=== PATIENT | male | born 1955 | race African-American/Black ===

== ENCOUNTER 2019-07-15 04:45 | Inpatient (IN) | payer OTHER ==
--- OUTSIDE RECORDS SUMMARY | 2019-07-15 04:48 | XMS REPORT ---
:1955 [facility] [address] [place] [address] Care Team Providers Name Role Phone JIM SHEEHAN Primary Care Provider Unavailable MELYSSA POPE Unavailable Unavailable JIM SHEEHAN Unavailable Unavailable Problems This patient has no known problems. Allergies, Adverse Reactions, Alerts This patient has no known allergies or adverse reactions. Medications This patient has no known medications. Results Test Description Test Time Test Comments Text Results Atomic Results Result Comments Comprehensive Metabolic Panel 2019-02-07 21:16:53 Test Item Value Reference Range Comments Sodium Level (test code=Sodium Level) 140.0 mmol/L 135.0-145.0 Potassium Level (test code=Potassium Level) 4.5 mmol/L 3.5-5.1 Chloride Level (test code=Chloride Level) 102 mmol/L 98-105 CO2 (test code=CO2) 25 mmol/L 22-29 Anion Gap (test code=Anion Gap) 13 mmol/L 7-16 BUN (test code=BUN) 20.30 mg/dL 8.00-23.00 Creatinine Level (test code=Creatinine Level) 1.40 mg/dL 0.70-1.20 BUN/Creat Ratio (test code=BUN/Creat Ratio) 14 Glucose Level (test code=Glucose Level) 99 mg/dL 70-115 Calcium Level (test code=Calcium Level) 9.3 mg/dL 8.3-10.5 Alk Phos (test code=Alk Phos) 93 U/L 40-129 Bilirubin Total (test code=Bilirubin Total) 0.4 mg/dL 0.1-0.9 Albumin Level (test code=Albumin Level) 4.0 g/dL 3.5-5.2 Protein Total (test code=Protein Total) 7.3 g/dL 6.4-8.3 ALT (test code=ALT) 11 U/L 1-41 AST (test code=AST) 23 U/L 1-40 Globulin (test code=Globulin) 3.3 g/dL 2.9-3.1 A/G Ratio (test code=A/G Ratio) 1.2 ratio Comprehensive Metabolic [id number] 21:16:53 Test Item Value Reference Range Comments Sodium Level (test 140.0 mmol/L 135.0-145.0 code=Sodium Level) Potassium Level (test 4.5 mmol/L 3.5-5.1 code=Potassium Level) Chloride Level (test 102 mmol/L 98-105 code=Chloride Level) CO2 (test code=CO2) 25 mmol/L 22-29 Anion Gap (test 13 mmol/L 7-16 code=Anion Gap) BUN (test code=BUN) 20.30 mg/dL 8.00-23.00 Creatinine Level (test 1.40 mg/dL 0.70-1.20 code=Creatinine Level) BUN/Creat Ratio (test 14 code=BUN/Creat Ratio) Glucose Level (test 99 mg/dL 70-115 code=Glucose Level) Calcium Level (test 9.3 mg/dL 8.3-10.5 code=Calcium Level) Alk Phos (test code=Alk 93 U/L 40-129 Phos) Bilirubin Total (test 0.4 mg/dL 0.1-0.9 code=Bilirubin Total) Albumin Level (test 4.0 g/dL 3.5-5.2 code=Albumin Level) Protein Total (test 7.3 g/dL 6.4-8.3 code=Protein Total) ALT (test code=ALT) 11 U/L 1-41 AST (test code=AST) 23 U/L 1-40 Globulin (test 3.3 g/dL 2.9-3.1 code=Globulin) A/G Ratio (test code=A/G 1.2 ratio Ratio) eGFR AA (test code=eGFR >60 mL/min/1.73 m2 eGFR (estimated AA) Glomerular Filtration Rate) is an estimated value, calculated from the patient's serum creatinine using the MDRD equation. It is NOT the patient's actual GFR. The eGFR provides a more clinically useful measure of kidney disease than serum creatinine alone.This calculation takes sex and race into account, if the information is provided. If the race is not provided, and the patient is -[place], multiply by 1.212. If sex is not provided, and the patient is female, multiply by 0.742. Results for patients <18 years of age have not been validated by the MDRD study and should be interpreted with caution. eGFR Result Interpretation:eGFR > or=60 is in the Normal RangeeGFR < 60 may mean kidney diseaseeGFR < 15 may mean kidney failure Ranges recommended by the National Kidney Foundation, http://nkdep.nih.gov eGFR Non-AA (test 51.02 mL/min/1.73 eGFR (estimated code=eGFR Non-AA) m2 Glomerular Filtration Rate) is an estimated value, calculated from the patient's serum creatinine using the MDRD equation. It is NOT the patient's actual GFR. The eGFR provides a more clinically useful measure of kidney disease than serum creatinine alone.This calculation takes sex and race into account, if the information is provided. If the race is not provided, and the patient is -[place], multiply by 1.212. If sex is not provided, and the patient is female, multiply by 0.742. Results for patients <18 years of age have not been validated by the MDRD study and should be interpreted with caution. eGFR Result Interpretation:eGFR > or=60 is in the Normal RangeeGFR < 60 may mean kidney diseaseeGFR < 15 may mean kidney failure Ranges recommended by the National Kidney Foundation, http://nkdep.nih.gov Comprehensive Metabolic [id number] 21:16:53 Test Item Value Reference Range Comments Sodium Level (test 140.0 mmol/L 135.0-145.0 code=Sodium Level) Potassium Level (test 4.5 mmol/L 3.5-5.1 code=Potassium Level) Chloride Level (test 102 mmol/L 98-105 code=Chloride Level) CO2 (test code=CO2) 25 mmol/L 22-29 Anion Gap (test 13 mmol/L 7-16 code=Anion Gap) BUN (test code=BUN) 20.30 mg/dL 8.00-23.00 Creatinine Level (test 1.40 mg/dL 0.70-1.20 code=Creatinine Level) BUN/Creat Ratio (test 14 code=BUN/Creat Ratio) Glucose Level (test 99 mg/dL 70-115 code=Glucose Level) Calcium Level (test 9.3 mg/dL 8.3-10.5 code=Calcium Level) Alk Phos (test code=Alk 93 U/L 40-129 Phos) Bilirubin Total (test 0.4 mg/dL 0.1-0.9 code=Bilirubin Total) Albumin Level (test 4.0 g/dL 3.5-5.2 code=Albumin Level) Protein Total (test 7.3 g/dL 6.4-8.3 code=Protein Total) ALT (test code=ALT) 11 U/L 1-41 AST (test code=AST) 23 U/L 1-40 Globulin (test 3.3 g/dL 2.9-3.1 code=Globulin) A/G Ratio (test code=A/G 1.2 ratio Ratio) eGFR AA (test code=eGFR >60 mL/min/1.73 m2 eGFR (estimated AA) Glomerular Filtration Rate) is an estimated value, calculated from the patient's serum creatinine using the MDRD equation. It is NOT the patient's actual GFR. The eGFR provides a more clinically useful measure of kidney disease than serum creatinine alone.This calculation takes sex and race into account, if the information is provided. If the race is not provided, and the patient is -[place], multiply by 1.212. If sex is not provided, and the patient is female, multiply by 0.742. Results for patients <18 years of age have not been validated by the MDRD study and should be interpreted with caution. eGFR Result Interpretation:eGFR > or=60 is in the Normal RangeeGFR < 60 may mean kidney diseaseeGFR < 15 may mean kidney failure Ranges recommended by the National Kidney Foundation, http://nkdep.nih.gov eGFR Non-AA (test 51.02 mL/min/1.73 eGFR (estimated code=eGFR Non-AA) m2 Glomerular Filtration Rate) is an estimated value, calculated from the patient's serum creatinine using the MDRD equation. It is NOT the patient's actual GFR. The eGFR provides a more clinically useful measure of kidney disease than serum creatinine alone.This calculation takes sex and race into account, if the information is provided. If the race is not provided, and the patient is -[place], multiply by 1.212. If sex is not provided, and the patient is female, multiply by 0.742. Results for patients <18 years of age have not been validated by the MDRD study and should be interpreted with caution. eGFR Result Interpretation:eGFR > or=60 is in the Normal RangeeGFR < 60 may mean kidney diseaseeGFR < 15 may mean kidney failure Ranges recommended by the National Kidney Foundation, http://nkdep.nih.gov Comprehensive Metabolic [id number] 23:03:04 Test Item Value Reference Range Comments Sodium Level (test code=Sodium Level) 142.0 mmol/L 135.0-145.0 Potassium Level (test code=Potassium Level) 4.6 mmol/L 3.5-5.1 Chloride Level (test code=Chloride Level) 103 mmol/L 98-105 CO2 (test code=CO2) 27 mmol/L 22-29 Anion Gap (test code=Anion Gap) 12 mmol/L 7-16 BUN (test code=BUN) 15.60 mg/dL 8.00-23.00 Creatinine Level (test code=Creatinine Level) 1.30 mg/dL 0.70-1.20 BUN/Creat Ratio (test code=BUN/Creat Ratio) 12 Glucose Level (test code=Glucose Level) 93 mg/dL 70-115 Calcium Level (test code=Calcium Level) 9.7 mg/dL 8.3-10.5 Alk Phos (test code=Alk Phos) 94 U/L 40-129 Bilirubin Total (test code=Bilirubin Total) 0.3 mg/dL 0.1-0.9 Albumin Level (test code=Albumin Level) 4.5 g/dL 3.5-5.2 Protein Total (test code=Protein Total) 7.6 g/dL 6.4-8.3 ALT (test code=ALT) 10 U/L 1-41 AST (test code=AST) 18 U/L 1-40 Globulin (test code=Globulin) 3.1 g/dL 2.9-3.1 A/G Ratio (test code=A/G Ratio) 1.5 ratio Comprehensive Metabolic [id number] 23:03:04 Test Item Value Reference Range Comments Sodium Level (test 142.0 mmol/L 135.0-145.0 code=Sodium Level) Potassium Level (test 4.6 mmol/L 3.5-5.1 code=Potassium Level) Chloride Level (test 103 mmol/L 98-105 code=Chloride Level) CO2 (test code=CO2) 27 mmol/L 22-29 Anion Gap (test 12 mmol/L 7-16 code=Anion Gap) BUN (test code=BUN) 15.60 mg/dL 8.00-23.00 Creatinine Level (test 1.30 mg/dL 0.70-1.20 code=Creatinine Level) BUN/Creat Ratio (test 12 code=BUN/Creat Ratio) Glucose Level (test 93 mg/dL 70-115 code=Glucose Level) Calcium Level (test 9.7 mg/dL 8.3-10.5 code=Calcium Level) Alk Phos (test code=Alk 94 U/L 40-129 Phos) Bilirubin Total (test 0.3 mg/dL 0.1-0.9 code=Bilirubin Total) Albumin Level (test 4.5 g/dL 3.5-5.2 code=Albumin Level) Protein Total (test 7.6 g/dL 6.4-8.3 code=Protein Total) ALT (test code=ALT) 10 U/L 1-41 AST (test code=AST) 18 U/L 1-40 Globulin (test 3.1 g/dL 2.9-3.1 code=Globulin) A/G Ratio (test code=A/G 1.5 ratio Ratio) eGFR AA (test code=eGFR >60 mL/min/1.73 m2 eGFR (estimated AA) Glomerular Filtration Rate) is an estimated value, calculated from the patient's serum creatinine using the MDRD equation. It is NOT the patient's actual GFR. The eGFR provides a more clinically useful measure of kidney disease than serum creatinine alone.This calculation takes sex and race into account, if the information is provided. If the race is not provided, and the patient is -[place], multiply by 1.212. If sex is not provided, and the patient is female, multiply by 0.742. Results for patients <18 years of age have not been validated by the MDRD study and should be interpreted with caution. eGFR Result Interpretation:eGFR > or=60 is in the Normal RangeeGFR < 60 may mean kidney diseaseeGFR < 15 may mean kidney failure Ranges recommended by the National Kidney Foundation, http://nkdep.nih.gov Lipid [id number] 23:03:04 Test Item Value Reference Range Comments Cholesterol Total (test 193 mg/dL 0-200 RISK OF HEART DISEASEPublished code=Cholesterol Total) by [place] [employer] Analyte Optimal Borderline Increased RiskCHOL <200 200-239 >240TRIG <150 150-199 >200HDL Male >60 <40HDL Female >60 <50LDL <100 130-159 >160LDL Near optimal is 100-129 Triglycerides (test 91 mg/dL 9-200 code=Triglycerides) HDL (test code=HDL) 81 mg/dL 40-60 LDL (test code=LDL) 94 mg/dL 0-130 The equation being used in this calculation is LDL=(Chol - HDL) - (Trig / 5) The equation being used in this calculation is LDL=(Chol - HDL) - (Trig / 5) VLDL (test code=VLDL) 18 mg/dL 5-40 The equation being used in this calculation is VLDL=Trig / 5 The equation being used in this calculation is VLDL=Trig / 5 Chol/HDL (test 2.4 ratio 0.0-5.0 code=Chol/HDL) LDL/HDL Ratio (test 1 The equation being used in this code=LDL/HDL Ratio) calculation is LDL/HDL Ratio=LDL Calc/HDL Chol The equation being used in this calculation is LDL/HDL Ratio=LDL Calc/HDL Chol Thyroid Stimulating [id number] 23:03:04 Test Item Value Reference Range Comments TSH (test code=TSH) 0.848 mIU/mL 0.270-4.200 Pro B Natriuretic [id number] 23:03:04 Test Item Value Reference Range Comments NT-proBNP (test code=NT-proBNP) 1591 pg/mL 0-124 Comprehensive Metabolic [id number] 23:03:04 Test Item Value Reference Range Comments Sodium Level (test 142.0 mmol/L 135.0-145.0 code=Sodium Level) Potassium Level (test 4.6 mmol/L 3.5-5.1 code=Potassium Level) Chloride Level (test 103 mmol/L 98-105 code=Chloride Level) CO2 (test code=CO2) 27 mmol/L 22-29 Anion Gap (test 12 mmol/L 7-16 code=Anion Gap) BUN (test code=BUN) 15.60 mg/dL 8.00-23.00 Creatinine Level (test 1.30 mg/dL 0.70-1.20 code=Creatinine Level) BUN/Creat Ratio (test 12 code=BUN/Creat Ratio) Glucose Level (test 93 mg/dL 70-115 code=Glucose Level) Calcium Level (test 9.7 mg/dL 8.3-10.5 code=Calcium Level) Alk Phos (test code=Alk 94 U/L 40-129 Phos) Bilirubin Total (test 0.3 mg/dL 0.1-0.9 code=Bilirubin Total) Albumin Level (test 4.5 g/dL 3.5-5.2 code=Albumin Level) Protein Total (test 7.6 g/dL 6.4-8.3 code=Protein Total) ALT (test code=ALT) 10 U/L 1-41 AST (test code=AST) 18 U/L 1-40 Globulin (test 3.1 g/dL 2.9-3.1 code=Globulin) A/G Ratio (test code=A/G 1.5 ratio Ratio) eGFR AA (test code=eGFR >60 mL/min/1.73 m2 eGFR (estimated AA) Glomerular Filtration Rate) is an estimated value, calculated from the patient's serum creatinine using the MDRD equation. It is NOT the patient's actual GFR. The eGFR provides a more clinically useful measure of kidney disease than serum creatinine alone.This calculation takes sex and race into account, if the information is provided. If the race is not provided, and the patient is -[place], multiply by 1.212. If sex is not provided, and the patient is female, multiply by 0.742. Results for patients <18 years of age have not been validated by the MDRD study and should be interpreted with caution. eGFR Result Interpretation:eGFR > or=60 is in the Normal RangeeGFR < 60 may mean kidney diseaseeGFR < 15 may mean kidney failure Ranges recommended by the National Kidney Foundation, http://nkdep.nih.gov eGFR Non-AA (test 55.58 mL/min/1.73 eGFR (estimated code=eGFR Non-AA) m2 Glomerular Filtration Rate) is an estimated value, calculated from the patient's serum creatinine using the MDRD equation. It is NOT the patient's actual GFR. The eGFR provides a more clinically useful measure of kidney disease than serum creatinine alone.This calculation takes sex and race into account, if the information is provided. If the race is not provided, and the patient is -[place], multiply by 1.212. If sex is not provided, and the patient is female, multiply by 0.742. Results for patients <18 years of age have not been validated by the MDRD study and should be interpreted with caution. eGFR Result Interpretation:eGFR > or=60 is in the Normal RangeeGFR < 60 may mean kidney diseaseeGFR < 15 may mean kidney failure Ranges recommended by the National Kidney Foundation, http://nkdep.nih.gov Erythrocyte Sedimentation Rate [id number] 22:26:53 Test Item Value Reference Range Comments ESR STAT (test code=ESR STAT) 11 mm/hr 0-9 Complete Blood Count with [id number] 22:14:43 Test Item Value Reference Range Comments WBC (test code=WBC) 6.9 x10 4.4-10.5 RBC (test code=RBC) 4.56 x10 4.10-5.70 Hgb (test code=Hgb) 14.3 g/dL 13.4-17.4 MCV (test code=MCV) 94.50 fL 80.00-100.00 Hct (test code=Hct) 43.1 % 38.7-52.0 MCHC (test code=MCHC) 33.20 g/dL 32.00-37.50 RDW CV (test code=RDW CV) 15.4 % 11.5-14.5 MCH (test code=MCH) 31.4 pg 27.0-32.5 Platelets (test 280.0 x10 140.0-440.0 code=Platelets) MPV (test code=MPV) 9.4 fL Slide Review (test code=Slide Auto Auto Result created by Review) [id number]_[id number]_AUTO nRBC (test code=nRBC) 0 NRBC Abs (test code=NRBC Abs) 0.00 x10 IPF (test code=IPF) 0 % Automated [id number] 22:14:43 Test Item Value Reference Range Comments Neutro Auto (test code=Neutro Auto) 41.7 % 36.0-70.0 Lymph Auto (test code=Lymph Auto) 43.9 % 12.0-44.0 Story Auto (test code=Story Auto) 6.5 % 0.0-11.0 Eos, Auto (test code=Eos, Auto) 6.6 % 0.0-7.0 Basophil Auto (test code=Basophil Auto) 1.0 % 0.0-2.0 Neutro Absolute (test code=Neutro Absolute) 2.9 x10 1.6-7.4 Lymph Absolute (test code=Lymph Absolute) 3.04 x10 .50-4.60 Story Absolute (test code=Story Absolute) .45 x10 .00-1.20 Eos Absolute (test code=Eos Absolute) 0.46 x10 0.00-0.74 Baso Absolute (test code=Baso Absolute) 0.07 x10 0.00-0.21 IG [id number] 22:14:43 Test Item Value Reference Range Comments IG (test code=IG) 0.3 % 0.0-5.0 IG Abs (test code=IG Abs) 0 x10 RAD, CHEST, 2 [id number] 13:44:00Reason for exam:->SmokerFINAL REPORT TECHNIQUE: 2 views of the chest. COMPARISON: None FINDINGS: Thecardiac silhouette is within normal limits. Thoracic aorta is ectatic. Lungs are clear. No acute skeletal abnormality. Left-sided pacing device noted. IMPRESSION: No acute cardiopulmonary disease. Signed: Kyle Rogers MDReport Verified Date/Time: 09/08/2017 13:44:07 Reading Location: [facility] Radiology Reading Room Electronically signed by: KYLE ROGERS M.D. on 01:44 PMCBC W/PLT COUNT & AUTO [id number] 12:29:00 Test Item Value Reference Range Comments WHITE BLOOD CELL COUNT (BEAKER) (test tipo=205) 5.5 K/ L 4.0-10.0 RED BLOOD CELL COUNT (BEAKER) (test swob=940) 4.66 M/ L 4.20-5.80 HEMOGLOBIN (BEAKER) (test gthy=999) 14.6 GM/DL 13.0-16.8 HEMATOCRIT (BEAKER) (test fxbq=863) 43.7 % 40.0-50.0 MEAN CORPUSCULAR VOLUME (BEAKER) (test qdlw=648) 93.6 fL 82.0-98.0 MEAN CORPUSCULAR HEMOGLOBIN (BEAKER) (test 31.3 pg 27.0-33.0 vgbq=827) MEAN CORPUSCULAR HEMOGLOBIN CONC (BEAKER) (test 33.4 GM/DL 32.0-36.0 qlqu=004) RED CELL DISTRIBUTION WIDTH (BEAKER) (test 15.4 % 10.3-14.2 sjpf=851) PLATELET COUNT (BEAKER) (test aync=772) 273 K/CU MM 150-430 MEAN PLATELET VOLUME (BEAKER) (test jzbn=961) 6.4 fL 6.5-10.5 NUCLEATED RED BLOOD CELLS (BEAKER) (test 0 /100 WBC 0-0 naxo=060) (MANUAL DIFFERENTIAL)2017-09-08 12:29:00 Test Item Value Reference Range Comments NEUTROPHILS - REL (DIFF) (BEAKER) (test qkhv=6262) 19 % LYMPHOCYTES - REL (DIFF) (BEAKER) (test bdxu=8821) 72 % EOSINOPHILS - REL (DIFF) (BEAKER) (test vuze=5859) 9 % NEUTROPHILS - ABS (DIFF) (BEAKER) (test iajs=1199) 1.05 K/ L 1.80-8.00 LYMPHOCYTES - ABS (DIFF) (BEAKER) (test abpe=4310) 3.96 K/ L 1.48-4.50 EOSINOPHILS - ABS (DIFF) (BEAKER) (test zxhv=6792) 0.50 K/ L 0.00-0.50 TOTAL COUNTED (BEAKER) (test aciu=0236) 100 WBC MORPHOLOGY (BEAKER) (test pbgo=181) Normal PLT MORPHOLOGY (BEAKER) (test uxhb=961) Normal RBC MORPHOLOGY (BEAKER) (test qmtz=286) Normal COMPREHENSIVE METABOLIC [id number] 12:29:00 Test Item Value Reference Range Comments TOTAL PROTEIN (BEAKER) 6.8 gm/dL 6.0-8.5 (test yhnz=399) ALBUMIN (BEAKER) (test 3.7 g/dL 3.5-5.0 iuij=8117) ALKALINE PHOSPHATASE 83 U/L 30-115 (BEAKER) (test dibz=680) BILIRUBIN TOTAL (BEAKER) 0.5 mg/dL 0.1-1.2 (test rhap=513) SODIUM (BEAKER) (test 140 meq/L 135-148 ttxz=660) POTASSIUM (BEAKER) (test 4.2 meq/L 3.6-5.5 drpy=962) CHLORIDE (BEAKER) (test 104 meq/L 98-106 wrno=786) CO2 (BEAKER) (test 30 meq/L 20-29 mvtd=876) BLOOD UREA NITROGEN 13 mg/dL 10-26 (BEAKER) (test rvmw=047) CREATININE (BEAKER) (test 1.10 mg/dL 0.50-1.20 qnur=461) GLUCOSE RANDOM (BEAKER) 87 mg/dL 70-110 (test kemf=105) CALCIUM (BEAKER) (test 8.9 mg/dL 8.5-10.5 jcpg=814) AST (SGOT) (BEAKER) (test 17 U/L 5-40 kinq=044) ALT (SGPT) (BEAKER) (test 15 U/L 5-50 dsjj=228) EGFR (BEAKER) (test 82 mL/min/1.73 sq m ESTIMATED GFR IS NOT rwrb=3204) ACCURATE CREATININE CLEARANCE IN PREDICTING GLOMERULAR FILTRATION RATE. ESTIMATED GFR IS NOT APPLICABLE FOR DIALYSIS PATIENTS. Sed [facility]2017-02-27 04:53:00 Test Item Value Reference Range Comments ESR (test code=HESR) 12 mm/Hr 0-9 CBC with [id number] 04:12:00 Test Item Value Reference Range Comments WBC (test code=WBC) 5.0 K/cumm 4.4-10.5 RBC (test code=RBC) 4.05 M/cumm 4.10-5.70 Hemoglobin (test code=HGB) 12.5 gm/dL 13.4-17.4 Hematocrit (test code=HCT) 41.1 % 38.7-52.0 MCV (test code=MCV) 101.4 fL 80-100 MCH (test code=MCH) 30.9 pg 27.0-32.5 MCHC (test code=MCHC) 30.4 g/dL 32.0-37.5 RDW (test code=RDW) 15.0 % 11.5-14.5 Platelet Count (test code=PLTCT) 214 K/cumm 140-440 MPV (test code=MPV) 10.4 fL Diff Method (test code=DIFFM) Manual Neutrophil (test code=NEUT) 37.0 % 36-70 Lymphocyte (test code=LYMPH) 55.0 % 12-44 Monocyte (test code=MONO) 6.0 % 0-11 Eosinophil (test code=EOS) 2.0 % 0-7 Neutro Abs (test code=ANEUT) 1.9 K/cumm 1.6-7.4 Lymph Abs (test code=ALYMPH) 2.8 K/cumm 0.5-4.6 Story Abs (test code=AMONO) 0.3 K/cumm 0.0-1.2 Eos Abs (test code=AEOS) 0.10 K/cumm 0.00-0.74 RBC Morphology (test Not Indicated code=RBCMRPH) Platelet Est (test code=PLTEST) Adequate Platelets on Smear Lipid [id number] 03:06:00 Test Item Value Reference Range Comments Cholesterol (test 200 mg/dL 0-200 code=CHOL) Triglycerides (test 104 mg/dL 9-200 code=TRIG) HDL (test code=HDL) 66 mg/dL 40-60 Chol/HDL (test 3.0 Ratio 0.0-5.0 code=CHOLPHDL) LDL, Calculated (test 113 0-130 (NOTE)RISK OF HEART code=LDLC) DISEASEPublished by [place] Heart AssociationAnalyte Optimal Boderline Increased RiskCHOL <200 200-239 >240TRIG <150 150-199 >200HDL Male: >60 <40HDL Female: >60 <50LDL <100 130-159 >160LDL NEAR OPTIMAL IS 100-129 VLDL (test code=VLDL) 21 mg/dL 5-40 LDL/HDL (test code=LDLPHDL) 2 Comprehensive Metabolic [id number] 03:06:00 Test Item Value Reference Range Comments Sodium (test code=NA) 142 mmol/L 135-145 Potassium (test code=K) 3.9 mmol/L 3.5-5.1 Chloride (test code=CL) 103 mmol/L 98-105 Carbon Dioxide (test 28 mmol/L 22-29 code=CO2) Glucose (test code=GLU) 64 mg/dL 70-115 Blood Urea Nitrogen (test 13 mg/dL 8-23 code=BUN) Creatinine (test 1.3 mg/dL 0.7-1.2 code=CREAT) Calcium (test code=CA) 8.8 mg/dL 8.3-10.5 Prot Total (test code=TP) 6.5 g/dL 6.4-8.3 Albumin (test code=ALB) 3.6 g/dL 3.5-5.2 A/G Ratio (test 1.2 Ratio code=AGRATIO) Globulin (test code=GLOB) 2.9 2.9-3.1 Bili Total (test 0.5 mg/dL 0.1-0.9 code=TBIL) Alk Phos (test 105 U/L 40-129 code=APHOS) AST (test code=AST) 29 U/L 1-40 ALT (test code=ALT) 34 U/L 1-41 BUN/Creatinine Ratio 10.0 (test code=BCRATIO) Anion Gap (test 11 mmol/L 7-16 code=AGAP) Estimated GFR (test 59 mL/min/1.73m2 eGFR (estimated Glomerular code=GFR) Filtration Rate) is an estimated value,calculated from the patient's serum creatinine using the MDRD equation.It is NOT the patient's actual GFR. The eGFR provides a more clinicallyuseful measure of kidney disease than serum creatinine alone.This calculation takes sex and race into account, if the informationis provided. If the race is not provided, and the patient isAfrican-[place], multiply by 1.212. If sex is not provided, and thepatient is female, multiply by 0.742. Results for patients <18 years ofage have not been validated by the MDRD study and should be interpretedwith caution.eGFR Result Interpretation:eGFR > or=60 is in the Normal RangeeGFR < 60 may mean kidney diseaseeGFR < 15 may mean kidney failureRanges recommended by the National Kidney Foundation,http://nkdep.nih .gov Thyroid Stimulating Hormone (TSH)2017-02-27 02:43:00 Test Item Value Reference Range Comments TSH (test code=TSH) 1.40 mIU/mL 0.270-4.200 [id number] 02:43:00 Test Item Value Reference Range Comments NT ProBnp (test code=PBNP) 6296 pg/mL 0-124
[2019-07-15] MEDS ORDERED: ALBUTEROL 2.5 MG/3 ML NEB SOL ONE (05:03)
[2019-07-15] MEDS ORDERED: IPRATROPIUM BROM 0.5MG/2.5ML ONE (05:03)
[2019-07-15] MEDS ORDERED: METHYLPREDNISOLONE 125 MG INJ ONE (05:11)
[2019-07-15 05:30] LABS: Absolute Lymphocytes (CBC) 1.7 K/uL (0.7-4.9); Basophils % 0.5 % (0-1.3); Hematocrit 38.4 % (39.6-49.0); Lymphocytes % 19.4 % (15.3-44.8); MPV 8.1 fL (7.6-11.3); RBC Red Blood Cell Count 4.11 M/uL (4.33-5.43)
[2019-07-15 05:32] LABS: Protime INR 0.98
[2019-07-15] MEDS ORDERED: NITROGLYCERIN/D5W 50 MG/250 ML BTL IV ONE ×2 (05:48→09:34)
[2019-07-15 05:53] LABS: Albumin 3.4 g/dL (3.4-5.0); Bilirubin Direct 0.2 mg/dL (0-0.2); Bilirubin Total 0.6 mg/dL (0.2-1.0); Potassium 3.6 mmol/L (3.5-5.1); Protein, Total 7.3 g/dL (6.4-8.2); Troponin (Emerg Dept Use Only) 0.14 ng/mL (0.0-0.045)
[2019-07-15 06:36] LABS: Arterial Blood Carboxyhemoglob 2.1 % (0-1.5); Blood Gas Oxyhemoglobin 96.5 % (94-97); Blood O2 Saturation 99.4 % (92-98.5)
[2019-07-15] MEDS ORDERED: NA CHLORIDE 0.9% 250 ML ONE ×2 (06:41→06:48)
[2019-07-15] MEDS ORDERED: VANCOMYCIN 1 GM/VIAL ONE (06:48)
[2019-07-15] MEDS ORDERED: Levofloxacin 750mg IV 750 MG/150 ML BAG IV ONE (06:48)
[2019-07-15] MEDS ORDERED: PIPER/TAZO/NS 3.375gm 3.375 GM/100 ML BAG ONE (06:49)
--- NOTE | 2019-07-15 07:02 | ER ---
Nurse's Notes [facility] Name: Edouard Marie Age: 64 yrs Sex: Male : 1955 Arrival Date: 07/15/2019 Time: 04:46 Bed 30 Private MD: Diagnosis: Respiratory distress;Multifocal pneumonia;Hypoxia;Acute decompensated CHF exacerbation Presentation: 07/15 05:04 Presenting complaint: Patient states: he has been having difficulty breathing for the bb last several times, symptoms are worsening pt coughed up blood at home and did an albuterol breathing treatment before he came to the ED. Transition of care: patient was not received from another setting of care. Onset of symptoms was July 15, 2019. Risk Assessment: Do you want to hurt yourself or someone else? Patient reports no desire to harm self or others. Initial Sepsis Screen: Does the patient meet any 2 criteria? Yes Does the patient have a suspected source of infection? Yes: Productive cough/pneumonia If YES to both, name of provider notified: Gunnar Harper MD. Care prior to arrival: None. 05:04 Method Of Arrival: Ambulatory bb 05:04 Acuity: ERUM 2 bb 05:08 Note RT called and at bedside for possible Bipap. bb Historical: - Allergies: 05:07 No Known Allergies; bb - Home Meds: 05:07 lisinopril 20 mg Oral tab 1 tab once daily [Active]; triamterene-hydrochlorothiazid bb 37.5-25 mg Oral tab 1 tab once daily [Active]; - PMHx: 05:07 CHF; Hypertension; bb - PSHx: 05:07 L rotator cuff; defibrillator; bb - Immunization history:: Adult Immunizations up to date. - Coronavirus screen:: The patient has NOT traveled to [place] in the past 14 days. Proceed with normal triage process as indicated. - Social history:: Smoking status: Patient reports the use of cigarette tobacco products, smokes one pack cigarettes per day. - Ebola Screening: : No symptoms or risks identified at this time. Screenin:18 Abuse screen: Denies threats or abuse. Denies injuries from another. Nutritional rr5 screening: No deficits noted. Tuberculosis screening: No symptoms or risk factors identified. Fall Risk IV access (20 points). Total Evangelista Fall Scale indicates No Risk (0-24 pts). Assessment: 05:10 General: Appears distressed, uncomfortable, ill, Behavior is cooperative, anxious. rr5 05:10 Pain: Denies pain. Neuro: Level of Consciousness is awake, alert, obeys commands, rr5 Oriented to person, place, time, situation, Appropriate for age. Cardiovascular: Capillary refill < 3 seconds Patient's skin is warm and dry. Rhythm is undetermined cannot analyze ST. Respiratory: Reports shortness of breath cough that is productive, with blood Airway is patent Respiratory effort is labored, Respiratory pattern is tachypnea Breath sounds with rhonchi bilaterally. Onset: The symptoms/episode began/occurred gradually, the patient has moderate shortness of breath. GI: No signs and/or symptoms were reported involving the gastrointestinal system. : No signs and/or symptoms were reported regarding the genitourinary system. EENT: hard of hearing. Derm: Skin is intact, is fragile, is thin, Skin temperature is warm. Musculoskeletal: Circulation, motion, and sensation intact. Capillary refill < 3 seconds. 05:30 Reassessment: Dr Harper notified of pt's blood pressure, RT notified for Bipap bb placement. 05:41 Reassessment: D dimer 1397 willis from laboratory called. ED provider aware. rr5 05:45 Reassessment: positive blood in phlegm seen by ED provider.send to CT scan by stretcher rr5 for CT PE angio assisted by ED provider and charge nurse. changed oxygen to non re breather mask at 15 liters/min. 06:05 Reassessment: back from CT scan, hooked to BIPAP by RT. BP rechecked ED provider aware rr5 with order to give nitroglycerin 400mcg/IV= 2ml given. 06:30 Reassessment: latest BP 170/107 ED provider aware decreased nitroglycerin drip to rr5 25mcg/min. target systolic pressure 160-170. 06:55 Reassessment: Patient appears in no apparent distress at this time. Patient is alert, rr5 oriented x 3, equal unlabored respirations, skin warm/dry/pink. resting eyes closed breathing spontaneously on BIPAP, no complaints made. 07:05 Reassessment: received pt from PAULIE Downs, pt placed in isolation room for suspected em TB, family at bedside with mask on. 07:50 General: Appears in no apparent distress. comfortable, ill, slender, Behavior is calm, em cooperative, Denies fever. Pain: Denies pain. Neuro: Level of Consciousness is awake, alert, obeys commands, Oriented to person, place, time, situation, Appropriate for age. Cardiovascular: Heart tones S1 S2 present Capillary refill < 3 seconds Patient's skin is warm and dry. Rhythm is sinus rhythm. Respiratory: Airway is patent Respiratory effort is even, unlabored, Respiratory pattern is regular, symmetrical, Breath sounds with rhonchi bilaterally. GI: Abdomen is flat. Derm: Skin is intact, is healthy with good turgor, Skin is pink, warm \T\ dry. Musculoskeletal: Range of motion: intact in all extremities. 08:01 Reassessment: Patient appears in no apparent distress at this time. Dr. Jalloh at em bedside. 10:29 Reassessment: Patient appears in no apparent distress at this time. Patient and/or em family updated on plan of care and expected duration. Pain level reassessed. Patient is alert, oriented x 3, equal unlabored respirations, skin warm/dry/pink. Patient denies pain at this time. Patient states feeling better. 10:40 Reassessment: nurse unavailable to take report at this time. em 10:50 Reassessment: pt reports he needs to have a BM, assisted to bedside commode. em 11:10 Reassessment: unable to give report at this time, ICU nurse states they are going to em get a floor pt that has been upgraded to ICU and another nurse will be receiving that pt at unknown time, ER director and charge nurse notified. 11:58 Reassessment: Patient appears in no apparent distress at this time. unable to give em report at this time, nurse reports she is medicating patient then will call to receive report, charge nurse notified. 12:43 Reassessment: report called to PAULIE Lacy, senior data warehouse architect notified and will take em patient to ICU. Vital Signs: 05:07 BP 124 / 98; Pulse 141; Resp 28 S; Temp 97.5(A); Pulse Ox 85% on R/A; Weight 90.72 kg bb (R); Height 6 ft. 2 in. (187.96 cm) (R); Pain 4/10; 05:29 BP 209 / 139; Pulse 100; Resp 30; Pulse Ox 93% on 4 lpm NC; rr5 05:50 BP 195 / 136; Pulse 120; Resp 34; Pulse Ox 95% on 4 lpm NC; rr5 06:08 BP 219 / 131; Pulse 127; Resp 34; Pulse Ox 95% on 15% Non-rebreather mask; rr5 06:23 BP 170 / 107; Pulse 89 RA; Resp 27 S; Pulse Ox 100% on 70% BiPAP; rr5 07:15 BP 186 / 119; Pulse 77 MON; Resp 26; Pulse Ox 100% on BiPAP; sg 07:30 BP 182 / 113; Pulse 75 MON; Resp 23; Pulse Ox 100% on BiPAP; sg 07:45 BP 185 / 108; Pulse 76; Resp 17; Pulse Ox 100% ; sg 07:55 BP 168 / 116; Pulse 76 MON; Resp 20; Pulse Ox 100% on BiPAP; sg 08:04 BP 164 / 109; Pulse 75; Resp 18; Pulse Ox 100% on BiPAP; Pain 0/10; em 08:15 BP 166 / 119; Pulse 73; Resp 22 S; Pulse Ox 100% on BiPAP; sg 08:30 BP 176 / 124; Pulse 78 MON; Resp 23 S; Pulse Ox 100% on BiPAP; sg 09:00 BP 153 / 111; Pulse 86 MON; Resp 22 S; Pulse Ox 100% on BiPAP; sg 09:15 BP 161 / 111; Pulse 78; Resp 21 S; Pulse Ox 99% on BiPAP; aj1 09:30 BP 157 / 113; Pulse 81; Resp 24 S; Pulse Ox 100% on BiPAP; aj1 09:45 BP 156 / 124; Pulse 87; Resp 20; Pulse Ox 100% on BiPAP; aj1 10:15 BP 164 / 120; Pulse 76; Resp 22; Pulse Ox 100% on BiPAP; Pain 0/10; aj1 12:00 BP 160 / 116; Pulse 77; Resp 22 S; Pulse Ox 100% on BiPAP; Pain 0/10; em 05:07 Body Mass Index 25.68 (90.72 kg, 187.96 cm) bb ED Course: 04:46 Patient arrived in ED. cl3 04:58 Gunnar Harper MD is Attending Physician. ps1 05:02 Himanshu Gaxiola RN is Primary Nurse. rr5 05:06 Triage completed. bb 05:07 Arm band placed on Patient placed in an exam room, on a stretcher, on oxygen, on bb child monitor, on pulse oximetry. EKG completed in triage. Results shown to MD. 05:10 Patient has correct armband on for positive identification. Placed in gown. Bed in low rr5 position. Call light in reach. Side rails up X2. 05:10 playground monitor on. Pulse ox on. NIBP on. Warm blanket given. Pillow given. Head of bed rr5 elevated. 05:10 Inserted saline lock: 18 gauge in left antecubital area, using aseptic technique. Blood rr5 collected. 05:10 First set of blood cultures drawn by me. rr5 05:11 Oxygen administration via nasal cannula \T\ 4L/min Response to oxygen therapy: symptoms rr5 improved. 05:14 Missed attempt(s): 18 gauge wrist. forearm. Bleeding controlled, band aid applied, ds4 catheter tip intact. 05:35 CXR XRAY In Process Unspecified. EDMS 05:48 Radiology exam delayed due to lab results not completed at this time. (BUN/Creatinine). eh 05:50 Oxygen administration via non-rebreather mask \T\ 15L/min Response to oxygen therapy: rr5 symptoms improved. 06:15 CT Chest For PE Angio In Process Unspecified. EDMS 06:22 Inserted saline lock: 20 gauge in right antecubital area, using aseptic technique. oe 06:30 ABG drawn. by RT staff, on BIPAP. rr5 06:55 quantiferon TB test extracted and sent. rr5 07:00 Pedro Jalloh MD is Hospitalizing Provider. ps1 07:55 Admitting physician to see patient. at bedside with pt and pt family. sg 10:46 No provider procedures requiring assistance completed. Patient admitted, IV remains in em place. Administered Medications: 05:15 Drug: SOLU-Medrol 125 mg Route: IVP; Site: left antecubital; rr5 06:18 Follow up: Response: No adverse reaction rr5 05:49 Drug: Nitroglycerin 400 mcg Route: IV; Rate: bolus; Site: left antecubital; rr5 06:50 Follow up: Response: No adverse reaction; Blood pressure is lowered; IV Status: rr5 Completed infusion; IV Intake: 2ml 05:50 Drug: Nitro Drip - (Nitroglycerin 50 mg, D5W 250 ml) Route: IV; Rate: 5 mcg/min; Site: rr5 left antecubital; 06:30 Follow up: Response: Blood pressure is lowered; Rate change 25 mcg/min rr5 07:45 Follow up: BP 185 / 108; Pulse 76 bpm; Resp 17 bpm; Pulse Ox 100% ; Response: Blood sg pressure is lowered; Rate change 30 mcg/min 12:53 Follow up: IV Status: Infusion continued upon admission em 06:08 Drug: Nitroglycerin 400 mcg {Note: bp 219/131 mmHg.} Route: IV; Rate: bolus; Site: left rr5 antecubital; 07:15 Follow up: Response: Blood sugar is lowered; IV Status: Completed infusion; IV Intake: rr5 2ml 06:12 CANCELLED (Other Intervention Used): Nitroglycerin 0.4 mg Sublingual once; every five rr5 minute if needed x3 07:00 Drug: Zosyn 3.375 grams Route: IVPB; Infused Over: 60 mins; Site: right antecubital; rr5 07:45 Follow up: Response: No adverse reaction; IV Status: Completed infusion sg 07:57 Drug: LevaQUIN 750 mg Volume: 150 ml; Route: IVPB; Infused Over: 90 mins; Site: right em antecubital; 09:45 Follow up: IV Status: Completed infusion; IV Intake: 150ml em 09:44 Drug: vancoMYCIN 1 grams Route: IVPB; Infused Over: 2 hrs; Site: right antecubital; em 12:53 Follow up: IV Status: Completed infusion; IV Intake: 250ml em Intake: 06:50 IV: 2ml; Total: 2ml. rr5 07:15 IV: 2ml; Total: 4ml. rr5 09:45 IV: 150ml; Total: 154ml. em 12:53 IV: 250ml; Total: 404ml. em Outcome: 07:01 Decision to Hospitalize by Provider. ps1 12:37 Admitted to ICU accompanied by nurse, family with patient, via stretcher, room ICU 8, em with chart, Report called to PAULIE Lacy 12:37 Condition: good 12:37 Instructed on the need for admit, Demonstrated understanding of instructions. 13:05 Patient left the ED. em Signatures: Dispatcher [facility]igh[facility]asha Calhoun RN RN aj1 Luther Goodrich RN RN Herman Foreman Edgar, RN RN em Carolyn Kwan, RN RN Carlos Morton ds4 Garland Ricci Jonathon, RN RN jd3 Gunnar Harper MD MD ps1 Roque, Raymond RN RN rr5 Amalia Cedillo cl3 Corrections: (The following items were deleted from the chart) 07:19 06:55 Initial lab(s) drawn, by me, sent to lab. quantiferon TB test extracted and sent rr5 rr5 10:45 10:29 Reassessment: Patient appears in no apparent distress at this time. Patient em and/or family updated on plan of care and expected duration. Pain level reassessed. Patient is alert, oriented x 3, equal unlabored respirations, skin warm/dry/pink. Patient denies pain at this time. aj1 12:53 12:10 BP 69 / 49; Pulse 107bpm; em em 12:53 12:15 BP 77 / 45; Pulse 113bpm; em em 12:53 12:23 BP 74 / 51; Pulse 111bpm; em em 12:53 12:26 BP 80 / 55; Pulse 106bpm; em em 12:53 12:32 BP 81 / 63; Pulse 109bpm; em em
--- NOTE | 2019-07-15 07:02 | EDPHYS ---
Physician Documentation [facility] Name: Edouard Marie Age: 64 yrs Sex: Male : 1955 Arrival Date: 07/15/2019 Time: 04:46 Bed 30 Private MD: ED Physician Gunnar Harper HPI: 07/15 05:09 This 64 yrs old Black Male presents to ER via Ambulatory with complaints of Shortness ps1 Of Breath, Coughing Up blood. 05:09 difficulty breathing and coughing. At home coughed up blood. Had an episode of post ps1 tussive emesis. Hx CHF and defib. Smoker. Presenting is respiratory distress. Hypoxic on room air SPO2 85%. Reportedly smokes synthetic marijuana. No fever. Hx of cocaine abuse but stopped months ago. Symptoms started 2 days ago and progressively worse. . Historical: - Allergies: 05:07 No Known Allergies; bb - Home Meds: 05:07 lisinopril 20 mg Oral tab 1 tab once daily [Active]; triamterene-hydrochlorothiazid bb 37.5-25 mg Oral tab 1 tab once daily [Active]; - PMHx: 05:07 CHF; Hypertension; bb - PSHx: 05:07 L rotator cuff; defibrillator; bb - Immunization history:: Adult Immunizations up to date. - Coronavirus screen:: The patient has NOT traveled to [place] in the past 14 days. Proceed with normal triage process as indicated. - Social history:: Smoking status: Patient reports the use of cigarette tobacco products, smokes one pack cigarettes per day. - Ebola Screening: : No symptoms or risks identified at this time. ROS: 05:09 Constitutional: Negative for fever, chills, and weight loss, Eyes: Negative for injury, ps1 pain, redness, and discharge, Cardiovascular: Negative for chest pain, palpitations, and edema, Abdomen/GI: Negative for abdominal pain, nausea, vomiting, diarrhea, and constipation, MS/Extremity: Negative for injury and deformity, Skin: Negative for injury, rash, and discoloration, Neuro: Negative for headache, weakness, numbness, tingling, and seizure. 05:09 Respiratory: Positive for cough, shortness of breath. 07:01 Psych: Negative for anxiety, drug dependence, suicide gesture, suicidal ideation. ps1 Exam: 05:09 Constitutional: This is a well developed, well nourished patient who is awake, alert, ps1 and in no acute distress. Head/Face: Normocephalic, atraumatic. Eyes: Pupils equal round and reactive to light, extra-ocular motions intact. Lids and lashes normal. Conjunctiva and sclera are non-icteric and not injected. Chest/axilla: Normal chest wall appearance and motion. Nontender with no deformity. No lesions are appreciated. Abdomen/GI: Soft, non-tender, with normal bowel sounds. No distension or tympany. No guarding or rebound. No evidence of tenderness throughout. MS/ Extremity: Pulses equal, no cyanosis. Neurovascular intact. Full, normal range of motion. 05:09 Cardiovascular: Rate: tachycardic, Rhythm: regular, Pulses: no pulse deficits are appreciated. 05:09 Respiratory: moderate respiratory distress is noted, Respirations: labored breathing, Breath sounds: bronchial sounds. 07:01 Neuro: Awake and alert, GCS 15, oriented to person, place, time, and situation. ps1 Cranial nerves II-XII grossly intact. Sensory grossly intact. Psych: Awake, alert, with orientation to person, place and time. Behavior, mood, and affect are within normal limits. Vital Signs: 05:07 BP 124 / 98; Pulse 141; Resp 28 S; Temp 97.5(A); Pulse Ox 85% on R/A; Weight 90.72 kg bb (R); Height 6 ft. 2 in. (187.96 cm) (R); Pain 4/10; 05:29 BP 209 / 139; Pulse 100; Resp 30; Pulse Ox 93% on 4 lpm NC; rr5 05:50 BP 195 / 136; Pulse 120; Resp 34; Pulse Ox 95% on 4 lpm NC; rr5 06:08 BP 219 / 131; Pulse 127; Resp 34; Pulse Ox 95% on 15% Non-rebreather mask; rr5 06:23 BP 170 / 107; Pulse 89 RA; Resp 27 S; Pulse Ox 100% on 70% BiPAP; rr5 07:15 BP 186 / 119; Pulse 77 MON; Resp 26; Pulse Ox 100% on BiPAP; sg 07:30 BP 182 / 113; Pulse 75 MON; Resp 23; Pulse Ox 100% on BiPAP; sg 07:45 BP 185 / 108; Pulse 76; Resp 17; Pulse Ox 100% ; sg 07:55 BP 168 / 116; Pulse 76 MON; Resp 20; Pulse Ox 100% on BiPAP; sg 08:04 BP 164 / 109; Pulse 75; Resp 18; Pulse Ox 100% on BiPAP; Pain 0/10; em 08:15 BP 166 / 119; Pulse 73; Resp 22 S; Pulse Ox 100% on BiPAP; sg 08:30 BP 176 / 124; Pulse 78 MON; Resp 23 S; Pulse Ox 100% on BiPAP; sg 09:00 BP 153 / 111; Pulse 86 MON; Resp 22 S; Pulse Ox 100% on BiPAP; sg 09:15 BP 161 / 111; Pulse 78; Resp 21 S; Pulse Ox 99% on BiPAP; aj1 09:30 BP 157 / 113; Pulse 81; Resp 24 S; Pulse Ox 100% on BiPAP; aj1 09:45 BP 156 / 124; Pulse 87; Resp 20; Pulse Ox 100% on BiPAP; aj1 10:15 BP 164 / 120; Pulse 76; Resp 22; Pulse Ox 100% on BiPAP; Pain 0/10; aj1 12:00 BP 160 / 116; Pulse 77; Resp 22 S; Pulse Ox 100% on BiPAP; Pain 0/10; em 05:07 Body Mass Index 25.68 (90.72 kg, 187.96 cm) bb MDM: 05:01 Patient medically screened. ps1 06:46 Differential diagnosis: CHF exacerbation, Chronic Obstructive Pulmonary Disease ps1 pneumonia, pulmonary edema, Pulmonary Embolism Tuberculosis. Data reviewed: vital signs, nurses notes, lab test result(s), radiologic studies, and as a result, I will admit patient. ED course: 64 y/o M with hemoptysis and CHF. Additionally on further questioning has had cough for a while with 30 lb weight loss and night sweats. Concern for TB. CTA negative for PE with multifocal PNA. Started Vanc, Zosyn, Levaquin. Ordered QuantiFERON Gold test. Placed in negative pressure room. On BiPAP. Nitro gtt to BP goal 160 systolic. Plan for admission to ICU. Improved, still critical. . 07/15 04:59 Order name: Blood Culture Adult (2) ps1 07/15 04:59 Order name: CBC with Diff; Complete Time: 05:33 ps1 07/15 06:52 Interpretation: Within normal limits: HGB 12.7; WBC 8.6. ps1 07/15 04:59 Order name: D-Dimer; Complete Time: 05:49 ps1 07/15 06:52 Interpretation: Abnormal: D-DIMER 1397. ps1 07/15 04:59 Order name: Hepatic Function; Complete Time: 06:07 ps1 07/15 04:59 Order name: Lipase; Complete Time: 06:07 ps1 07/15 04:59 Order name: Magnesium; Complete Time: 06:07 ps1 07/15 04:59 Order name: NT PRO-BNP; Complete Time: 06:07 ps1 07/15 04:59 Order name: PT-INR; Complete Time: 05:49 ps1 07/15 04:59 Order name: Ptt, Activated; Complete Time: 05:49 ps1 07/15 04:59 Order name: Troponin (emerg Dept Use Only); Complete Time: 06:07 ps1 07/15 06:52 Interpretation: Abnormal: TROPED 0.14. ps1 07/15 04:59 Order name: CMP; Complete Time: 06:07 ps1 07/15 05:32 Order name: Glucose, Ancillary Testing; Complete Time: 05:33 EDMS 07/15 06:19 Order name: ABG; Complete Time: 06:44 ps1 07/15 08:16 Order name: CBC with Automated Diff EDMS 07/15 08:16 Order name: CBC with Automated Diff EDMS 07/15 08:16 Order name: CKMB Creatine Kinase MB EDMS 07/15 08:17 Order name: CKMB Creatine Kinase MB EDMS 07/15 08:17 Order name: CKMB Creatine Kinase MB EDMS 07/15 08:17 Order name: CKMB Creatine Kinase MB EDMS 07/15 08:17 Order name: Comprehensive Metabolic Panel EDMS 07/15 08:17 Order name: Comprehensive Metabolic Panel EDMS 07/15 08:17 Order name: Creatine Phosphokinase EDMS 07/15 08:17 Order name: Creatine Phosphokinase EDMS 07/15 08:17 Order name: Creatine Phosphokinase EDMS 07/15 08:17 Order name: Creatine Phosphokinase EDMS 07/15 08:17 Order name: Troponin I EDMS 07/15 08:17 Order name: Troponin I EDMS 07/15 08:17 Order name: Troponin I EDMS 07/15 08:17 Order name: Troponin I EDMS 07/15 08:19 Order name: Vancomycin Level Trough EDMS 07/15 04:59 Order name: EKG; Complete Time: 05:02 [facility] 07/15 04:59 Order name: Cardiac monitoring; Complete Time: 05:08 [facility] 07/15 04:59 Order name: EKG - Nurse/Tech; Complete Time: 05:09 [facility] 07/15 04:59 Order name: IV Saline Lock; Complete Time: 05:18 [facility] 07/15 04:59 Order name: Labs collected and sent; Complete Time: 05:18 [facility] 07/15 04:59 Order name: O2 Per Protocol; Complete Time: 05:09 [facility] 07/15 04:59 Order name: O2 Sat Monitoring; Complete Time: 05:09 [facility] 07/15 05:14 Order name: CXR XRAY [facility] 07/15 05:34 Order name: BIPAP [facility] 07/15 05:40 Order name: CT Chest For PE Angio [facility] 07/15 08:16 Order name: CONS Physician Consult EDMT 07/15 08:16 Order name: NPO EDMT 07/15 10:22 Order name: Miscellaneous Test Lab [facility] 07/15 11:54 Order name: Labs - recollect needed: green top tubee recollect eb Administered Medications: 05:15 Drug: SOLU-Medrol 125 mg Route: IVP; Site: left antecubital; rr5 06:18 Follow up: Response: No adverse reaction rr5 05:49 Drug: Nitroglycerin 400 mcg Route: IV; Rate: bolus; Site: left antecubital; rr5 06:50 Follow up: Response: No adverse reaction; Blood pressure is lowered; IV Status: rr5 Completed infusion; IV Intake: 2ml 05:50 Drug: Nitro Drip - (Nitroglycerin 50 mg, D5W 250 ml) Route: IV; Rate: 5 mcg/min; Site: rr5 left antecubital; 06:30 Follow up: Response: Blood pressure is lowered; Rate change 25 mcg/min rr5 07:45 Follow up: BP 185 / 108; Pulse 76 bpm; Resp 17 bpm; Pulse Ox 100% ; Response: Blood sg pressure is lowered; Rate change 30 mcg/min 12:53 Follow up: IV Status: Infusion continued upon admission em 06:08 Drug: Nitroglycerin 400 mcg {Note: bp 219/131 mmHg.} Route: IV; Rate: bolus; Site: left rr5 antecubital; 07:15 Follow up: Response: Blood sugar is lowered; IV Status: Completed infusion; IV Intake: rr5 2ml 06:12 CANCELLED (Other Intervention Used): Nitroglycerin 0.4 mg Sublingual once; every five rr5 minute if needed x3 07:00 Drug: Zosyn 3.375 grams Route: IVPB; Infused Over: 60 mins; Site: right antecubital; rr5 07:45 Follow up: Response: No adverse reaction; IV Status: Completed infusion sg 07:57 Drug: LevaQUIN 750 mg Volume: 150 ml; Route: IVPB; Infused Over: 90 mins; Site: right em antecubital; 09:45 Follow up: IV Status: Completed infusion; IV Intake: 150ml em 09:44 Drug: vancoMYCIN 1 grams Route: IVPB; Infused Over: 2 hrs; Site: right antecubital; em 12:53 Follow up: IV Status: Completed infusion; IV Intake: 250ml em Disposition: 07:02 Critical Care:. ps1 Disposition: 07/15/19 07:01 Hospitalization ordered by Pedro Jalloh for Inpatient Admission. Preliminary diagnosis are Respiratory distress, Multifocal pneumonia, Hypoxia, Acute decompensated CHF exacerbation. - Bed requested for Intensive Care Unit. - Status is Inpatient Admission. em - Condition is Guarded. - Problem is new. - Symptoms are unchanged. Critical care time excluding procedures: 07:02 Critical care time: Bedside Care: 35 minutes, Consultation: 5 minutes, Family ps1 Intervention: 5 minutes. Total time: 45 minutes Signatures: Dispatcher [employer] Momo Meléndez RN RN em Ballard, Brenda, RN RN bb Baxter, Heather, RN RN hb Singer, Phillip, MD MD ps1 Birdie Hernandez Raymond, RN RN [email or web address] Luther Goodrich RN sg Corrections: (The following items were deleted from the chart) 06:12 05:34 Nitroglycerin 0.4 mg Sublingual once; every five minute if needed x3 ordered. ps1 rr5 06:18 05:09 difficulty breathing and coughing. At home coughed up blood. Had an episode of ps1 post tussive emesis. Hx CHF and defib. Smoker. Presenting is respiratory distress. Hypoxic on room air SPO2 85%. . ps1 10:09 07:01 Hospitalization Ordered by Pedro Jalloh MD for Inpatient Admission. Preliminary eb diagnosis is Respiratory distress; Multifocal pneumonia; Hypoxia; Acute decompensated CHF exacerbation. Bed requested for Intensive Care Unit. Status is Inpatient Admission. Condition is Guarded. Problem is new. Symptoms are unchanged. ps1 11:34 10:09 07/15/2019 07:01 Hospitalization Ordered by Pedro Jalloh MD for Inpatient hb Admission. Preliminary diagnosis is Respiratory distress; Multifocal pneumonia; Hypoxia; Acute decompensated CHF exacerbation. Bed requested for Intensive Care Unit. Status is Inpatient Admission. Condition is Guarded. Problem is new. Symptoms are unchanged. eb 11:34 11:34 07/15/2019 07:01 Hospitalization Ordered by Pedro Jalloh MD for Inpatient hb Admission. Preliminary diagnosis is Respiratory distress; Multifocal pneumonia; Hypoxia; Acute decompensated CHF exacerbation. Bed requested for Intensive Care Unit. Status is Inpatient Admission. Condition is Guarded. Problem is new. Symptoms are unchanged. hb 13:05 11:34 07/15/2019 07:01 Hospitalization Ordered by Pedro Jalloh MD for Inpatient em Admission. Preliminary diagnosis is Respiratory distress; Multifocal pneumonia; Hypoxia; Acute decompensated CHF exacerbation. Bed requested for Intensive Care Unit. Status is Inpatient Admission. Condition is Guarded. Problem is new. Symptoms are unchanged. hb
[2019-07-15] MEDS ORDERED: ACETAMINOPHEN 500 MG TAB PO PRN (08:03)
[2019-07-15] MEDS ORDERED: ONDANSETRON 4 MG/2 ML VIAL IV PRN (08:03)
[2019-07-15] MEDS ORDERED: NITROGLYCERIN/D5W 50 MG/250 ML BTL IV PRN (08:10)
--- NOTE | 2019-07-15 08:33 | P.HP ---
Certification for Inpatient Patient admitted to: Inpatient With expected LOS: >2 Midnights Practitioner: I am a practitioner with admitting privileges, knowledge of patient current condition, hospital course, and medical plan of care. Services: Services provided to patient in accordance with Admission requirements found in Title 42 Section 412.3 of the Code of Federal Regulations Patient History Date of Service: 07/15/19 Reason for admission: SOB , hemoptysis History of Present Illness: 64 yrs old AAM with past medical history of CHF s/p AICD , HTN presents with complaints of shortness of breath, Coughing Up blood. and coughing. The patient is on BiPAP Hence most of the history is obtained from family who is at the bedside. ) The patient has not been feeling well for the last 2 weeks and was progressively short of breath with associated cough and wheeze . he had a few episodes of hemoptysis also has been having occasional subjective fevers and chills. No sick contact. No recent travel. No travel outside the [place]. He has a has 10 llb weight loss in the last 2 weeks. He smokes synthetic marijuana. No fever. Hx of cocaine abuse but stopped months ago. Allergies No Known Allergies Allergy (Verified 01/26/17 07:59) Home medications list reviewed: Yes Home Medications: Albuterol Sulfate [Proair Hfa] 4 puff IH Q4HR 01/25/17 Aspirin [Aspirin EC 81 MG] 81 mg PO DAILY #90 tablet. 01/27/17 Furosemide [Lasix] 40 mg PO BIDL #60 tab 01/27/17 Hydralazine [Apresoline*] 25 mg PO BID #60 tab 01/27/17 Lisinopril [Zestril] 20 mg PO DAILY #30 01/27/17 Metoprolol Tartrate [Lopressor*] 50 mg PO BID #60 tab 01/27/17 - Past Medical/Surgical History Past Medical History: Reviewed- Non-Contributory -: Hypertension -: Congestive heart failure Past Surgical History: Reviewed- Non-Contributory -: Pacemaker defibrillator -: Rotator cuff - Family History Family History: Reviewed- Non-Contributory - Family History Father -: Hypertension - Social History Smoking Status: Current every day smoker Alcohol use: No CD- Drugs: Yes Review of Systems is unable to be obtained Physical Examination - Vital Signs Temperature: 97.5 F Blood Pressure: 124/98 Pulse: 112 Respirations: 22 - Physical Exam General: Alert, Moderate distress HEENT: Atraumatic, Normocephalic Neck: Supple Respiratory: Crackles/rales, Expiratory wheezes, Rhonchi/gurgles Cardiovascular: Other (Tachycardic ) Capillary refill: <2 Seconds Gastrointestinal: Soft and benign, W/out hepatosplenomegaly Musculoskeletal: No swelling Integumentary: No rashes Neurological: Normal strength at 5/5 x4 extr Lymphatics: No axilla or inguinal lymphadenopathy External genitalia: Deferred Rectal: Deferred - Studies Laboratory Data (last 24 hrs) 07/15/19 05:10: Sodium 142, Potassium 3.6, BUN 23 H, Creatinine 1.27, Glucose 122 H, Magnesium 2.0, Total Bilirubin 0.6, AST 49 H, ALT 41, Alkaline Phosphatase 92, Lipase 72 L 07/15/19 05:10: PT 11.6, INR 0.98, APTT 31.7 07/15/19 05:10: WBC 8.6, Hgb 12.7 L, Hct 38.4 L, Plt Count 241 Assessment and Plan - Problems (Diagnosis) (1) Pneumonia Current Visit: Yes Status: Acute Qualifiers: Pneumonia type: due to unspecified organism (2) Acute exacerbation of CHF (congestive heart failure) Onset Date: 01/27/17 Current Visit: No Status: Acute (3) Acute respiratory distress Onset Date: 01/27/17 Current Visit: No Status: Acute (4) COPD (chronic obstructive pulmonary disease) Current Visit: No Status: Suspected Qualifiers: COPD type: chronic bronchitis Chronic bronchitis type: unspecified Qualified Code(s): J42 - Unspecified chronic bronchitis - Plan Acute hypoxic respiratory failure Acute on chronic CHF exacerbation probable systolic Multifocal pneumonia Hypertensive urgency Hemoptysis CHF status post AICD substance abuse Plan Admitted ICU Bronchodilators Monitor under telemetry Start on broad-spectrum IV antibiotics bronchodilators patient is on BiPAP Moderate hydration get an echocardiogram may need cardiology consult if not getting better started on nitroglycerin drip in the ER Will titrate Start on home medications and titrate as needed Will get a UDS Will also get an HIV as the patient has recent weight loss Quantiferon was ordered by the ER Will get sputum cultures GI/DVT prophylaxis Advanced directives full code - Advance Directives Does patient have a Living Will: No Does patient have a Durable POA for Healthcare: No Time Spent Managing Pts Care (In Minutes): 45
[2019-07-15] MEDS ORDERED: PIPER/TAZO/NS 3.375gm 3.375 GM/100 ML BAG IVPB SCH ×3 (09:00→17:00)
[2019-07-15] MEDS ORDERED: VANCOMYCIN 1.5 GM in NA CHLORIDE 0.9% 500 ML IVPB SCH ×5 (09:00→15:00)
[2019-07-15] MEDS ORDERED: NA CHLORIDE 0.9% 1,000 ML IV SCH (09:00)
--- NOTE | 2019-07-15 09:18 | RAD REPORT ---
EXAM DESCRIPTION: RAD - Chest Single View - 07/15/2019 5:34 am CLINICAL HISTORY: COUGH, shortness of breath COMPARISON: Chest Pa And Lat (2 Views) dated 01/25/2017 TECHNIQUE: AP portable chest image was obtained 07/15/2019 5:34 am . FINDINGS: Lung volumes are normal. Extensive airspace opacification fills the mid left lung field. T here extensive airspace opacification in the lower right lung field with consolidation in the right u pper lobe. Cardiomegaly is present similar to comparison. Central vasculature is obscured. The fibula uterus in place. No measurable pleural effusion and no pneumothorax. No acute bony abnormality seen. No acute aortic findings suspected. IMPRESSION: Extensive bilateral alveolar opacification. Cardiogenic pulmonary edema would be favored . This failure pattern can can also appear similar to noncardiogenic pulmonary edema. Very extensive bi lateral pneumonia is possible and needs correlation with lab values.
--- NOTE | 2019-07-15 10:08 | RAD REPORT ---
EXAM DESCRIPTION: CT - Chest For Pe Angio - 07/15/2019 6:37 am CLINICAL HISTORY: DYSPNEA COMPARISON: None. TECHNIQUE: Axial CT imaging of the thorax utilizing intravenous contrast. Reformatted multiplanar im ages obtained including reconstructed maximum intensity projection images. This exam was performed according to our departmental dose-optimization program which includes automa aarti exposure control, adjustment of the mA and/or kV according to patient size and/or use of iterativ e reconstruction technique FINDINGS: PULMONARY ARTERIES: Normal caliber main pulmonary artery. No filling defect within the ri ght atrium, right ventricle, central, or peripheral pulmonary arteries. HEART/GREAT VESSELS: Heart is enlarged. Normal caliber thoracic aorta. MEDIASTINUM/PORFIRIO: Mildly enlarged hilar lymph nodes. Normal central airways. The esophagus appears n ormal. LUNGS/PLEURA: Moderate layering right pleural effusion. There are significant parenchymal opacities throughout the right and left lungs involving all lobes this is most extensive within the right upper lobe. There is no edema. No pneumothorax. CHEST WALL/SOFT TISSUES: There is a 1.2 cm peripherally calcified nodule in the right lobe of the th yroid. No axillary adenopathy. Intact sternum. There is a levoconvex upper thoracic curve and dextroc onvex midthoracic curve. UPPER ABDOMEN: Unremarkable imaged liver, spleen, and stomach. IMPRESSION: 1. No pulmonary embolism. 2. Significant multifocal bilateral confluent pneumonia with a moderate right and trace left pleural effusion. Mild associated bilateral hilar lymphadenopathy. 3. Cardiomegaly. 4.1.2 cm incidental thyroid nodule. No follow-up imaging is recommended. Reference: J Am Rhonda Radiol. 2015 Jun;12(2): 143-50 Electronically signed by: Brunilda Pantoja DO 07/15/2019 6:28 AM [facility] Due to temporary technical issues with the PACS/Fluency reporting system, reports are being signed by the in house radiologist as a courtesy to ensure prompt reporting. The interpreting radiologist is giovani nyly responsible for the content of the report.
--- NOTE | 2019-07-15 11:31 | EKG ---
Test Date: 2019-07-15 Test Time: 05:02:03 Mercerizer: RR MEASUREMENT RESULTS: Intervals: Rate: 110 NC: 156 QRSD: 98 QT: 354 QTc: 479 [facility]: P: -83 NC: 156 QRS: 74 T: -58 INTERPRETIVE STATEMENTS: afib with rvr...pvc Voltage criteria for left ventricular hypertrophy Nonspecific ST and T wave abnormality Abnormal ECG Compared to ECG 01/27/2017 10:33:58 ST (T wave) deviation now present Atrial flutter no longer present Ventricular premature complex(es) no longer present T-wave abnormality no longer present Electronically Signed On 07-15-19 11:31:11 COMPLIANCE COORDINATOR by Jordan Banks
[2019-07-15] MEDS: METHYLPREDNISOLONE 40 MG INJ IV SCH ×2 (13:20→17:21)
[2019-07-15] MEDS: ARFORMOTEROL TARTRATE 15 MCG/2 ML VIAL.NEB NEB SCH ×2 (13:22→20:10)
--- NOTE | 2019-07-15 13:23 | P.CNS ---
Date of Consult: 07/15/19 Reason for Consult: Respiratory distress pneumonia Chief Complaint: SOB , hemoptysis History of Present Illness: Patient is a 64 years of age with a history of congestive heart failure active smoker admitted with acute onset of severe shortness of breath and hemoptysis hypoxic this currently alert oriented responsive also has lost significant amount of weight not been eating well Allergies No Known Allergies Allergy (Verified 01/26/17 07:59) Home Medications: Albuterol Sulfate [Proair Hfa] 4 puff IH Q4HR 01/25/17 Aspirin [Aspirin EC 81 MG] 81 mg PO DAILY #90 tablet. 01/27/17 Furosemide [Lasix] 40 mg PO BIDL #60 tab 01/27/17 Hydralazine [Apresoline*] 25 mg PO BID #60 tab 01/27/17 Lisinopril [Zestril] 20 mg PO DAILY #30 01/27/17 Metoprolol Tartrate [Lopressor*] 50 mg PO BID #60 tab 01/27/17 - Past Medical/Surgical History -: Hypertension -: Congestive heart failure -: Pacemaker defibrillator -: Rotator cuff - Family History Father Medical History: Hypertension - Social History Smoking Status: Current some day smoker Alcohol use: No CD- Drugs: Yes Review of Systems 10-point ROS is otherwise unremarkable General: Weakness, Malaise Respiratory: Cough, Shortness of Breath, Hemoptysis Physical Examination General: Alert, In no apparent distress, Oriented x3 Respiratory: Crackles/rales, Expiratory wheezes Cardiovascular: No edema, Regular rate/rhythm, Normal S1 S2 Gastrointestinal: Normal bowel sounds, Soft and benign Laboratory Data (last 24 hrs) 07/15/19 05:10: Sodium 142, Potassium 3.6, BUN 23 H, Creatinine 1.27, Glucose 122 H, Magnesium 2.0, Total Bilirubin 0.6, AST 49 H, ALT 41, Alkaline Phosphatase 92, Lipase 72 L 07/15/19 05:10: PT 11.6, INR 0.98, APTT 31.7 07/15/19 05:10: WBC 8.6, Hgb 12.7 L, Hct 38.4 L, Plt Count 241 - Problems (1) Pneumonia Current Visit: Yes Status: Acute Plan: Patient is 64 years of age admitted with respiratory distress bilateral pulmonary infiltrates differential diagnosis includes pneumonia and heart failure this time Dc IV fluids start on IV Lasix resume home medications control blood pressure BiPAP as needed patient's BNP is elevated differential diagnosis include includes Pneumocystis Qualifiers: Pneumonia type: due to unspecified organism
[2019-07-15] MEDS: HYDRALAZINE HCL 25 MG TABLET PO SCH ×2 (13:40→21:21)
[2019-07-15] MEDS: lisinopriL 20 MG TAB PO SCH (13:40)
[2019-07-15] MEDS: FUROSEMIDE 40 MG/4 ML VIAL IV SCH ×2 (13:40→17:21)
[2019-07-15] MEDS ORDERED: Levofloxacin500mg IV 500 MG/100 ML BAG IV SCH (14:00)
[2019-07-15] MEDS ORDERED: Levofloxacin 750mg IV 750 MG/150 ML BAG IV SCH (14:00)
[2019-07-15] MEDS: ALBUTEROL 2.5 MG/3 ML NEB SOL NEB SCH ×2 (14:15→20:10)
[2019-07-15] MEDS: IPRATROPIUM BROM 0.5MG/2.5ML NEB SCH ×3 (14:15→20:10)
[2019-07-15 14:53] LABS: CKMB Creatine Kinase MB 3.6 ng/mL (0.3-3.6); Troponin I 0.14 ng/mL (0.0-0.045)
[2019-07-15 16:36] LABS: Barbiturates NEGATIVE (NEGATIVE); Benzodiazepines NEGATIVE (NEGATIVE); Cocaine POSITIVE (NEGATIVE); METHAMPHETAM NEGATIVE (NEGATIVE); Methadone NEGATIVE (NEGATIVE); Opiates NEGATIVE (NEGATIVE); Phencyclidine NEGATIVE (NEGATIVE); THC Cannibis NEGATIVE (NEGATIVE)
[2019-07-15] MEDS: METOPROLOL TAR 50 MG TAB PO SCH (21:20)
[2019-07-15 23:17] LABS: CKMB Creatine Kinase MB 2.2 ng/mL (0.3-3.6); Troponin I 0.11 ng/mL (0.0-0.045)
[2019-07-16] MEDS: METHYLPREDNISOLONE 40 MG INJ IV SCH ×2 (00:10→08:25)
[2019-07-16] MEDS ORDERED: METHYLPREDNISOLONE 40 MG INJ ONE (00:12)
[2019-07-16] MEDS ORDERED: guaiFENesin 100 MG/5 ML UCUP PO PRN (01:11)
[2019-07-16] MEDS: GUAIFENESIN/DM 5 ML UCUP PO PRN ×3 (01:20→15:36)
[2019-07-16] MEDS ORDERED: POTASSIUM 25 MEQ EFFERV TAB PO ONE (02:27)
[2019-07-16] MEDS: IPRATROPIUM BROM 0.5MG/2.5ML NEB SCH ×2 (04:00→07:53)
[2019-07-16] MEDS: ALBUTEROL 2.5 MG/3 ML NEB SOL NEB SCH ×2 (04:00→07:53)
[2019-07-16 05:40] LABS: Absolute Lymphocytes (CBC) 1.5 K/uL (0.7-4.9); Basophils % 0.1 % (0-1.3); Hematocrit 33.2 % (39.6-49.0); Lymphocytes % 11.4 % (15.3-44.8); MPV 8.1 fL (7.6-11.3)
[2019-07-16] MEDS: HYDRALAZINE HCL 20 MG/ML VIAL IV PRN (05:48)
[2019-07-16 05:54] LABS: Magnesium 2.2 mg/dL (1.8-2.4); Phosphorus 2.7 mg/dL (2.5-4.9)
[2019-07-16 05:58] LABS: CKMB Creatine Kinase MB 1.8 ng/mL (0.3-3.6); Troponin I 0.09 ng/mL (0.0-0.045)
[2019-07-16 06:01] LABS: Albumin 3.1 g/dL (3.4-5.0); Bilirubin Total 0.6 mg/dL (0.2-1.0); Potassium 4.4 mmol/L (3.5-5.1); Protein, Total 6.8 g/dL (6.4-8.2)
[2019-07-16 07:28] VITALS: BMI 22.1
[2019-07-16] MEDS: ARFORMOTEROL TARTRATE 15 MCG/2 ML VIAL.NEB NEB SCH ×2 (07:53→21:10)
[2019-07-16] MEDS: FUROSEMIDE 40 MG/4 ML VIAL IV SCH ×2 (08:25→18:02)
[2019-07-16] MEDS: GUAIFENESIN 600 MG SA TAB PO SCH ×2 (08:25→20:31)
[2019-07-16] MEDS: METOPROLOL TAR 50 MG TAB PO SCH ×2 (08:25→20:30)
[2019-07-16] MEDS: lisinopriL 20 MG TAB PO SCH (08:26)
[2019-07-16] MEDS: HYDRALAZINE HCL 25 MG TABLET PO SCH (08:26)
[2019-07-16] MEDS: AMLODIPINE 5 MG TAB PO SCH ×2 (09:00)
[2019-07-16] MEDS ORDERED: ARFORMOTEROL TARTRATE 15 MCG/2 ML VIAL.NEB NEB SCH (09:23)
--- NOTE | 2019-07-16 09:28 | P.PN ---
Subjective Date of Service: 07/16/19 Chief Complaint: Shortness of breath Subjective: Improving (Patient is doing much better breathing has improved not requiring BiPAP) Review of Systems Unremarkable Physical Examination - Vital Signs Temperature: 98 F Blood Pressure: 155/101 Pulse: 103 Respirations: 27 Pulse Ox (%): 100 - Physical Exam General: Alert, In no apparent distress, Oriented x3 Respiratory: Clear to auscultation bilaterally, Crackles/rales Cardiovascular: No edema, Regular rate/rhythm Assessment & Plan - Problems (Diagnosis) (1) Pneumonia Current Visit: Yes Status: Acute Plan: Doing much better continue with the antibiotics change to p.o. levofloxacin Qualifiers: Pneumonia type: due to unspecified organism (2) Acute exacerbation of CHF (congestive heart failure) Onset Date: 01/27/17 Current Visit: No Status: Acute Plan: Patient is doing much better continue with diuretics blood pressure elevated at spironolactone and amlodipine Dc nitro drip repeat chest x-ray patient has had dilated cardiomyopathy in the past patient is an active smoker possible underlying obstructive airways disease continue with bronchodilator
--- NOTE | 2019-07-16 09:50 | RAD REPORT ---
EXAM DESCRIPTION: RAD - Chest Single View - 07/16/2019 9:34 am CLINICAL HISTORY: Pneumonia COMPARISON: Chest Single View dated 07/15/2019; Chest For Pe Angio dated 07/15/2019 TECHNIQUE: AP portable chest image was obtained 07/16/2019 9:34 am . FINDINGS: Substantial clearing of the bilateral lung opacification prior day imaging. Near complete clearing seen in both lung bases. There is remnant airspace disease in the upper right lung field and mid left lung field. No new tube or line. Cardiac silhouette is enlarged but improved. Trachea is midline. Defibrillator in place. No measurabl e pleural effusion and no pneumothorax. IMPRESSION: Substantial clearing of the airspace edema and/or pneumonia.
[2019-07-16] MEDS: SPIRONOLACTONE 25 MG TABLET PO SCH ×2 (10:24→20:31)
[2019-07-16] MEDS ORDERED: AMLODIPINE 2.5 MG TAB ONE (10:24)
--- NOTE | 2019-07-16 10:30 | P.PN ---
Subjective Date of Service: 07/16/19 Chief Complaint: Shortness of breath Subjective: Improving (Of BiPAP Breathing well in room air) Review of Systems 10-point ROS is otherwise unremarkable Physical Examination - Vital Signs Temperature: 98 F Blood Pressure: 155/107 Pulse: 94 Respirations: 18 Pulse Ox (%): 100 - Physical Exam General: Alert, In no apparent distress HEENT: Atraumatic, Normocephalic Neck: Supple Respiratory: Diminished, Crackles/rales Cardiovascular: Regular rate/rhythm Capillary refill: <2 Seconds Gastrointestinal: Soft and benign, W/out hepatosplenomegaly Musculoskeletal: No clubbing Integumentary: No rashes Neurological: Normal speech, Normal strength at 5/5 x4 extr Lymphatics: No axilla or inguinal lymphadenopathy External genitalia: Deferred Rectal: Deferred - Studies Laboratory Last Values WBC 13.5 K/uL (4.3-10.9) H D 07/16/19 05:26 RBC 3.60 M/uL (4.33-5.43) L 07/16/19 05:26 Hgb 11.1 g/dL (13.6-17.9) L 07/16/19 05:26 Hct 33.2 % (39.6-49.0) L 07/16/19 05:26 MCV 92.0 fL (80-100) 07/16/19 05:26 MCH 30.9 pg (27.0-35.0) 07/16/19 05:26 MCHC 33.6 g/dL (32.0-36.0) 07/16/19 05:26 RDW 14.8 % (12.1-15.2) 07/16/19 05:26 Plt Count 227 K/uL (152-406) 07/16/19 05:26 MPV 8.1 fL (7.6-11.3) 07/16/19 05:26 Total Counted Cancelled 07/16/19 05:26 Neutrophils % 85.3 % (41.7-73.7) H 07/16/19 05:26 Lymphocytes % 11.4 % (15.3-44.8) L 07/16/19 05:26 Monocytes % 3.2 % (3.3-12.3) L 07/16/19 05:26 Eosinophils % 0.0 % (0-4.4) 07/16/19 05:26 Basophils % 0.1 % (0-1.3) 07/16/19 05:26 Absolute Neutrophils 11.5 K/uL (1.8-8.0) H 07/16/19 05:26 Segmented Neutrophils Cancelled 07/16/19 05:26 Band Neutrophils Cancelled 07/16/19 05:26 Absolute Lymphocytes 1.5 K/uL (0.7-4.9) 07/16/19 05:26 Lymphocytes Cancelled 07/16/19 05:26 Monocytes Cancelled 07/16/19 05:26 Absolute Monocytes 0.4 K/uL (0.1-1.3) 07/16/19 05:26 Eosinophils Cancelled 07/16/19 05:26 Absolute Eosinophils 0.0 K/uL (0-0.5) 07/16/19 05:26 Basophils Cancelled 07/16/19 05:26 Absolute Basophils 0.0 K/uL (0-0.5) 07/16/19 05:26 Metamyelocytes Cancelled 07/16/19 05:26 Myelocytes Cancelled 07/16/19 05:26 Promyelocytes Cancelled 07/16/19 05:26 Nucleated RBCs Cancelled 07/16/19 05:26 Atypical Lymphocytes Cancelled 07/16/19 05:26 Reactive Lymphocytes Cancelled 07/16/19 05:26 Lymphoblasts Cancelled 07/16/19 05:26 Blast Cells Cancelled 07/16/19 05:26 Immature Blood Cells Cancelled 07/16/19 05:26 Plasma Cells Cancelled 07/16/19 05:26 Smudge Cells Cancelled 07/16/19 05:26 Other Red Blood Cells Cancelled 07/16/19 05:26 Unidentified Cells Cancelled 07/16/19 05:26 PT 11.6 SECONDS (9.5-12.5) 07/15/19 05:10 INR 0.98 07/15/19 05:10 APTT 31.7 SECONDS (24.3-36.9) 07/15/19 05:10 D-Dimer 1397 FEUng/mL (<500) H* 07/15/19 05:10 pH 7.37 (7.35-7.45) 07/15/19 06:19 pCO2 43.4 mmHG (35-45) 07/15/19 06:19 pO2 251.0 mmHG (75-100) H 07/15/19 06:19 HCO3 24.6 mmol/L (22-28) 07/15/19 06:19 Base Excess 0.0 mmol/L 07/15/19 06:19 Oxyhemoglobin 96.5 % (94-97) 07/15/19 06:19 ABG O2 Sat (Measured) 99.4 % (92-98.5) H 07/15/19 06:19 ABG Carboxyhemoglobin 2.1 % (0-1.5) H 07/15/19 06:19 ABG Methemoglobin 0.8 % (0-1.5) 07/15/19 06:19 Other Total Hgb 11.6 g/dl (12-18) L 07/15/19 06:19 Inspired O2 70.0 % 07/15/19 06:19 Sodium 141 mmol/L (136-145) 07/16/19 05:26 Potassium 4.4 mmol/L (3.5-5.1) 07/16/19 05:26 Chloride 108 mmol/L (98-107) H 07/16/19 05:26 Carbon Dioxide 27 mmol/L (21-32) 07/16/19 05:26 BUN 26 mg/dL (7-18) H 07/16/19 05:26 Creatinine 1.36 mg/dL (0.55-1.3) H 07/16/19 05:26 Estimated GFR 64 mL/min (=/>90) L 07/16/19 05:26 Glucose 124 mg/dL (74-106) H 07/16/19 05:26 POC Glucose 126 mg/dl (65-120) H 07/15/19 05:18 Calcium 8.6 mg/dL (8.5-10.1) 07/16/19 05:26 Phosphorus 2.7 mg/dL (2.5-4.9) 07/16/19 05:26 Magnesium 2.2 mg/dL (1.8-2.4) 07/16/19 05:26 Total Bilirubin 0.6 mg/dL (0.2-1.0) 07/16/19 05:26 Direct Bilirubin 0.2 mg/dL (0-0.2) 07/15/19 05:10 AST 26 U/L (15-37) 07/16/19 05:26 ALT 27 U/L (12-78) 07/16/19 05:26 Alkaline Phosphatase 75 U/L (45-117) 07/16/19 05:26 Creatine Kinase 221 U/L (39-308) 07/16/19 05:26 CK-MB (CK-2) 1.8 ng/mL (0.3-3.6) 07/16/19 05:26 Rapid Troponin I 0.14 ng/mL (0.0-0.045) H 07/15/19 05:10 Troponin I 0.09 ng/mL (0.0-0.045) H 07/16/19 05:26 NT-Pro-B Natriuret Pep 03955 pg/mL (<125) H 07/15/19 05:10 Serum Total Protein 6.8 g/dL (6.4-8.2) 07/16/19 05:26 Albumin 3.1 g/dL (3.4-5.0) L 07/16/19 05:26 Globulin 3.7 g/dL (2.3-3.5) H 07/16/19 05:26 Albumin/Globulin Ratio 0.8 (1.1-1.8) L 07/16/19 05:26 Lipase 72 U/L (73-393) L 07/15/19 05:10 Vancomycin Trough Cancelled 07/15/19 Unknown Opiates Screen Negative (NEGATIVE) 07/15/19 14:50 Methadone Screen Negative (NEGATIVE) 07/15/19 14:50 Ur Barbiturates Screen Negative (NEGATIVE) 07/15/19 14:50 Ur Phencyclidine Scrn Negative (NEGATIVE) 07/15/19 14:50 Amphetamines Screen Negative (NEGATIVE) 07/15/19 14:50 Benzodiazepines Screen Negative (NEGATIVE) 07/15/19 14:50 Cocaine Screen Positive (NEGATIVE) H 07/15/19 14:50 Ur THC Screen Negative (NEGATIVE) 07/15/19 14:50 HIV 1&2 Antibody Rapid Cancelled 07/15/19 Unknown Miscellaneous Test Sent 07/15/19 06:50 Assessment & Plan - Problems (Diagnosis) (1) Pneumonia Current Visit: Yes Status: Acute Qualifiers: Pneumonia type: due to unspecified organism (2) Acute exacerbation of CHF (congestive heart failure) Onset Date: 01/27/17 Current Visit: No Status: Acute (3) Acute respiratory distress Onset Date: 01/27/17 Current Visit: No Status: Acute (4) COPD (chronic obstructive pulmonary disease) Current Visit: No Status: Suspected Qualifiers: COPD type: chronic bronchitis Chronic bronchitis type: unspecified Qualified Code(s): J42 - Unspecified chronic bronchitis (5) Cocaine abuse Onset Date: 01/27/17 Current Visit: No Status: Acute Plan: Acute hypoxic respiratory failure Acute on chronic CHF exacerbation probable systolic Multifocal pneumonia Hypertensive urgency Hemoptysis CHF status post AICD Substance abuse with cocaine Plan Admitted ICU Bronchodilators and diuretics Monitor under telemetry on IV antibiotics patient was on BiPAP , weaned off of BiPAP Saturating well in room air Aggressive diuresis Cardiology consult started on nitroglycerin drip in the ER, titrated off Antihypertensives titrated GI/DVT prophylaxis Advanced directives full code Time Spent Managing Pts Care (In Minutes): 43
[2019-07-16 11:06] LABS: Anisocytosis 1+; Blood Morphology Comment NOTED (NOT SEEN); Platelet Estimate ADEQ; Urine White Blood Cell Casts OK
[2019-07-16] MEDS: ALBUTEROL 2.5 MG/3 ML NEB SOL NEB PRN (14:19)
[2019-07-16] MEDS: IPRATROPIUM BROM 0.5MG/2.5ML NEB PRN (14:19)
[2019-07-16] MEDS: predniSONE 20 MG TAB PO SCH (20:30)
[2019-07-17] MEDS: GUAIFENESIN/DM 5 ML UCUP PO PRN ×3 (00:04→09:49)
[2019-07-17] MEDS: HYDRALAZINE HCL 20 MG/ML VIAL IV PRN (05:09)
[2019-07-17] MEDS: IPRATROPIUM BROM 0.5MG/2.5ML NEB PRN ×3 (05:15→13:40)
[2019-07-17] MEDS: ALBUTEROL 2.5 MG/3 ML NEB SOL NEB PRN ×3 (05:15→13:40)
[2019-07-17] MEDS ORDERED: IPRATROPIUM BROM 0.5MG/2.5ML ONE (05:21)
[2019-07-17 05:47] LABS: Absolute Lymphocytes (CBC) 2.4 K/uL (0.7-4.9); Basophils % 0.6 % (0-1.3); Hematocrit 35.6 % (39.6-49.0); Lymphocytes % 20.1 % (15.3-44.8); MPV 8.1 fL (7.6-11.3)
[2019-07-17 06:02] LABS: Potassium 4.6 mmol/L (3.5-5.1)
[2019-07-17] MEDS: GUAIFENESIN 600 MG SA TAB PO SCH ×2 (07:48→20:40)
[2019-07-17] MEDS: ARFORMOTEROL TARTRATE 15 MCG/2 ML VIAL.NEB NEB SCH ×2 (08:25→20:30)
[2019-07-17] MEDS ORDERED: levoFLOXacin 500 MG TAB PO SCH (09:00)
--- NOTE | 2019-07-17 09:11 | PN ---
Date of Progress Note: 07/17/2019 Mr. Marie was admitted on 07/15/2019 for acute on chronic systolic congestive heart failure exacerba tion. He has improved on IV Lasix. He remained in atrial fibrillation. His rate is 82. I suggest he goes home on his home medication, which do include beta-blockers, Lasix, lisinopril, and Aldactone , very appropriate therapy, but I think he needs to be also on anticoagulants. I will leave that up to Dr. Jalloh as far as which one he wants to put him on. The patient will follow up with Dr. Ann. I will call Dr. Ann in his regard. He is comfortable enough to go home today. He has a history o f hypertension and a defibrillator that has been checked recently and it is functioning appropriately without any ventricular tachycardia or fibrillation. ROD/ALEX Voice ID: [id number] Report ID: [id number]
[2019-07-17] MEDS: METOPROLOL TAR 50 MG TAB PO SCH ×2 (09:42→20:41)
[2019-07-17] MEDS: SPIRONOLACTONE 25 MG TABLET PO SCH ×2 (09:42→20:40)
[2019-07-17] MEDS: predniSONE 20 MG TAB PO SCH ×2 (09:42→20:40)
[2019-07-17] MEDS: AMLODIPINE 5 MG TAB PO SCH (09:42)
[2019-07-17] MEDS: ENOXAPARIN 40 MG/0.4 ML SQ SCH (09:42)
[2019-07-17] MEDS: FUROSEMIDE 40 MG/4 ML VIAL IV SCH ×2 (09:43→17:31)
[2019-07-17] MEDS: lisinopriL 20 MG TAB PO SCH (09:44)
--- NOTE | 2019-07-17 09:47 | RAD REPORT ---
EXAM DESCRIPTION: [facility] Single View07/17/2019 6:39 am CLINICAL HISTORY: Shortness of breath COMPARISON: July 16 FINDINGS: Bilateral pulmonary opacities have partially resolved. The heart remains enlarged. Pacemaker lead is in place Lungs are hyperaerated IMPRESSION: Partial resolution in the mild bilateral pulmonary opacities. This probably represents p ulmonary edema
--- NOTE | 2019-07-17 09:48 | CON ---
Date of Consultation: 07/16/[address] Jalloh on 07/15/2019. I saw the patient on 07/16/2019. Reason For Consultation: Congestive heart failure and atrial fibrillation. History Of Present Illness: Mr. Marie is a 64-year-old black male. He is a patient of Dr. Cuco marquez in [place]. Has had history of chronic systolic congestive heart failure with an ejection frac tion of 25%. He has a defibrillator, he has a history of hypertension as far as he knows, he has not had atrial fibrillation in the past. He came in with CHF, atrial fibrillation with rapid ventricula r response that has improved dramatically since had been here on IV Lasix. He remains in atrial fibr illation that is rate controlled now. He denied chest pain. He denied palpitation. He denied synco pe. His main complaint was shortness of breath. Allergies: NONE. Review of Systems: Negative. Social History: Negative. Family History: Negative. Medications: At home include inhalers, Norvasc, Lasix, lisinopril, Aldactone, hydralazine, metoprolo l. He is now also getting steroids and antibiotics because of possible bronchitis. He has had appar ently some cough and some fever. Physical Examination: Vital Signs: His initial blood pressure was 176/107. It is now 155/107. He remained in atrial fibr illation, rate of 80. He has adequate O2 saturation on nasal cannula. HEENT: Negative. Neck: Supple with no bruit. Chest: Reveals rales both bases. Cardiac: Revealed irregularly irregular rhythm and rate without any murmurs, gallops, or rubs. Abdomen: Benign. Extremities: Revealed no clubbing, cyanosis, or edema. Neurological: He is nonfocal. Pulses were present distally bilaterally. Skin: Dry and intact. Diagnostic Data: His creatinine is 1.36. His D-dimer was 1397. [place] BNP [place] [address]. Troponin was 0. 14. Impression And Plan: 1.Acute on chronic systolic congestive heart failure exacerbation. 2.Status post automatic implantable cardioverter defibrillator. 3.Hypertensive, poorly controlled. 4.Atrial fibrillation, new onset. 5.Elevated troponin and BNP secondary to congestive heart failure. 6.Elevated creatinine secondary to chronic renal insufficiency. 7.Moderate pulmonary hypertension by echocardiogram in 2017. Mr. Nunn had done much better on I V Lasix, steroids, and antibiotics. There is no reason to repeat an echocardiogram if he goes home. Otherwise, if he stays here until Thursday, we can get an echocardiogram then. We will continue his p resent regimen that is an excellent regimen. He is on beta-blockers. He is on MARCIA inhibitors. He i s on Aldactone and Lasix. Regarding his atrial fibrillation, his rate is controlled, but I suggest t he patient gets on oral anticoagulant either Coumadin or some of the new anticoagulants and I will le ave that up to Dr. Jalloh. He is to follow up with Dr. Ann that he said he has an appointment with him in July. I will contact Dr. Ann in that regard. We will observe Mr. Marie 1 more night and hopefully send him home on 07/17/2019. ROD/ALEX Voice ID: [id number] Report ID: [id number]
[2019-07-17] MEDS ORDERED: PROMETH/COD 6.25/10MG SYRUP 5ML PO PRN (10:08)
--- NOTE | 2019-07-17 10:17 | P.PN ---
Subjective Date of Service: 07/17/19 Chief Complaint: Shortness of breath Subjective: No new changes (Shortness of breath is improving Still having cough) , Improving Review of Systems 10-point ROS is otherwise unremarkable Physical Examination - Vital Signs Temperature: 98.1 F Blood Pressure: 140/70 Pulse: 82 Respirations: 20 Pulse Ox (%): 95 - Physical Exam General: Alert, In no apparent distress HEENT: Atraumatic, Normocephalic Neck: Supple Respiratory: Normal air movement, Crackles/rales Cardiovascular: No edema, Regular rate/rhythm Capillary refill: <2 Seconds Gastrointestinal: Soft and benign, W/out hepatosplenomegaly Musculoskeletal: No clubbing, Swelling Integumentary: No rashes Neurological: Normal speech, Normal strength at 5/5 x4 extr Lymphatics: No axilla or inguinal lymphadenopathy External genitalia: Deferred Rectal: Deferred - Studies Laboratory Last Values WBC 11.8 K/uL (4.3-10.9) H 07/17/19 05:13 RBC 3.80 M/uL (4.33-5.43) L 07/17/19 05:13 Hgb 12.0 g/dL (13.6-17.9) L 07/17/19 05:13 Hct 35.6 % (39.6-49.0) L 07/17/19 05:13 MCV 93.8 fL (80-100) 07/17/19 05:13 MCH 31.5 pg (27.0-35.0) 07/17/19 05:13 MCHC 33.6 g/dL (32.0-36.0) 07/17/19 05:13 RDW 14.3 % (12.1-15.2) 07/17/19 05:13 Plt Count 219 K/uL (152-406) 07/17/19 05:13 MPV 8.1 fL (7.6-11.3) 07/17/19 05:13 Total Counted Cancelled 07/16/19 05:26 Neutrophils % 75.0 % (41.7-73.7) H 07/17/19 05:13 Lymphocytes % 20.1 % (15.3-44.8) 07/17/19 05:13 Monocytes % 4.3 % (3.3-12.3) 07/17/19 05:13 Eosinophils % 0.0 % (0-4.4) 07/17/19 05:13 Basophils % 0.6 % (0-1.3) 07/17/19 05:13 Absolute Neutrophils 8.9 K/uL (1.8-8.0) H 07/17/19 05:13 Segmented Neutrophils Cancelled 07/16/19 05:26 Band Neutrophils Cancelled 07/16/19 05:26 Absolute Lymphocytes 2.4 K/uL (0.7-4.9) 07/17/19 05:13 Lymphocytes Cancelled 07/16/19 05:26 Monocytes Cancelled 07/16/19 05:26 Absolute Monocytes 0.5 K/uL (0.1-1.3) 07/17/19 05:13 Eosinophils Cancelled 07/16/19 05:26 Absolute Eosinophils 0.0 K/uL (0-0.5) 07/17/19 05:13 Basophils Cancelled 07/16/19 05:26 Absolute Basophils 0.1 K/uL (0-0.5) 07/17/19 05:13 Metamyelocytes Cancelled 07/16/19 05:26 Myelocytes Cancelled 07/16/19 05:26 Promyelocytes Cancelled 07/16/19 05:26 Nucleated RBCs Cancelled 07/16/19 05:26 Atypical Lymphocytes Cancelled 07/16/19 05:26 Reactive Lymphocytes Cancelled 07/16/19 05:26 Lymphoblasts Cancelled 07/16/19 05:26 Blast Cells Cancelled 07/16/19 05:26 Immature Blood Cells Cancelled 07/16/19 05:26 Plasma Cells Cancelled 07/16/19 05:26 Smudge Cells Cancelled 07/16/19 05:26 Anisocytosis 1+ 07/16/19 05:26 Other Red Blood Cells Cancelled 07/16/19 05:26 Unidentified Cells Cancelled 07/16/19 05:26 Morphology Comment Noted (NOT SEEN) 07/16/19 05:26 PT 11.6 SECONDS (9.5-12.5) 07/15/19 05:10 INR 0.98 07/15/19 05:10 APTT 31.7 SECONDS (24.3-36.9) 07/15/19 05:10 D-Dimer 1397 FEUng/mL (<500) H* 07/15/19 05:10 pH 7.37 (7.35-7.45) 07/15/19 06:19 pCO2 43.4 mmHG (35-45) 07/15/19 06:19 pO2 251.0 mmHG (75-100) H 07/15/19 06:19 HCO3 24.6 mmol/L (22-28) 07/15/19 06:19 Base Excess 0.0 mmol/L 07/15/19 06:19 Oxyhemoglobin 96.5 % (94-97) 07/15/19 06:19 ABG O2 Sat (Measured) 99.4 % (92-98.5) H 07/15/19 06:19 ABG Carboxyhemoglobin 2.1 % (0-1.5) H 07/15/19 06:19 ABG Methemoglobin 0.8 % (0-1.5) 07/15/19 06:19 Other Total Hgb 11.6 g/dl (12-18) L 07/15/19 06:19 Inspired O2 70.0 % 07/15/19 06:19 Sodium 140 mmol/L (136-145) 07/17/19 05:13 Potassium 4.6 mmol/L (3.5-5.1) 07/17/19 05:13 Chloride 106 mmol/L (98-107) 07/17/19 05:13 Carbon Dioxide 26 mmol/L (21-32) 07/17/19 05:13 BUN 32 mg/dL (7-18) H 07/17/19 05:13 Creatinine 1.41 mg/dL (0.55-1.3) H 07/17/19 05:13 Estimated GFR 61 mL/min (=/>90) L 07/17/19 05:13 Glucose 110 mg/dL (74-106) H 07/17/19 05:13 POC Glucose 126 mg/dl (65-120) H 07/15/19 05:18 Calcium 8.9 mg/dL (8.5-10.1) 07/17/19 05:13 Phosphorus 2.7 mg/dL (2.5-4.9) 07/16/19 05:26 Magnesium 2.2 mg/dL (1.8-2.4) 07/16/19 05:26 Total Bilirubin 0.6 mg/dL (0.2-1.0) 07/16/19 05:26 Direct Bilirubin 0.2 mg/dL (0-0.2) 07/15/19 05:10 AST 26 U/L (15-37) 07/16/19 05:26 ALT 27 U/L (12-78) 07/16/19 05:26 Alkaline Phosphatase 75 U/L (45-117) 07/16/19 05:26 Creatine Kinase 221 U/L (39-308) 07/16/19 05:26 CK-MB (CK-2) 1.8 ng/mL (0.3-3.6) 07/16/19 05:26 Rapid Troponin I 0.14 ng/mL (0.0-0.045) H 07/15/19 05:10 Troponin I 0.09 ng/mL (0.0-0.045) H 07/16/19 05:26 NT-Pro-B Natriuret Pep 72076 pg/mL (<125) H 07/15/19 05:10 Serum Total Protein 6.8 g/dL (6.4-8.2) 07/16/19 05:26 Albumin 3.1 g/dL (3.4-5.0) L 07/16/19 05:26 Globulin 3.7 g/dL (2.3-3.5) H 07/16/19 05:26 Albumin/Globulin Ratio 0.8 (1.1-1.8) L 07/16/19 05:26 Lipase 72 U/L (73-393) L 07/15/19 05:10 Vancomycin Trough 1.8 ug/mL (5.0-20.0) L 07/17/19 02:14 Opiates Screen Negative (NEGATIVE) 07/15/19 14:50 Methadone Screen Negative (NEGATIVE) 07/15/19 14:50 Ur Barbiturates Screen Negative (NEGATIVE) 07/15/19 14:50 Ur Phencyclidine Scrn Negative (NEGATIVE) 07/15/19 14:50 Amphetamines Screen Negative (NEGATIVE) 07/15/19 14:50 Benzodiazepines Screen Negative (NEGATIVE) 07/15/19 14:50 Cocaine Screen Positive (NEGATIVE) H 07/15/19 14:50 Ur THC Screen Negative (NEGATIVE) 07/15/19 14:50 HIV 1&2 Antibody Rapid Cancelled 07/15/19 Unknown Miscellaneous Test Sent 07/15/19 06:50 Assessment & Plan - Problems (Diagnosis) (1) Pneumonia Current Visit: Yes Status: Acute Qualifiers: Pneumonia type: due to unspecified organism (2) Acute exacerbation of CHF (congestive heart failure) Onset Date: 01/27/17 Current Visit: No Status: Acute (3) Acute respiratory distress Onset Date: 01/27/17 Current Visit: No Status: Acute (4) COPD (chronic obstructive pulmonary disease) Current Visit: No Status: Suspected Qualifiers: COPD type: chronic bronchitis Chronic bronchitis type: unspecified Qualified Code(s): J42 - Unspecified chronic bronchitis (5) Cocaine abuse Onset Date: 01/27/17 Current Visit: No Status: Acute Plan: Acute hypoxic respiratory failure Acute on chronic CHF exacerbation probable systolic Multifocal pneumonia Hypertensive urgency Hemoptysis CHF status post AICD Substance abuse with cocaine Plan Continue Bronchodilators and diuretics Monitor under telemetry patient was on BiPAP , weaned off of BiPAP Saturating well in room air Appreciate cardiology and pulmonology consults Antihypertensives titrated Possible Dc home once cleared by pulmonology and Cardiology Time Spent Managing Pts Care (In Minutes): 42
[2019-07-18] MEDS: GUAIFENESIN/DM 5 ML UCUP PO PRN ×2 (00:11→05:27)
[2019-07-18 06:01] LABS: Potassium 3.9 mmol/L (3.5-5.1)
[2019-07-18] MEDS: ARFORMOTEROL TARTRATE 15 MCG/2 ML VIAL.NEB NEB SCH ×2 (07:40→20:05)
[2019-07-18] MEDS: METOPROLOL TAR 50 MG TAB PO SCH ×2 (08:42→20:52)
[2019-07-18] MEDS: GUAIFENESIN 600 MG SA TAB PO SCH ×2 (08:44→20:51)
[2019-07-18] MEDS: SPIRONOLACTONE 25 MG TABLET PO SCH ×2 (08:44→20:51)
[2019-07-18] MEDS: lisinopriL 20 MG TAB PO SCH (08:45)
[2019-07-18] MEDS: AMLODIPINE 5 MG TAB PO SCH (08:45)
[2019-07-18] MEDS: FUROSEMIDE 40 MG/4 ML VIAL IV SCH ×2 (08:46→16:53)
[2019-07-18] MEDS: ENOXAPARIN 40 MG/0.4 ML SQ SCH (08:46)
[2019-07-18] MEDS: HYDRALAZINE HCL 20 MG/ML VIAL IV PRN ×2 (08:46→16:53)
[2019-07-18 09:20] LABS: HIV AG/AB 4TH GEN Non-reactive (Non-reactive)
[2019-07-18] MEDS ORDERED: AMLODIPINE 5 MG TAB PO ONE (10:45)
--- NOTE | 2019-07-18 10:59 | P.DS ---
Admission Date: 07/15/19 Discharge Date: 07/19/19 Disposition: ROUTINE DISCHARGE Discharge Condition: GOOD Reason for Admission: Shortness of breath Consultations: Cardiology-Dr. Banks Pulmonary-Dr. Tan Procedures: None Brief History of Present Illness: 64-year-old gentleman with a history of chronic systolic heart failure presented to the ED with a complaint of 1 week history of progressive shortness of breath, coughing and wheezing. He also developed hemoptysis. Patient was in respiratory distress on arrival and was placed on BiPAP. Chest x -ray demonstrated diffuse opacities in both lungs. Blood pressure was severely elevated. Initial troponin also mildly elevated. The patient was admitted for further management. Hospital Course: Patient was aggressively diuresed with IV Lasix. He was also placed on amlodipine, lisinopril and metoprolol to control his blood pressure. He was seen and evaluated by cardiology and pulmonology. He was also treated with broad-spectrum IV antibiotic-IV Levaquin and Zosyn and bronchodilators. His respiratory condition improved with treatment. Repeat chest x-ray showed almost resolution of the diffuse bilateral infiltrates suggesting pulmonary edema. The patient was weaned off oxygen. He tolerated room air both at rest and with ambulation. Pulmonology suspect some degree of COPD and recommended bronchodilators. His home dose Lasix has been increased from 60 mg daily to 40 mg twice a day. He is also prescribed nebulizers for COPD. He will follow with Pulmonary for further evaluation for COPD. Amlodipine 10 mg daily has been added to control his blood pressure. His other medications have been resumed on discharge. Vital Signs/Physical Exam: Temp Pulse Resp BP Pulse Ox 97.2 F 73 18 185/110 H 95 07/18/19 05:55 07/18/19 08:46 07/18/19 05:55 07/18/19 08:46 07/18/19 05:55 General: Alert, In no apparent distress, Oriented x3 HEENT: Atraumatic, Mucous membr. moist/pink, Sclerae nonicteric Neck: Supple, JVD not distended Respiratory: Clear to auscultation bilaterally, Normal air movement Cardiovascular: No edema, Regular rate/rhythm, Normal S1 S2 Gastrointestinal: Normal bowel sounds, Soft and benign, No tenderness Musculoskeletal: No swelling, No erythema Integumentary: No rashes Neurological: Normal speech, Normal strength at 5/5 x4 extr, Cranial nerves 3- 12 intact Laboratory Data at Discharge: WBC 11.8 K/uL (4.3-10.9) H 07/17/19 05:13 Hgb 12.0 g/dL (13.6-17.9) L 07/17/19 05:13 Hct 35.6 % (39.6-49.0) L 07/17/19 05:13 Plt Count 219 K/uL (152-406) 07/17/19 05:13 PT 11.6 SECONDS (9.5-12.5) 07/15/19 05:10 INR 0.98 07/15/19 05:10 APTT 31.7 SECONDS (24.3-36.9) 07/15/19 05:10 Sodium 142 mmol/L (136-145) 07/18/19 05:10 Potassium 3.9 mmol/L (3.5-5.1) 07/18/19 05:10 BUN 31 mg/dL (7-18) H 07/18/19 05:10 Creatinine 1.26 mg/dL (0.55-1.3) 07/18/19 05:10 Glucose 110 mg/dL (74-106) H 07/18/19 05:10 Phosphorus 2.7 mg/dL (2.5-4.9) 07/16/19 05:26 Magnesium 2.2 mg/dL (1.8-2.4) 07/16/19 05:26 Total Bilirubin 0.6 mg/dL (0.2-1.0) 07/16/19 05:26 AST 26 U/L (15-37) 07/16/19 05:26 ALT 27 U/L (12-78) 07/16/19 05:26 Alkaline Phosphatase 75 U/L (45-117) 07/16/19 05:26 Troponin I 0.09 ng/mL (0.0-0.045) H 07/16/19 05:26 Lipase 72 U/L (73-393) L 07/15/19 05:10 Home Medications: Aspirin 1 tab PO DAILY 07/16/19 Isosorb Dinit/Hydralazine HCl [Bidil Tablet] 1 tab PO DAILY 07/16/19 Metoprolol Tartrate 1 tab PO BID 07/16/19 Sacubitril/Valsartan [Entresto 49 mg-51 mg Tablet] 1 tab PO DAILY 07/16/19 Albuterol Neb [Proventil 0.083% Neb Soln] 2.5 mg NEB [id number] PRN #30 amp Amlodipine [Norvasc*] 10 mg PO DAILY #30 tab 07/18/19 Arformoterol Tartrate [Brovana] 15 mcg NEB BIDRESP #30 vial.neb 07/18/19 Furosemide [Lasix] 40 mg PO BIDL #60 tab 07/18/19 Nebulizer [Aeroneb Go Nebulizer] 1 each MC QID #1 each 07/18/19 Spironolactone [Aldactone*] 25 mg PO BID #30 tab 07/18/19 New Medications: Albuterol Neb [Proventil 0.083% Neb Soln] 2.5 mg NEB [id number] PRN #30 amp PRN Reason: Shortness Of Breath Amlodipine [Norvasc*] 10 mg PO DAILY #30 tab Arformoterol Tartrate [Brovana] 15 mcg NEB BIDRESP #30 vial.neb Furosemide [Lasix] 40 mg PO BIDL #60 tab Nebulizer [Aeroneb Go Nebulizer] 1 each MC QID #1 each Spironolactone [Aldactone*] 25 mg PO BID #30 tab Diet: AHA Activity: Ad cheikh Followup: Jordan Banks MD [ACTIVE - CAN ADMIT] - 1-2 Weeks Beto Tan MD [ACTIVE - CAN ADMIT] - 1-2 Weeks Time spent managing pt's care (in minutes): 40
--- NOTE | 2019-07-18 12:08 | P.PN ---
Subjective Date of Service: 07/18/19 Chief Complaint: Congestive heart failure Subjective: Improving (Improving is doing much better symptoms have resolved although blood pressure continues to remain elevated) Review of Systems Unremarkable Physical Examination - Vital Signs Temperature: 97.2 F Blood Pressure: 173/112 Pulse: 61 Respirations: 18 Pulse Ox (%): 95 - Physical Exam General: Alert, Oriented x3 Neck: Supple Respiratory: Clear to auscultation bilaterally Cardiovascular: No edema, Regular rate/rhythm Gastrointestinal: Normal bowel sounds, Soft and benign Assessment & Plan - Problems (Diagnosis) (1) Acute exacerbation of CHF (congestive heart failure) Onset Date: 01/27/17 Current Visit: No Status: Acute Plan: Patient is doing much better final signs stable blood pressure a however is elevated patient to resume all his home medications may have underlying COPD to follow up with me as an outpatient oxygenation satisfactory patient has dilated cardiomyopathy
[2019-07-18] MEDS: HYDRALAZINE HCL 25 MG TABLET PO SCH ×4 (13:23→20:51)
--- NOTE | 2019-07-18 18:56 | P.PN ---
Subjective Date of Service: 07/18/19 Chief Complaint: Congestive heart failure Patient reports feeling much better today and back to baseline. He denies any shortness of breath or palpitation or chest pain. His blood pressure readings are elevated today. Physical Examination - Vital Signs Temperature: 97.0 F Blood Pressure: 168/102 Pulse: 72 Respirations: 18 Pulse Ox (%): 94 - Physical Exam General: Alert, In no apparent distress, Oriented x3 HEENT: Mucous membr. moist/pink, Sclerae nonicteric Neck: Supple, JVD not distended Respiratory: Clear to auscultation bilaterally, Normal air movement Cardiovascular: No edema, Regular rate/rhythm, Normal S1 S2, No murmurs Capillary refill: <2 Seconds Gastrointestinal: Normal bowel sounds, Soft and benign, Non-distended, No tenderness Musculoskeletal: No erythema, No tenderness Integumentary: No rashes Neurological: Normal speech, Normal strength at 5/5 x4 extr, Cranial nerves 3- 12 intact Assessment And Plan - Current Problems (Diagnosis) (1) Acute respiratory failure with hypoxia Current Visit: Yes Status: Acute (2) Acute on chronic systolic heart failure Current Visit: Yes Status: Acute (3) Acute respiratory distress Onset Date: 01/27/17 Current Visit: No Status: Acute (4) Uncontrolled hypertension Onset Date: 01/27/17 Current Visit: No Status: Acute - Plan Resume oral Lasix at 80 mg daily. Amlodipine increased to 10 mg daily Continue metoprolol and Aldactone. Hydralazine IV prn for BP spikes. Echocardiogram is pending. Continue bronchodilators.
[2019-07-18] MEDS: ALBUTEROL 2.5 MG/3 ML NEB SOL NEB PRN (20:05)
[2019-07-18] MEDS: IPRATROPIUM BROM 0.5MG/2.5ML NEB PRN (20:05)
[2019-07-18 23:51] VITALS: O2SAT 97
[2019-07-19 05:55] LABS: Potassium 3.4 mmol/L (3.5-5.1)
[2019-07-19] MEDS ORDERED: POTASSIUM 25 MEQ EFFERV TAB PO ONE (06:03)
[2019-07-19] MEDS ORDERED: AMLODIPINE 10 MG TAB PO SCH (09:00)
[2019-07-19] MEDS: METOPROLOL TAR 50 MG TAB PO SCH (10:56)
[2019-07-19] MEDS: ENOXAPARIN 40 MG/0.4 ML SQ SCH (11:01)
[2019-07-19] MEDS: FUROSEMIDE 40 MG/4 ML VIAL IV SCH (11:01)
[2019-07-19] MEDS: HYDRALAZINE HCL 25 MG TABLET PO SCH (11:01)
[2019-07-19] MEDS: lisinopriL 20 MG TAB PO SCH (11:01)
[2019-07-19] MEDS: SPIRONOLACTONE 25 MG TABLET PO SCH (11:02)
[2019-07-19] MEDS: GUAIFENESIN 600 MG SA TAB PO SCH (11:02)
--- NOTE | 2019-07-19 13:37 | ECHO ---
HEIGHT: 6 ft 2 in WEIGHT: 172 lb 8 oz DATE OF STUDY: 07/19/[address]: Beto Tan MD 2-DIMENSIONAL: YES M.MODE: YES DOPPLER: YES COLOR FLOW: YES TDS: PORTABLE: DEFINITY: BUBBLE STUDY: DIAGNOSIS: CONGESTIVE HEART FAILURE CARDIAC HISTORY: CATHERIZATION: NO SURGERY: NO PROSTHETIC VALVE: NO PACEMAKER: DEFIB MEASUREMENTS (cm) DIASTOLIC (NORMALS) SYSTOLIC (NORMALS) IVSd 1.7 (0.6-1.2) LA Diam 5.0 (1.9-4.0) LVEF 41% LVIDd 6.2 (3.5-5.7) LVIDs 5.0 (2.0-3.5) %FS 20% LVPWd 1.3 (0.6-1.2) Ao Diam 3.1 (2.0-3.7) 2 DIMENSIONAL ASSESSMENT: RIGHT ATRIUM: NORMAL LEFT ATRIUM: DILATED RIGHT VENTRICLE: POSITIVE PERMANENT PACEMAKER LEFT VENTRICLE: DILATED TRICUSPID VALVE: NORMAL MITRAL VALVE: NORMAL PULMONIC VALVE: NORMAL AORTIC VALVE: NORMAL PERICARDIAL EFFUSION: NONE AORTIC ROOT: NORMAL LEFT VENTRICULAR WALL MOTION: MILD GLOBAL HYPOKINESIS. DOPPLER/COLOR FLOW: TRACE TRICUSPID REGURGITATION. COMMENTS: MILD GLOBAL HYPOKINESIS. LEFT VENTRICULAR DILATION, LEFT ATRIAL ENLARGEMENT. ATRIAL FLUTTER. PACER IN RIGHT VENTRICULAR APEX. TRACE TRICUSPID REGURGITATION. EJECTION FRACTION 40%. TECHNOLOGIST: JENIFER GARCIA
[2019-07-19 14:15] VITALS: BP 134/93; TEMP 97.4
== END 2019-07-19 13:05 | disposition home or self-care (01) | DRG 291 ==
LOC: ER 04:45 → ERHOLD 08:03 → 3RD-ICU 12:37 → 4TH 07-16 11:56
PROVIDERS: ADMIT Family Medicine; ATTEND Family Medicine
PROC: 5A09357 Assistance with Respiratory Ventilation, Less than 24 Consecutive Hours, Continuous Positive Airway Pressure (ICD-10-PCS; principal; 2019-07-15)
DX: I11.0 Hypertensive heart disease with heart failure (principal); J96.01 Acute respiratory failure with hypoxia; J18.9 Pneumonia, unspecified organism; J44.0 Chronic obstructive pulmonary disease with (acute) lower respiratory infection; R04.2 Hemoptysis; I48.91 Unspecified atrial fibrillation; I50.23 Acute on chronic systolic (congestive) heart failure; F14.10 Cocaine abuse, uncomplicated; I16.0 Hypertensive urgency; F12.10 Cannabis abuse, uncomplicated; F17.210 Nicotine dependence, cigarettes, uncomplicated; Z95.810 Presence of automatic (implantable) cardiac defibrillator
CPT/HCPCS: 36415; 71045; 71275; 80048; 80053; 80076; 80202; 80307; 82550; 82553; 82805; 82947; 83690; 83735; 83880; 84100; 84484; 85025; 85379; 85610; 85730; 87040; 87070; 87205; 87389; 87804; 93005; 93306; 94660; 96365; 96366; 96367; 96368; 96375; 99285; J0360; J1650; J1940; J2543; J2920; J2930; J7030; J7040; J7512; J7605; Q9967

== ENCOUNTER 2019-09-26 03:49 | Inpatient (IN) | payer OTHER ==
--- OUTSIDE RECORDS SUMMARY | 2019-09-26 03:52 | XMS REPORT ---
:1955 Author Organization [facility] t Address [facility] Christophe Tr[address] [place] [address] Care Team Providers Name Role Phone JIM SHEEHAN Primary Care Provider Unavailable MELYSSA POPE Unavailable Unavailable AGUILA Unavailable Unavailable Problems This patient has no known problems. Allergies, Adverse Reactions, Alerts This patient has no known allergies or adverse reactions. Medications This patient has no known medications. Results Test Description Test Time Test Comments Text Results Atomic Results Result Comments Comprehensive Metabolic Panel 2019-02-07 21:16:53 Test Item Value Reference Range Comments Sodium Level (test code = Sodium Level) 140.0 mmol/L 135.0-14 5.0 Potassium Level (test code = Potassium Level) 4.5 mmol/L 3. 5-5.1 Chloride Level (test code = Chloride Level) 102 mmol/L 98-1 05 CO2 (test code = CO2) 25 mmol/L 22-29 Anion Gap (test code = Anion Gap) 13 mmol/L 7-16 BUN (test code = BUN) 20.30 mg/dL 8.00-23.00 Creatinine Level (test code = Creatinine Level) 1.40 mg/dL 0.70-1.20 BUN/Creat Ratio (test code = BUN/Creat Ratio) 14 Glucose Level (test code = Glucose Level) 99 mg/dL 70-115 Calcium Level (test code = Calcium Level) 9.3 mg/dL 8.3-10 .5 Alk Phos (test code = Alk Phos) 93 U/L 40-129 Bilirubin Total (test code = Bilirubin Total) 0.4 mg/dL 0. 1-0.9 Albumin Level (test code = Albumin Level) 4.0 g/dL 3.5-5. 2 Protein Total (test code = Protein Total) 7.3 g/dL 6.4-8. 3 ALT (test code = ALT) 11 U/L 1-41 AST (test code = AST) 23 U/L 1-40 Globulin (test code = Globulin) 3.3 g/dL 2.9-3.1 A/G Ratio (test code = A/G Ratio) 1.2 ratio Comprehensive Metabolic [id number] 21:16:53 Test Item Value Reference Range Comments Sodium Level (test code = 140.0 mmol/L 135.0-145.0 Sodium Level) Potassium Level (test 4.5 mmol/L 3.5-5.1 code = Potassium Level) Chloride Level (test code 102 mmol/L 98-105 = Chloride Level) CO2 (test code = CO2) 25 mmol/L 22-29 Anion Gap (test code = 13 mmol/L 7-16 Anion Gap) BUN (test code = BUN) 20.30 mg/dL 8.00-23.00 Creatinine Level (test 1.40 mg/dL 0.70-1.20 code = Creatinine Level) BUN/Creat Ratio (test 14 code = BUN/Creat Ratio) Glucose Level (test code 99 mg/dL 70-115 = Glucose Level) Calcium Level (test code 9.3 mg/dL 8.3-10.5 = Calcium Level) Alk Phos (test code = Alk 93 U/L 40-129 Phos) Bilirubin Total (test 0.4 mg/dL 0.1-0.9 code = Bilirubin Total) Albumin Level (test code 4.0 g/dL 3.5-5.2 = Albumin Level) Protein Total (test code 7.3 g/dL 6.4-8.3 = Protein Total) ALT (test code = ALT) 11 U/L 1-41 AST (test code = AST) 23 U/L 1-40 Globulin (test code = 3.3 g/dL 2.9-3.1 Globulin) A/G Ratio (test code = 1.2 ratio A/G Ratio) eGFR AA (test code = eGFR >60 mL/min/1.73 m2 eGF R (estimated AA) Glomerular Filtr ation Rate) is an armin mated value, calculate d from the patient's se rum creatinine using the MDRD equation. It is NOT the patient's actual GFR. The eGFR provides a more clinically usefu l measure of kidney diseas e than serum creatinine alone.This ca lculation takes sex and ra ce into account, if the information is p rovided. If the race is n ot provided, and th e patient is -Ameri can, multiply by 1.21 2. If sex is not provided, and the patient is femal e, multiply by 0.74 2. Results for gladis ents <18 years of age hav e not been validated b y the MDRD study and s hould be interpreted with caution. eGFR Result Interpretation:e GFR > or = 60 is in the N ormal RangeeGFR < 60 m ay mean kidney diseaseeG FR < 15 may mean kidney failure Range s recommended by t he National Kidney Foundation, http://nkdep.nih .gov eGFR Non-AA (test code = 51.02 mL/min/1.73 eGFR (estimated eGFR Non-AA) m2 Glomerular Filtr ation Rate) is an armin mated value, calculate d from the patient's se rum creatinine using the MDRD equation. It is NOT the patient's actual GFR. The eGFR provides a more clinically usefu l measure of kidney diseas e than serum creatinine alone.This ca lculation takes sex and ra ce into account, if the information is p rovided. If the race is n ot provided, and th e patient is -Ameri can, multiply by 1.21 2. If sex is not provided, and the patient is femal e, multiply by 0.74 2. Results for gladis ents <18 years of age hav e not been validated b y the MDRD study and s jameluld be interpreted with caution. eGFR Result Interpretation:e GFR > or = 60 is in the N ormal RangeeGFR < 60 m ay mean kidney diseaseeG FR < 15 may mean kidney failure Range s recommended by t he National Kidney Foundation, http://nkdep.nih .gov Comprehensive Metabolic [id number] 21:16:53 Test Item Value Reference Range Comments Sodium Level (test code = 140.0 mmol/L 135.0-145.0 Sodium Level) Potassium Level (test 4.5 mmol/L 3.5-5.1 code = Potassium Level) Chloride Level (test code 102 mmol/L 98-105 = Chloride Level) CO2 (test code = CO2) 25 mmol/L 22-29 Anion Gap (test code = 13 mmol/L 7-16 Anion Gap) BUN (test code = BUN) 20.30 mg/dL 8.00-23.00 Creatinine Level (test 1.40 mg/dL 0.70-1.20 code = Creatinine Level) BUN/Creat Ratio (test 14 code = BUN/Creat Ratio) Glucose Level (test code 99 mg/dL 70-115 = Glucose Level) Calcium Level (test code 9.3 mg/dL 8.3-10.5 = Calcium Level) Alk Phos (test code = Alk 93 U/L 40-129 Phos) Bilirubin Total (test 0.4 mg/dL 0.1-0.9 code = Bilirubin Total) Albumin Level (test code 4.0 g/dL 3.5-5.2 = Albumin Level) Protein Total (test code 7.3 g/dL 6.4-8.3 = Protein Total) ALT (test code = ALT) 11 U/L 1-41 AST (test code = AST) 23 U/L 1-40 Globulin (test code = 3.3 g/dL 2.9-3.1 Globulin) A/G Ratio (test code = 1.2 ratio A/G Ratio) eGFR AA (test code = eGFR >60 mL/min/1.73 m2 eGF R (estimated AA) Glomerular Filtr ation Rate) is an armin mated value, calculate d from the patient's se rum creatinine using the MDRD equation. It is NOT the patient's actual GFR. The eGFR provides a more clinically usefu l measure of kidney diseas e than serum creatinine alone.This ca lculation takes sex and ra ce into account, if the information is p rovided. If the race is n ot provided, and th e patient is -Ameri can, multiply by 1.21 2. If sex is not provided, and the patient is femal e, multiply by 0.74 2. Results for gladis ents <18 years of age hav e not been validated b y the MDRD study and noel francis be interpreted with caution. eGFR Result Interpretation:e GFR > or = 60 is in the N ormal RangeeGFR < 60 m ay mean kidney diseaseeG FR < 15 may mean kidney failure Range s recommended by tristan patel National Kidney Foundation, http://nkdep.nih .gov eGFR Non-AA (test code = 51.02 mL/min/1.73 eGFR (estimated eGFR Non-AA) m2 Glomerular Filtr ation Rate) is an armin mated value, calculate d from the patient's se rum creatinine using the MDRD equation. It is NOT the patient's actual GFR. The eGFR provides a more clinically usefu l measure of kidney diseas e than serum creatinine alone.This ca lculation takes sex and ra ce into account, if the information is p rovided. If the race is n ot provided, and th e patient is -Ameri can, multiply by 1.21 2. If sex is not provided, and the patient is femal e, multiply by 0.74 2. Results for gladis ents <18 years of age hav e not been validated b y the MDRD study and s penny be interpreted with caution. eGFR Result Interpretation:e GFR > or = 60 is in the N ormal RangeeGFR < 60 m ay mean kidney diseaseeG FR < 15 may mean kidney failure Range s recommended by tristan patel National Kidney Foundation, http://nkdep.nih .gov Comprehensive Metabolic [id number] 23:03:04 Test Item Value Reference Range Comments Sodium Level (test code = Sodium Level) 142.0 mmol/L 135.0-14 5.0 Potassium Level (test code = Potassium Level) 4.6 mmol/L 3. 5-5.1 Chloride Level (test code = Chloride Level) 103 mmol/L 98-1 05 CO2 (test code = CO2) 27 mmol/L 22-29 Anion Gap (test code = Anion Gap) 12 mmol/L 7-16 BUN (test code = BUN) 15.60 mg/dL 8.00-23.00 Creatinine Level (test code = Creatinine Level) 1.30 mg/dL 0.70-1.20 BUN/Creat Ratio (test code = BUN/Creat Ratio) 12 Glucose Level (test code = Glucose Level) 93 mg/dL 70-115 Calcium Level (test code = Calcium Level) 9.7 mg/dL 8.3-10 .5 Alk Phos (test code = Alk Phos) 94 U/L 40-129 Bilirubin Total (test code = Bilirubin Total) 0.3 mg/dL 0. 1-0.9 Albumin Level (test code = Albumin Level) 4.5 g/dL 3.5-5. 2 Protein Total (test code = Protein Total) 7.6 g/dL 6.4-8. 3 ALT (test code = ALT) 10 U/L 1-41 AST (test code = AST) 18 U/L 1-40 Globulin (test code = Globulin) 3.1 g/dL 2.9-3.1 A/G Ratio (test code = A/G Ratio) 1.5 ratio Comprehensive Metabolic [id number] 23:03:04 Test Item Value Reference Range Comments Sodium Level (test code = 142.0 mmol/L 135.0-145.0 Sodium Level) Potassium Level (test 4.6 mmol/L 3.5-5.1 code = Potassium Level) Chloride Level (test code 103 mmol/L 98-105 = Chloride Level) CO2 (test code = CO2) 27 mmol/L 22-29 Anion Gap (test code = 12 mmol/L 7-16 Anion Gap) BUN (test code = BUN) 15.60 mg/dL 8.00-23.00 Creatinine Level (test 1.30 mg/dL 0.70-1.20 code = Creatinine Level) BUN/Creat Ratio (test 12 code = BUN/Creat Ratio) Glucose Level (test code 93 mg/dL 70-115 = Glucose Level) Calcium Level (test code 9.7 mg/dL 8.3-10.5 = Calcium Level) Alk Phos (test code = Alk 94 U/L 40-129 Phos) Bilirubin Total (test 0.3 mg/dL 0.1-0.9 code = Bilirubin Total) Albumin Level (test code 4.5 g/dL 3.5-5.2 = Albumin Level) Protein Total (test code 7.6 g/dL 6.4-8.3 = Protein Total) ALT (test code = ALT) 10 U/L 1-41 AST (test code = AST) 18 U/L 1-40 Globulin (test code = 3.1 g/dL 2.9-3.1 Globulin) A/G Ratio (test code = 1.5 ratio A/G Ratio) eGFR AA (test code = eGFR >60 mL/min/1.73 m2 eGF R (estimated AA) Glomerular Filtr ation Rate) is an armin mated value, calculate d from the patient's se rum creatinine using the MDRD equation. It is NOT the patient's actual GFR. The eGFR provides a more clinically usefu l measure of kidney diseas e than serum creatinine alone.This ca lculation takes sex and ra ce into account, if the information is p rovided. If the race is n ot provided, and th e patient is -Ameri can, multiply by 1.21 2. If sex is not provided, and the patient is femal e, multiply by 0.74 2. Results for gladis ents <18 years of age hav e not been validated b y the MDRD study and s penyn be interpreted with caution. eGFR Result Interpretation:e GFR > or = 60 is in the N ormal RangeeGFR < 60 m ay mean kidney diseaseeG FR < 15 may mean kidney failure Range s recommended by tristan patel National Kidney Foundation, http://nkdep.nih .gov Lipid [id number] 23:03:04 Test Item Value Reference Range Comments Cholesterol Total (test code 193 mg/dL 0-200 RIS K OF HEART DISEASEPublished = Cholesterol Total) by [place] [employer] Analyte Optimal Borderline Increased RiskCH OL <200 200-239 >240TRIG <150 150-199 >200HDL Male >6 0 <40HDL Female >60 <50 LDL <100 130-159 >160LDL Near optimal is 100-129 Triglycerides (test code = 91 mg/dL 9-200 Triglycerides) HDL (test code = HDL) 81 mg/dL 40-60 LDL (test code = LDL) 94 mg/dL 0-130 The equati on being used in this calculation is LDL = (Chol - HDL) - (Trig / 5 ) The equation being used in th is calculation is LDL = (Chol - HDL) - (Trig / 5) VLDL (test code = VLDL) 18 mg/dL 5-40 The equa tion being used in this calculation is VLDL = Trig / 5 The equation isai ng used in this calculation is VLDL = Trig / 5 Chol/HDL (test code = 2.4 ratio 0.0-5.0 Chol/HDL) LDL/HDL Ratio (test code = 1 The e quation being used in this LDL/HDL Ratio) calculation is LDL/HDL Ratio=LDL Calc/H DL Chol The equation being u sed in this calculation is LDL/HDL Ratio=LDL Calc/H DL Chol Thyroid Stimulating [id number] 23:03:04 Test Item Value Reference Range Comments TSH (test code = TSH) 0.848 mIU/mL 0.270-4.200 Pro B Natriuretic [id number] 23:03:04 Test Item Value Reference Range Comments NT-proBNP (test code = NT-proBNP) 1591 pg/mL 0-124 Comprehensive Metabolic [id number] 23:03:04 Test Item Value Reference Range Comments Sodium Level (test code = 142.0 mmol/L 135.0-145.0 Sodium Level) Potassium Level (test 4.6 mmol/L 3.5-5.1 code = Potassium Level) Chloride Level (test code 103 mmol/L 98-105 = Chloride Level) CO2 (test code = CO2) 27 mmol/L 22-29 Anion Gap (test code = 12 mmol/L 7-16 Anion Gap) BUN (test code = BUN) 15.60 mg/dL 8.00-23.00 Creatinine Level (test 1.30 mg/dL 0.70-1.20 code = Creatinine Level) BUN/Creat Ratio (test 12 code = BUN/Creat Ratio) Glucose Level (test code 93 mg/dL 70-115 = Glucose Level) Calcium Level (test code 9.7 mg/dL 8.3-10.5 = Calcium Level) Alk Phos (test code = Alk 94 U/L 40-129 Phos) Bilirubin Total (test 0.3 mg/dL 0.1-0.9 code = Bilirubin Total) Albumin Level (test code 4.5 g/dL 3.5-5.2 = Albumin Level) Protein Total (test code 7.6 g/dL 6.4-8.3 = Protein Total) ALT (test code = ALT) 10 U/L 1-41 AST (test code = AST) 18 U/L 1-40 Globulin (test code = 3.1 g/dL 2.9-3.1 Globulin) A/G Ratio (test code = 1.5 ratio A/G Ratio) eGFR AA (test code = eGFR >60 mL/min/1.73 m2 eGF R (estimated AA) Glomerular Filtr ation Rate) is an armin mated value, calculate d from the patient's se rum creatinine using the MDRD equation. It is NOT the patient's actual GFR. The eGFR provides a more clinically usefu l measure of kidney diseas e than serum creatinine alone.This ca lculation takes sex and ra ce into account, if the information is p rovided. If the race is n ot provided, and th e patient is -Ameri can, multiply by 1.21 2. If sex is not provided, and the patient is femal e, multiply by 0.74 2. Results for gladis ents <18 years of age hav e not been validated b y the MDRD study and noel francis be interpreted with caution. eGFR Result Interpretation:e GFR > or = 60 is in the N ormal RangeeGFR < 60 m ay mean kidney diseaseeG FR < 15 may mean kidney failure Range s recommended by t he National Kidney Foundation, http://nkdep.nih .gov eGFR Non-AA (test code = 55.58 mL/min/1.73 eGFR (estimated eGFR Non-AA) m2 Glomerular Filtr ation Rate) is an armin mated value, calculate d from the patient's se rum creatinine using the MDRD equation. It is NOT the patient's actual GFR. The eGFR provides a more clinically usefu l measure of kidney diseas e than serum creatinine alone.This ca lculation takes sex and ra ce into account, if the information is p rovided. If the race is n ot provided, and th e patient is -Ameri can, multiply by 1.21 2. If sex is not provided, and the patient is femal e, multiply by 0.74 2. Results for gladis ents <18 years of age hav e not been validated b y the MDRD study and noel francis be interpreted with caution. eGFR Result Interpretation:e GFR > or = 60 is in the N ormal RangeeGFR < 60 m ay mean kidney diseaseeG FR < 15 may mean kidney failure Range s recommended by t he National Kidney Foundation, http://nkdep.nih .gov Erythrocyte Sedimentation Rate [id number] 22:26:53 Test Item Value Reference Range Comments ESR STAT (test code = ESR STAT) 11 mm/hr 0-9 Complete Blood Count with [id number] 22:14:43 Test Item Value Reference Range Comments WBC (test code = WBC) 6.9 x10 4.4-10.5 RBC (test code = RBC) 4.56 x10 4.10-5.70 Hgb (test code = Hgb) 14.3 g/dL 13.4-17.4 MCV (test code = MCV) 94.50 fL 80.00-100.00 Hct (test code = Hct) 43.1 % 38.7-52.0 MCHC (test code = MCHC) 33.20 g/dL 32.00-37.50 RDW CV (test code = RDW CV) 15.4 % 11.5-14.5 MCH (test code = MCH) 31.4 pg 27.0-32.5 Platelets (test code = 280.0 x10 140.0-440.0 Platelets) MPV (test code = MPV) 9.4 fL Slide Review (test code = Auto Auto Result created by Slide Review) GL_SJM_SLIDE_REV _AUTO nRBC (test code = nRBC) 0 NRBC Abs (test code = NRBC 0.00 x10 Abs) IPF (test code = IPF) 0 % Automated [id number] 22:14:43 Test Item Value Reference Range Comments Neutro Auto (test code = Neutro Auto) 41.7 % 36.0-70.0 Lymph Auto (test code = Lymph Auto) 43.9 % 12.0-44.0 Dawson Auto (test code = Dawson Auto) 6.5 % 0.0-11.0 Eos, Auto (test code = Eos, Auto) 6.6 % 0.0-7.0 Basophil Auto (test code = Basophil Auto) 1.0 % 0.0-2. 0 Neutro Absolute (test code = Neutro Absolute) 2.9 x10 1. 6-7.4 Lymph Absolute (test code = Lymph Absolute) 3.04 x10 .50- 4.60 Dawson Absolute (test code = Dawson Absolute) .45 x10 .00-1. 20 Eos Absolute (test code = Eos Absolute) 0.46 x10 0.00-0.7 4 Baso Absolute (test code = Baso Absolute) 0.07 x10 0.00-0 .21 IG [id number] 22:14:43 Test Item Value Reference Range Comments IG (test code = IG) 0.3 % 0.0-5.0 IG Abs (test code = IG Abs) 0 x10 RAD, CHEST, 2 [id number] 13:44:00Reason for exam:->SmokerFINAL REPORT TECHNIQUE: 2 views of the chest. COMPARISON: None FINDINGS: Thecardiac silhouette is within normal limits. Thoracic aorta is ectatic. Lungs are clear. No acute skeletal abnormality. Left-sided pacing device noted. IMPRESSION: No acute cardiopulmonary disease. Signed: Kyle Rogerseport Verified Date/Time: 09/08/2017 13:44:07 Reading Location: [facility] Radiology Reading Room CBC W/PLT COUNT & AUTO [id number] 12:29:00 Test Item Value Reference Range Comments WHITE BLOOD CELL COUNT (BEAKER) (test code = 5.5 K/ L 4.0 -10.0 775) RED BLOOD CELL COUNT (BEAKER) (test code = 761) 4.66 M/ L 4.20-5.80 HEMOGLOBIN (BEAKER) (test code = 410) 14.6 GM/DL 13.0-16.8 HEMATOCRIT (BEAKER) (test code = 411) 43.7 % 40.0-50.0 MEAN CORPUSCULAR VOLUME (BEAKER) (test code = 93.6 fL 82 .0-98.0 753) MEAN CORPUSCULAR HEMOGLOBIN (BEAKER) (test code 31.3 pg 27.0-33.0 = 751) MEAN CORPUSCULAR HEMOGLOBIN CONC (BEAKER) (test 33.4 GM/DL 32.0-36.0 code = 752) RED CELL DISTRIBUTION WIDTH (BEAKER) (test code 15.4 % 10.3-14.2 = 412) PLATELET COUNT (BEAKER) (test code = 756) 273 K/CU MM 150-43 0 MEAN PLATELET VOLUME (BEAKER) (test code = 754) 6.4 fL 6.5-10.5 NUCLEATED RED BLOOD CELLS (BEAKER) (test code = 0 /100 WBC 0-0 413) (MANUAL DIFFERENTIAL)2017-09-08 12:29:00 Test Item Value Reference Range Comments NEUTROPHILS - REL (DIFF) (BEAKER) (test code = 19 % 1359) LYMPHOCYTES - REL (DIFF) (BEAKER) (test code = 72 % 1360) EOSINOPHILS - REL (DIFF) (BEAKER) (test code = 9 % 1362) NEUTROPHILS - ABS (DIFF) (BEAKER) (test code = 1.05 K/ L 1 .80-8.00 1365) LYMPHOCYTES - ABS (DIFF) (BEAKER) (test code = 3.96 K/ L 1 .48-4.50 1366) EOSINOPHILS - ABS (DIFF) (BEAKER) (test code = 0.50 K/ L 0 .00-0.50 1368) TOTAL COUNTED (BEAKER) (test code = 1351) 100 WBC MORPHOLOGY (BEAKER) (test code = 487) Normal PLT MORPHOLOGY (BEAKER) (test code = 486) Normal RBC MORPHOLOGY (BEAKER) (test code = 762) Normal COMPREHENSIVE METABOLIC [id number] 12:29:00 Test Item Value Reference Range Comments TOTAL PROTEIN (BEAKER) 6.8 gm/dL 6.0-8.5 (test code = 770) ALBUMIN (BEAKER) (test 3.7 g/dL 3.5-5.0 code = 1145) ALKALINE PHOSPHATASE 83 U/L 30-115 (BEAKER) (test code = 346) BILIRUBIN TOTAL (BEAKER) 0.5 mg/dL 0.1-1.2 (test code = 377) SODIUM (BEAKER) (test code 140 meq/L 135-148 = 381) POTASSIUM (BEAKER) (test 4.2 meq/L 3.6-5.5 code = 379) CHLORIDE (BEAKER) (test 104 meq/L 98-106 code = 382) CO2 (BEAKER) (test code = 30 meq/L 20-29 355) BLOOD UREA NITROGEN 13 mg/dL 10-26 (BEAKER) (test code = 354) CREATININE (BEAKER) (test 1.10 mg/dL 0.50-1.20 code = 358) GLUCOSE RANDOM (BEAKER) 87 mg/dL 70-110 (test code = 652) CALCIUM (BEAKER) (test 8.9 mg/dL 8.5-10.5 code = 697) AST (SGOT) (BEAKER) (test 17 U/L 5-40 code = 353) ALT (SGPT) (BEAKER) (test 15 U/L 5-50 code = 347) EGFR (JOAQUÍN) (test code = 82 mL/min/1.73 sq m E STIMATED GFR IS NOT 1092) ACCURATE CREA TININE CLEARANCE IN PRE DICTING GLOMERULAR FILTR ATION RATE. ESTIMATED GFR IS NOT APPLICABLE F OR DIALYSIS PATIENT S. Sed [facility]2017-02-27 04:53:00 Test Item Value Reference Range Comments ESR (test code = HESR) 12 mm/Hr 0-9 CBC with [id number] 04:12:00 Test Item Value Reference Range Comments WBC (test code = WBC) 5.0 K/cumm 4.4-10.5 RBC (test code = RBC) 4.05 M/cumm 4.10-5.70 Hemoglobin (test code = HGB) 12.5 gm/dL 13.4-17.4 Hematocrit (test code = HCT) 41.1 % 38.7-52.0 MCV (test code = MCV) 101.4 fL 80-100 MCH (test code = MCH) 30.9 pg 27.0-32.5 MCHC (test code = MCHC) 30.4 g/dL 32.0-37.5 RDW (test code = RDW) 15.0 % 11.5-14.5 Platelet Count (test code = 214 K/cumm 140-440 PLTCT) MPV (test code = MPV) 10.4 fL Diff Method (test code = DIFFM) Manual Neutrophil (test code = NEUT) 37.0 % 36-70 Lymphocyte (test code = LYMPH) 55.0 % 12-44 Monocyte (test code = MONO) 6.0 % 0-11 Eosinophil (test code = EOS) 2.0 % 0-7 Neutro Abs (test code = ANEUT) 1.9 K/cumm 1.6-7.4 Lymph Abs (test code = ALYMPH) 2.8 K/cumm 0.5-4.6 Dawson Abs (test code = AMONO) 0.3 K/cumm 0.0-1.2 Eos Abs (test code = AEOS) 0.10 K/cumm 0.00-0.74 RBC Morphology (test code = Not Indicated RBCMRPH) Platelet Est (test code = Adequate Platelets on Smear PLTEST) Lipid [id number] 03:06:00 Test Item Value Reference Range Comments Cholesterol (test code = 200 mg/dL 0-200 CHOL) Triglycerides (test code = 104 mg/dL 9-200 TRIG) HDL (test code = HDL) 66 mg/dL 40-60 Chol/HDL (test code = 3.0 Ratio 0.0-5.0 CHOLPHDL) LDL, Calculated (test code 113 0-130 (NOTE )RISK OF HEART = LDLC) DISEASEPublished by [place] [employer] Associatio nAnalyte Optimal Boderline Increased RiskCHOL <200 20 0-239 >240TRIG <150 150-199 >200HDL Male: >60 <40HDL Female: &g t;60 <50LDL <100 130-159 >1 60LDL NEAR O PTIMAL IS 100-129 VLDL (test code = VLDL) 21 mg/dL 5-40 LDL/HDL (test code = 2 LDLPHDL) Comprehensive Metabolic [id number] 03:06:00 Test Item Value Reference Range Comments Sodium (test code = NA) 142 mmol/L 135-145 Potassium (test code = K) 3.9 mmol/L 3.5-5.1 Chloride (test code = CL) 103 mmol/L 98-105 Carbon Dioxide (test code 28 mmol/L 22-29 = CO2) Glucose (test code = GLU) 64 mg/dL 70-115 Blood Urea Nitrogen (test 13 mg/dL 8-23 code = BUN) Creatinine (test code = 1.3 mg/dL 0.7-1.2 CREAT) Calcium (test code = CA) 8.8 mg/dL 8.3-10.5 Prot Total (test code = 6.5 g/dL 6.4-8.3 TP) Albumin (test code = ALB) 3.6 g/dL 3.5-5.2 A/G Ratio (test code = 1.2 Ratio AGRATIO) Globulin (test code = 2.9 2.9-3.1 GLOB) Bili Total (test code = 0.5 mg/dL 0.1-0.9 TBIL) Alk Phos (test code = 105 U/L 40-129 APHOS) AST (test code = AST) 29 U/L 1-40 ALT (test code = ALT) 34 U/L 1-41 BUN/Creatinine Ratio 10.0 (test code = BCRATIO) Anion Gap (test code = 11 mmol/L 7-16 AGAP) Estimated GFR (test code 59 mL/min/1.73m2 eGFR ( estimated Glomerular = GFR) Filtration Rate) is an estimated value, calculated from the patient 's serum creatinine using the MDRD equation.It is N OT the patient's actual GFR. The eGFR provides a more clinicallyuseful measure of kidney disease t morejon serum creatinine alone .This calculation take s sex and race into accoun t, if the informationis pr ovided. If the race is not provided, and the patient isAfrican-Americ an, multiply by 1.21 2. If sex is not provided, and thepatient is fe male, multiply by 0.74 2. Results for patients <18 years ofage have not b een validated by the MDRD study and should be interpretedwith caution.eGFR Res ult Interpretation:e GFR > or = 60 is in the Nor mal RangeeGFR < 60 m ay mean kidney diseaseeG FR < 15 may mean kidney failureRanges recommended by tristan patel National Kidney Foundation,http: //nkdep.nih .gov Thyroid Stimulating Hormone (TSH)2017-02-27 02:43:00 Test Item Value Reference Range Comments TSH (test code = TSH) 1.40 mIU/mL 0.270-4.200 [id number] 02:43:00 Test Item Value Reference Range Comments NT ProBnp (test code = PBNP) 6296 pg/mL 0-124
[2019-09-26 04:40] LABS: Absolute Lymphocytes (CBC) 2.4 K/uL (0.7-4.9); Basophils % 1.4 % (0-1.3); Lymphocytes % 28.7 % (15.3-44.8); MPV 7.8 fL (7.6-11.3); RBC Red Blood Cell Count 3.45 M/uL (4.33-5.43)
[2019-09-26 04:48] LABS: Protime INR 1.11
[2019-09-26] MEDS ORDERED: FUROSEMIDE 40 MG/4 ML VIAL ONE ×2 (04:54→16:42)
[2019-09-26 04:55] LABS: Albumin 3.1 g/dL (3.4-5.0); Bilirubin Direct 0.2 mg/dL (0-0.2); Bilirubin Total 0.7 mg/dL (0.2-1.0); Magnesium 2.2 mg/dL (1.8-2.4); Potassium 3.8 mmol/L (3.5-5.1); Protein, Total 7.3 g/dL (6.4-8.2); Troponin (Emerg Dept Use Only) 0.1 ng/mL (0.0-0.045)
[2019-09-26] MEDS ORDERED: NITROGLYCERIN 1 GM PKT TD ONE (04:56)
[2019-09-26] MEDS ORDERED: ALBUTEROL INHALER 60 PUFF/8 GM IH ONE (05:03)
[2019-09-26] MEDS ORDERED: HYDRALAZINE HCL 20 MG/ML VIAL ONE (05:51)
--- NOTE | 2019-09-26 06:08 | EDPHYS ---
Physician Documentation [facility] Name: Edouard Marie Age: 64 yrs Sex: Male : 1955 Arrival Date: 09/26/2019 Time: 03:50 Bed 5 Private MD: ED Physician Zak Kinney HPI: 09/25 06:17 This 64 yrs old Black Male presents to ER via Ambulatory with complaints of Shortness tw4 Of Breath. 06:17 The patient has shortness of breath at rest. Onset: The symptoms/episode began/occurred tw4 1 week(s) ago. Duration: The symptoms are continuous. The patient's shortness of breath has no apparent modifying factors. Associated signs and symptoms: The patient has no apparent associated signs or symptoms. Severity of symptoms: At their worst the symptoms were moderate in the emergency department the symptoms are unchanged. The patient has not experienced similar symptoms in the past. Historical: - Allergies: 04:12 No Known Allergies; lp1 - Home Meds: 04:12 Entresto oral oral [Active]; aspirin 81 mg Oral TbEC 1 tab once daily [Active]; Lasix lp1 60 mg Oral once daily [Active]; metoprolol tartrate 50 mg Oral tab 1 tab 2 times per day [Active]; isosorbide dinitrate/Hydralazine 20mg/37.5mg [Active]; - PMHx: 04:12 CHF; Hypertension; COPD; lp1 - PSHx: 04:12 defibrillator; lp1 - Immunization history:: Adult Immunizations up to date. - Social history:: Smoking status: Patient denies any tobacco usage or history of. Patient uses street drugs, marijuana. ROS: 06:17 Constitutional: Negative for fever, chills, and weight loss, Eyes: Negative for injury, tw4 pain, redness, and discharge, Cardiovascular: Negative for chest pain, palpitations, and edema, Abdomen/GI: Negative for abdominal pain, nausea, vomiting, diarrhea, and constipation, Back: Negative for injury and pain, Skin: Negative for injury, rash, and discoloration, Neuro: Negative for headache, weakness, numbness, tingling, and seizure. 06:17 Respiratory: Positive for cough, pleurisy, shortness of breath, wheezing. Exam: 06:17 Constitutional: This is a well developed, well nourished patient who is awake, alert, tw4 and in no acute distress. Head/Face: Normocephalic, atraumatic. Chest/axilla: Normal chest wall appearance and motion. Nontender with no deformity. No lesions are appreciated. Cardiovascular: Regular rate and rhythm with a normal S1 and S2. No gallops, murmurs, or rubs. Normal PMI, no JVD. No pulse deficits. Abdomen/GI: Soft, non-tender, with normal bowel sounds. No distension or tympany. No guarding or rebound. No evidence of tenderness throughout. Back: No spinal tenderness. No costovertebral tenderness. Full range of motion. MS/ Extremity: Pulses equal, no cyanosis. Neurovascular intact. Full, normal range of motion. Neuro: Awake and alert, GCS 15, oriented to person, place, time, and situation. Cranial nerves II-XII grossly intact. Motor strength 5/5 in all extremities. Sensory grossly intact. Cerebellar exam normal. Normal gait. 06:17 Respiratory: the patient does not display signs of respiratory distress, Respirations: labored breathing, that is mild, Breath sounds: rales, that are moderate. Vital Signs: 04:05 BP 162 / 113; Pulse 98; Resp 22; Temp 98(O); Pulse Ox 99% on R/A; Weight 86.18 kg (R); lp1 Height 6 ft. 2 in. (187.96 cm); Pain 0/10; 05:13 BP 188 / 121; Resp 25; Pulse Ox 96% on 3 lpm NC; mg2 06:24 BP 211 / 118; Pulse 102; Resp 28; Pulse Ox 99% on 2 lpm NC; mg2 06:37 BP 169 / 108; Pulse 107; Resp 28; Pulse Ox 100% on 2 lpm NC; mg2 07:05 BP 174 / 113; Pulse 102; Resp 28; Pulse Ox 99% on 2 lpm NC; mg2 04:05 Body Mass Index 24.39 (86.18 kg, 187.96 cm) lp1 MDM: 04:01 Patient medically screened. tw4 06:17 Differential diagnosis: asthma, CHF exacerbation, Chronic Obstructive Pulmonary Disease tw4 Myocardial Infarction pneumonia, pulmonary edema, Pulmonary Embolism Unstable Angina. Data reviewed: vital signs, nurses notes, lab test result(s), cardiac enzymes, CBC, hepatic panel, EKG, radiologic studies, plain films. Data interpreted: Pulse oximetry: Interpretation: normal. Counseling: I had a detailed discussion with the patient and/or guardian regarding: the historical points, exam findings, and any diagnostic results supporting the discharge/admit diagnosis, lab results, radiology results. Medication response: cardene. Response to treatment: the patient's symptoms have mildly improved after treatment, and as a result, I will admit patient, give anti-hypertensive medication, Cardene. Physician consultation: Mauricio Owens regarding admission, to the telemetry unit. patient's condition, and will see patient in the [facility]. Special discussion:. 09/25 03:53 Order name: Basic Metabolic Panel 09/25 03:53 Order name: CBC with Diff; Complete Time: 05:37 09/25 05:37 Interpretation: Normal except: RBC 3.45; HGB 10.5; HCT 32.0. 09/25 03:53 Order name: LFT's; Complete Time: 05:36 09/25 05:36 Interpretation: Normal except: ALB 3.1; A/G 0.7; GLOB 4.2. 09/25 03:53 Order name: Magnesium; Complete Time: 05:37 09/25 05:37 Interpretation: Within normal limits: MG 2.2. 09/25 03:53 Order name: NT PRO-BNP; Complete Time: 05:36 09/25 05:36 Interpretation: Abnormal: NT PRO-BNP 82148. 09/25 03:53 Order name: PT-INR; Complete Time: 07:26 09/25 03:53 Order name: Troponin (emerg Dept Use Only); Complete Time: 05:37 tw4 09/25 05:37 Interpretation: Normal except: TROPED 0.10. 09/25 03:54 Order name: Basic Metabolic Panel; Complete Time: 05:37 EDMS 09/25 05:37 Interpretation: Normal except: CL 112; GLUC 111; BUN 20; GFR 68. 09/25 04:01 Order name: COVID-19 4 09/25 04:01 Order name: Flu; Complete Time: 05:37 tw4 09/25 05:37 Interpretation: Normal except. 09/25 04:01 Order name: Strep; Complete Time: 05:37 tw4 09/25 05:03 Order name: Throat Culture EDOK 09/25 08:46 Order name: Troponin I EDOK 09/25 12:35 Order name: Troponin I EDOK 09/25 03:53 Order name: XRAY Chest (1 view) tw4 09/25 03:53 Order name: EKG; Complete Time: 03:54 tw4 09/25 03:53 Order name: Cardiac monitoring; Complete Time: 04:15 tw4 09/25 03:53 Order name: EKG - Nurse/Tech; Complete Time: 04:13 4 09/25 03:53 Order name: IV Saline Lock; Complete Time: 04:14 tw4 09/25 03:53 Order name: Labs collected and sent; Complete Time: 04:14 tw4 09/25 03:53 Order name: O2 Per Protocol; Complete Time: 04:14 09/25 03:53 Order name: O2 Sat Monitoring; Complete Time: 04:15 09/25 04:01 Order name: Droplet/Contact Precautions; Complete Time: 04:14 tw4 EC:17 Rate is 100 beats/min. Rhythm is regular with Occasional PVCs. QRS [place] is Normal. NC tw4 interval is normal. QRS interval is normal. No Q waves. T waves are Inverted in leads V5, V6. No ST changes noted. Clinical impression: NSR w/ Non-specific ST/T Changes and LVH. Interpreted by me. Reviewed by me. Administered Medications: 04:55 Drug: Lasix 40 mg Route: IVP; Site: right forearm; mg2 05:38 Follow up: Response: No adverse reaction mg2 04:55 Drug: Nitro-Bid Ointment 2 % 0.5 inches Route: Transdermal; Site: anterior chest wall; mg2 05:38 Follow up: Response: No adverse reaction mg2 05:03 Drug: Albuterol HFA Inhaler 2 puffs Route: Inhalation; mg2 05:38 Follow up: Response: No adverse reaction mg2 05:48 Drug: hydrALAZINE 20 mg Route: IV; Rate: bolus; Site: right forearm; mg2 06:15 Drug: niCARdipine (25mg/250ml) 5 mg/hr Route: IV; Rate: mg/hr; Site: right forearm; mg2 07:20 Follow up: IV Status: Infusion continued upon admission sv Disposition: 09/26/19 06:07 Hospitalization ordered by Mauricio Owens for Inpatient Admission. Preliminary diagnosis are Unspecified combined systolic (congestive) and diastolic (congestive) heart failure, Hypertension secondary to other renal disorders, Hypertensive emeregency. - Bed requested for Telemetry/MedSurg (Inpatient). - Status is Inpatient Admission. sv - Condition is Stable. - Problem is new. - Symptoms have improved. Signatures: Dispatcher [employer] EDMS Rosa Boggs Stephanie, RN PAULIE Benny Mendoza MD MD rn Smirch, Shelby, RN RN Alona Waller RN RN lp1 Zak Kinney MD MD tw4 Warren Neal RN RN mg2 Corrections: (The following items were deleted from the chart) 06:24 06:07 Hospitalization Ordered by Mauricio Owens for Inpatient Admission. Preliminary tw4 diagnosis is Unspecified combined systolic (congestive) and diastolic (congestive) heart failure; Hypertension secondary to other renal disorders. Bed requested for Telemetry/MedSurg (Inpatient). Status is Inpatient Admission. Condition is Stable. Problem is new. Symptoms have improved. 4 12:44 06:24 09/26/2019 06:07 Hospitalization Ordered by Mauricio Owens for Inpatient ss Admission. Preliminary diagnosis is Unspecified combined systolic (congestive) and diastolic (congestive) heart failure; Hypertension secondary to other renal disorders; Hypertensive emeregency. Bed requested for Telemetry/MedSurg (Inpatient). Status is Inpatient Admission. Condition is Stable. Problem is new. Symptoms have improved. [facility] 14:21 12:44 09/26/2019 06:07 Hospitalization Ordered by Mauricio Owens for Inpatient bd Admission. Preliminary diagnosis is Unspecified combined systolic (congestive) and diastolic (congestive) heart failure; Hypertension secondary to other renal disorders; Hypertensive emeregency. Bed requested for [facility] ER HOLD. Status is Inpatient Admission. Condition is Stable. Problem is new. Symptoms have improved. 15:25 14:21 09/26/2019 06:07 Hospitalization Ordered by Mauricio Owens for Inpatient bd Admission. Preliminary diagnosis is Unspecified combined systolic (congestive) and diastolic (congestive) heart failure; Hypertension secondary to other renal disorders; Hypertensive emeregency. Bed requested for Telemetry/MedSurg (Inpatient). Status is Inpatient Admission. Condition is Stable. Problem is new. Symptoms have improved. bd 16:49 15:25 09/26/2019 06:07 Hospitalization Ordered by Mauricio Owens for Inpatient sv Admission. Preliminary diagnosis is Unspecified combined systolic (congestive) and diastolic (congestive) heart failure; Hypertension secondary to other renal disorders; Hypertensive emeregency. Bed requested for Telemetry/MedSurg (Inpatient). Status is Inpatient Admission. Condition is Stable. Problem is new. Symptoms have improved. bd
--- NOTE | 2019-09-26 06:08 | ER ---
Nurse's Notes [facility] Name: Edouard Marie Age: 64 yrs Sex: Male : 1955 Arrival Date: 09/26/2019 Time: 03:50 Bed 5 Private MD: Diagnosis: Unspecified combined systolic (congestive) and diastolic (congestive) heart failure;Hypertension secondary to other renal disorders;Hypertensive emeregency Presentation: 09/25 04:05 Chief complaint: Patient states: Shortness of breath, cough x 1 week; states possible lp1 fever at home; Denies any chest pain. Coronavirus screen: Surgical mask placed on patient. Patient moved to private room, placed in contact and droplet isolation with eye protection until further assessment. Patient reports a cough. Patient reports shortness of breath or difficulty breathing. Patient reports a measured and/or subjective temperature greater than 100.4F. Patient denies travel on a cruise ship or to a country the [facility] currently lists as an affected area. Patient denies contact with known and/or suspected case of COVID-19. Ebola Screen: No symptoms or risks identified at this time. Initial Sepsis Screen: Does the patient meet any 2 criteria? RR > 20 per min. HR > 90 bpm. Yes Does the patient have a suspected source of infection? Yes: Productive cough/pneumonia If YES to both, name of provider notified: Zak Kinney MD. Risk Assessment: Do you want to hurt yourself or someone else? Patient reports no desire to harm self or others. Onset of symptoms was September 26, 2019. 04:05 Method Of Arrival: Ambulatory lp1 04:05 Acuity: ERUM 3 lp1 Triage Assessment: 04:16 General: Appears in no apparent distress. Behavior is calm, cooperative. Respiratory: mg2 the patient has mild shortness of breath. 05:14 Respiratory: Onset: The symptoms/episode began/occurred gradually. mg2 Historical: - Allergies: 04:12 No Known Allergies; lp1 - Home Meds: 04:12 Entresto oral oral [Active]; aspirin 81 mg Oral TbEC 1 tab once daily [Active]; Lasix lp1 60 mg Oral once daily [Active]; metoprolol tartrate 50 mg Oral tab 1 tab 2 times per day [Active]; isosorbide dinitrate/Hydralazine 20mg/37.5mg [Active]; - PMHx: 04:12 CHF; Hypertension; COPD; lp1 - PSHx: 04:12 defibrillator; lp1 - Immunization history:: Adult Immunizations up to date. - Social history:: Smoking status: Patient denies any tobacco usage or history of. Patient uses street drugs, marijuana. Screenin:13 Abuse screen: Denies threats or abuse. Denies injuries from another. Nutritional lp1 screening: No deficits noted. Tuberculosis screening: No symptoms or risk factors identified. Fall Risk None identified. Assessment: 04:15 General: Appears in no apparent distress. comfortable, Behavior is calm, cooperative. mg2 Pain: Denies pain. Neuro: Level of Consciousness is awake, alert, obeys commands, Oriented to person, place, time, situation. Cardiovascular: Capillary refill < 3 seconds Patient's skin is warm and dry. Respiratory: Airway is patent Respiratory effort is even, unlabored, Respiratory pattern is regular, symmetrical, tachypnea. Respiratory: Reports shortness of breath cough that is. GI: No signs and/or symptoms were reported involving the gastrointestinal system. : No signs and/or symptoms were reported regarding the genitourinary system. EENT: Derm: Skin is intact, is healthy with good turgor, Skin is pink, warm \T\ dry. normal. Musculoskeletal: Circulation, motion, and sensation intact. Capillary refill < 3 seconds. 05:14 Cardiovascular: Rhythm is. Respiratory: Breath sounds with rhonchi bilaterally. in left mg2 posterior upper lobe, right posterior upper lobe, left posterior lower lobe and right posterior middle lobe. 06:37 Reassessment: still mildy distress, dr Owens came and assessed him and agreed yasmani be mg2 admitted to the floor. Vital Signs: 04:05 BP 162 / 113; Pulse 98; Resp 22; Temp 98(O); Pulse Ox 99% on R/A; Weight 86.18 kg (R); lp1 Height 6 ft. 2 in. (187.96 cm); Pain 0/10; 05:13 BP 188 / 121; Resp 25; Pulse Ox 96% on 3 lpm NC; mg2 06:24 BP 211 / 118; Pulse 102; Resp 28; Pulse Ox 99% on 2 lpm NC; mg2 06:37 BP 169 / 108; Pulse 107; Resp 28; Pulse Ox 100% on 2 lpm NC; mg2 07:05 BP 174 / 113; Pulse 102; Resp 28; Pulse Ox 99% on 2 lpm NC; mg2 04:05 Body Mass Index 24.39 (86.18 kg, 187.96 cm) lp1 ED Course: 03:50 Patient arrived in ED. ds1 04:01 Zak Kinney MD is Attending Physician. tw4 04:02 Warren Neal, RN is Primary Nurse. mg2 04:08 Triage completed. lp1 04:08 Arm band placed on. lp1 04:13 Patient has correct armband on for positive identification. Placed in gown. Bed in low lp1 position. 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 Pulse ox on. NIBP on. 04:14 COVID-19 Sent. ds4 04:14 Flu Sent. ds4 04:14 Strep Sent. ds4 04:15 Basic Metabolic Panel Sent. ds4 04:15 PT-INR Sent. ds4 04:15 EKG done, by ED staff, reviewed by Zak Kinney MD. ds4 04:15 No provider procedures requiring assistance completed. Inserted saline lock: 20 gauge mg2 in right forearm, using aseptic technique. Blood collected. 04:30 XRAY Chest (1 view) In Process Unspecified. EDMS 06:06 Mauricio Owens is Hospitalizing Provider. tw4 07:05 Report given to Sera Barr, PAULIE. mg2 07:29 Primary Nurse role handed off by Warren Neal, PAULIE sv 07:29 Alice Campa, PAULIE is Primary Nurse. sv Administered Medications: 04:55 Drug: Lasix 40 mg Route: IVP; Site: right forearm; mg2 05:38 Follow up: Response: No adverse reaction mg2 04:55 Drug: Nitro-Bid Ointment 2 % 0.5 inches Route: Transdermal; Site: anterior chest wall; mg2 05:38 Follow up: Response: No adverse reaction mg2 05:03 Drug: Albuterol HFA Inhaler 2 puffs Route: Inhalation; mg2 05:38 Follow up: Response: No adverse reaction mg2 05:48 Drug: hydrALAZINE 20 mg Route: IV; Rate: bolus; Site: right forearm; mg2 06:15 Drug: niCARdipine (25mg/250ml) 5 mg/hr Route: IV; Rate: mg/hr; Site: right forearm; mg2 07:20 Follow up: IV Status: Infusion continued upon admission sv Outcome: 06:07 Decision to Hospitalize by Provider. tw4 07:15 Admitted to ER Hold. Please see [facility] for further documentation. sv 07:15 Condition: stable 07:15 Instructed on the need for admit. 16:49 Patient left the ED. sv Signatures: Dispatcher [employer] EDAlice Phoenix RN RN sv Aleksandra Booker ds1 Alona Waller RN RN lp1 Carlos Lujan ds4 Zak Kinney MD MD tw4 Warren Neal RN RN mg2
[2019-09-26] MEDS ORDERED: Nicardipine/NS 25 MG/250 ML KIT IV ONE (06:15)
--- NOTE | 2019-09-26 06:40 | P.HP ---
Certification for Inpatient Patient admitted to: Inpatient With expected LOS: >2 Midnights Practitioner: I am a practitioner with admitting privileges, knowledge of patient current condition, hospital course, and medical plan of care. Services: Services provided to patient in accordance with Admission requirements found in Title 42 Section 412.3 of the Code of Federal Regulations Patient History Date of Service: 09/26/19 Reason for admission: Shortness of breath History of Present Illness: 64-year-old gentleman with a history of hypertension, chronic systolic heart failure, recent ejection fractions of 40%, atrial fibrillation, history of cocaine abuse presented to the ED with a complaint of progressive shortness of breath that has been present for about 5 days. Patient reports orthopnea and poor sleep. He also reports nonproductive cough. He denied chest pain or palpitation. His systolic blood pressure in the ED was elevated to 200s. Patient tolerated oxygen by nasal cannula. Initial troponin is elevated. Chest x-ray demonstrates vascular congestion. EKG demonstrated sinus rhythm occasional consecutive premature ventricular complexes and atrial complexes. Nonspecific ST-T changes. Patient is admitted for further management of CHF exacerbation. Allergies No Known Allergies Allergy (Verified 01/26/17 07:59) Home Medications: Aspirin 1 tab PO DAILY 07/16/19 Isosorb Dinit/Hydralazine HCl [Bidil Tablet] 1 tab PO DAILY 07/16/19 Metoprolol Tartrate 1 tab PO BID 07/16/19 Sacubitril/Valsartan [Entresto 49 mg-51 mg Tablet] 1 tab PO DAILY 07/16/19 Albuterol Neb [Proventil 0.083% Neb Soln] 2.5 mg NEB [id number] PRN #30 amp 07/18/19 Amlodipine [Norvasc*] 10 mg PO DAILY #30 tab 07/18/19 Arformoterol Tartrate [Brovana] 15 mcg NEB BIDRESP #30 vial.neb 07/18/19 Furosemide [Lasix] 40 mg PO BIDL #60 tab 07/18/19 Nebulizer [Aeroneb Go Nebulizer] 1 each MC QID #1 each 07/18/19 Spironolactone [Aldactone*] 25 mg PO BID #30 tab 07/18/19 - Past Medical/Surgical History Diabetic: No -: Hypertension -: Congestive heart failure -: Pacemaker defibrillator -: Rotator cuff - Family History Father -: Hypertension - Social History Smoking Status: Former smoker Alcohol use: No CD- Drugs: Yes Caffeine use: Yes Review of Systems Other: Except as documented, all other systems reviewed and negative. Physical Examination - Physical Exam General: Alert, In no apparent distress, Oriented x3 HEENT: Mucous membr. moist/pink, Sclerae nonicteric Neck: Supple, JVD not distended Respiratory: Normal air movement, Crackles/rales (Mild bibasilar crackles) Cardiovascular: No edema, Normal S1 S2, No murmurs, Irregular heart rate/rhythm Capillary refill: <2 Seconds Gastrointestinal: Normal bowel sounds, Soft and benign, Non-distended, No tenderness Musculoskeletal: No swelling, No erythema Integumentary: No rashes Neurological: Normal speech, Normal strength at 5/5 x4 extr, Cranial nerves 3-12 intact - Studies Laboratory Data (last 24 hrs) 09/26/19 04:10: PT 13.1 H, INR 1.11 09/26/19 04:10: WBC 8.2, Hgb 10.5 L, Hct 32.0 L, Plt Count 236 09/26/19 04:10: Sodium 144, Potassium 3.8, BUN 20 H, Creatinine 1.29, Glucose 111 H, Magnesium 2.2, Total Bilirubin 0.7, AST 33, ALT 43, Alkaline Phosphatase 84 Microbiology Data (last 24 hrs): 09/26/19 04:10 Throat Group A Streptococcus Rapid Screen - Final 09/26/19 04:10 Nasopharnyx Influenza Type A Antigen Screen - Final 09/26/19 04:10 Nasopharnyx Influenza Type B Antigen Screen - Final Assessment and Plan - Problems (Diagnosis) (1) Acute on chronic systolic heart failure Current Visit: No Status: Acute (2) Elevated troponin level Onset Date: 01/27/17 Current Visit: No Status: Acute (3) Uncontrolled hypertension Onset Date: 01/27/17 Current Visit: No Status: Acute (4) Cardiomyopathy, nonischemic Current Visit: No Status: Chronic (5) Status post implantation of automatic cardioverter/defibrillator (AICD) Current Visit: No Status: Chronic (6) COPD (chronic obstructive pulmonary disease) Current Visit: No Status: Suspected Qualifiers: COPD type: chronic bronchitis Chronic bronchitis type: unspecified Qualified Code(s): J42 - Unspecified chronic bronchitis - Plan Admit patient to the medical floor. Troponin elevation is likely secondary to demand ischemia Continue to trend troponin. Recent echocardiogram reviewed and reported EF of 41%. IV Lasix b.i.d. Aggressive blood pressure control. Continue home dose amlodipine, Entresto, and metoprolol. Hydralazine IV p.r.n. for BP spikes. Nitroglycerin drip if BP consistently stays above 160. Test for Covid 19 obtained in the ED. Droplet isolation. - Advance Directives Does patient have a Living Will: No Does patient have a Durable POA for Healthcare: No - Code Status/Comfort Care Code Status Assessed: Yes Code Status: Full Code
[2019-09-26] MEDS ORDERED: ONDANSETRON 4 MG/2 ML VIAL IV PRN (07:33)
[2019-09-26] MEDS ORDERED: ACETAMINOPHEN 500 MG TAB PO PRN (07:33)
[2019-09-26] MEDS ORDERED: HYDRALAZINE HCL 20 MG/ML VIAL IV PRN (07:33)
[2019-09-26] MEDS ORDERED: ALBUTEROL 2.5 MG/3 ML NEB SOL NEB PRN ×2 (07:33→18:00)
[2019-09-26] MEDS: IPRATROPIUM BROM 0.5MG/2.5ML NEB SCH ×2 (08:00→12:00)
[2019-09-26] MEDS: APIXABAN 5 MG TABLET PO SCH ×2 (08:24→20:27)
[2019-09-26] MEDS: METOPROLOL TAR 50 MG TAB PO SCH ×2 (08:24→20:27)
[2019-09-26] MEDS: ASPIRIN EC 81 MG TAB PO SCH (08:24)
[2019-09-26] MEDS: FUROSEMIDE 40 MG/4 ML VIAL IV SCH ×2 (08:24→16:40)
--- NOTE | 2019-09-26 08:28 | RAD REPORT ---
EXAM DESCRIPTION: [facility] Single View09/26/2019 4:30 am CLINICAL HISTORY: Shortness of breath COMPARISON: June 2019 FINDINGS: [id number] bilateral pulmonary opacities. The heart is moderately enlarged. Pacemake r leads are in place. IMPRESSION: Mild to moderate bilateral pulmonary opacities probably pulmonary edema
[2019-09-26] MEDS ORDERED: AMLODIPINE 5 MG TAB PO ONE (08:56)
[2019-09-26] MEDS ORDERED: AMLODIPINE 5 MG TAB ONE ×2 (09:04)
--- NOTE | 2019-09-26 10:49 | EKG ---
Test Date: 2019-09-26 Test Time: 04:08:30 Director Payer: CHARLES MEASUREMENT RESULTS: Intervals: Rate: 100 DE: 178 QRSD: 102 QT: 362 QTc: 466 [place]: P: 101 DE: 178 QRS: 29 T: 85 INTERPRETIVE STATEMENTS: Sinus rhythm with occasional and consecutive premature ventricular complexes and premature atrial complexes Left ventricular hypertrophy with repolarization abnormality Abnormal ECG Compared to ECG 07/15/2019 05:02:03 Atrial premature complex(es) now present Ventricular premature complex(es) now present Early repolarization now present Atrial fibrillation no longer present ST (T wave) deviation no longer present Electronically Signed On 09-26-19 10:48:57 CDT by Jordan Banks
[2019-09-26] MEDS ORDERED: IPRATROPIUM BROM 0.5MG/2.5ML NEB PRN ×2 (12:45→18:00)
[2019-09-26] MEDS ORDERED: PNEUMOCOCCAL VACCINE 0.5 ML IMVAC ONE (13:00)
[2019-09-26] MEDS ORDERED: POTASSIUM CL SA 10 MEQ TAB PO ONE (21:00)
[2019-09-27 04:27] LABS: Absolute Lymphocytes (CBC) 2.8 K/uL (0.7-4.9); Basophils % 1.3 % (0-1.3); Hematocrit 34.4 % (39.6-49.0); Lymphocytes % 44.1 % (15.3-44.8); MPV 7.8 fL (7.6-11.3); RBC Red Blood Cell Count 3.74 M/uL (4.33-5.43)
[2019-09-27 04:45] VITALS: TEMP 98.2
[2019-09-27 04:45] LABS: Phosphorus 3.4 mg/dL (2.5-4.9)
[2019-09-27] MEDS: METOPROLOL TAR 50 MG TAB PO SCH (07:51)
[2019-09-27] MEDS: APIXABAN 5 MG TABLET PO SCH (07:51)
[2019-09-27] MEDS: ASPIRIN EC 81 MG TAB PO SCH (07:51)
[2019-09-27 07:52] VITALS: BP 144/96
[2019-09-27] MEDS: FUROSEMIDE 40 MG/4 ML VIAL IV SCH (07:52)
[2019-09-27 07:56] VITALS: BMI 21.4
[2019-09-27 08:31] LABS: Blood Morphology Comment NOT SEEN (NOT SEEN); Platelet Estimate ADEQ
[2019-09-27 08:34] VITALS: O2SAT 98
--- NOTE | 2019-09-27 08:39 | P.DS ---
Admission Date: 09/26/19 Discharge Date: 09/27/19 Disposition: ROUTINE DISCHARGE Discharge Condition: FAIR Reason for Admission: Shortness of breath severe hypertension Brief History of Present Illness: Patient is 64 years of age admitted with shortness of breath severe hypertension volume overload Hospital Course: Reason as been non compliant with his medication DNR of all his medications that was admitted with severe hypertension was patient was diuresed and his blood pressure medications including a Cardene drip the time of discharge he was alert oriented responsive cooperative I advised him to follow instructions regarding low-sodium intake become more compliant with his medications vital signs and saturations were all satisfactory Vital Signs/Physical Exam: Temp Pulse Resp BP Pulse Ox 98.2 F 74 16 144/96 H 97 09/27/19 04:00 09/27/19 07:52 09/27/19 04:00 09/27/19 07:52 09/27/19 04:00 General: Alert, In no apparent distress, Oriented x3 Respiratory: Clear to auscultation bilaterally Cardiovascular: No edema, Regular rate/rhythm Gastrointestinal: Normal bowel sounds, Soft and benign Neurological: Normal gait, Normal speech, Normal strength at 5/5 x4 extr Laboratory Data at Discharge: WBC 6.3 K/uL (4.3-10.9) D 09/27/19 03:35 Hgb 11.5 g/dL (13.6-17.9) L 09/27/19 03:35 Hct 34.4 % (39.6-49.0) L 09/27/19 03:35 Plt Count 251 K/uL (152-406) 09/27/19 03:35 PT 13.1 SECONDS (9.5-12.5) H 09/26/19 04:10 INR 1.11 09/26/19 04:10 Sodium 143 mmol/L (136-145) 09/27/19 03:35 Potassium 4.0 mmol/L (3.5-5.1) 09/27/19 03:35 BUN 23 mg/dL (7-18) H 09/27/19 03:35 Creatinine 1.26 mg/dL (0.55-1.3) 09/27/19 03:35 Glucose 120 mg/dL (74-106) H 09/27/19 03:35 Phosphorus 3.4 mg/dL (2.5-4.9) 09/27/19 03:35 Magnesium 2.0 mg/dL (1.8-2.4) 09/27/19 03:35 Total Bilirubin 0.7 mg/dL (0.2-1.0) 09/26/19 04:10 AST 33 U/L (15-37) 09/26/19 04:10 ALT 43 U/L (12-78) 09/26/19 04:10 Alkaline Phosphatase 84 U/L (45-117) 09/26/19 04:10 Troponin I 0.19 ng/mL (0.0-0.045) H 09/26/19 12:10 Home Medications: Aspirin 1 tab PO DAILY 07/16/19 Nebulizer [Aeroneb Go Nebulizer] 1 each MC QID #1 each 07/18/19 Albuterol Sulfate [Albuterol Sulfate Hfa] 2 puff IH PRN PRN 09/26/19 Amlodipine [Norvasc*] 10 mg PO DAILY #90 tab 09/27/19 Furosemide [Lasix] 60 mg PO DAILY 30 Days tablet 09/27/19 Isosorb Dinit/Hydralazine HCl [Bidil Tablet] 1 each PO BID 30 Days #60 tablet 09/27/19 Metoprolol Tartrate 1 tab PO BID 90 Days #90 09/27/19 Sacubitril/Valsartan [Entresto 49 mg-51 mg Tablet] 1 tab PO DAILY #90 tab 09/27/19 New Medications: Isosorb Dinit/Hydralazine HCl [Bidil Tablet] 1 each PO BID 30 Days #60 tablet Sacubitril/Valsartan [Entresto 49 mg-51 mg Tablet] 1 tab PO DAILY #90 tab Furosemide [Lasix] 60 mg PO DAILY 30 Days tablet Metoprolol Tartrate 1 tab PO BID 90 Days #90 Amlodipine [Norvasc*] 10 mg PO DAILY #90 tab Patient Discharge Instructions: Please verified with the pharmacy that there received all the prescription drugs on his discharge medication list I try to fax an couple of the may be missing please call in. Follow-up with Cardiology. Please give instructions for congestive heart failure and diet Diet: Low sodium Activity: Ad cheikh
== END 2019-09-27 09:42 | disposition home or self-care (01) | DRG 293 ==
LOC: ER 03:49 → ERHOLD 06:48 → 4TH 16:35
PROVIDERS: ADMIT Internal Medicine; ATTEND Internal Medicine Sleep Medicine
PROC: 8E0ZXY6 Isolation (ICD-10-PCS; principal; 2019-09-26)
DX: I11.0 Hypertensive heart disease with heart failure (principal); I50.23 Acute on chronic systolic (congestive) heart failure; I43 Cardiomyopathy in diseases classified elsewhere; J44.9 Chronic obstructive pulmonary disease, unspecified; R79.89 Other specified abnormal findings of blood chemistry; Z66 Do not resuscitate; Z91.14 Patient's other noncompliance with medication regimen; Z79.82 Long term (current) use of aspirin; Z79.899 Other long term (current) drug therapy; Z20.828 Contact with and (suspected) exposure to other viral communicable diseases; Z95.810 Presence of automatic (implantable) cardiac defibrillator; Z87.891 Personal history of nicotine dependence
CPT/HCPCS: 36415; 71045; 80048; 80076; 83735; 83880; 84100; 84484; 85025; 85610; 87070; 87081; 87804; 93005; 94760; 96365; 96375; 99285; J0360; J1940; U0002

== ENCOUNTER 2020-08-10 21:18 | Emergency (ER) | payer OTHER ==
--- OUTSIDE RECORDS SUMMARY | 2020-08-10 21:22 | XMS REPORT | Continuity of Care Document ---
:1955 Author Organization [facility] t Address [address] [place] [address] Care Team Providers Name Role Phone JIM SHEEHAN Primary Care Physician Unavailable MELYSSA POPE Attending Clinician Unavailable AGUILA Attending Clinician Unavailable AGUILA Admitting Clinician Unavailable Payers Payer Name Policy Type Policy Effective Date Expiration Date Sour ce Number MEDICAREMEDICARE A [id number] 2016 BELL Buenrostro [id number] 2016- 00:00:00 [facility] Problems Condition Condition Condition Status Onset Resolution Last Treating Co mments Source Name Details Category Date Date Treatment Clinician Date S/P right S/P right Disease Active [facility]inal [facility]07 [facility] her[facility] hernia 00:00: Medical repair repair 00 Center Cardiac Cardiac Disease Active [facility] defibrilla defibrilla 4-17 [facility]ia kes - tor in tor in 00:00: Medical place place 00 [place] Right Right Disease Active [facility] inguinal inguinal 4-17 [facility] hernia hernia 00:00: Medical 00 [place] Essential Essential Disease Active [facility] hypertensi hypertensi 4-17 Claudia kes - on on 00:00: Medical 00 [place] CHF CHF Disease Active 2018- [facility] (congestiv (congestiv 4-17 Claudia kes - e heart e heart 00:00: Medical failure) failure) 00 Center Allergies, Adverse Reactions, Alerts This patient has no known allergies or adverse reactions. Family History Family Member Diagnosis Comments Start Date Stop Date Source Natural father Hypertension [facility] Natural mother Hypertension [facility] Social History Social Habit Start Date Stop Date Quantity Comments Source Sex Assigned At [facility] Tobacco use and 2019-01-04 2019-01-04 Never used BELL Yates Claudia kes - exposure 00:00:00 00:00:00 [facility] Alcohol intake 2019-01-04 2019-01-04 Current BELL Smithk es - 00:00:00 00:00:00 non-drinker of Medical Ce nter alcohol (finding) Smoking Status Start Date Stop Date Source Never smoker [facility] Medications Ordered Filled Start Stop Current Ordering Indication Dosage Frequency Signature Comments Components Source Medication Medication Date Date Medication? Clinician (SIG) Name Name isosorbide- Yes BiDil [address] hydrALAZINE 8-13 mg-37.5 mg Claudia kes - (BIDIL) 14:58: tablet Medical 20-37.5 mg 42 Take 2 Center per tablet tablets 3 times a day by oral route. aspirin 81 Yes 81mg QD Take [address] MG EC 8-13 by mouth [facility] - tablet 14:58: daily. Medical 28 Center metoprolol Yes 50mg Q.5D Take [address] (LOPRESSOR) 8-13 by mouth 2 Claudia kes - 50 MG 14:58: (two) Medical tablet 28 times Center daily. furosemide Yes hypertensio 60mg Q.5D Take [address] (LASIX) 40 8-13 n by mouth 2 [place] - MG tablet 14:58: (two) Medical 28 times Center daily . sacubitril- Yes 1{tbl} QD Take [address] valsartan 8-13 tablet by [facility] - (ENTRESTO) 14:58: mouth Medica l 49-51 mg 28 daily . Center Tab Procedures Procedure Date / Time Performed Performing Clinician Sourc e SARS-COV2/RT-PCR ([facility] 2019-09-26 04:10:00 [facility] Plan of Care Planned Activity Planned Date Details Comments Source Future Scheduled 2020-01-24 INFLUENZA VACCINE (#1) [facility] Test 00:00:00 [code = INFLUENZA Medical Ce nter VACCINE (#1)] Future Scheduled 2019 PNEUMOCOCCAL 65+ YRS [facility] - Test 00:00:00 (1 of 1 - Medical Center [id number]) [code = PNEUMOCOCCAL 65+ YRS (1 of 1 - [id number] PCV13)] Future Scheduled 2017-04-[address] [facility] - Test 00:00:00 WELLNESS (YEAR 2 or Medical Center FIRST YEAR if no IPPE) [code = MEDICARE ANNUAL WELLNESS (YEAR 2 or FIRST YEAR if no IPPE)] Future Scheduled [address] - Test 00:00:00 (procedure) [code = Medical Center 94488749] Future Scheduled [address] [facility] [place] [facility] - Test 00:00:00 malignant neoplasm of Medica l Center colon (procedure) [code = 862465253] Results Test Description Test Time Test Comments Results Result Comments Source SARS-CoV2/RT-PCR ([facility]) 2019-09-26 14:16:00 Test Item Value Reference Range Interpretation Comme nts SARS-COV2/RT-PCR (test code = Not Detected Not Detected, Negative 73848-1) SARS-COV-2 PERFORMING LAB [facility] (test code = 73292-4) APRIL (test code = APRIL) Negative results do not preclude SARS-CoV-2 infection and should not be used as the sole basis for patient management decisions. Negative results must be combined with clinical observations, patient history, and epidemiological information. A false negative result may occur if a specimen is improperly collected, transported or handled. The limit of detection for this assay is 250 copies/mL. This SARS CoV-2 test is a rapid, real-time RT-PCR test intended for the qualitative detection of nucleic acid from SARS-CoV-2 in a nasopharyngeal swab specimen collected from individuals suspected of COVID-19 by their healthcare provider. This test has not been Food and Drug Administration (FDA) cleared or approved and has been authorized by FDA under an Emergency Use Authorization (EUA). This EUA will be effective until the declaration that circumstances exist justifying the authorization of the emergency use of in vitro diagnostic tests for detection and/or diagnosis of COVID-19 is terminated under Section 564(b)(2) of the Act or the EUA is revoked under Section 564(g) of the Act. Fact Sheet for Healthcare Providers:https://www.[employer] .[employer]/Documents/Xpert%20Xpress %20SARS%20CoV-2/Fact%20Sheets /302-3802%38TGRO-RTV-0%20HEAL THCARE%20PROVIDERS%20FACT%20S HEET.pdf Fact Sheet for Healthcare Patients:https://www.[employer]/Documents/Xpert%20Xpress% 20SARS%20CoV-2/Fact%20Sheets/ 302-3801%77LOXZ-JLU-4%20PATIE NT%20FACT%20SHEET.pdf Performing Laboratory:[facility] [place] [address] [facility])2019-09-26 14:16:00 Test Item Value Reference Range Interpretation Comments SARS-COV2/RT-PCR (test Not Detected Not Detected, Negative code = 6816564) SARS-COV-2 PERFORMING LAB [facility] (test code = 1888967) Negative results do not preclude SARS-CoV-2 infection and should not be used as the sole basis for patient management decisions. Negative results must be combined with clinical observations, patient history, and epidemiological information. A false negative result may occur if a specimen is improperly collected, transported or handled.The limit of detection for this assay is 250 copies/mL.This SARS CoV-2 test is a rapid, real-time RT-PCR test intended for the qualitative detection of nucleic acid from SARS-CoV-2 in a nasopharyngeal swab specimen collected from individuals suspected of COVID-19 by their healthcare provider.This test has not been Food and Drug Administration (FDA) cleared or approved and has been authorized by FDA under an Emergency Use Authorization (EUA). This EUA will be effective until the declaration that circumstances exist justifying the authorization of the emergency use of in vitro diagnostic tests for detection and/or diagnosis of COVID-19 is terminated under Section 564(b)(2) of the Act or the EUA is revoked under Section 564(g) of the Act.Fact Sheet for Healthcare Pro viders:https://www.[employer]/Documents/Xpert%20Xpress%20SARS%20CoV-2/Fact%20Sh eets/302-3802%49JYRE-UJC-7%20HEALTHCARE%20PROVIDERS%20FACT%20SHEET.pdfFact Sheet for Healthcare Patients:https://www.[employer]/Documents/Xpert%20Xpress%20SARS%20CoV-2/Fact%20Sheets/302-2484%20SARS-COV -2%20PATIENT%20FACT%20SHEET.pdfPerforming Laboratory:[facility] [place], [place] [address]Lllethyrvxoao Metabolic [id number] 21:16:53 Test Item Value Reference Range Interpretation Comments Sodium Level (test code = Sodium 140.0 mmol/L 135.0-145.0 Level) Potassium Level (test code = 4.5 mmol/L 3.5-5.1 Potassium Level) Chloride Level (test code = 102 mmol/L 98-105 Chloride Level) CO2 (test code = CO2) 25 mmol/L 22-29 Anion Gap (test code = Anion 13 mmol/L 7-16 Gap) BUN (test code = BUN) 20.30 mg/dL 8.00-23.00 Creatinine Level (test code = 1.40 mg/dL 0.70-1.20 H Creatinine Level) BUN/Creat Ratio (test code = 14 N BUN/Creat Ratio) Glucose Level (test code = 99 mg/dL 70-115 Glucose Level) Calcium Level (test code = 9.3 mg/dL 8.3-10.5 Calcium Level) Alk Phos (test code = Alk Phos) 93 U/L 40-129 Bilirubin Total (test code = 0.4 mg/dL 0.1-0.9 Bilirubin Total) Albumin Level (test code = 4.0 g/dL 3.5-5.2 Albumin Level) Protein Total (test code = 7.3 g/dL 6.4-8.3 Protein Total) ALT (test code = ALT) 11 U/L 1-41 AST (test code = AST) 23 U/L 1-40 Globulin (test code = Globulin) 3.3 g/dL 2.9-3.1 H A/G Ratio (test code = A/G 1.2 ratio N Ratio) Comprehensive Metabolic [id number] 21:16:53 Test Item Value Reference Range Interpretation Comments Sodium Level (test 140.0 mmol/L 135.0-145.0 code = Sodium Level) Potassium Level 4.5 mmol/L 3.5-5.1 (test code = Potassium Level) Chloride Level (test 102 mmol/L 98-105 code = Chloride Level) CO2 (test code = 25 mmol/L 22-29 CO2) Anion Gap (test code 13 mmol/L 7-16 = Anion Gap) BUN (test code = 20.30 mg/dL 8.00-23.00 BUN) Creatinine Level 1.40 mg/dL 0.70-1.20 H (test code = Creatinine Level) BUN/Creat Ratio 14 N (test code = BUN/Creat Ratio) Glucose Level (test 99 mg/dL 70-115 code = Glucose Level) Calcium Level (test 9.3 mg/dL 8.3-10.5 code = Calcium Level) Alk Phos (test code 93 U/L 40-129 = Alk Phos) Bilirubin Total 0.4 mg/dL 0.1-0.9 (test code = Bilirubin Total) Albumin Level (test 4.0 g/dL 3.5-5.2 code = Albumin Level) Protein Total (test 7.3 g/dL 6.4-8.3 code = Protein Total) ALT (test code = 11 U/L 1-41 ALT) AST (test code = 23 U/L 1-40 AST) Globulin (test code 3.3 g/dL 2.9-3.1 H = Globulin) A/G Ratio (test code 1.2 ratio N = A/G Ratio) eGFR AA (test code = >60 N eGFR (e stimated eGFR AA) mL/min/1.73 m2 Glomerular Filtration Rate ) is an estimated va lue, calculated from the patient's serum creatinine usin g the MDRD equation. It is NOT the patient 's actual GFR. The eGFR provides a more clinically usef ul measure of kidn ey disease than se rum creatinine alone.This calculation fatuma es sex and race in to account, if the information is provided. If th e race is not provided, and t he patient is -Kiah n, multiply by 1.2 12. If sex is not provided, and t he patient is fema le, multiply by 0.7 42. Results for pat ients <18 years of ag e have not been validated by th e MDRD study and should be interpreted wit h caution. eGFR R esult Interpretation: eGFR > or = 60 is in the Normal RangeeGF R < 60 may mean kid katherine diseaseeGFR < 1 5 may mean kidney failure Rang es recommended by the National Kidney Foundation, http://nkdep.ni h.gov eGFR Non-AA (test 51.02 N eGFR (armin mated code = eGFR Non-AA) mL/min/1.73 m2 Glomer ular Filtration Rate ) is an estimated va lue, calculated from the patient's serum creatinine usin g the MDRD equation. It is NOT the patient 's actual GFR. The eGFR provides a more clinically usef ul measure of kidn ey disease than se rum creatinine alone.This calculation fatuma es sex and race in to account, if the information is provided. If th e race is not provided, and t he patient is -Kiah n, multiply by 1.2 12. If sex is not provided, and t he patient is fema le, multiply by 0.7 42. Results for pat ients <18 years of ag e have not been validated by th e MDRD study and should be interpreted wit h caution. eGFR R esult Interpretation: eGFR > or = 60 is in the Normal RangeeGF R < 60 may mean kid katherine diseaseeGFR < 1 5 may mean kidney failure Rang es recommended by the National Kidney Foundation, http://nkdep.ni h.gov Comprehensive Metabolic [id number] 21:16:53 Test Item Value Reference Range Interpretation Comments Sodium Level (test 140.0 mmol/L 135.0-145.0 code = Sodium Level) Potassium Level 4.5 mmol/L 3.5-5.1 (test code = Potassium Level) Chloride Level (test 102 mmol/L 98-105 code = Chloride Level) CO2 (test code = 25 mmol/L 22-29 CO2) Anion Gap (test code 13 mmol/L 7-16 = Anion Gap) BUN (test code = 20.30 mg/dL 8.00-23.00 BUN) Creatinine Level 1.40 mg/dL 0.70-1.20 H (test code = Creatinine Level) BUN/Creat Ratio 14 N (test code = BUN/Creat Ratio) Glucose Level (test 99 mg/dL 70-115 code = Glucose Level) Calcium Level (test 9.3 mg/dL 8.3-10.5 code = Calcium Level) Alk Phos (test code 93 U/L 40-129 = Alk Phos) Bilirubin Total 0.4 mg/dL 0.1-0.9 (test code = Bilirubin Total) Albumin Level (test 4.0 g/dL 3.5-5.2 code = Albumin Level) Protein Total (test 7.3 g/dL 6.4-8.3 code = Protein Total) ALT (test code = 11 U/L 1-41 ALT) AST (test code = 23 U/L 1-40 AST) Globulin (test code 3.3 g/dL 2.9-3.1 H = Globulin) A/G Ratio (test code 1.2 ratio N = A/G Ratio) eGFR AA (test code = >60 N eGFR (e stimated eGFR AA) mL/min/1.73 m2 Glomerular Filtration Rate ) is an estimated va lue, calculated from the patient's serum creatinine usin g the MDRD equation. It is NOT the patient 's actual GFR. The eGFR provides a more clinically usef ul measure of kidn ey disease than se rum creatinine alone.This calculation fatuma es sex and race in to account, if the information is provided. If th e race is not provided, and t he patient is -Kiah n, multiply by 1.2 12. If sex is not provided, and t he patient is fema le, multiply by 0.7 42. Results for pat ients <18 years of ag e have not been validated by th e MDRD study and should be interpreted wit h caution. eGFR R esult Interpretation: eGFR > or = 60 is in the Normal RangeeGF R < 60 may mean kid katherine diseaseeGFR < 1 5 may mean kidney failure Rang es recommended by the National Kidney Foundation, http://nkdep.ni h.gov eGFR Non-AA (test 51.02 N eGFR (armin mated code = eGFR Non-AA) mL/min/1.73 m2 Glomer ular Filtration Rate ) is an estimated va lue, calculated from the patient's serum creatinine usin g the MDRD equation. It is NOT the patient 's actual GFR. The eGFR provides a more clinically usef ul measure of kidn ey disease than se rum creatinine alone.This calculation fatuma es sex and race in to account, if the information is provided. If th e race is not provided, and t he patient is -Kiah n, multiply by 1.2 12. If sex is not provided, and t he patient is fema le, multiply by 0.7 42. Results for pat ients <18 years of ag e have not been validated by th e MDRD study and should be interpreted wit h caution. eGFR R esult Interpretation: eGFR > or = 60 is in the Normal RangeeGF R < 60 may mean kid katherine diseaseeGFR < 1 5 may mean kidney failure Rang es recommended by the National Kidney Foundation, http://nkdep.ni h.gov Comprehensive Metabolic [id number] 23:03:04 Test Item Value Reference Range Interpretation Comments Sodium Level (test code = Sodium 142.0 mmol/L 135.0-145.0 Level) Potassium Level (test code = 4.6 mmol/L 3.5-5.1 Potassium Level) Chloride Level (test code = 103 mmol/L 98-105 Chloride Level) CO2 (test code = CO2) 27 mmol/L 22-29 Anion Gap (test code = Anion 12 mmol/L 7-16 Gap) BUN (test code = BUN) 15.60 mg/dL 8.00-23.00 Creatinine Level (test code = 1.30 mg/dL 0.70-1.20 H Creatinine Level) BUN/Creat Ratio (test code = 12 N BUN/Creat Ratio) Glucose Level (test code = 93 mg/dL 70-115 Glucose Level) Calcium Level (test code = 9.7 mg/dL 8.3-10.5 Calcium Level) Alk Phos (test code = Alk Phos) 94 U/L 40-129 Bilirubin Total (test code = 0.3 mg/dL 0.1-0.9 Bilirubin Total) Albumin Level (test code = 4.5 g/dL 3.5-5.2 Albumin Level) Protein Total (test code = 7.6 g/dL 6.4-8.3 Protein Total) ALT (test code = ALT) 10 U/L 1-41 AST (test code = AST) 18 U/L 1-40 Globulin (test code = Globulin) 3.1 g/dL 2.9-3.1 A/G Ratio (test code = A/G 1.5 ratio N Ratio) Comprehensive Metabolic [id number] 23:03:04 Test Item Value Reference Range Interpretation Comments Sodium Level (test 142.0 mmol/L 135.0-145.0 code = Sodium Level) Potassium Level 4.6 mmol/L 3.5-5.1 (test code = Potassium Level) Chloride Level (test 103 mmol/L 98-105 code = Chloride Level) CO2 (test code = 27 mmol/L 22-29 CO2) Anion Gap (test code 12 mmol/L 7-16 = Anion Gap) BUN (test code = 15.60 mg/dL 8.00-23.00 BUN) Creatinine Level 1.30 mg/dL 0.70-1.20 H (test code = Creatinine Level) BUN/Creat Ratio 12 N (test code = BUN/Creat Ratio) Glucose Level (test 93 mg/dL 70-115 code = Glucose Level) Calcium Level (test 9.7 mg/dL 8.3-10.5 code = Calcium Level) Alk Phos (test code 94 U/L 40-129 = Alk Phos) Bilirubin Total 0.3 mg/dL 0.1-0.9 (test code = Bilirubin Total) Albumin Level (test 4.5 g/dL 3.5-5.2 code = Albumin Level) Protein Total (test 7.6 g/dL 6.4-8.3 code = Protein Total) ALT (test code = 10 U/L 1-41 ALT) AST (test code = 18 U/L 1-40 AST) Globulin (test code 3.1 g/dL 2.9-3.1 = Globulin) A/G Ratio (test code 1.5 ratio N = A/G Ratio) eGFR AA (test code = >60 N eGFR (e stimated eGFR AA) mL/min/1.73 m2 Glomerular Filtration Rate ) is an estimated va lue, calculated from the patient's serum creatinine usin g the MDRD equation. It is NOT the patient 's actual GFR. The eGFR provides a more clinically usef ul measure of kidn ey disease than se rum creatinine alone.This calculation fatuma es sex and race in to account, if the information is provided. If th e race is not provided, and t he patient is -Kiah n, multiply by 1.2 12. If sex is not provided, and t he patient is kaykay randle, multiply by 0.7 42. Results for pat ients <18 years of ag e have not been validated by e MDRD study and should be interpreted wit h caution. eGFR R esult Interpretation: eGFR > or = 60 is in the Normal RangeeGF R < 60 may mean kid katherine diseaseeGFR < 1 5 may mean kidney failure Rang es recommended by the National Kidney Foundation, http://nkdep.ni h.gov Lipid [id number] 23:03:04 Test Item Value Reference Range Interpretation Comments Cholesterol Total 193 mg/dL 0-200 RISK OF HE ART (test code = DISEASEPublishe d by Cholesterol Total) [place] [employer] Erika lyte Optimal Borderl ine Increased RiskC HOL <200 200-239 >2 40TRIG <150 150-199 >2 00HDL Male >60 <40H DL Female >60 <5 0LDL <100 130-159 >1 60LDL Near optimal is 100-129 Triglycerides (test 91 mg/dL 9-200 code = Triglycerides) HDL (test code = HDL) 81 mg/dL 40-60 H LDL (test code = LDL) 94 mg/dL 0-130 The eq uation being used in this calcula tion is LDL = (Chol - H DL) - (Trig / 5) The equation being used in t his calculation is LDL = (Chol - HDL) - (Trig / 5) VLDL (test code = 18 mg/dL 5-40 The equati on being used VLDL) in this calcula tion is VLDL = Trig / 5 The equation being used in this calculatio n is VLDL = Trig / 5 Chol/HDL (test code = 2.4 ratio 0.0-5.0 Chol/HDL) LDL/HDL Ratio (test 1 N The equa tion being used code = LDL/HDL Ratio) in thi s calculation is LDL/HDL Ratio=L DL Calc/HDL Chol T he equation being used in this calculatio n is LDL/HDL Ratio=L DL Calc/HDL Chol Thyroid Stimulating [id number] 23:03:04 Test Item Value Reference Range Interpretation Comments TSH (test code = TSH) 0.848 mIU/mL 0.270-4.200 Pro B Natriuretic [id number] 23:03:04 Test Item Value Reference Range Interpretation Comments NT-proBNP (test code = NT-proBNP) 1591 pg/mL 0-124 H Comprehensive Metabolic [id number] 23:03:04 Test Item Value Reference Range Interpretation Comments Sodium Level (test 142.0 mmol/L 135.0-145.0 code = Sodium Level) Potassium Level 4.6 mmol/L 3.5-5.1 (test code = Potassium Level) Chloride Level (test 103 mmol/L 98-105 code = Chloride Level) CO2 (test code = 27 mmol/L 22-29 CO2) Anion Gap (test code 12 mmol/L 7-16 = Anion Gap) BUN (test code = 15.60 mg/dL 8.00-23.00 BUN) Creatinine Level 1.30 mg/dL 0.70-1.20 H (test code = Creatinine Level) BUN/Creat Ratio 12 N (test code = BUN/Creat Ratio) Glucose Level (test 93 mg/dL 70-115 code = Glucose Level) Calcium Level (test 9.7 mg/dL 8.3-10.5 code = Calcium Level) Alk Phos (test code 94 U/L 40-129 = Alk Phos) Bilirubin Total 0.3 mg/dL 0.1-0.9 (test code = Bilirubin Total) Albumin Level (test 4.5 g/dL 3.5-5.2 code = Albumin Level) Protein Total (test 7.6 g/dL 6.4-8.3 code = Protein Total) ALT (test code = 10 U/L 1-41 ALT) AST (test code = 18 U/L 1-40 AST) Globulin (test code 3.1 g/dL 2.9-3.1 = Globulin) A/G Ratio (test code 1.5 ratio N = A/G Ratio) eGFR AA (test code = >60 N eGFR (e stimated eGFR AA) mL/min/1.73 m2 Glomerular Filtration Rate ) is an estimated va lue, calculated from the patient's serum creatinine usin g the MDRD equation. It is NOT the patient 's actual GFR. The eGFR provides a more clinically usef ul measure of kidn ey disease than se rum creatinine alone.This calculation fatuma es sex and race in to account, if the information is provided. If th e race is not provided, and t he patient is -Kiah n, multiply by 1.2 12. If sex is not provided, and t he patient is fema le, multiply by 0.7 42. Results for pat ients <18 years of ag e have not been validated by [facility] MDRD study and should be interpreted wit h caution. eGFR R esult Interpretation: eGFR > or = 60 is in the Normal RangeeGF R < 60 may mean kid katherine diseaseeGFR < 1 5 may mean kidney failure Rang es recommended by the National Kidney Foundation, http://nkdep.ni h.gov eGFR Non-AA (test 55.58 N eGFR (armin mated code = eGFR Non-AA) mL/min/1.73 m2 Glomer ular Filtration Rate ) is an estimated va lue, calculated from the patient's serum creatinine usin g the MDRD equation. It is NOT the patient 's actual GFR. The eGFR provides a more clinically usef ul measure of kidn ey disease than se rum creatinine alone.This calculation fatuma es sex and race in to account, if the information is provided. If th e race is not provided, and t he patient is -Kiah n, multiply by 1.2 12. If sex is not provided, and t he patient is fema le, multiply by 0.7 42. Results for pat ients <18 years of ag e have not been validated by [facility] MDRD study and should be interpreted wit h caution. eGFR R esult Interpretation: eGFR > or = 60 is in the Normal RangeeGF R < 60 may mean kid katherine diseaseeGFR < 1 5 may mean kidney failure Rang es recommended by the National Kidney Foundation, http://nkdep.ni h.gov Erythrocyte Sedimentation Rate [id number] 22:26:53 Test Item Value Reference Range Interpretation Comments ESR STAT (test code = ESR STAT) 11 mm/hr 0-9 H Complete Blood Count with [id number] 22:14:43 Test Item Value Reference Range Interpretation Comments WBC (test code = WBC) 6.9 x10 4.4-10.5 RBC (test code = RBC) 4.56 x10 4.10-5.70 Hgb (test code = Hgb) 14.3 g/dL 13.4-17.4 MCV (test code = MCV) 94.50 fL 80.00-100.00 Hct (test code = Hct) 43.1 % 38.7-52.0 MCHC (test code = 33.20 g/dL 32.00-37.50 MCHC) RDW CV (test code = 15.4 % 11.5-14.5 H RDW CV) MCH (test code = MCH) 31.4 pg 27.0-32.5 Platelets (test code = 280.0 x10 140.0-440.0 Platelets) MPV (test code = MPV) 9.4 fL N Slide Review (test Auto Auto Result cr eated by code = Slide Review) GL_SJM_ SLIDE_REV_AUTO nRBC (test code = 0 N nRBC) NRBC Abs (test code = 0.00 x10 N NRBC Abs) IPF (test code = IPF) 0 % N Automated [id number] 22:14:43 Test Item Value Reference Range Interpretation Comments Neutro Auto (test code = Neutro 41.7 % 36.0-70.0 Auto) Lymph Auto (test code = Lymph Auto) 43.9 % 12.0-44.0 Runnels Auto (test code = Runnels Auto) 6.5 % 0.0-11.0 Eos, Auto (test code = Eos, Auto) 6.6 % 0.0-7.0 Basophil Auto (test code = Basophil 1.0 % 0.0-2.0 Auto) Neutro Absolute (test code = Neutro 2.9 x10 1.6-7.4 Absolute) Lymph Absolute (test code = Lymph 3.04 x10 .50-4.60 Absolute) Runnels Absolute (test code = Runnels .45 x10 .00-1.20 Absolute) Eos Absolute (test code = Eos 0.46 x10 0.00-0.74 Absolute) Baso Absolute (test code = Baso 0.07 x10 0.00-0.21 Absolute) IG [id number] 22:14:43 Test Item Value Reference Range Interpretation Comments IG (test code = IG) 0.3 % 0.0-5.0 IG Abs (test code = IG Abs) 0 x10 N RAD, CHEST, 2 [id number] 13:44:00Reason for exam:->SmokerFINAL REPORT TECHNIQUE: 2 views of the chest. COMPARISON: None FINDINGS: Thecardiac silhouette is within normal limits. Thoracic aorta is ectatic. Lungs are clear. No acute skeletal abnormality. Left-sided pacing device noted. IMPRESSION: No acute cardiopulmonary disease. Signed: Joel Rogers MDReport Verified Date/Time: 09/08/2017 13:44:07 Reading Location: [facility] Radiology Reading Room [facility] [id number] 12:29:00 Test Item Value Reference Range Interpretation Comments TOTAL PROTEIN 6.8 gm/dL 6.0-8.5 (BEAKER) (test code = 770) ALBUMIN (BEAKER) 3.7 g/dL 3.5-5.0 (test code = 1145) ALKALINE PHOSPHATASE 83 U/L 30-115 (BEAKER) (test code = 346) BILIRUBIN TOTAL 0.5 mg/dL 0.1-1.2 (BEAKER) (test code = 377) SODIUM (BEAKER) (test 140 meq/L 135-148 code = 381) POTASSIUM (BEAKER) 4.2 meq/L 3.6-5.5 (test code = 379) CHLORIDE (BEAKER) 104 meq/L 98-106 (test code = 382) CO2 (BEAKER) (test 30 meq/L 20-29 H code = 355) BLOOD UREA NITROGEN 13 mg/dL 10-26 (BEAKER) (test code = 354) CREATININE (BEAKER) 1.10 mg/dL 0.50-1.20 (test code = 358) GLUCOSE RANDOM 87 mg/dL 70-110 (BEAKER) (test code = 652) CALCIUM (BEAKER) 8.9 mg/dL 8.5-10.5 (test code = 697) AST (SGOT) (BEAKER) 17 U/L 5-40 (test code = 353) ALT (SGPT) (BEAKER) 15 U/L 5-50 (test code = 347) EGFR (BEAKER) (test 82 mL/min/1.73 ESTIMA DOROTHY GFR IS code = 1092) sq m NOT ACCURATE CREATININE CLEARANCE IN PREDICTING GLOMERULAR FILTRATION RATE . ESTIMATED GFR I S NOT APPLICABLE FOR DIALYSIS PATIEN TS. CBC W/PLT COUNT & AUTO [id number] 12:29:00 Test Item Value Reference Range Interpretation Comments WHITE BLOOD CELL COUNT (BEAKER) 5.5 K/ L 4.0-10.0 (test code = 775) RED BLOOD CELL COUNT (BEAKER) 4.66 M/ L 4.20-5.80 (test code = 761) HEMOGLOBIN (BEAKER) (test code = 14.6 GM/DL 13.0-16.8 410) HEMATOCRIT (BEAKER) (test code = 43.7 % 40.0-50.0 411) MEAN CORPUSCULAR VOLUME (BEAKER) 93.6 fL 82.0-98.0 (test code = 753) MEAN CORPUSCULAR HEMOGLOBIN 31.3 pg 27.0-33.0 (BEAKER) (test code = 751) MEAN CORPUSCULAR HEMOGLOBIN CONC 33.4 GM/DL 32.0-36.0 (BEAKER) (test code = 752) RED CELL DISTRIBUTION WIDTH 15.4 % 10.3-14.2 H (BEAKER) (test code = 412) PLATELET COUNT (BEAKER) (test 273 K/CU MM 150-430 code = 756) MEAN PLATELET VOLUME (BEAKER) 6.4 fL 6.5-10.5 L (test code = 754) NUCLEATED RED BLOOD CELLS 0 /100 WBC 0-0 (BEAKER) (test code = 413) (MANUAL DIFFERENTIAL)2017-09-08 12:29:00 Test Item Value Reference Range Interpretation Comments NEUTROPHILS - REL (DIFF) (BEAKER) 19 % (test code = 1359) LYMPHOCYTES - REL (DIFF) (BEAKER) 72 % (test code = 1360) EOSINOPHILS - REL (DIFF) (BEAKER) 9 % (test code = 1362) NEUTROPHILS - ABS (DIFF) (BEAKER) 1.05 K/ L 1.80-8.00 L (test code = 1365) LYMPHOCYTES - ABS (DIFF) (BEAKER) 3.96 K/ L 1.48-4.50 (test code = 1366) EOSINOPHILS - ABS (DIFF) (BEAKER) 0.50 K/ L 0.00-0.50 (test code = 1368) TOTAL COUNTED (BEAKER) (test code = 100 1351) WBC MORPHOLOGY (BEAKER) (test code Normal = 487) PLT MORPHOLOGY (BEAKER) (test code Normal = 486) RBC MORPHOLOGY (BEAKER) (test code Normal = 762) Sed Rate ESR ([place])2017-02-27 04:53:00 Test Item Value Reference Range Interpretation Comments ESR (test code = HESR) 12 mm/Hr 0-9 H CBC with [id number] 04:12:00 Test Item Value Reference Range Interpretation Comments WBC (test code = WBC) 5.0 K/cumm 4.4-10.5 N RBC (test code = RBC) 4.05 M/cumm 4.10-5.70 L Hemoglobin (test code = 12.5 gm/dL 13.4-17.4 L HGB) Hematocrit (test code = 41.1 % 38.7-52.0 N HCT) MCV (test code = MCV) 101.4 fL 80-100 H MCH (test code = MCH) 30.9 pg 27.0-32.5 N MCHC (test code = MCHC) 30.4 g/dL 32.0-37.5 L RDW (test code = RDW) 15.0 % 11.5-14.5 H Platelet Count (test 214 K/cumm 140-440 N code = PLTCT) MPV (test code = MPV) 10.4 fL Diff Method (test code Manual = DIFFM) Neutrophil (test code = 37.0 % 36-70 N NEUT) Lymphocyte (test code = 55.0 % 12-44 H LYMPH) Monocyte (test code = 6.0 % 0-11 N MONO) Eosinophil (test code = 2.0 % 0-7 N EOS) Neutro Abs (test code = 1.9 K/cumm 1.6-7.4 N ANEUT) Lymph Abs (test code = 2.8 K/cumm 0.5-4.6 N ALYMPH) Runnels Abs (test code = 0.3 K/cumm 0.0-1.2 N AMONO) Eos Abs (test code = 0.10 K/cumm 0.00-0.74 N AEOS) RBC Morphology (test Not Indicated code = RBCMRPH) Platelet Est (test code Adequate Platelets on = PLTEST) Smear Comprehensive Metabolic [id number] 03:06:00 Test Item Value Reference Range Interpretation Comments Sodium (test code = 142 mmol/L 135-145 N NA) Potassium (test 3.9 mmol/L 3.5-5.1 N code = K) Chloride (test code 103 mmol/L 98-105 N = CL) Carbon Dioxide 28 mmol/L 22-29 N (test code = CO2) Glucose (test code 64 mg/dL 70-115 L = GLU) Blood Urea Nitrogen 13 mg/dL 8-23 N (test code = BUN) Creatinine (test 1.3 mg/dL 0.7-1.2 H code = CREAT) Calcium (test code 8.8 mg/dL 8.3-10.5 N = CA) Prot Total (test 6.5 g/dL 6.4-8.3 N code = TP) Albumin (test code 3.6 g/dL 3.5-5.2 N = ALB) A/G Ratio (test 1.2 Ratio code = AGRATIO) Globulin (test code 2.9 2.9-3.1 N = GLOB) Bili Total (test 0.5 mg/dL 0.1-0.9 N code = TBIL) Alk Phos (test code 105 U/L 40-129 N = APHOS) AST (test code = 29 U/L 1-40 N AST) ALT (test code = 34 U/L 1-41 N ALT) BUN/Creatinine 10.0 Ratio (test code = BCRATIO) Anion Gap (test 11 mmol/L 7-16 N code = AGAP) Estimated GFR (test 59 eGFR (es timated code = GFR) mL/min/1.73m2 Glomerular Ryan tration Rate) is an est imated value,calculate d from the patient's s indu creatinine usin g the MDRD equation.I t is NOT the patient 's actual GFR. The eGFR provides a more clinicallyusefu l measure of kidn ey disease than se rum creatinine alone.This calculation fatuma es sex and race into account, if the informationis provided. If th e race is not provided , and the patient isAfrican-Ameri can, multiply by 1.2 12. If sex is not prov ided, and thepatient is female, multipl y by 0.742. Results for patients <18 ye ars ofage have not been validated by th e MDRD study and arnoldo d be interpretedwith caution.eGFR Re sult Interpretation: eGFR > or = 60 is in t he Normal RangeeGF R < 60 may mean kidney diseaseeGFR < 1 5 may mean kidney failureRange s recommended by the National Kidney Foundation,http ://nkd ep.nih.gov Lipid [id number] 03:06:00 Test Item Value Reference Range Interpretation Comments Cholesterol (test 200 mg/dL 0-200 N code = CHOL) Triglycerides (test 104 mg/dL 9-200 N code = TRIG) HDL (test code = 66 mg/dL 40-60 H HDL) Chol/HDL (test code 3.0 Ratio 0.0-5.0 N = CHOLPHDL) LDL, Calculated 113 0-130 N (NOTE)RISK O F HEART (test code = LDLC) DISEASEPu blished by [place] Heart AssociationAnal yte Optim al Boderline Increased RiskC HOL <200 200-239 >240TRI G <150 150-199 >200HDL Male: >60 <40HDL Female: >60 <50 LDL < 100 130-15 9 >160 LDL NEAR OPTIMAL IS 100- 129 VLDL (test code = 21 mg/dL 5-40 N VLDL) LDL/HDL (test code = 2 LDLPHDL) Thyroid Stimulating Hormone (TSH)2017-02-27 02:43:00 Test Item Value Reference Range Interpretation Comments TSH (test code = TSH) 1.40 mIU/mL 0.270-4.200 N [id number] 02:43:00 Test Item Value Reference Range Interpretation Comments NT ProBnp (test code = PBNP) 6296 pg/mL 0-124 H
[2020-08-10 22:55] LABS: Basophils % 0.3 % (0-1.3); Hematocrit 36.2 % (39.6-49.0); Lymphocytes % 48.1 % (15.3-44.8); RBC Red Blood Cell Count 4.04 M/uL (4.33-5.43)
[2020-08-10 23:05] LABS: Protime INR 0.97
[2020-08-10] MEDS ORDERED: ONDANSETRON 4 MG/2 ML VIAL ONE (23:08)
[2020-08-10] MEDS ORDERED: MORPHINE 4 MG/ML SYR ONE (23:08)
[2020-08-10 23:12] LABS: Albumin 3.2 g/dL (3.4-5.0); Bilirubin Direct 0.1 mg/dL (0-0.2); Bilirubin Total 0.3 mg/dL (0.2-1.0); Protein, Total 7.4 g/dL (6.4-8.2)
[2020-08-11 01:32] LABS: Urine Blood TRACE (NEG); Urine Glucose NEGATIVE (NEG); Urine Protein NEGATIVE (NEG); Urine pH 5.5 (5.0-7.0)
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
[2020-08-11] MEDS ORDERED: POTASSIUM CL SA 10 MEQ TAB PO ONE (01:39)
[2020-08-11 02:08] VITALS: TEMP 97.6
[2020-08-11 02:10] VITALS: O2SAT 97
[2020-08-11 02:11] VITALS: BP 144/82
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
== END 2020-08-11 01:44 | disposition home or self-care (01) ==
LOC: ER 21:18
DX: S30.1XXA Contusion of abdominal wall, initial encounter (principal); V59.49XA Driver of pick-up truck or van injured in collision with other motor vehicles in traffic accident, initial encounter; I10 Essential (primary) hypertension; I50.9 Heart failure, unspecified; J44.9 Chronic obstructive pulmonary disease, unspecified; Z79.82 Long term (current) use of aspirin; Z95.810 Presence of automatic (implantable) cardiac defibrillator
CPT/HCPCS: 85025; 80048; 36415; 86900; 86850; 85610; 86901; 80076; 85730; 81003; 74177; 96375; 96374; 99284; Q9967; J2405

== ENCOUNTER 2021-03-17 02:20 | Inpatient (IN) | payer OTHER ==
[2021-03-17 02:47] LABS: Absolute Lymphocytes (CBC) 3.2 K/uL (0.7-4.9); Basophils % 0.9 % (0-1.3); Hematocrit 42.6 % (39.6-49.0); Lymphocytes % 35.1 % (15.3-44.8); RBC Red Blood Cell Count 4.47 M/uL (4.33-5.43)
[2021-03-17 02:50] LABS: Protime INR 1.01
[2021-03-17 03:08] LABS: ALT/SGPT 49 U/L (12-78); AST/SGOT 28 U/L (15-37); Albumin 3.7 g/dL (3.4-5.0); Alkaline Phosphatase 88 U/L (45-117); BUN Blood Urea Nitrogen 31 mg/dL (7-18); Bicarbonate 28 mmol/L (21-32); Bilirubin Direct < 0.1 mg/dL (0-0.2); Bilirubin Total 0.3 mg/dL (0.2-1.0); Glucose Level 118 mg/dL (74-106); Magnesium 2.4 mg/dL (1.8-2.4); NT PRO-BNP 18127 pg/mL (<125); Potassium 3.6 mmol/L (3.5-5.1); Protein, Total 8.2 g/dL (6.4-8.2); Sodium Level 145 mmol/L (136-145); Troponin (Emerg Dept Use Only) 0.07 ng/mL (0.0-0.045)
[2021-03-17] MEDS ORDERED: FUROSEMIDE 40 MG/4 ML VIAL ONE ×3 (03:08→17:58)
[2021-03-17] MEDS ORDERED: NITROGLYCERIN/D5W 50 MG/250 ML BTL IV ONE ×3 (03:24→20:33)
[2021-03-17] MEDS ORDERED: AZITHROMYCIN 500 MG INJ IVPB ONE (04:10)
[2021-03-17] MEDS ORDERED: CEFTRIAXONE 1000 MG/VIAL ONE (04:10)
[2021-03-17] MEDS ORDERED: HYDRALAZINE HCL 20 MG/ML VIAL ONE ×2 (04:10→10:45)
--- NOTE | 2021-03-17 04:13 | EDPHYS ---
Physician Documentation [facility] Name: Edouard Marie Age: 65 yrs Sex: Male : 1955 Arrival Date: 03/17/2021 Time: 02:21 Bed 28 Private MD: ED Physician Terell Barnes HPI: 03/17 02:38 This 65 yrs old Black Male presents to ER via Unassigned with complaints of Breathing mh7 Difficulty. 02:38 The patient has shortness of breath at rest, with light activity. Onset: The mh7 symptoms/episode began/occurred 3 day(s) ago. Duration: The symptoms are intermittent, with no pattern. The patient's shortness of breath is aggravated by exertion, light activity, talking, is alleviated by nothing. Associated signs and symptoms: Pertinent negatives: chest pain, non-productive cough, productive cough, diaphoresis, dizziness, fever, hemoptysis, loss of consciousness, nausea, numbness in extremities, visual changes, vomiting. Severity of symptoms: At their worst the symptoms were moderate last night, in the emergency department the symptoms are unchanged. The patient has experienced similar episodes in the past, multiple times. Historical: - Allergies: 02:42 No Known Allergies; lp1 - PMHx: 02:42 CHF; COPD; Hypertension; lp1 - PSHx: 02:42 Pacemaker/Defib; L Rotator Cuff Sx; lp1 - Immunization history:: Adult Immunizations up to date. - Social history:: Smoking status: Patient denies any tobacco usage or history of. Patient uses alcohol, occasionally. street drugs, cocaine, marijuana. ROS: 02:38 Constitutional: Negative for fever, chills, and weight loss, Eyes: Negative for injury, mh7 pain, redness, and discharge, ENT: Negative for injury, pain, and discharge, Neck: Negative for injury, pain, and swelling, Cardiovascular: Negative for chest pain, palpitations, and edema, Abdomen/GI: Negative for abdominal pain, nausea, vomiting, diarrhea, and constipation, Back: Negative for injury and pain, : Negative for injury, bleeding, discharge, and swelling, MS/Extremity: Negative for injury and deformity, Skin: Negative for injury, rash, and discoloration, Neuro: Negative for headache, weakness, numbness, tingling, and seizure, Psych: Negative for depression, anxiety, suicide ideation, homicidal ideation, and hallucinations, Allergy/Immunology: Negative for hives, rash, and allergies, Endocrine: Negative for neck swelling, polydipsia, polyuria, polyphagia, and marked weight changes, Hematologic/Lymphatic: Negative for swollen nodes, abnormal bleeding, and unusual bruising. Exam: 02:38 Head/Face: Normocephalic, atraumatic. Eyes: Pupils equal round and reactive to light, mh7 extra-ocular motions intact. Lids and lashes normal. Conjunctiva and sclera are non-icteric and not injected. Cornea within normal limits. Periorbital areas with no swelling, redness, or edema. Neck: Trachea midline, no thyromegaly or masses palpated, and no cervical lymphadenopathy. Supple, full range of motion without nuchal rigidity, or vertebral point tenderness. No Meningismus. Chest/axilla: Normal chest wall appearance and motion. Nontender with no deformity. No lesions are appreciated. Abdomen/GI: Soft, non-tender, with normal bowel sounds. No distension or tympany. No guarding or rebound. No evidence of tenderness throughout. Back: No spinal tenderness. No costovertebral tenderness. Full range of motion. Skin: Warm, dry with normal turgor. Normal color with no rashes, no lesions, and no evidence of cellulitis. MS/ Extremity: Pulses equal, no cyanosis. Neurovascular intact. Full, normal range of motion. Neuro: Awake and alert, GCS 15, oriented to person, place, time, and situation. Cranial nerves II-XII grossly intact. Motor strength 5/5 in all extremities. Sensory grossly intact. Cerebellar exam normal. Normal gait. Psych: Awake, alert, with orientation to person, place and time. Behavior, mood, and affect are within normal limits. 02:38 Constitutional: The patient appears alert, awake, in obvious distress, mildly distressed. 02:38 Cardiovascular: Regular rate and rhythm with a normal S1 and S2. No gallops, murmurs, mh7 or rubs. Normal PMI, no JVD. No pulse deficits. 02:38 Respiratory: moderate respiratory distress is noted, Respirations: tachypnea, that is mh7 mild, Breath sounds: rales, that are moderate, are heard diffusely, rhonchi, that are mild, are scattered. Vital Signs: 02:20 BP 189 / 113; Pulse 102; Resp 30; Pulse Ox 90% on R/A; Weight 77.11 kg (R); Height 6 lp1 ft. 2 in. (187.96 cm); Pain 0/10; 02:45 BP 193 / 150; Pulse 72; Resp 25; Pulse Ox 100% on 40% BiPAP; Pain 0/10; fu 02:53 Pulse Ox 98% on 40% BiPAP; lp1 03:00 BP 195 / 134; Pulse 72; Resp 25; Pulse Ox 100% on 40% BiPAP; Pain 0/10; fu 03:15 BP 188 / 115; Pulse 58; Resp 18; Pulse Ox 99% on 40% BiPAP; Pain 0/10; fu 04:12 BP 168 / 114; Pulse 72; Resp 22; Temp 97.5(A); Pulse Ox 100% on 40% BiPAP; fu 04:30 BP 161 / 130; Pulse 63; Resp 24; Pulse Ox 100% on 40% BiPAP; Pain 0/10; fu 04:46 BP 166 / 114; Pulse 63; Resp 22; Pulse Ox 100% on 40% BiPAP; fu 05:00 BP 165 / 129; Pulse 69; Resp 23; Pulse Ox 100% on 40% BiPAP; fu 05:30 BP 169 / 124; Pulse 79; Resp 23; Pulse Ox 100% on 40% BiPAP; fu 02:20 Body Mass Index 21.83 (77.11 kg, 187.96 cm) lp1 MDM: 04:09 Differential diagnosis: Anemia Anxiety Reaction asthma, Bronchitis CHF exacerbation, mh7 Chronic Obstructive Pulmonary Disease Myocardial Infarction pneumonia, Pneumothorax Psychogenic pulmonary edema, reactive airway disease. Data reviewed: vital signs, nurses notes, old medical records, lab test result(s), cardiac enzymes, CBC, electrolytes, EKG, radiologic studies, plain films. Data interpreted: Pulse oximetry: on BiPAP is 99 %. Interpretation: acceptable. Counseling: I had a detailed discussion with the patient and/or guardian regarding: the historical points, exam findings, and any diagnostic results supporting the discharge/admit diagnosis, the presence of at least one elevated blood pressure reading (>120/80) during this emergency department visit, lab results, radiology results, the need for further work-up and treatment in the hospital. Response to treatment: the patient's symptoms have markedly improved after treatment. 04:12 Patient medically screened. [facility] 03/17 02:34 Order name: Basic Metabolic Panel; Complete Time: 03:34 [facility] 03/17 02:34 Order name: CBC with Diff; Complete Time: 03:01 [facility] 03/17 02:34 Order name: LFT's; Complete Time: 03:34 [facility] 03/17 02:34 Order name: Magnesium; Complete Time: 03:34 [facility] 03/17 02:34 Order name: NT PRO-BNP; Complete Time: 03:34 [facility] 03/17 02:34 Order name: PT-INR; Complete Time: 03:01 [facility] 03/17 02:34 Order name: Troponin (emerg Dept Use Only); Complete Time: 03:34 [facility] 03/17 02:40 Order name: COVID-19 (Coronavirus) Document "Date of Onset" if Symptomatic [facility] 03/17 02:42 Order name: UDS; Complete Time: 04:49 [facility] 03/17 03:03 Order name: SARS-COV-2 RT PCR; Complete Time: 04:09 [facility] 03/17 03:36 Order name: CPK; Complete Time: 04:09 [facility] 03/17 03:41 Order name: Blood Culture Adult (2) [facility] 03/17 04:27 Order name: Urine Dipstick-Ancillary; Complete Time: 04:49 [facility] 03/17 02:34 Order name: XRAY Chest (1 view); Complete Time: 18:39 [facility] 03/17 02:34 Order name: BIPAP [facility] 03/17 07:14 Order name: Troponin I; Complete Time: 18:39 [facility] 03/17 13:11 Order name: Troponin I; Complete Time: 18:39 [facility] 03/17 20:48 Order name: Comprehensive Metabolic Panel [facility] 03/18 05:28 Order name: CBC with Automated Diff EDMS 03/18 05:41 Order name: Comprehensive Metabolic Panel [facility] 03/18 05:41 Order name: Phosphorus EDMS 03/18 05:41 Order name: Lipid Profile [facility] 03/18 05:41 Order name: T4 Free [facility] 03/18 05:41 Order name: Magnesium [facility] 03/18 05:41 Order name: Thyroid Stimulating Hormone [facility] 03/17 02:34 Order name: EKG; Complete Time: 02:34 [facility] 03/17 02:34 Order name: Cardiac monitoring; Complete Time: 02:40 7 03/17 02:34 Order name: EKG - Nurse/Tech; Complete Time: 02:40 [facility] 03/17 02:34 Order name: IV Saline Lock; Complete Time: 02:36 7 03/17 02:34 Order name: Labs collected and sent; Complete Time: 02:40 7 03/17 02:34 Order name: O2 Per Protocol; Complete Time: 02:40 7 03/17 02:34 Order name: O2 Sat Monitoring; Complete Time: 02:40 7 03/17 02:42 Order name: Urine Dipstick-Ancillary (obtain specimen); Complete Time: 04:43 7 Administered Medications: 02:50 Drug: Lasix (furosemide) 40 mg Route: IVP; Site: left antecubital; fu 03:29 Follow up: Response: No adverse reaction fu 03:00 Drug: Nitro Drip - (Nitroglycerin 50 mg, D5W 250 ml) Route: IV; Rate: 5 mcg/min; Site: fu left antecubital; 04:10 Drug: hydrALAZINE 10 mg Route: IVP; Site: right forearm; fu 04:30 Follow up: Response: No adverse reaction fu 04:42 Drug: Rocephin (cefTRIAXone) 1 grams Route: IV; Rate: per protocol; Site: right forearm;fu 04:43 Drug: Zithromax (azithromycin) 500 mg Route: IVPB; Infused Over: 1 hrs; Site: right fu forearm; 06:38 Follow up: Response: No adverse reaction fu Disposition Summary: 03/17/21 04:12 Hospitalization Ordered Hospitalization Status: Inpatient Admission [facility] Provider: Mauricio Owens Rose Condition: Stable [facility] Problem: an acute exacerbation [facility] Symptoms: have improved [facility] Bed/Room Type: Standard [facility] Location: [facility] ER HOLD(03/17/21 05:40) mw Room Assignment: ERHOLD-(03/17/21 05:40) mw Diagnosis - Acute on chronic combined systolic (congestive) and diastolic (congestive) heart [facility] failure - Pneumonia 7 - Uncontrolled Hypertension [facility] Forms: - Medication Reconciliation Form 7 - SBAR form [facility] Signatures: Dispatcher [employer] OSVALDOMD Estephania Sr RN RN mw Patrick Dodd PA PA jmm Pena, Laura RN RN lp1 Chito Chanel, Terell Bhagat RN, MD MD [facility] Corrections: (The following items were deleted from the chart) 03:03 02:40 CORONAVIRUS ordered. EDMS EDMS 05:14 04:12 [facility] 05:40 04:12 Telemetry/MedSurg (Inpatient) [facility] 05:40 05:14 [id number]
--- NOTE | 2021-03-17 04:13 | ER ---
Nurse's Notes [facility] Name: Edouard Marie Age: 65 yrs Sex: Male : 1955 Arrival Date: 03/17/2021 Time: 02:21 Bed 28 Private MD: Diagnosis: Acute on chronic combined systolic (congestive) and diastolic (congestive) heart failure;Pneumonia;Uncontrolled Hypertension Presentation: 03/17 02:20 Chief complaint: Patient states: Shortness of breath x 3 days, reports hx of CHF; lp1 Denies any chest pain, or leg swelling. Coronavirus screen: difficulty breathing, shortness of breath. Ebola Screen: No symptoms or risks identified at this time. Risk Assessment: Do you want to hurt yourself or someone else? Patient reports no desire to harm self or others. Onset of symptoms was March 14, 2021. 02:20 Acuity: ERUM 2 lp1 02:20 Initial Sepsis Screen: Does the patient meet any 2 criteria? No. Patient's initial lp1 sepsis screen is negative. Does the patient have a suspected source of infection? No. Patient's initial sepsis screen is negative. 02:40 Method Of Arrival: Ambulatory lp1 Triage Assessment: 02:20 General: Appears distressed, Behavior is anxious. Respiratory: Reports shortness of lp1 breath Airway is patent Respiratory effort is labored, using tripod position, Respiratory pattern is tachypnea Onset: The symptoms/episode began/occurred gradually, the patient has moderate shortness of breath. Historical: - Allergies: 02:42 No Known Allergies; lp1 - PMHx: 02:42 CHF; COPD; Hypertension; lp1 - PSHx: 02:42 Pacemaker/Defib; L Rotator Cuff Sx; lp1 - Immunization history:: Adult Immunizations up to date. - Social history:: Smoking status: Patient denies any tobacco usage or history of. Patient uses alcohol, occasionally. street drugs, cocaine, marijuana. Screenin:43 Abuse screen: Denies threats or abuse. Denies injuries from another. Nutritional lp1 screening: No deficits noted. Tuberculosis screening: No symptoms or risk factors identified. Fall Risk None identified. Assessment: 02:40 Reassessment: RT at bedside for BiPAP placement, Dr. Barnes at bedside. lp1 02:40 General: Appears distressed, uncomfortable, Behavior is cooperative, appropriate for fu age, Denies fever, feeling ill. Pain: Complains of pain in chest. Neuro: Level of Consciousness is awake, alert, obeys commands, Oriented to person, place, time, situation, Moves all extremities. Gait is unsteady, Speech is normal, Facial symmetry appears normal. Cardiovascular: Rhythm is sinus rhythm with PVCs. patient has pacemaker defibrillator to left upper chest. Respiratory: Respiratory effort is labored, using tripod position, Respiratory pattern is tachypnea Breath sounds with crackles Breath sounds with wheezes bilaterally. GI: No signs and/or symptoms were reported involving the gastrointestinal system. Musculoskeletal: Musculoskeletal:. Musculoskeletal: Range of motion: intact in all extremities. 03:19 Reassessment: Patient and/or family updated on plan of care and expected duration. Pain fu level reassessed. Patient states symptoms have improved. Respiratory: Respiratory effort is even. 04:00 Reassessment: Patient and/or family updated on plan of care and expected duration. Pain fu level reassessed. Patient is alert, oriented x 3, equal unlabored respirations, skin warm/dry/pink. Nitroglycerin drip increased to 7 mcg/min. 04:45 Reassessment: BP 161/130, Nitroglycerin drip increased to 10mcg/min. fu 05:24 Reassessment: BP 170/122, Nitroglycerin drip increased to 15mcg/min. fu 05:30 Reassessment: BP 169/127 Nitroglycerin drip increased to 20mcg/min. fu 05:50 Reassessment: BP 171/152, Nitroglycerin drip increased to 25mcg/min. fu Vital Signs: 02:20 BP 189 / 113; Pulse 102; Resp 30; Pulse Ox 90% on R/A; Weight 77.11 kg (R); Height 6 lp1 ft. 2 in. (187.96 cm); Pain 0/10; 02:45 BP 193 / 150; Pulse 72; Resp 25; Pulse Ox 100% on 40% BiPAP; Pain 0/10; fu 02:53 Pulse Ox 98% on 40% BiPAP; lp1 03:00 BP 195 / 134; Pulse 72; Resp 25; Pulse Ox 100% on 40% BiPAP; Pain 0/10; fu 03:15 BP 188 / 115; Pulse 58; Resp 18; Pulse Ox 99% on 40% BiPAP; Pain 0/10; fu 04:12 BP 168 / 114; Pulse 72; Resp 22; Temp 97.5(A); Pulse Ox 100% on 40% BiPAP; fu 04:30 BP 161 / 130; Pulse 63; Resp 24; Pulse Ox 100% on 40% BiPAP; Pain 0/10; fu 04:46 BP 166 / 114; Pulse 63; Resp 22; Pulse Ox 100% on 40% BiPAP; fu 05:00 BP 165 / 129; Pulse 69; Resp 23; Pulse Ox 100% on 40% BiPAP; fu 05:30 BP 169 / 124; Pulse 79; Resp 23; Pulse Ox 100% on 40% BiPAP; fu 02:20 Body Mass Index 21.83 (77.11 kg, 187.96 cm) lp1 ED Course: 02:21 Patient arrived in ED. wm 02:24 Terell Barnes MD is Attending Physician. mh7 02:30 Inserted saline lock: 20 gauge in left antecubital area, using aseptic technique. Blood fu collected. 02:36 Chito Chanel RN is Primary Nurse. fu 02:41 Triage completed. lp1 02:41 Arm band placed on. lp1 02:43 Patient has correct armband on for positive identification. Placed in gown. Bed in low lp1 position. dress marker on. Pulse ox on. NIBP on. 02:57 BIPAP Sent. df1 03:00 COVID-19 (Coronavirus) Document "Date of Onset" if Symptomatic Sent. fu 03:34 XRAY Chest (1 view) In Process Unspecified. EDMS 03:55 Inserted saline lock: 20 gauge in right forearm, using aseptic technique. Blood fu collected. 04:11 Mauricio Owens is Hospitalizing Provider. 7 05:52 No provider procedures requiring assistance completed. fu Administered Medications: 02:50 Drug: Lasix (furosemide) 40 mg Route: IVP; Site: left antecubital; fu 03:29 Follow up: Response: No adverse reaction fu 03:00 Drug: Nitro Drip - (Nitroglycerin 50 mg, D5W 250 ml) Route: IV; Rate: 5 mcg/min; Site: fu left antecubital; 04:10 Drug: hydrALAZINE 10 mg Route: IVP; Site: right forearm; fu 04:30 Follow up: Response: No adverse reaction fu 04:42 Drug: Rocephin (cefTRIAXone) 1 grams Route: IV; Rate: per protocol; Site: right forearm;fu 04:43 Drug: Zithromax (azithromycin) 500 mg Route: IVPB; Infused Over: 1 hrs; Site: right fu forearm; 06:38 Follow up: Response: No adverse reaction fu Output: 05:19 Urine: 700ml (Voided); Total: 700ml. fu Outcome: 04:12 Decision to Hospitalize by Provider. [facility] 06:35 Admitted to ER Hold. Please see [facility] for further documentation. fu 06:35 Condition: unchanged 06:35 Instructed on the need for admit, Demonstrated understanding of instructions. 03/18 17:20 Patient left the ED. ss Signatures: Dispatcher [employer] EDMS Chanda Driver RN RN Alona Waller RN RN [facility] Chito Chanel RN RN Terell Barnes MD MD [facility] Rhonda Walker Dawn df1 Corrections: (The following items were deleted from the chart) 03/17 02:45 02:40 Chief complaint: Patient states: Shortness of breath x 3 days, reports hx of CHF; lp1 Denies any chest pain, or leg swelling 1 02:45 02:40 Coronavirus screen: difficulty breathing, shortness of breath, 1 1 02:45 02:40 Ebola Screen: No symptoms or risks identified at this time. 1 1 02:45 02:40 Risk Assessment: Do you want to hurt yourself or someone else? Patient reports no lp1 desire to harm self or others. 1 02:45 02:40 Onset of symptoms was March 14, 2021 1 1 02:45 02:40 Method Of Arrival: Ambulatory 1 1 02:45 02:40 Acuity: ERUM 2 lp1 1 03:10 03:00 Inserted saline lock: 20 gauge in left antecubital area, using aseptic technique. fu Blood collected. fu 04:48 04:43 Reassessment: Patient and/or family updated on plan of care and expected fu duration. Pain level reassessed. Patient is alert, oriented x 3, equal unlabored respirations, skin warm/dry/pink. Nitroglycerin drip increased to 7 mcg/min fu 05:35 05:25 Reassessment: BP 169/127 Nitroglycerin drip 20mcg/min fu fu 05:36 05:25 Reassessment: BP 169/127 Nitroglycerin drip 20mcg/min fu fu 05:42 05:30 Reassessment: BP 169/127 Nitroglycerin drip 20mcg/min fu fu
[2021-03-17 04:27] LABS: Urine Blood Trace-intact (Negative); Urine Glucose Negative (Negative); Urine Protein Negative (Negative); Urine Specific Gravity >=1.030 (1.005-1.030)
[2021-03-17 04:45] LABS: Barbiturates NEGATIVE (NEGATIVE); Benzodiazepines NEGATIVE (NEGATIVE); Cocaine POSITIVE (NEGATIVE); METHAMPHETAM NEGATIVE (NEGATIVE); Methadone NEGATIVE (NEGATIVE); Opiates NEGATIVE (NEGATIVE); Phencyclidine NEGATIVE (NEGATIVE); THC Cannibis POSITIVE (NEGATIVE)
[2021-03-17] MEDS ORDERED: NA CHLORIDE 0.9% 250 ML ONE (04:54)
--- NOTE | 2021-03-17 04:59 | P.HP ---
Certification for Inpatient Patient admitted to: Inpatient With expected LOS: >2 Midnights Patient will require the following post-hospital care: None Practitioner: I am a practitioner with admitting privileges, knowledge of patient current condition, hospital course, and medical plan of care. Services: Services provided to patient in accordance with Admission requirements found in Title 42 Section 412.3 of the Code of Federal Regulations Patient History Date of Service: 03/17/21 Primary Care Provider: Yadiel Reason for admission: CHF exacerbation History of Present Illness: Mr. Marie is a 65 yo M with CHF and HTN who presents with three days of worsening orthopnea, SOB, and FONSECA. Also reports cough and wheezing. He says his symptoms are worse at night. Mild relief of his cough with albuterol. Denies PND, edema, palpitations. He has had CHF exacerbations in the past. At bedside, he is stable on BiPAP. BUN 31 Cr 1.75 GFR 48 trop 0.07 [id number]. Allergies No Known Allergies Allergy (Verified 01/26/17 07:59) Home Medications: Aspirin 1 tab PO DAILY 07/16/19 Nebulizer [Aeroneb Go Nebulizer] 1 each MC QID #1 each 07/18/19 Albuterol Sulfate [Albuterol Sulfate Hfa] 2 puff IH PRN PRN 09/26/19 Amlodipine [Norvasc*] 10 mg PO DAILY #90 tab 09/27/19 Furosemide [Lasix] 60 mg PO DAILY #45 tablet 09/27/19 Isosorb Dinit/Hydralazine HCl [Bidil Tablet] 1 each PO BID 30 Days #60 tablet 09/27/19 Metoprolol Tartrate [Lopressor*] 50 mg PO BID #90 tab 09/27/19 Sacubitril/Valsartan [Entresto 49 mg-51 mg Tablet] 1 tab PO DAILY #90 tab 09/27/19 - Past Medical/Surgical History Diabetic: No -: Hypertension -: Congestive heart failure -: COPD -: Pacemaker defibrillator -: Rotator cuff - Family History Father -: Hypertension - Social History Smoking Status: Never smoker Alcohol use: No CD- Drugs: Yes Caffeine use: Yes Place of Residence: Home Review of Systems 10-point ROS is otherwise unremarkable General: Unremarkable Eyes: Unremarkable ENT: Unremarkable Respiratory: Cough, Shortness of Breath, SOB with Excertion, Wheezing, As per HPI Cardiovascular: Orthopnea, Paroxysmal Noc. Dyspnea, As per HPI Gastrointestinal: Unremarkable Musculoskeletal: Unremarkable Integumentary: Unremarkable Neurological: Unremarkable Lymphatics: Unremarkable Physical Examination - Physical Exam General: Alert, In no apparent distress HEENT: Atraumatic, PERRLA, Mucous membr. moist/pink, EOMI, Sclerae nonicteric Neck: Supple, 2+ carotid pulse no bruit, No LAD, Without JVD or thyroid abnormality Respiratory: Diminished, Crackles/rales Cardiovascular: No edema, Regular rate/rhythm (murmur), Normal S1 S2 Capillary refill: <2 Seconds Gastrointestinal: Normal bowel sounds, No tenderness Musculoskeletal: No tenderness Integumentary: No rashes Neurological: Normal speech, Normal strength at 5/5 x4 extr, Normal tone, Normal affect Lymphatics: No axilla or inguinal lymphadenopathy - Studies Laboratory Data (last 24 hrs) 03/17/21 02:37: PT 11.6, INR 1.01 03/17/21 02:37: WBC 9.10, Hgb 13.9, Hct 42.6, Plt Count 234 03/17/21 02:37: Sodium 145, Potassium 3.6, BUN 31 H, Creatinine 1.75 H, Glucose 118 H, Magnesium 2.4, Total Bilirubin 0.3, AST 28, ALT 49, Alkaline Phosphatase 88 Assessment and Plan - Problems (Diagnosis) (1) Acute exacerbation of CHF (congestive heart failure) Onset Date: 01/27/17 Current Visit: No Status: Acute Qualifiers: Heart failure type: unspecified Qualified Code(s): I50.9 - Heart failure, unspecified (2) Cocaine abuse Onset Date: 01/27/17 Current Visit: No Status: Chronic (3) Elevated troponin level Onset Date: 01/27/17 Current Visit: No Status: Acute (4) Hypertension Current Visit: No Status: Chronic Qualifiers: (5) Acute respiratory distress Onset Date: 01/27/17 Current Visit: No Status: Acute - Plan on tele, trend troponins continue Iv Lasix ECHO on Thursday RT consulted, continue BiPAP daily weights, low sodium diet, fluid restriction IV hydralazine PRN for BP spikes continue home blood pressure medications DVT ppx Discharge Plan: Home Plan to discharge in: 48 Hours - Advance Directives Does patient have a Living Will: No Does patient have a Durable POA for Healthcare: No - Code Status/Comfort Care Code Status Assessed: Yes (full code) Critical Care: No Time Spent Managing Pts Care (In Minutes): 70
[2021-03-17] MEDS ORDERED: NA CHLORIDE 0.9% 50 ML ONE (05:00)
[2021-03-17] MEDS ORDERED: HYDRALAZINE HCL 20 MG/ML VIAL IV PRN (06:22)
[2021-03-17] MEDS ORDERED: ALBUTEROL 2.5 MG/3 ML NEB SOL NEB PRN (06:22)
[2021-03-17] MEDS ORDERED: ONDANSETRON 4 MG/2 ML VIAL IV PRN (06:22)
[2021-03-17] MEDS ORDERED: ACETAMINOPHEN 500 MG TAB PO PRN (06:22)
[2021-03-17] MEDS: NITROGLYCERIN/D5W 50 MG/250 ML BTL IV SCH ×3 (06:37→23:29)
[2021-03-17] MEDS: ISOSORBIDE DINIT 20 MG TAB PO SCH ×2 (09:00→17:41)
[2021-03-17] MEDS: SACUBITRIL/VALSARTAN 49/51 MG TAB PO SCH (09:00)
[2021-03-17] MEDS: ENOXAPARIN 40 MG/0.4 ML SQ SCH (09:00)
[2021-03-17] MEDS: ASPIRIN 81 MG CHEWABLE TABLET PO SCH (09:00)
[2021-03-17] MEDS: HYDRALAZINE HCL 25 MG TABLET PO SCH ×3 (09:00→20:17)
[2021-03-17] MEDS: AMLODIPINE 10 MG TAB PO SCH (09:00)
[2021-03-17] MEDS: FUROSEMIDE 40 MG/4 ML VIAL IV SCH ×2 (09:00→17:41)
[2021-03-17] MEDS ORDERED: POTASSIUM CL SA 10 MEQ TAB PO ONE ×2 (09:05→09:24)
[2021-03-17] MEDS ORDERED: HYDRALAZINE HCL 25 MG TABLET ONE ×3 (09:20→20:29)
[2021-03-17] MEDS ORDERED: ASPIRIN 81 MG CHEWABLE TABLET ONE (09:21)
[2021-03-17] MEDS ORDERED: AMLODIPINE 10 MG TAB ONE (09:23)
[2021-03-17] MEDS ORDERED: ENOXAPARIN 40 MG/0.4 ML SQ ONE (09:23)
[2021-03-17 09:49] VITALS: O2SAT 100
--- NOTE | 2021-03-17 11:32 | RAD REPORT ---
EXAM DESCRIPTION: RAD - Chest Single View - 03/17/2021 3:34 am CLINICAL HISTORY: SOB Chest pain. COMPARISON: Chest Single View dated 09/26/2019; Chest Single View dated 07/17/2019; Chest Single View d ated 07/16/2019; Chest Single View dated 07/15/2019 FINDINGS: Portable technique limits examination quality. Moderate bilateral pulmonary opacities are present probably representing pulmonary edema. The heart i s moderately enlarged in size. Single lead pacer/defibrillator device is present. IMPRESSION: Moderate CHF.
--- NOTE | 2021-03-17 13:56 | P.PN ---
Date of Service: 03/17/21 Patient seen and examined. He stated shortness of breath is better. SaO2 is 100% Blood pressure is moderately elevated. Troponin trended Diagnosis: Acute on chronic systolic heart. Cocaine abuse Malignant hypertension Acute respiratory failure with hypoxia Elevated troponin likely secondary to demand ischemia. Plan: Patient weaned off BiPAP to oxygen by nasal canula. Continue IV Lasix. Weaned off NTG Obtain echocardiogram. Cardiology Consult.
[2021-03-17] MEDS: METOPROLOL TAR 50 MG TAB PO SCH (20:17)
[2021-03-17] MEDS ORDERED: METOPROLOL TAR 50 MG TAB ONE (20:29)
[2021-03-17 20:44] LABS: Albumin 2.9 g/dL (3.4-5.0); Bilirubin Total 0.4 mg/dL (0.2-1.0); Potassium 3.3 mmol/L (3.5-5.1); Protein, Total 6.7 g/dL (6.4-8.2)
[2021-03-17] MEDS: ISOSORBIDE MONO 10 MG TAB PO SCH (21:00)
[2021-03-17] MEDS ORDERED: KCL 20 MEQ/100 mL IVPB 20 MEQ/100 ML BAG IV ONE ×2 (21:35→23:00)
[2021-03-17] MEDS ORDERED: NACHLORIDE 0.45% 1,000 ML IV ONE (22:39)
[2021-03-18] MEDS: FUROSEMIDE 40 MG/4 ML VIAL IV SCH ×2 (01:00→09:04)
[2021-03-18] MEDS ORDERED: NITROGLYCERIN/D5W 50 MG/250 ML BTL IV ONE ×3 (02:50→12:09)
[2021-03-18] MEDS ORDERED: FUROSEMIDE 20 MG/ 2ML VIAL ONE (03:10)
[2021-03-18 05:20] LABS: Absolute Lymphocytes (CBC) 2.2 K/uL (0.7-4.9); Basophils % 0.3 % (0-1.3); Hematocrit 36.2 % (39.6-49.0); Lymphocytes % 39.9 % (15.3-44.8); MPV 7.7 fL (7.6-11.3); RBC Red Blood Cell Count 3.87 M/uL (4.33-5.43)
[2021-03-18 05:22] VITALS: BMI 22.1
[2021-03-18 05:40] LABS: Albumin 2.7 g/dL (3.4-5.0); Bilirubin Total 0.4 mg/dL (0.2-1.0); Magnesium 2.1 mg/dL (1.8-2.4); Phosphorus 2.9 mg/dL (2.5-4.9); Potassium 3.6 mmol/L (3.5-5.1); Protein, Total 6.5 g/dL (6.4-8.2); Thyroid Stimulating Hormone 0.872 uIU/mL (0.360-3.740)
[2021-03-18] MEDS ORDERED: FUROSEMIDE 40 MG/4 ML VIAL ONE (07:48)
[2021-03-18 07:51] VITALS: TEMP 98.1
[2021-03-18] MEDS: NITROGLYCERIN/D5W 50 MG/250 ML BTL IV SCH ×2 (07:54→14:43)
[2021-03-18] MEDS: ASPIRIN 81 MG CHEWABLE TABLET PO SCH (09:00)
[2021-03-18] MEDS: ENOXAPARIN 40 MG/0.4 ML SQ SCH (09:04)
[2021-03-18] MEDS: HYDRALAZINE HCL 25 MG TABLET PO SCH ×2 (09:04→14:21)
[2021-03-18] MEDS: AMLODIPINE 10 MG TAB PO SCH (09:04)
[2021-03-18] MEDS: METOPROLOL TAR 50 MG TAB PO SCH (09:04)
[2021-03-18] MEDS: SACUBITRIL/VALSARTAN 49/51 MG TAB PO SCH (09:04)
[2021-03-18] MEDS ORDERED: ASPIRIN EC 81 MG TAB PO ONE (09:15)
[2021-03-18] MEDS ORDERED: HYDRALAZINE HCL 25 MG TABLET ONE ×2 (09:15→14:46)
[2021-03-18] MEDS ORDERED: METOPROLOL TAR 50 MG TAB ONE (09:15)
[2021-03-18] MEDS ORDERED: ENOXAPARIN 40 MG/0.4 ML SQ ONE (09:16)
[2021-03-18] MEDS ORDERED: AMLODIPINE 10 MG TAB ONE (09:16)
[2021-03-18] MEDS: ISOSORBIDE MONO 10 MG TAB PO SCH (11:31)
--- NOTE | 2021-03-18 15:52 | P.DS ---
Admission Date: 03/17/21 Discharge Date: 03/18/21 Primary Care Provider: Yadiel Disposition: ROUTINE DISCHARGE Discharge Condition: FAIR Reason for Admission: CHF exacerbation - Problems (1) Malignant hypertension Status: Acute (2) Acute on chronic systolic heart failure Status: Acute (3) Acute respiratory failure with hypoxia Status: Acute (4) Elevated troponin level Onset Date: 01/27/17 Status: Acute (5) Cardiomyopathy, nonischemic Status: Chronic (6) Cocaine abuse Onset Date: 01/27/17 Status: Chronic Brief History of Present Illness: 65 yo M with systolic CHF and HTN presented with three days of worsening orthopnea, SOB, and FONSECA. Also reported cough and wheezing. Other symptoms i ncluded orthopnea, no chest pain. Denied PND, edema, palpitations. He has had CHF exacerbations in the past. Patient was in respiratory distress in the ED and was placed on BiPAP. BUN 31 Cr 1.75 GFR 48 trop 0.07 [id number]. Patient also started on nitroglycerin drip for severe BP elevates. Urine toxicology screen was positive for cocaine. Patient admitted for further management. Hospital Course: Patient admitted to the ICU on nitroglycerin drip. Also treated with IV Lasix for CHF exacerbation. He was eventually weaned off BiPAP to oxygen by nasal cannula within 24 hrs and later weaned off oxygen to room air. Troponin was mildly elevated but trended flat. Patient seen in consultation by cardiology- Dr. Banks. Echocardiogram was done and the result is pending. Patient has clinically improved to baseline. Blood pressure improved and was weaned off nitroglycerin drip. Currently maintained on his home antihypertensives. Patient stated he has not been able to afford [facility]. He is on metoprolol. Lisinopril added for systolic CHF. Patient deemed stable for discharge. Vital Signs/Physical Exam: Temp Pulse Resp BP Pulse Ox 98.1 F 65 20 145/102 H 95 03/18/21 07:00 03/18/21 14:30 03/18/21 14:30 03/18/21 14:30 03/18/21 14:30 General: Alert, In no apparent distress, Oriented x3 HEENT: Mucous membr. moist/pink Neck: JVD not distended Respiratory: Clear to auscultation bilaterally, Normal air movement Cardiovascular: No edema Gastrointestinal: Soft and benign, Non-distended, No ascites Musculoskeletal: No swelling Integumentary: No rashes Neurological: Normal speech, Normal strength at 5/5 x4 extr Laboratory Data at Discharge: WBC 5.40 K/uL (4.3-10.9) D 03/18/21 05:00 Hgb 12.1 g/dL (13.6-17.9) L 03/18/21 05:00 Hct 36.2 % (39.6-49.0) L D 03/18/21 05:00 Plt Count 221 K/uL (152-406) 03/18/21 05:00 PT 11.6 SECONDS (9.5-12.5) 03/17/21 02:37 INR 1.01 03/17/21 02:37 Sodium 144 mmol/L (136-145) 03/18/21 05:00 Potassium 3.6 mmol/L (3.5-5.1) 03/18/21 05:00 BUN 25 mg/dL (7-18) H 03/18/21 05:00 Creatinine 1.35 mg/dL (0.55-1.3) H 03/18/21 05:00 Glucose 120 mg/dL (74-106) H 03/18/21 05:00 Phosphorus 2.9 mg/dL (2.5-4.9) 03/18/21 05:00 Magnesium 2.1 mg/dL (1.8-2.4) 03/18/21 05:00 Total Bilirubin 0.4 mg/dL (0.2-1.0) 03/18/21 05:00 AST 14 U/L (15-37) L 03/18/21 05:00 ALT 28 U/L (12-78) 03/18/21 05:00 Alkaline Phosphatase 65 U/L (45-117) 03/18/21 05:00 Troponin I 0.05 ng/mL (0.0-0.045) H 03/17/21 10:38 Triglycerides 92 mg/dL (<150) 03/18/21 05:00 Cholesterol 187 mg/dL (<200) 03/18/21 05:00 HDL Cholesterol 64 mg/dL (40-60) H 03/18/21 05:00 Cholesterol/HDL Ratio 2.92 03/18/21 05:00 Home Medications: Nebulizer [Aeroneb Go Nebulizer] 1 each MC QID #1 each 07/18/19 Amlodipine [Norvasc*] 10 mg PO DAILY #30 tab 03/18/21 Aspirin 81 mg PO DAILY #30 tab.chew 03/18/21 Furosemide [Lasix] 60 mg PO DAILY #90 tab 03/18/21 Hydralazine HCl 25 mg PO TID #90 03/18/21 Isosorbide Mononitrate [Ismo] 20 mg PO BID #60 03/18/21 Metoprolol Tartrate [Lopressor*] 50 mg PO BID #60 tab 03/18/21 lisinopriL [Lisinopril] 10 mg PO DAILY #30 tablet 03/18/21 New Medications: Aspirin 81 mg PO DAILY #30 tab.chew Hydralazine HCl 25 mg PO TID #90 Isosorbide Mononitrate [Ismo] 20 mg PO BID #60 Furosemide [Lasix] 60 mg PO DAILY #90 tab lisinopriL [Lisinopril] 10 mg PO DAILY #30 tablet Metoprolol Tartrate [Lopressor*] 50 mg PO BID #60 tab Amlodipine [Norvasc*] 10 mg PO DAILY #30 tab Physician Discharge Instructions: PROBLEM: Hypertension GOAL: Clear understanding of disease process INSTRUCTIONS: Follow up with your PCP and cardiology as previously discussed. Return to ED for any worsening of condition. Diet: Heart Healthy Diet Activity: As tolerated Diet: AHA Activity: Ad cheikh Followup: Jordan Banks MD [ACTIVE - CAN ADMIT] - 1 Week NONE,NONE [Primary Care Provider] - 1 Week Time spent managing pt's care (in minutes): 37
[2021-03-18 16:20] VITALS: BP 144/95
--- NOTE | 2021-03-19 07:58 | ECHO ---
HEIGHT: 6 ft 2 in WEIGHT: 172 lb 0 oz DATE OF STUDY: 03/18/[address]: Jim Montoya 2-DIMENSIONAL: YES M.MODE: YES DOPPLER: YES COLOR FLOW: YES TDS: NO PORTABLE: YES DEFINITY: NO BUBBLE STUDY: NO DIAGNOSIS: VOLUME OVERLOAD CARDIAC HISTORY: CATHERIZATION: NO SURGERY: NO PROSTHETIC VALVE: NO PACEMAKER: YES MEASUREMENTS (cm) DIASTOLIC (NORMALS) SYSTOLIC (NORMALS) IVSd 1.4 (0.6-1.2) LA Diam 3.2 (1.9-4.0) LVEF 45-50% LVIDd 5.2 (3.5-5.7) LVIDs 4.1 (2.0-3.5) %FS 21% LVPWd 1.4 (0.6-1.2) Ao Diam 3.0 (2.0-3.7) 2 DIMENSIONAL ASSESSMENT: RIGHT ATRIUM: NORMAL LEFT ATRIUM: NORMAL RIGHT VENTRICLE: PACEMAKER WIRE LEFT VENTRICLE: 45-50% EJECTION FRACTION TRICUSPID VALVE: MILD TRICUSPID REGURGITATION MITRAL VALVE: MITRAL REGURGITATION PULMONIC VALVE: NORMAL AORTIC VALVE: MILD AORTIC REGURGITATION PERICARDIAL EFFUSION: NONE AORTIC ROOT: LEFT VENTRICULAR WALL MOTION: WALL MOTION SUGGESTIVE OF CONDUCTION ABNORMALITY. DOPPLER/COLOR FLOW: SEE BELOW. COMMENTS: BORDERLINE MILDLY DEPRESSED LEFT VENTRICULAR EJECTION FRACTION AT 45-50%. WALL MOTION ABNORMALITY DUE TO CONDUCTION DELAY. MODERATE TO SEVERE MITRAL REGURGITATION. MILD AORTIC REGURGITATION, MILD TRICUSPID REGURGITATION. TECHNOLOGIST: MICHAEL SALAMANCA
--- NOTE | 2021-03-24 09:40 | CON ---
Date of Consultation: 03/18/2021 History Of Present Illness: Congestive heart failure. History Of Present Illness: Mr. Marie is 65. I have known him in the past. He has a history of co ngestive heart failure, defibrillator, pacemaker, has an ejection fraction of 40%. Has a history of hypertension, COPD, and atrial flutter. Came in with CHF exacerbation. Allergies: NONE. Review of Systems: Negative. Social History: Negative. Family History: Noncontributory. Medications: At home include metoprolol, indoor, Norvasc, aspirin, Lasix, and hydralazine. Physical Examination: Vital Signs: Stable. He is afebrile. HEENT: Negative. Neck: Supple with no bruit. Chest: Clear to auscultation and percussion. Cardiac exam: Revealed a regular rhythm and rate. No murmurs, gallops, or rubs. Abdomen: Benign. Extremities: Revealed no clubbing, cyanosis, or edema. Diagnostic Data: Showed a troponin of 0.05. His BNP was 18,127. His creatinine is 1.35. He had co shaun and THC on his urinalysis. He is fairly asymptomatic when I saw him today. Impression And Plan: Congestive heart failure exacerbation, acute on chronic systolic. He needs to be diuresed. We need to continue his beta-blockers. He may be a candidate for Entresto down the gar[address]. He needs to have his pacemaker and defibrillator checked in the near future. Another echocardiog tawanna is pending. I will make sure he has an outpatient followup. His other problems include hyperten jose luis, COPD, and history of atrial flutter are stable at this point. He is right now in a paced rhyth m. He does take aspirin at home. I will continue his aspirin, Norvasc, Lasix, hydralazine, metoprol ol, and Imdur. He is not having any chest pain. No need for repeating another catheterization. His BNP elevation is expected considering his congestive heart failure. I would diurese and check [facility] echo, hopefully send him home in a day or two. ROD/ALEX Voice ID: [id number] Report ID: [id number]
== END 2021-03-18 17:00 | disposition home or self-care (01) | DRG 291 ==
LOC: ER 02:20 → ERHOLD 04:03 → 4TH 05:30 → ERHOLD 05:50
PROVIDERS: ADMIT Internal Medicine; ATTEND Internal Medicine
PROC: 5A09357 Assistance with Respiratory Ventilation, Less than 24 Consecutive Hours, Continuous Positive Airway Pressure (ICD-10-PCS; principal; 2021-03-17)
DX: I11.0 Hypertensive heart disease with heart failure (principal); I50.23 Acute on chronic systolic (congestive) heart failure; J96.01 Acute respiratory failure with hypoxia; I24.8 Other forms of acute ischemic heart disease; F14.10 Cocaine abuse, uncomplicated; J44.9 Chronic obstructive pulmonary disease, unspecified; Z95.810 Presence of automatic (implantable) cardiac defibrillator; Z20.822 Contact with and (suspected) exposure to COVID-19
CPT/HCPCS: 36415; 71045; 80048; 80053; 80061; 80076; 80307; 81003; 82550; 83735; 83880; 84100; 84439; 84443; 84484; 85025; 85610; 87040; 93005; 93306; 94660; 94760; 99285; J0360; J0456; J1650; J1940; J3480; J7050; U0003

== ENCOUNTER 2021-03-25 08:37 | Observation (INO) | payer OTHER ==
[2021-03-25 09:43] LABS: Absolute Lymphocytes (CBC) 1.7 K/uL (0.7-4.9); Basophils % 0.8 % (0-1.3); MPV 7.9 fL (7.6-11.3); RBC Red Blood Cell Count 4.02 M/uL (4.33-5.43)
--- NOTE | 2021-03-25 09:47 | RAD REPORT ---
EXAM DESCRIPTION: RAD - Chest Single View - 03/25/2021 9:36 am CLINICAL HISTORY: DYSPNEA COMPARISON: Portable March 17 TECHNIQUE: AP portable chest image was obtained 03/25/2021 9:36 am . FINDINGS: Lung volumes are normal. Single lead defibrillator remains in place. No additional tube or line seen. Bilateral lower lung field opacification is present right greater than left. This is similar to the p rior study. Cardiomegaly is present with vascular engorgement also similar to the prior study. Lung p arenchymal opacification is probably alveolar edema related to failure or volume overload. Pneumonia is not excluded but would need correlation with clinical findings. Trachea is midline. No measurable pleural effusion and no pneumothorax. No acute bony abnormality seen. No acute aortic findings suspec aarti. IMPRESSION: Moderate CHF/ volume overload pattern similar to March 17 imaging. Bilateral lower lung field opacification is favored to be failure related edema rather than pneumonia . Correlation is needed with any clinical or laboratory findings of pneumonia.
[2021-03-25 10:03] LABS: Albumin 3.3 g/dL (3.4-5.0); Bilirubin Direct 0.1 mg/dL (0-0.2); Bilirubin Total 0.5 mg/dL (0.2-1.0); Magnesium 2.4 mg/dL (1.8-2.4); Potassium 3.8 mmol/L (3.5-5.1); Protein, Total 7.4 g/dL (6.4-8.2); Troponin (Emerg Dept Use Only) 0.04 ng/mL (0.0-0.045)
[2021-03-25] MEDS ORDERED: NITROGLYCERIN 1 GM PKT TD ONE (10:09)
[2021-03-25] MEDS ORDERED: ONDANSETRON 4 MG/2 ML VIAL ONE (10:10)
[2021-03-25] MEDS ORDERED: FUROSEMIDE 100 MG/10 ML VIAL IV ONE (10:10)
[2021-03-25] MEDS ORDERED: MORPHINE 2 MG/ML SYR ONE (10:10)
--- NOTE | 2021-03-25 10:17 | EDPHYS ---
Physician Documentation [facility] Name: Edouard Marie Age: 65 yrs Sex: Male : 1955 Arrival Date: 03/25/2021 Time: 08:43 Bed 4 Private MD: ED Physician Yfn Hemphill HPI: 03/25 08:59 This 65 yrs old Black Male presents to ER via Wheelchair with complaints of Breathing reina Difficulty. 08:59 The patient has shortness of breath at rest, with light activity. Onset: The reina symptoms/episode began/occurred 2 day(s) ago. Duration: The symptoms are continuous, and are steadily getting worse. The patient's shortness of breath is aggravated by coughing, light activity, prone position. Associated signs and symptoms: Pertinent positives: non-productive cough. Severity of symptoms: At their worst the symptoms were moderate in the emergency department the symptoms are unchanged. The patient has experienced similar episodes in the past, multiple times. Historical: - Allergies: 08:58 No Known Allergies; iw - Home Meds: 08:58 EatingWell 160-9-4.8 mcg/actuation inhalation HFAA 2 puffs 2 times per day iw [Active]; metoprolol tartrate 50 mg Oral tab 1 tab 2 times per day [Active]; isosorbide mononitrate 20 mg Oral tab daily [Active]; Lasix 60 mg Oral tab once daily [Active]; lisinopril 10 mg Oral tab 1 tab once daily [Active]; hydralazine 25 mg Oral tab three times a day [Active]; amlodipine 10 mg tab 1 tab once daily [Active]; - PMHx: 08:58 CHF; Hypertension; COPD; iw - PSHx: 08:58 L Rotator Cuff Sx; Pacemaker/Defib; iw - Immunization history:: Client reports receiving the 2nd dose of the Covid vaccine. - Social history:: Smoking status: Patient uses street drugs, marijuana. - Family history:: not pertinent. ROS: 09:01 Constitutional: Negative for fever, chills, and weight loss, Eyes: Negative for injury, reina pain, redness, and discharge, ENT: Negative for injury, pain, and discharge, Neck: Negative for injury, pain, and swelling, Cardiovascular: Negative for chest pain, palpitations, and edema, Abdomen/GI: Negative for abdominal pain, nausea, vomiting, diarrhea, and constipation, Back: Negative for injury and pain, : Negative for injury, bleeding, discharge, and swelling, MS/Extremity: Negative for injury and deformity, Skin: Negative for injury, rash, and discoloration, Neuro: Negative for headache, weakness, numbness, tingling, and seizure, Psych: Negative for depression, anxiety, suicide ideation, homicidal ideation, and hallucinations, Allergy/Immunology: Negative for hives, rash, and allergies, Endocrine: Negative for neck swelling, polydipsia, polyuria, polyphagia, and marked weight changes. 09:01 Respiratory: Positive for cough, shortness of breath, at rest. Exam: 09:01 Constitutional: This is a well developed, well nourished patient who is awake, alert, reina and in no acute distress. Head/Face: Normocephalic, atraumatic. Eyes: Pupils equal round and reactive to light, extra-ocular motions intact. Lids and lashes normal. Conjunctiva and sclera are non-icteric and not injected. Cornea within normal limits. Periorbital areas with no swelling, redness, or edema. ENT: Nares patent. No nasal discharge, no septal abnormalities noted. Tympanic membranes are normal and external auditory canals are clear. Oropharynx with no redness, swelling, or masses, exudates, or evidence of obstruction, uvula midline. Mucous membranes moist. Neck: Trachea midline, no thyromegaly or masses palpated, and no cervical lymphadenopathy. Supple, full range of motion without nuchal rigidity, or vertebral point tenderness. No Meningismus. Chest/axilla: Normal chest wall appearance and motion. Nontender with no deformity. No lesions are appreciated. Cardiovascular: Regular rate and rhythm with a normal S1 and S2. No gallops, murmurs, or rubs. Normal PMI, no JVD. No pulse deficits. Abdomen/GI: Soft, non-tender, with normal bowel sounds. No distension or tympany. No guarding or rebound. No evidence of tenderness throughout. Back: No spinal tenderness. No costovertebral tenderness. Full range of motion. Male : Normal genitalia with no discharge or lesions. Skin: Warm, dry with normal turgor. Normal color with no rashes, no lesions, and no evidence of cellulitis. MS/ Extremity: Pulses equal, no cyanosis. Neurovascular intact. Full, normal range of motion. Neuro: Awake and alert, GCS 15, oriented to person, place, time, and situation. Cranial nerves II-XII grossly intact. Motor strength 5/5 in all extremities. Sensory grossly intact. Cerebellar exam normal. Normal gait. Psych: Awake, alert, with orientation to person, place and time. Behavior, mood, and affect are within normal limits. 09:01 ECG was reviewed by the Attending Physician. 09:01 Respiratory: the patient does not display signs of respiratory distress, Respirations: normal, Breath sounds: decreased breath sounds, that are mild, that are moderate, rhonchi, that are mild, stridor, is not appreciated, Respiratory rate: 22 09:03 ECG was reviewed by the Attending Physician. [facility] Vital Signs: 08:55 BP 175 / 108; Pulse 79; Resp 22 S; Pulse Ox 95% on R/A; Weight 78.93 kg; Height 6 ft. 2 iw in. (187.96 cm); 09:20 BP 183 / 117; Pulse 78; Resp 23; Pulse Ox 95% on R/A; jl7 09:30 BP 181 / 82; Pulse 71; Resp 22; Pulse Ox 95% ; jl7 10:15 BP 184 / 104; Pulse 70; Resp 28; Pulse Ox 95% ; jl7 11:00 BP 181 / 101; Pulse 82; Resp 24; Pulse Ox 91% ; jl7 11:45 BP 162 / 78; Pulse 72; Resp 26; Pulse Ox 93% ; jl7 12:09 BP 162 / 78; Pulse 74; Resp 19; Pulse Ox 97% ; jl7 13:24 BP 168 / 101; Pulse 76; Resp 23; Temp 98.6; Pulse Ox 95% ; ll1 13:33 Resp 21; ll1 13:33 Pain 0/10; ll1 08:55 Body Mass Index 22.34 (78.93 kg, 187.96 cm) iw MDM: 08:50 Patient medically screened. reina 09:04 Differential diagnosis: Anxiety Reaction asthma, Bronchitis CHF exacerbation, reina pneumonia, Pneumothorax pulmonary edema, Pulmonary Embolism reactive airway disease. Antibiotic administration: Not indicated. The patient's Wells Deep Vein Thrombosis Score was calculated as follows: Total Score: 0-2 Pts- Low Risk. The patient's pulmonary embolism risk score was calculated as follows: Total Score: 0-2 points. This patient was found to be at low risk for a pulmonary embolism by using the Well's assessment criteria. Immunization status: Pneumococcal vaccine: Influenza vaccine: Data reviewed: vital signs, nurses notes, lab test result(s), EKG, radiologic studies, plain films. Data interpreted: environmental monitoring specialist: rate is 79 beats/min, rhythm is regular, Pulse oximetry: on room air is 95 %. Counseling: I had a detailed discussion with the patient and/or guardian regarding: the historical points, exam findings, and any diagnostic results supporting the discharge/admit diagnosis, lab results, radiology results. 03/25 08:59 Order name: Basic Metabolic Panel; Complete Time: 10:18 [facility] 03/25 08:59 Order name: CBC with Diff; Complete Time: 09:55 [facility] 03/25 08:59 Order name: LFT's; Complete Time: 10:18 [facility] 03/25 08:59 Order name: Magnesium; Complete Time: 10:18 [facility] 03/25 08:59 Order name: NT PRO-BNP; Complete Time: 10:18 [facility] 03/25 08:59 Order name: PT-INR; Complete Time: 09:55 [facility] 03/25 08:59 Order name: Troponin (emerg Dept Use Only); Complete Time: 10:18 [facility] 03/25 10:25 Order name: COVID-19 (Coronavirus) Document "Date of Onset" if Symptomatic jl7 03/25 11:22 Order name: Comprehensive Metabolic Panel [facility] 03/25 11:22 Order name: Comprehensive Metabolic Panel [facility] 03/25 11:22 Order name: Lipid Profile [facility] 03/25 11:22 Order name: Lipid Profile [facility] 03/25 11:23 Order name: Magnesium [facility] 03/25 11:23 Order name: Magnesium [facility] 03/25 08:59 Order name: XRAY Chest (1 view); Complete Time: 09:55 [facility] 03/25 11:23 Order name: Echo with Doppler [facility] 03/25 11:23 Order name: NT PRO-BNP [facility] 03/25 11:23 Order name: NT PRO-BNP [facility] 03/25 11:23 Order name: Phosphorus [facility] 03/25 11:23 Order name: Phosphorus [facility] 03/25 11:23 Order name: Troponin I [facility] 03/25 11:23 Order name: Troponin I [facility] 03/25 11:23 Order name: Troponin I [facility] 03/25 11:23 Order name: CBC with Automated Diff [facility] 03/25 11:23 Order name: CBC with Automated Diff [facility] 03/25 12:46 Order name: SARS-COV-2 RT PCR [facility] 03/25 08:59 Order name: EKG; Complete Time: 09:00 [facility] 03/25 08:59 Order name: Cardiac monitoring; Complete Time: 09:07 [facility] 03/25 08:59 Order name: EKG - Nurse/Tech; Complete Time: 09:16 [facility] 03/25 08:59 Order name: IV Saline Lock; Complete Time: 10:36 [facility] 03/25 08:59 Order name: Labs collected and sent; Complete Time: 10:36 [facility] 03/25 08:59 Order name: O2 Per Protocol; Complete Time: 10:36 [facility] 03/25 08:59 Order name: O2 Sat Monitoring; Complete Time: 10:36 [facility] 03/25 11:23 Order name: CONS Physician Consult [facility] 03/25 11:23 Order name: Heart Healthy [facility] 03/25 11:23 Order name: EKG Electrocardiogram [facility] 03/25 11:23 Order name: EKG Electrocardiogram [facility] EC:03 Rate is 79 beats/min. Rhythm is regular. QRS [place] is Normal. NH interval is normal. QRS reina interval is normal. QT interval is normal. No Q waves. T waves are Normal. No ST changes noted. Clinical impression: NSR w/ Non-specific ST/T Changes and No evidence of ischemia. Interpreted by me. Reviewed by me. Administered Medications: 09:18 Drug: Zofran (Ondansetron) 4 mg Route: IVP; Site: right antecubital; jl7 11:56 Follow up: Response: No adverse reaction jl7 09:20 Drug: Nitro-Bid (nitroglycerin) Ointment 2 % 1 inches Route: Transdermal; Site: jl7 anterior chest wall; 11:55 Follow up: Response: No adverse reaction jl7 09:20 Drug: morphine 2 mg Route: IVP; Site: right antecubital; jl7 09:50 Follow up: Response: No adverse reaction; Pain is decreased jl7 09:22 Drug: Lasix (furosemide) 60 mg Route: IVP; Site: right antecubital; jl7 11:56 Follow up: Response: No adverse reaction jl7 11:55 Drug: Aspirin Chewable Tablet 162 mg Route: PO; jl7 11:56 Follow up: Response: No adverse reaction jl7 Disposition Summary: 03/25/21 10:16 Hospitalization Ordered Hospitalization Status: Inpatient Admission reina Provider: Tae Wheatley cha Location: Telemetry/MedSurg (Inpatient) reina Condition: Fair reina Problem: new reina Symptoms: have improved reina Bed/Room Type: Standard reina Room Assignment: 209(03/25/21 12:59) iw Diagnosis - Unspecified combined systolic (congestive) and diastolic (congestive) heart failure reina - Essential (primary) hypertension reina - COPD/ Chronic obstructive pulmonary disease, unspecified - history of reina Forms: - Medication Reconciliation Form reina - SBAR form reina Signatures: Dispatcher [employer] EDMS Yfn Hemphill MD MD cha Williams, Irene RN PAULIE iw Fiona Loera RN RN jl7 Corrections: (The following items were deleted from the chart) 09:03 09:01 Rate is 71 beats/min. Rhythm is irregularly irregular. QRS [place] is Normal. NH reina interval is normal. QRS interval is normal. QT interval is normal. No Q waves. T waves are Normal. No ST changes noted. Clinical impression: Atrial Fibrillation. Interpreted by me. Reviewed by me. reina 12:59 10:16 reina iw
--- NOTE | 2021-03-25 10:17 | ER ---
Nurse's Notes [facility] Name: Edouard Marie Age: 65 yrs Sex: Male : 1955 Arrival Date: 03/25/2021 Time: 08:43 Bed 4 Private MD: Diagnosis: Unspecified combined systolic (congestive) and diastolic (congestive) heart failure;Essential (primary) hypertension;COPD/ Chronic obstructive pulmonary disease, unspecified-history of Presentation: 03/25 08:55 Chief complaint: Patient states: difficulty breathing since last night, was just iw admitted to hospital last week fir CHF and pneumonia, also having low abd pain. Coronavirus screen: Client presents with at least one sign or symptom that may indicate coronavirus-19. Ebola Screen: Patient negative for fever greater than or equal to 101.5 degrees Fahrenheit, and additional compatible Ebola Virus Disease symptoms Patient denies exposure to infectious person. Patient denies travel to an Ebola-affected area in the 21 days before illness onset. No symptoms or risks identified at this time. Initial Sepsis Screen: Does the patient meet any 2 criteria? No. Patient's initial sepsis screen is negative. Does the patient have a suspected source of infection? No. Patient's initial sepsis screen is negative. Risk Assessment: Do you want to hurt yourself or someone else? Patient reports no desire to harm self or others. 08:55 Method Of Arrival: Wheelchair iw 08:55 Acuity: ERUM 2 iw 08:57 Onset of symptoms was March 25, 2021. iw Triage Assessment: 13:31 General: Appears in no apparent distress. Behavior is calm, cooperative, appropriate ll1 for age. Respiratory: Reports shortness of breath Onset: The symptoms/episode began/occurred yesterday, the patient has mild shortness of breath. Historical: - Allergies: 08:58 No Known Allergies; iw - Home Meds: 08:58 Breztri Aerosphere 160-9-4.8 mcg/actuation inhalation HFAA 2 puffs 2 times per day iw [Active]; metoprolol tartrate 50 mg Oral tab 1 tab 2 times per day [Active]; isosorbide mononitrate 20 mg Oral tab daily [Active]; Lasix 60 mg Oral tab once daily [Active]; lisinopril 10 mg Oral tab 1 tab once daily [Active]; hydralazine 25 mg Oral tab three times a day [Active]; amlodipine 10 mg tab 1 tab once daily [Active]; - PMHx: 08:58 CHF; Hypertension; COPD; iw - PSHx: 08:58 L Rotator Cuff Sx; Pacemaker/Defib; iw - Immunization history:: Client reports receiving the 2nd dose of the Covid vaccine. - Social history:: Smoking status: Patient uses street drugs, marijuana. - Family history:: not pertinent. Screenin:31 Abuse screen: Denies threats or abuse. Nutritional screening: No deficits noted. ll1 Tuberculosis screening: No symptoms or risk factors identified. Fall Risk IV access (20 points). Gait- Weak (10 pts.). Total Evangelista Fall Scale indicates Low Risk Score (25-44 pts). Assessment: 09:15 General: Appears in no apparent distress. uncomfortable, Behavior is calm, cooperative, jl7 appropriate for age. Pain: Complains of pain in right upper quadrant and right lower quadrant. Neuro: Level of Consciousness is awake, alert, obeys commands, Oriented to person, place, time, situation. Cardiovascular: Denies chest pain, Patient's skin is warm and dry. Respiratory: Reports shortness of breath Airway is patent Respiratory effort is even, unlabored, Respiratory pattern is symmetrical, tachypnea. GI: Abdomen is non-distended, Last BM was March 25, 2021. Reports normal bowel habits, Patient currently denies diarrhea, nausea, vomiting. Derm: Skin is dry, Skin is normal, Skin temperature is warm. 13:31 Pain: Denies pain. Cardiovascular: Rhythm is regular. Respiratory: Airway is patent ll1 Trachea midline Respiratory effort is even, unlabored. 13:32 Respiratory: Breath sounds are diminished bilaterally. ll1 Vital Signs: 08:55 BP 175 / 108; Pulse 79; Resp 22 S; Pulse Ox 95% on R/A; Weight 78.93 kg; Height 6 ft. 2 iw in. (187.96 cm); 09:20 BP 183 / 117; Pulse 78; Resp 23; Pulse Ox 95% on R/A; jl7 09:30 BP 181 / 82; Pulse 71; Resp 22; Pulse Ox 95% ; jl7 10:15 BP 184 / 104; Pulse 70; Resp 28; Pulse Ox 95% ; jl7 11:00 BP 181 / 101; Pulse 82; Resp 24; Pulse Ox 91% ; jl7 11:45 BP 162 / 78; Pulse 72; Resp 26; Pulse Ox 93% ; jl7 12:09 BP 162 / 78; Pulse 74; Resp 19; Pulse Ox 97% ; jl7 13:24 BP 168 / 101; Pulse 76; Resp 23; Temp 98.6; Pulse Ox 95% ; ll1 13:33 Resp 21; ll1 13:33 Pain 0/10; ll1 08:55 Body Mass Index 22.34 (78.93 kg, 187.96 cm) ED Course: 08:43 Patient arrived in ED. ds1 08:50 Yfn Hemphill MD is Attending Physician. reina 08:57 Triage completed. iw 09:01 Arm band placed on. iw 09:06 Fiona Loera RN is Primary Nurse. jl7 09:14 Missed attempt(s): 20 gauge in right forearm. antecubital area. mh5 09:15 Patient has correct armband on for positive identification. Bed in low position. Call mh5 light in reach. Side rails up X 1. Pillow given. lunchroom monitor on. Pulse ox on. NIBP on. 09:16 EKG done, by ED staff, reviewed by Yfn Hemphill MD. mh5 09:36 XRAY Chest (1 view) In Process Unspecified. EDMS 10:14 Tae Wheatley MD is Hospitalizing Provider. reina 13:32 No provider procedures requiring assistance completed. ll1 13:33 Patient admitted, IV remains in place. ll1 Administered Medications: 09:18 Drug: Zofran (Ondansetron) 4 mg Route: IVP; Site: right antecubital; jl7 11:56 Follow up: Response: No adverse reaction jl7 09:20 Drug: Nitro-Bid (nitroglycerin) Ointment 2 % 1 inches Route: Transdermal; Site: jl7 anterior chest wall; 11:55 Follow up: Response: No adverse reaction jl7 09:20 Drug: morphine 2 mg Route: IVP; Site: right antecubital; jl7 09:50 Follow up: Response: No adverse reaction; Pain is decreased jl7 09:22 Drug: Lasix (furosemide) 60 mg Route: IVP; Site: right antecubital; jl7 11:56 Follow up: Response: No adverse reaction jl7 11:55 Drug: Aspirin Chewable Tablet 162 mg Route: PO; jl7 11:56 Follow up: Response: No adverse reaction jl7 Output: 10:38 Urine: 1100ml (Voided); Total: 1100ml. jt3 Outcome: 10:16 Decision to Hospitalize by Provider. reina 13:29 Admitted to Med/surg accompanied by tech, via wheelchair, room Room 209, with chart, ll1 Report called to Ashley Cunningham 13:29 Condition: stable 13:30 Instructed on the need for admit. ll1 14:03 Patient left the ED. jl7 Signatures: Dispatcher [employer] EDMS Yfn Hemphill MD MD cha Sanford, Demi ds1 Karen Salazar, PAULIE RN iw Kate Corona [facility] Fiona Loera RN RN jl7 Lynsey Cedillo, PAULIE RN ll1 Isrrael Alvarez RN RN jt3 Corrections: (The following items were deleted from the chart) 08:58 08:55 Pulse 79bpm; Resp 22bpm; Spontaneous; Pulse Ox 95% RA; 78.93 kg; Height 6 ft. 2 iw in.; BMI: 22.3; iw
[2021-03-25] MEDS ORDERED: ACETAMINOPHEN 500 MG TAB PO PRN (11:12)
[2021-03-25] MEDS ORDERED: ONDANSETRON 4 MG/2 ML VIAL IV PRN (11:12)
[2021-03-25] MEDS ORDERED: POTASSIUM CL 40 MEQ in NA CHLORIDE 0.9% 500 ML IV SCH (12:00)
[2021-03-25] MEDS ORDERED: ASPIRIN 81 MG CHEWABLE TABLET ONE (12:18)
[2021-03-25 14:19] VITALS: O2SAT 95
[2021-03-25 15:37] VITALS: BMI 22.1
[2021-03-25] MEDS: FUROSEMIDE 40 MG/4 ML VIAL IV SCH (17:00)
[2021-03-25] MEDS ORDERED: PNEUMOCOCCAL VACCINE 0.5 ML IMVAC ONE (17:00)
[2021-03-25] MEDS ORDERED: INFLUENZA VACCINE (for 6+ mo) 0.5 ML DOSE IMVAC ONE (17:00)
[2021-03-25] MEDS: METOPROLOL TAR 50 MG TAB PO SCH (20:16)
[2021-03-26] MEDS: FUROSEMIDE 40 MG/4 ML VIAL IV SCH ×2 (00:47→09:00)
[2021-03-26] MEDS: HYDRALAZINE HCL 20 MG/ML VIAL IV PRN ×2 (00:48→08:42)
[2021-03-26 05:42] LABS: Absolute Lymphocytes (CBC) 2.3 K/uL (0.7-4.9); Basophils % 1.3 % (0-1.3); Hematocrit 37.3 % (39.6-49.0); Lymphocytes % 34.5 % (15.3-44.8); MPV 7.6 fL (7.6-11.3)
[2021-03-26 06:01] LABS: Albumin 3.1 g/dL (3.4-5.0); Bilirubin Total 0.7 mg/dL (0.2-1.0); Magnesium 2.2 mg/dL (1.8-2.4); Phosphorus 2.6 mg/dL (2.5-4.9); Potassium 3.4 mmol/L (3.5-5.1); Protein, Total 6.8 g/dL (6.4-8.2)
[2021-03-26] MEDS: METOPROLOL TAR 50 MG TAB PO SCH (08:54)
[2021-03-26] MEDS ORDERED: VALSARTAN 80 MG TAB PO SCH (09:00)
[2021-03-26] MEDS ORDERED: ASPIRIN EC 81 MG TAB PO SCH (09:00)
[2021-03-26] MEDS ORDERED: ENOXAPARIN 40 MG/0.4 ML SQ SCH (09:00)
--- NOTE | 2021-03-26 10:43 | P.HP ---
Certification for Inpatient Patient admitted to: Inpatient With expected LOS: >2 Midnights Patient will require the following post-hospital care: None Practitioner: I am a practitioner with admitting privileges, knowledge of patient current condition, hospital course, and medical plan of care. Services: Services provided to patient in accordance with Admission requirements found in Title 42 Section 412.3 of the Code of Federal Regulations Patient History Date of Service: 03/25/21 History of Present Illness: Patient is a 65-year-old gentleman who comes into the hospital with shortness of breath. The shortness of breath is been going on for the last 48 hr. Patient respiratory status continues to worsen. Patient came into the ER for further evaluation. In the emergency room patient was found have acute CHF exacerbation. Patient had pulmonary edema on x-ray and significant elevation of blood pressure. Patient has not been taking his medications as prescribed. Recent echocardiogram about a month ago revealed ejection fraction of 40%. Patient also has severe mitral regurgitation. Patient will be admitted with Cardiology consultation along with IV diuretics. Patient will need inpatient hospitalization. Allergies No Known Allergies Allergy (Verified 01/26/17 07:59) Home Medications: Nebulizer [Aeroneb Go Nebulizer] 1 each MC QID #1 each 07/18/19 Amlodipine [Norvasc*] 10 mg PO DAILY #30 tab 03/18/21 Aspirin 81 mg PO DAILY #30 tab.chew 03/18/21 Furosemide [Lasix] 60 mg PO DAILY #90 tab 03/18/21 Hydralazine HCl 25 mg PO TID #90 03/18/21 Isosorbide Mononitrate [Ismo] 20 mg PO BID #60 03/18/21 Metoprolol Tartrate [Lopressor*] 50 mg PO BID #60 tab 03/18/21 lisinopriL [Lisinopril] 10 mg PO DAILY #30 tablet 03/18/21 - Past Medical/Surgical History Diabetic: No -: Hypertension-malignant -: Congestive heart failure-ejection fraction of 40% -: COPD -: Pacemaker defibrillator -: Rotator cuff repair LEFT >10yrs ago - Family History Father Medical History: Heart disease, Hypertension - Social History Smoking Status: Never smoker Alcohol use: No CD- Drugs: Yes Caffeine use: Yes Place of Residence: Home Review of Systems 10-point ROS is otherwise unremarkable Physical Examination - Vital Signs Temperature: 97.7 F Blood Pressure: 160/100 Pulse: 69 Respirations: 18 Pulse Ox (%): 97 - Physical Exam General: Alert, In no apparent distress, Oriented x3 HEENT: Atraumatic, PERRLA, Mucous membr. moist/pink, EOMI, Sclerae nonicteric Neck: Supple, 2+ carotid pulse no bruit, No LAD, Without JVD or thyroid abnormality Respiratory: Diminished, Crackles/rales Cardiovascular: Regular rate/rhythm, Normal S1 S2, No murmurs Gastrointestinal: Normal bowel sounds, Soft and benign, Non-distended, No tenderness Musculoskeletal: No clubbing, No swelling, No tenderness Integumentary: Tenderness/swelling Neurological: Normal gait, Normal speech, Normal strength at 5/5 x4 extr, Normal tone, Sensation intact, Cranial nerves 3-12 intact, Normal affect Lymphatics: No axilla or inguinal lymphadenopathy Assessment & Plan - Problems (Diagnosis) (1) Acute exacerbation of CHF (congestive heart failure) Onset Date: 01/27/17 Current Visit: No Status: Acute Qualifiers: Heart failure type: systolic Qualified Code(s): I50.23 - Acute on chronic systolic (congestive) heart failure (2) Severe mitral regurgitation Current Visit: Yes Status: Chronic (3) Uncontrolled hypertension Current Visit: Yes Status: Acute (4) Acute respiratory distress Onset Date: 01/27/17 Current Visit: No Status: Acute (5) Noncompliance Current Visit: No Status: Acute (6) Cocaine abuse Onset Date: 01/27/17 Current Visit: No Status: Chronic (7) Hypertension Current Visit: No Status: Chronic Qualifiers: (8) Status post implantation of automatic cardioverter/defibrillator (AICD) Current Visit: No Status: Chronic (9) COPD (chronic obstructive pulmonary disease) Current Visit: No Status: Suspected Qualifiers: - Plan 1. Echocardiogram recently with any EF of 40%; patient also with pacemaker/defibrillator. Aggressive diuresing and Cardiology consultation 2. Continue with beta-estela therapy and Arb 3. Catalyst Operator regarding compliant 4. Monitor volume status closely 5. Aggressive diuresis 6. Strict I's and O's 7. Repeat CXR 8. Daily weights 9. Repeat urine drug screen 10. Education regarding diet and treatment of congestive heart failure Discharge Plan: Home Plan to discharge in: Greater than 2 days - Advance Directives Does patient have a Living Will: No Does patient have a Durable POA for Healthcare: No - Code Status/Comfort Care Code Status Assessed: Yes Code Status: Full Code Critical Care: No Time Spent Managing PTS Care (In Minutes): 45
--- NOTE | 2021-03-26 11:50 | EKG ---
Test Date: 2021-03-25 Test Time: 09:01:52 [employer] Plater: PARVEZ MEASUREMENT RESULTS: Intervals: Rate: 69 ID: [id number] QRSD: 110 QT: 410 QTc: 439 [place]: P: 23 ID: [id number] QRS: 56 T: 113 INTERPRETIVE STATEMENTS: Undetermined rhythm Minimal voltage criteria for LVH, may be normal variant Nonspecific ST and T wave abnormality Abnormal ECG Compared to ECG 03/17/2021 02:37:00 ST (T wave) deviation now present Sinus rhythm no longer present Early repolarization no longer present Electronically Signed On 03-26-21 11:46:31 CDT by Jordan Banks
--- NOTE | 2021-03-26 11:50 | EKG ---
Test Date: 2021-03-25 Test Time: 09:02:36 State Comptroller: PARVEZ MEASUREMENT RESULTS: Intervals: Rate: 79 IL: 202 QRSD: 112 QT: 404 QTc: 463 [place]: P: 47 IL: 202 QRS: 63 T: 117 INTERPRETIVE STATEMENTS: Sinus rhythm with frequent premature ventricular complexes Possible Left atrial enlargement Left ventricular hypertrophy Cannot rule out Septal infarct, age undetermined ST & T wave abnormality, consider lateral ischemia Abnormal ECG Compared to ECG 03/25/2021 09:01:52 Ventricular premature complex(es) now present Myocardial infarct finding now present Possible ischemia now present ST (T wave) deviation still present Electronically Signed On 03-26-21 11:46:30 CDT by Jordan Banks
[2021-03-26 16:46] VITALS: BP 170/87; TEMP 97.8
--- NOTE | 2021-04-01 10:51 | CON ---
Date of Consultation: 03/25/2021 Reason For Consultation: Congestive heart failure. History Of Present Illness: Mr. Marie has a history of COPD, hypertension, CHF. Has had multiple a dmissions to the hospital. He has had a defibrillator pacemaker. He came in with congestive heart f ailure and COPD exacerbation symptoms. No chest pain. No PND, orthopnea, pedal edema, palpitation, syncope, fever, or chills. Allergies: NONE. Review of Systems: Negative. Social History: Negative. Family History: Negative. Medications: Include metoprolol, isosorbide, Lasix, lisinopril, hydralazine, amlodipine, and inhaler s. Physical Examination: Vital Signs: Stable. He is afebrile. HEENT: Negative. Neck: Supple with no bruit. Chest: Clear. Cardiac: Revealed a regular rhythm and rate with an S4 gallops. No murmurs or rubs. Abdomen: Benign. Extremities: Revealed no clubbing or cyanosis. He had trace edema. Diagnostic Data: An EKG shows sinus rhythm with LVH. His creatinine is 1.25. Chest x-ray showed mo derate volume overload. His white count was normal. Hemoglobin was 12.7. AST and ALT were slightly elevated. His BNP was 13,486. Troponin was 0.04. He was COVID negative. Impression And Plan: Acute on chronic systolic congestive heart failure exacerbation. He has severe mitral regurgitation. He has an ejection fraction of 45% to 50%. He has a pacemaker, defibrillator . He is on appropriate therapy including MARCIA inhibitors, beta-blockers, Lasix, and we will continue that regimen. We should evaluate his mitral regurgitation further down the road that may be causing him to have exacerbation of his congestive heart failure from time to time. We will deal with that a s an outpatient. His other problems including chronic obstructive pulmonary disease exacerbation. I think that seems to be stable at this point. No need to repeat his echocardiogram. This was done i february. His blood pressure has been fairly poorly controlled. We may have to increase hi s beta-estela or his MARCIA inhibitor in that regard. I am comfortable with him going home whenever it is okay with Dr. Wheatley. I will see him in the office in 2 weeks. ROD/ALEX Voice ID: [id number] Report ID: [id number]
--- OUTSIDE RECORDS SUMMARY | 2021-04-06 04:33 | XMS REPORT | Continuity of Care Document ---
:1955 Author Organization [facility] t Address [address] [place] [address] Dr. Trammell [address] [place] [address] Care Team Providers Name Role Phone JIM SHEEHAN Primary Care Physician Unavailable MELYSSA POPE Attending Clinician Unavailable AGUILA Attending Clinician Unavailable AGUILA Admitting Clinician Unavailable Problems This patient has no known problems. Allergies, Adverse Reactions, Alerts This patient has no known allergies or adverse reactions. Medications This patient has no known medications. Procedures This patient has no known procedures. Results Test Description Test Time Test Comments Results Result Comments Source SARS-COV2/RT-PCR ([facility]) 2019-09-26 14:16:00 Test Item Value Reference Range Interpretation Comme nts SARS-COV2/RT-PCR (test code = 2873893) Not Detected Not Detected, N egative SARS-COV-2 PERFORMING LAB (test code = [facility] 4848087) Negative results do not preclude SARS-CoV-2 infection [...] of the Act.Fact Sheet for Healthcare Pro viders:https://www.Smartbill - Recurrence Backoffice.InnomiNet/Documents/Xpert%20Xpress%20SARS%20CoV-2/Fact%20Sh eets/302-3802%65VJUG-UCT-1%20HEALTHCARE%20PROVIDERS%20FACT%20SHEET.pdfFact Sheet for Healthcare Patients:https://www.BlockSpring/Documents/Xpert%20Xpress%20SARS%20CoV-2/Fact%20Sheets/302-3801%20SARS-COV -2%20PATIENT%20FACT%20SHEET.pdfPerforming Laboratory:[facility], [place] [address]Kmpbhxdhcydia Metabolic [id number] 21:16:53 Test Item Value Reference Range Interpretation [...] A/G 1.2 ratio N Ratio) Comprehensive Metabolic [id number] 21:16:53 Test Item Value Reference Range Interpretation [...] ag e have not been validated by [facility] MDRD study and should be interpreted wit [...] ag e have not been validated by [facility] MDRD study and should be interpreted wit h caution. eGFR R esult Interpretation: eGFR > or = 60 is in the Normal RangeeGF R < 60 may mean kid katherine diseaseeGFR < 1 5 may mean kidney failure Rang es recommended by the National Kidney Foundation, http://nkdep.ni h.gov Comprehensive Metabolic [id number] 21:16:53 Test Item Value Reference Range Interpretation [...] National Kidney Foundation, http://nkdep.ni h.gov Comprehensive Metabolic [id number] 23:03:04 Test Item Value Reference Range Interpretation [...] A/G 1.5 ratio N Ratio) Comprehensive Metabolic [id number] 23:03:04 Test Item Value Reference Range Interpretation [...] the National Kidney Foundation, http://nkdep.ni h.gov Lipid [id number] 23:03:04 Test Item Value Reference Range Interpretation Comments Cholesterol Total 193 mg/dL 0-200 RISK OF HE ART (test code = DISEASEPublishe d by Cholesterol Total) [place] [employer] Erika lyte Optimal Borderl ine [...] LDL/HDL Ratio=L DL Calc/HDL Chol Thyroid Stimulating [id number] 23:03:04 Test Item Value Reference Range Interpretation Comments TSH (test code = TSH) 0.848 mIU/mL 0.270-4.200 Pro B Natriuretic [id number] 23:03:04 Test Item Value Reference Range Interpretation Comments NT-proBNP (test code = NT-proBNP) 1591 pg/mL 0-124 H Comprehensive Metabolic [id number] 23:03:04 Test Item Value Reference Range Interpretation [...] ag e have not been validated by [facility] MDRD study and should be interpreted wit [...] ag e have not been validated by [facility] MDRD study and should be interpreted wit h caution. eGFR R esult Interpretation: eGFR > or = 60 is in the Normal RangeeGF R < 60 may mean kid katherine diseaseeGFR < 1 5 may mean kidney failure Rang es recommended by the National Kidney Foundation, http://nkdep.ni h.gov Erythrocyte Sedimentation Rate [id number] 22:26:53 Test Item Value Reference Range Interpretation Comments ESR STAT (test code = ESR STAT) 11 mm/hr 0-9 H Complete Blood Count with [id number] 22:14:43 Test Item Value Reference Range Interpretation [...] code = IPF) 0 % N Automated [id number] 22:14:43 Test Item Value Reference Range Interpretation Comments Neutro Auto (test code = Neutro 41.7 % 36.0-70.0 Auto) Lymph Auto (test code = Lymph Auto) 43.9 % 12.0-44.0 Wilcox Auto (test code = Wilcox Auto) 6.5 % 0.0-11.0 Eos, Auto (test code = Eos, Auto) 6.6 % 0.0-7.0 Basophil Auto (test code = Basophil 1.0 % 0.0-2.0 Auto) Neutro Absolute (test code = Neutro 2.9 x10 1.6-7.4 Absolute) Lymph Absolute (test code = Lymph 3.04 x10 .50-4.60 Absolute) Wilcox Absolute (test code = Wilcox .45 x10 .00-1.20 Absolute) Eos Absolute (test code = Eos 0.46 x10 0.00-0.74 Absolute) Baso Absolute (test code = Baso 0.07 x10 0.00-0.21 Absolute) IG [id number] 22:14:43 Test Item Value Reference Range Interpretation Comments IG (test code = IG) 0.3 % 0.0-5.0 IG Abs (test code = IG Abs) 0 x10 N RAD, CHEST, 2 [id number] 13:44:00Reason for exam:->SmokerFINAL REPORT TECHNIQUE: 2 views of the chest. COMPARISON: None FINDINGS: Thecardiac silhouette is within normal limits. Thoracic aorta is ectatic. Lungs are clear. No acute skeletal abnormality. Left-sided pacing device noted. IMPRESSION: No acute cardiopulmonary disease. Signed: Kyle Rogerseport Verified Date/Time: 09/08/2017 13:44:07 Reading Location: [facility] Radiology Reading Room CBC W/PLT COUNT & AUTO [id number] 12:29:00 Test Item Value Reference Range Interpretation [...] MORPHOLOGY (BEAKER) (test code Normal = 762) COMPREHENSIVE METABOLIC [id number] 12:29:00 Test Item Value Reference Range Interpretation [...] S NOT APPLICABLE FOR DIALYSIS PATIEN TS. Sed Rate ESR ([place])2017-02-27 04:53:00 Test Item Value Reference Range Interpretation Comments ESR (test code = HESR) 12 mm/Hr 0-9 H CBC with [id number] 04:12:00 Test Item Value Reference Range Interpretation [...] code = 2.8 K/cumm 0.5-4.6 N ALYMPH) Wilcox Abs (test code = 0.3 K/cumm 0.0-1.2 N AMONO) Eos Abs (test code = 0.10 K/cumm 0.00-0.74 N AEOS) RBC Morphology (test Not Indicated code = RBCMRPH) Platelet Est (test code Adequate Platelets on = PLTEST) Smear Lipid [id number] 03:06:00 Test Item Value Reference Range Interpretation Comments Cholesterol (test 200 mg/dL 0-200 N code = CHOL) Triglycerides (test 104 mg/dL 9-200 N code = TRIG) HDL (test code = 66 mg/dL 40-60 H HDL) Chol/HDL (test code 3.0 Ratio 0.0-5.0 N = CHOLPHDL) LDL, Calculated 113 0-130 N (NOTE)RISK O F HEART (test code = LDLC) DISEASEPu blished by Icelandic Heart AssociationAnal yte Optim al Boderline Increased RiskC HOL <200 200-239 >240TRI G <150 150-199 >200HDL Male: >60 <40HDL Female: >60 <50 LDL < 100 130-15 9 >160 LDL NEAR OPTIMAL IS 100- 129 VLDL (test code = 21 mg/dL 5-40 N VLDL) LDL/HDL (test code = 2 LDLPHDL) Comprehensive Metabolic [id number] 03:06:00 Test Item Value Reference Range Interpretation [...] validated by th e MDRD study and nimaul domonique be interpretedwith caution.eGFR Re sult Interpretation: eGFR > or = 60 is in t he Normal RangeeGF R < 60 may mean kidney diseaseeGFR < 1 5 may mean kidney failureRange s recommended by the National Kidney Foundation,http ://nkd ep.nih.gov Thyroid Stimulating Hormone (TSH)2017-02-27 02:43:00 Test Item Value Reference Range Interpretation Comments TSH (test code = TSH) 1.40 mIU/mL 0.270-4.200 N [id number]-[id number] 02:43:00 Test Item Value Reference Range Interpretation Comments NT ProBnp (test code = PBNP) 6296 pg/mL 0-124 H
--- NOTE | 2021-04-11 12:58 | P.DS ---
Discharge Date: 03/26/21 Disposition: ROUTINE DISCHARGE Discharge Condition: GOOD Consultations: Cardiology - Problems (1) Acute exacerbation of CHF (congestive heart failure) Onset Date: 01/27/17 Status: Acute Qualifiers: Heart failure type: systolic Qualified Code(s): I50.23 - Acute on chronic systolic (congestive) heart failure (2) Severe mitral regurgitation Status: Chronic (3) Uncontrolled hypertension Status: Acute (4) Acute respiratory distress Onset Date: 01/27/17 Status: Acute (5) Noncompliance Status: Acute (6) Cocaine abuse Onset Date: 01/27/17 Status: Chronic (7) Hypertension Status: Chronic Qualifiers: (8) Status post implantation of automatic cardioverter/defibrillator (AICD) Status: Chronic (9) COPD (chronic obstructive pulmonary disease) Status: Suspected Qualifiers: Brief History of Present Illness: Patient is a 65-year-old gentleman who comes into the hospital with shortness of breath. The shortness of breath is been going on for the last 48 hr. Patient respiratory status continues to worsen. Patient came into the ER for further evaluation. In the emergency room patient was found have acute CHF exacerbation. Patient had pulmonary edema on x-ray and significant elevation of blood pressure. Patient has not been taking his medications as prescribed. Recent echocardiogram about a month ago revealed ejection fraction of 40%. Patient also has severe mitral regurgitation. Patient will be admitted with Cardiology consultation along with IV diuretics. Patient will need inpatient hospitalization. Hospital Course: Patient was diuresed effectively. Patient clinical symptoms have improved. Patient is doing much better. At this time, patient is stable for discharge home. Vital Signs/Physical Exam: Temp Pulse Resp BP Pulse Ox 97.8 F 55 18 170/87 H 100 03/26/21 16:00 03/26/21 16:00 03/26/21 16:00 03/26/21 16:00 03/26/21 16:00 General: Alert, In no apparent distress, Oriented x3 Laboratory Data at Discharge: WBC 6.70 K/uL (4.3-10.9) 03/26/21 05:10 Hgb 12.6 g/dL (13.6-17.9) L 03/26/21 05:10 Hct 37.3 % (39.6-49.0) L 03/26/21 05:10 Plt Count 215 K/uL (152-406) 03/26/21 05:10 PT 11.5 SECONDS (9.5-12.5) 03/25/21 09:15 INR 1.00 03/25/21 09:15 Sodium 143 mmol/L (136-145) 03/26/21 05:10 Potassium 3.4 mmol/L (3.5-5.1) L 03/26/21 05:10 BUN 25 mg/dL (7-18) H 03/26/21 05:10 Creatinine 1.25 mg/dL (0.55-1.3) 03/26/21 05:10 Glucose 106 mg/dL (74-106) 03/26/21 05:10 Phosphorus 2.6 mg/dL (2.5-4.9) 03/26/21 05:10 Magnesium 2.2 mg/dL (1.8-2.4) 03/26/21 05:10 Total Bilirubin 0.7 mg/dL (0.2-1.0) 03/26/21 05:10 AST 41 U/L (15-37) H 03/26/21 05:10 ALT 85 U/L (12-78) H 03/26/21 05:10 Alkaline Phosphatase 80 U/L (45-117) 03/26/21 05:10 Troponin I 0.05 ng/mL (0.0-0.045) H 03/25/21 22:47 Triglycerides 69 mg/dL (<150) 03/26/21 05:10 Cholesterol 171 mg/dL (<200) 03/26/21 05:10 HDL Cholesterol 68 mg/dL (40-60) H 03/26/21 05:10 Cholesterol/HDL Ratio 2.51 03/26/21 05:10 Home Medications: Nebulizer [Aeroneb Go Nebulizer] 1 each MC QID #1 each 07/18/19 Amlodipine [Norvasc*] 10 mg PO DAILY #30 tab 03/18/21 Aspirin 81 mg PO DAILY #30 tab.chew 03/18/21 Furosemide [Lasix*] 60 mg PO DAILY #90 tab 03/18/21 Hydralazine HCl 25 mg PO TID #90 03/18/21 Isosorbide Mononitrate [Ismo] 20 mg PO BID #60 03/18/21 Metoprolol Tartrate [Lopressor*] 50 mg PO BID #60 tab 03/18/21 lisinopriL [Lisinopril] 10 mg PO DAILY #30 tablet 03/18/21 Physician Discharge Instructions: OK TO DC IV AND DC HOME FOLLOW-UP WITH PRIMARY CARE PROVIDER IN 1-2 WEEKS FOLLOW-UP WITH CARDIOLOGY IN 1-2 WEEKS RETURN TO THE ER IF symptoms worsen CALL or TEXT DR. MORENO AT [phone] IF ANY QUESTIONS REGARDING HOSPITAL STAY. PLEASE CALL THE FLOOR AT [phone] IF ANY MEDICATION OR NURSING QUESTIONS. Diet: AHA Activity: Fall precautions Followup: Jordan Banks MD [ACTIVE - CAN ADMIT] - Deyvi Loera MD [Primary Care Provider] - Time spent managing pt's care (in minutes): 35
== END 2021-03-26 17:00 | disposition home or self-care (01) ==
LOC: ER 08:37 → ERHOLD 11:19 → 2ND 13:59
PROVIDERS: ADMIT Hospitalist; ATTEND Hospitalist
DX: I50.23 Acute on chronic systolic (congestive) heart failure (principal); R06.03 Acute respiratory distress; I10 Essential (primary) hypertension; J44.9 Chronic obstructive pulmonary disease, unspecified; I34.0 Nonrheumatic mitral (valve) insufficiency; Z91.19 Patient's noncompliance with other medical treatment and regimen; F14.10 Cocaine abuse, uncomplicated; Z20.822 Contact with and (suspected) exposure to COVID-19; Z95.810 Presence of automatic (implantable) cardiac defibrillator
CPT/HCPCS: 93005 ×2; 85025 ×2; 80048; 36415; 83735 ×2; 84100; 85610; 80061; 80076; 84484 ×3; 80053; 83880 ×2; 71045; 96375; 96374; 99285; U0003; J0360 ×2; J1940 ×2; J3480; J1650; J2270; J7040; J2405; G0378 ×3

== ENCOUNTER 2021-04-23 02:08 | Observation (INO) | payer OTHER ==
--- OUTSIDE RECORDS SUMMARY | 2021-04-23 02:12 | XMS REPORT | Continuity of Care Document ---
:1955 Author Organization [facility] t Address [address] [place] [address] Dr. [address] [place] [address] Care Team Providers Name Role Phone JIM SHEEHAN Primary Care Physician Unavailable Ogwestephanie_Edilson Attending Clinician Unavailable MELYSSA POPE Attending Clinician Unavailable AGUILA Attending Clinician Unavailable Jim Admitting Clinician Unavailable AGUILA Admitting Clinician Unavailable Payers Payer Name Policy Type Policy Number Effective Date Expiration Date S vidal [facility] [id number] 2020 (MEDICARE 00:00:00 REPLACEMENT HMO) Problems This patient has no known problems. Allergies, Adverse Reactions, Alerts This patient has no known allergies or adverse reactions. Medications This patient has no known medications. Procedures This patient has no known procedures. Encounters Start End Encounter Admission Attending Care Care Encounter Source Date/Time Date/Time Type Type Clinicians Facility Department ID 2021-04-08 Outpatient Ogweno_B [facility] [id number] [facility] 01:34:48 [facility] Results Test Description Test Time Test Comments Results Result Comments Source SARS-COV2/RT-PCR ([facility]) 2019-09-26 14:16:00 Test Item Value Reference Range Interpretation Comme nts SARS-COV2/RT-PCR (test code = 5772498) Not Detected Not Detected, N egative SARS-COV-2 PERFORMING LAB (test [facility] = [facility] Negative results do not preclude SARS-CoV-2 infection [...] of the Act.Fact Sheet for Healthcare Pro viders:https://www.Jobs2Web/Documents/Xpert%20Xpress%20SARS%20CoV-2/Fact%20Sh eets/302-3802%07XXIF-IZJ-6%20HEALTHCARE%20PROVIDERS%20FACT%20SHEET.pdfFact Sheet for Healthcare Patients:https://www.VizeraLabs/Documents/Xpert%20Xpress%20SARS%20CoV-2/Fact%20Sheets/302-3801%20SARS-COV -2%20PATIENT%20FACT%20SHEET.pdfPerforming Laboratory:[facility] [place] [address].[place], [place] [address]Jxbfbjcuxedty Metabolic [id number] 21:16:53 Test Item Value Reference Range Interpretation [...] A/G 1.2 ratio N Ratio) Comprehensive Metabolic [id number] 21:16:53 Test Item Value Reference Range Interpretation [...] ag e have not been validated by [facility] MDRD study and should be interpreted wit [...] ag e have not been validated by [facility] MDRD study and should be interpreted wit h caution. eGFR R esult Interpretation: eGFR > or = 60 is in the Normal RangeeGF R < 60 may mean kid katherine diseaseeGFR < 1 5 may mean kidney failure Rang es recommended by the National Kidney Foundation, http://nkdep.ni h.gov Comprehensive Metabolic [id number] 21:16:53 Test Item Value Reference Range Interpretation [...] ag e have not been validated by [facility] MDRD study and should be interpreted wit [...] ag e have not been validated by [facility] MDRD study and should be interpreted wit h caution. eGFR R esult Interpretation: eGFR > or = 60 is in the Normal RangeeGF R < 60 may mean kid katherine diseaseeGFR < 1 5 may mean kidney failure Rang es recommended by the National Kidney Foundation, http://nkdep.ni h.gov Comprehensive Metabolic [id number] 23:03:04 Test Item Value Reference Range Interpretation [...] A/G 1.5 ratio N Ratio) Comprehensive Metabolic [id number] 23:03:04 Test Item Value Reference Range Interpretation [...] the National Kidney Foundation, http://nkdep.ni h.gov Lipid [id number] 23:03:04 Test Item Value Reference Range Interpretation Comments Cholesterol Total 193 mg/dL 0-200 RISK OF HE ART (test code = DISEASEPublishe d by Cholesterol Total) [place] [employer] Erika lyte Optimal Borderl ine [...] LDL/HDL Ratio=L DL Calc/HDL Chol Thyroid Stimulating [id number] 23:03:04 Test Item Value Reference Range Interpretation Comments TSH (test code = TSH) 0.848 mIU/mL 0.270-4.200 Pro B Natriuretic [id number] 23:03:04 Test Item Value Reference Range Interpretation Comments NT-proBNP (test code = NT-proBNP) 1591 pg/mL 0-124 H Comprehensive Metabolic [id number] 23:03:04 Test Item Value Reference Range Interpretation [...] not provided, and t he patient is -Kiha n, multiply by 1.2 12. If sex is not provided, and t he patient is fema le, multiply by 0.7 42. Results for pat ients <18 years of ag e have not been validated by [facility] MDRD study and should be interpreted wit [...] ag e have not been validated by [facility] MDRD study and should be interpreted wit h caution. eGFR R esult Interpretation: eGFR > or = 60 is in the Normal RangeeGF R < 60 may mean kid katherine diseaseeGFR < 1 5 may mean kidney failure Rang es recommended by the National Kidney Foundation, http://nkdep.ni h.gov Erythrocyte Sedimentation Rate [id number] 22:26:53 Test Item Value Reference Range Interpretation Comments ESR STAT (test code = ESR STAT) 11 mm/hr 0-9 H Complete Blood Count with [id number] 22:14:43 Test Item Value Reference Range Interpretation [...] code = IPF) 0 % N Automated [id number] 22:14:43 Test Item Value Reference Range Interpretation Comments Neutro Auto (test code = Neutro 41.7 % 36.0-70.0 Auto) Lymph Auto (test code = Lymph Auto) 43.9 % 12.0-44.0 Grant Auto (test code = Grant Auto) 6.5 % 0.0-11.0 Eos, Auto (test code = Eos, Auto) 6.6 % 0.0-7.0 Basophil Auto (test code = Basophil 1.0 % 0.0-2.0 Auto) Neutro Absolute (test code = Neutro 2.9 x10 1.6-7.4 Absolute) Lymph Absolute (test code = Lymph 3.04 x10 .50-4.60 Absolute) Grant Absolute (test code = Grant .45 x10 .00-1.20 Absolute) Eos Absolute (test code = Eos 0.46 x10 0.00-0.74 Absolute) Baso Absolute (test code = Baso 0.07 x10 0.00-0.21 Absolute) IG [id number] 22:14:43 Test Item Value Reference Range Interpretation Comments IG (test code = IG) 0.3 % 0.0-5.0 IG Abs (test code = IG Abs) 0 x10 N RAD, CHEST, 2 [id number] 13:44:00Reason for exam:->SmokerFINAL REPORT TECHNIQUE: 2 views of the chest. COMPARISON: None FINDINGS: Thecardiac silhouette is within normal limits. Thoracic aorta is ectatic. Lungs are clear. No acute skeletal abnormality. Left-sided pacing device noted. IMPRESSION: No acute cardiopulmonary disease. Signed: Kyle Rogers MDReport Verified Date/Time: 09/08/2017 13:44:07 Reading Location: [facility] Radiology Reading Room CBC W/PLT COUNT & AUTO [id number] 12:29:00 Test Item Value Reference Range Interpretation [...] (test code Normal = 762) COMPREHENSIVE METABOLIC [id number] 12:29:00 Test Item Value Reference Range Interpretation [...] HESR) 12 mm/Hr 0-9 H CBC with [id number] 04:12:00 Test Item Value Reference Range Interpretation [...] code = 2.8 K/cumm 0.5-4.6 N ALYMPH) Grant Abs (test code = 0.3 K/cumm 0.0-1.2 N AMONO) Eos Abs (test code = 0.10 K/cumm 0.00-0.74 N AEOS) RBC Morphology (test Not Indicated code = RBCMRPH) Platelet Est (test code Adequate Platelets on = PLTEST) Smear Lipid [id number] 03:06:00 Test Item Value Reference Range Interpretation Comments Cholesterol (test 200 mg/dL 0-200 N code = CHOL) Triglycerides (test 104 mg/dL 9-200 N code = TRIG) HDL (test code = 66 mg/dL 40-60 H HDL) Chol/HDL (test code 3.0 Ratio 0.0-5.0 N = CHOLPHDL) LDL, Calculated 113 0-130 N (NOTE)RISK O F HEART (test code = LDLC) DISEASEPu blished by Czech Heart AssociationAnal yte Optim al Boderline Increased RiskC HOL <200 200-239 >240TRI G <150 150-199 >200HDL Male: >60 <40HDL Female: >60 <50 LDL < 100 130-15 9 >160 LDL NEAR OPTIMAL IS 100- 129 VLDL (test code = 21 mg/dL 5-40 N VLDL) LDL/HDL (test code = 2 LDLPHDL) Comprehensive Metabolic [id number] 03:06:00 Test Item Value Reference Range Interpretation [...] validated by th e MDRD study and shoul d be interpretedwith caution.eGFR Re sult Interpretation: eGFR > or = 60 is in t he Normal RangeeGF R < 60 may mean kidney diseaseeGFR < 1 5 may mean kidney failureRange s recommended by the National Kidney Foundation,http ://nkd ep.nih.gov Thyroid Stimulating Hormone (TSH)2017-02-27 02:43:00 Test Item Value Reference Range Interpretation Comments TSH (test code = TSH) 1.40 mIU/mL 0.270-4.200 N [id number]-[id number] 02:43:00 Test Item Value Reference Range Interpretation Comments NT ProBnp (test code = PBNP) 6296 pg/mL 0-124 H
[2021-04-23] MEDS ORDERED: METHYLPREDNISOLONE 125 MG INJ ONE (02:39)
[2021-04-23] MEDS ORDERED: LEVALBUTEROL 1.25 MG/3 ML NEB ONE ×2 (02:40→02:41)
[2021-04-23 03:00] LABS: Absolute Lymphocytes (CBC) 2.9 K/uL (0.7-4.9); Basophils % 1.4 % (0-1.3); Hematocrit 41.8 % (39.6-49.0); MPV 8.2 fL (7.6-11.3); RBC Red Blood Cell Count 4.41 M/uL (4.33-5.43)
[2021-04-23 03:02] LABS: Protime INR 0.97
[2021-04-23 03:17] LABS: ALT/SGPT 69 U/L (12-78); AST/SGOT 87 U/L (15-37); Albumin 3.3 g/dL (3.4-5.0); Alkaline Phosphatase 92 U/L (45-117); BUN Blood Urea Nitrogen 23 mg/dL (7-18); Bicarbonate 26 mmol/L (21-32); Bilirubin Direct < 0.1 mg/dL (0-0.2); Bilirubin Total 0.3 mg/dL (0.2-1.0); Glucose Level 103 mg/dL (74-106); Magnesium 2.3 mg/dL (1.8-2.4); NT PRO-BNP 9485 pg/mL (<125); Potassium 3.8 mmol/L (3.5-5.1); Protein, Total 7.9 g/dL (6.4-8.2); Sodium Level 144 mmol/L (136-145); Troponin (Emerg Dept Use Only) 0.09 ng/mL (0.0-0.045)
[2021-04-23 03:26] LABS: CKMB Creatine Kinase MB 1.7 ng/mL (1.0-3.6)
[2021-04-23] MEDS ORDERED: ASPIRIN 81 MG CHEWABLE TABLET ONE (04:32)
[2021-04-23] MEDS ORDERED: FUROSEMIDE 40 MG/4 ML VIAL ONE ×2 (04:39→08:54)
--- NOTE | 2021-04-23 04:39 | ER ---
Nurse's Notes [facility] Name: Edouard Marie Age: 65 yrs Sex: Male : 1955 Arrival Date: 04/23/2021 Time: 02:14 Bed 6 Private MD: Diagnosis: COPD/ Chronic obstructive pulmonary disease with (acute) exacerbation;Unspecified combined systolic (congestive) and diastolic (congestive) heart failure;Dyspnea, unspecified Presentation: 04/23 02:21 Chief complaint: Patient states: " I never stopped having difficulty breathing" Patient tw5 denies coughing up blood, denies n/v/d. Coronavirus screen: Vaccine status: Patient reports receiving the 2nd dose of the covid vaccine. Ebola Screen: Patient negative for fever greater than or equal to 101.5 degrees Fahrenheit, and additional compatible Ebola Virus Disease symptoms Patient denies exposure to infectious person. Patient denies travel to an Ebola-affected area in the 21 days before illness onset. Initial Sepsis Screen: Does the patient meet any 2 criteria? RR > 20 per min. Does the patient have a suspected source of infection? No. Patient's initial sepsis screen is negative. Risk Assessment: Do you want to hurt yourself or someone else? Patient reports no desire to harm self or others. Onset of symptoms is unknown. 02:21 Method Of Arrival: Ambulatory tw5 02:21 Acuity: ERUM 3 tw5 Triage Assessment: 02:30 General: Appears uncomfortable, Behavior is agitated, anxious. Pain: Pain currently is tw5 4 out of 10 on a pain scale. Respiratory: Reports shortness of breath at rest Onset: The symptoms/episode began/occurred at an unknown time. the patient has moderate shortness of breath. Historical: - Allergies: 02:50 No Known Allergies; df1 - Home Meds: 02:50 isosorbide mononitrate 20 mg Oral tab 1 tab 2 times per day [Active]; Lasix 60 mg Oral df1 tab once daily [Active]; hydralazine 25 mg Oral tab 1 tab three times a day [Active]; metoprolol tartrate 50 mg Oral tab 1 tab 2 times per day [Active]; aspirin 81 mg Oral TbEC 1 tab once daily [Active]; - PMHx: 02:50 CHF; COPD; Hypertension; df1 - PSHx: 02:50 L Rotator Cuff Sx; Pacemaker/Defib; df1 - Immunization history:: Client reports receiving the 2nd dose of the Covid vaccine. - Family history:: not pertinent. - Social history:: Smoking status: Patient denies any tobacco usage or history of. Patient uses street drugs, marijuana. - Hospitalizations: : The patient was recently seen at [facility]. Screenin:30 Abuse screen: Denies threats or abuse. Denies injuries from another. Nutritional tw5 screening: No deficits noted. Tuberculosis screening: No symptoms or risk factors identified. Fall Risk No fall in past 12 months (0 pts). Secondary diagnosis (15 points) IV access (20 points). Ambulatory Aid- None/Bed Rest/Nurse Assist (0 pts). Assessment: 02:30 Cardiovascular: Rhythm is sinus rhythm with unifocal PVCs. Respiratory: Airway is tw5 patent Trachea midline Respiratory effort is with retractions, Breath sounds with crackles in right posterior middle lobe and right posterior lower lobe Breath sounds with wheezes. 02:35 General: Behavior is agitated. Neuro: Level of Consciousness is awake, alert, obeys tw5 commands, Oriented to person, place, time, situation. 03:20 Reassessment: Patient states feeling better. Patient states symptoms have improved. tw5 General: Reports " I am going to take a nap now". 04:35 General: Behavior is drowsy, Reports "I am feeling alright, I am feeling better". tw5 Respiratory: Airway is patent Trachea midline Respiratory effort is Respiratory pattern is tachypnea. Vital Signs: 02:21 BP 175 / 94; Pulse 88; Resp 24; Temp 97.7(O); Pulse Ox 97% on R/A; Weight 75.75 kg; tw5 Height 6 ft. 2 in. (187.96 cm); Pain 3/10; 03:20 BP 165 / 98; Pulse 81; Resp 29; Pulse Ox 100% ; tw5 04:01 BP 173 / 92; Pulse 84; Resp 18; Pulse Ox 96% on R/A; df1 04:35 BP 175 / 90; Pulse 89; Resp 28; Pulse Ox 93% on R/A; tw5 02:21 Body Mass Index 21.44 (75.75 kg, 187.96 cm) tw5 ED Course: 02:14 Patient arrived in ED. wm 02:15 Arlyn Henry is Primary Nurse. tw5 02:15 Benny Mendoza MD is Attending Physician. rn 02:27 Triage completed. tw5 02:30 Arm band placed on left wrist. EKG completed in triage. Results shown to MD. tw5 02:30 Patient has correct armband on for positive identification. Placed in gown. Bed in low tw5 position. Call light in reach. Side rails up X 1. operations management trainee on. Pulse ox on. NIBP on. Door closed. Noise minimized. Lights dimmed. Warm blanket given. Verbal reassurance given. 02:30 Inserted saline lock: 20 gauge in right antecubital area, using aseptic technique. tw5 Blood collected. 02:33 Initial lab(s) drawn, by ED staff, First set of blood cultures drawn by ED staff. tw5 02:34 Magnesium Sent. tw 02:34 NT PRO-BNP Sent. tw5 02:34 PT-INR Sent. tw5 02:34 Ptt, Activated Sent. tw5 02:34 Troponin (emerg Dept Use Only) Sent. tw 02:34 Procalcitonin Sent. tw5 02:34 Liver (Hepatic) Function Sent. tw5 02:34 Blood Culture Sent. tw5 02:34 CBC with Automated Diff Sent. tw 02:34 CKMB Creatine Kinase MB Sent. tw5 02:34 Basic Metabolic Panel Sent. tw5 02:35 Hepatic Function Sent. tw5 02:35 Ckmb Sent. tw5 02:35 CBC with Diff Sent. tw5 02:35 BMP Sent. tw5 02:37 SARS-COV-2 RT PCR (Document "Date of Onset" if Symptomatic) Sent. tw 02:55 Troponin (emerg Dept Use Only) Sent. tw5 02:55 Ptt, Activated Sent. tw5 02:55 PT-INR Sent. tw5 02:55 Magnesium Sent. tw5 02:55 NT PRO-BNP Sent. tw5 02:55 Basic Metabolic Panel Sent. tw5 02:55 SARS-COV-2 RT PCR (Document "Date of Onset" if Symptomatic) Sent. tw5 02:55 CKMB Creatine Kinase MB Sent. tw5 02:55 CBC with Automated Diff Sent. tw5 02:55 Blood Culture Sent. tw5 02:55 Liver (Hepatic) Function Sent. tw5 02:55 Procalcitonin Sent. tw5 02:55 Lactate Sent. tw5 03:02 No provider procedures requiring assistance completed. df1 04:23 XRAY CXR (1 view) In Process Unspecified. EDMS 04:38 Mauricio Owens is Hospitalizing Provider. rn Administered Medications: 02:44 Drug: SOLU-Medrol (methylPrednisoLONE) 125 mg Route: IVP; Site: right antecubital; tw5 03:21 Follow up: Response: No adverse reaction tw5 02:54 Drug: Xopenex (levalbuterol) (3) 1.25 mg Route: Inhalation; tw5 03:21 Follow up: Response: No adverse reaction; Wheezing diminished tw5 04:38 Drug: Aspirin Chewable Tablet 324 mg Route: PO; tw5 04:49 Drug: Lasix (furosemide) 40 mg Route: IVP; Site: right antecubital; tw5 Outcome: 04:38 Decision to Hospitalize by Provider. rn 10:03 Patient left the ED. ap3 Signatures: Dispatcher [employer] EDMS Benny Mendoza MD MD rn Prokisch, Amanda, RN RN ap3 Rhonda Walker Dawn df1 Arlyn Henry tw5 Corrections: (The following items were deleted from the chart) 05:09 02:30 Respiratory: Airway is patent Trachea midline Respiratory effort is with df1 retractions, Breath sounds with wheezes tw5
--- NOTE | 2021-04-23 04:39 | EDPHYS ---
Physician Documentation [facility] Name: Edouard Marie Age: 65 yrs Sex: Male : 1955 Arrival Date: 04/23/2021 Time: 02:14 Bed 6 Private MD: ED Physician Benny Mendoza HPI: 04/23 02:27 This 65 yrs old Black Male presents to ER via Unassigned with complaints of Breathing rn Difficulty. 02:27 The patient has shortness of breath with light activity. Onset: The symptoms/episode rn began/occurred at an unknown time. Duration: The symptoms are intermittent. The patient's shortness of breath is aggravated by exertion, light activity, supine position. Associated signs and symptoms: Pertinent positives: non-productive cough, Pertinent negatives: fever, hemoptysis, loss of consciousness. Severity of symptoms: At their worst the symptoms were moderate in the emergency department the symptoms are unchanged. The patient has experienced similar episodes in the past. The patient has not recently seen a physician. Patient reports shortness of breath with exertion and laying flat, states has not felt much better since admission earlier in the month. Taking Lasix but not taking albuterol or nebulizer treatments. Used his inhaler for the first time tonight prior to coming in states helped a little bit. No fever or hemoptysis. No known sick contacts. Historical: - Allergies: 02:50 No Known Allergies; df1 - Home Meds: 02:50 isosorbide mononitrate 20 mg Oral tab 1 tab 2 times per day [Active]; Lasix 60 mg Oral df1 tab once daily [Active]; hydralazine 25 mg Oral tab 1 tab three times a day [Active]; metoprolol tartrate 50 mg Oral tab 1 tab 2 times per day [Active]; aspirin 81 mg Oral TbEC 1 tab once daily [Active]; - PMHx: 02:50 CHF; COPD; Hypertension; df1 - PSHx: 02:50 L Rotator Cuff Sx; Pacemaker/Defib; df1 - Immunization history:: Client reports receiving the 2nd dose of the Covid vaccine. - Family history:: not pertinent. - Social history:: Smoking status: Patient denies any tobacco usage or history of. Patient uses street drugs, marijuana. - Hospitalizations: : The patient was recently seen at [facility]. ROS: 02:27 Constitutional: Negative for fever, chills, and weight loss, Eyes: Negative for injury, rn pain, redness, and discharge, Neck: Negative for injury, pain, and swelling, Cardiovascular: Negative for chest pain, palpitations, and edema, Respiratory: Negative for pleuritic chest pain Abdomen/GI: Negative for abdominal pain, nausea, vomiting, diarrhea, and constipation, Back: Negative for injury and pain, : Negative for injury, bleeding, discharge, and swelling, MS/Extremity: Negative for injury and deformity, Skin: Negative for injury, rash, and discoloration, Neuro: Negative for headache, numbness, tingling, and seizure. 02:27 All other systems are negative. Exam: 02:27 Constitutional: This is a well developed, well nourished patient who is awake, alert, epidemiology intern to room from lobby without significant distress Head/Face: Normocephalic, atraumatic. Eyes: Periorbital areas with no swelling, redness, or edema. ENT: No stridor Cardiovascular: Regular rate and rhythm. No pulse deficits. Respiratory: Mild tachypnea, no retractions Abdomen/GI: Soft, non-tender Skin: Warm, dry MS/ Extremity: No edema Neuro: Awake and alert, GCS 15, oriented to person, place, time, and situation. Cranial nerves II-XII grossly intact. Motor strength 5/5 in all extremities. Sensory grossly intact. Cerebellar exam normal. Normal gait. Vital Signs: 02:21 BP 175 / 94; Pulse 88; Resp 24; Temp 97.7(O); Pulse Ox 97% on R/A; Weight 75.75 kg; tw5 Height 6 ft. 2 in. (187.96 cm); Pain 3/10; 03:20 BP 165 / 98; Pulse 81; Resp 29; Pulse Ox 100% ; tw5 04:01 BP 173 / 92; Pulse 84; Resp 18; Pulse Ox 96% on R/A; df1 04:35 BP 175 / 90; Pulse 89; Resp 28; Pulse Ox 93% on R/A; tw5 02:21 Body Mass Index 21.44 (75.75 kg, 187.96 cm) tw5 MDM: 02:15 Patient medically screened. rn 04:34 Differential diagnosis: CHF exacerbation, Chronic Obstructive Pulmonary Disease rn Myocardial Infarction pneumonia, Pneumothorax pulmonary edema. Data reviewed: vital signs, nurses notes, lab test result(s), EKG, radiologic studies, plain films, and as a result, I will admit patient. Data interpreted: cooker casing: rate is 84 beats/min, rhythm is normal sinus rhythm, regular, with no ectopy, Interpretation: normal rate, normal rhythm, Pulse oximetry: on room air is 96 %. Interpretation: acceptable. Counseling: I had a detailed discussion with the patient and/or guardian regarding: the historical points, exam findings, and any diagnostic results supporting the discharge/admit diagnosis, the presence of at least one elevated blood pressure reading (>120/80) during this emergency department visit, lab results, radiology results, the need for further work-up and treatment in the hospital. Response to treatment: the patient's symptoms have mildly improved after treatment, and as a result, I will admit patient. Admission orders: after a detailed discussion of the patient's condition and case, the admit orders are written by me. ED course: Pt still with tachypnea and grunting, elevated troponin, nonspecific ECG, monitor with frequent PVCs and had non-sustained tachycardic episode of unclear etiology. Will admit to hospitalist service for further care. . 04/23 02:26 Order name: BMP rn 04/23 02:26 Order name: CBC with Diff 04/23 02:26 Order name: Ckmb 04/23 02:26 Order name: Hepatic Function 04/23 02:26 Order name: Magnesium; Complete Time: 04: 04/23 02:26 Order name: NT PRO-BNP; Complete Time: 04: 04/23 02:26 Order name: PT-INR; Complete Time: 04: 04/23 02:26 Order name: Ptt, Activated; Complete Time: 04: 04/23 02:26 Order name: Troponin (emerg Dept Use Only); Complete Time: 04: 04/23 02:26 Order name: Basic Metabolic Panel; Complete Time: 04: [facility] 04/23 02:26 Order name: SARS-COV-2 RT PCR (Document "Date of Onset" if Symptomatic); Complete Time: rn 04:04/23 02:26 Order name: Blood Culture [facility] 04/23 02:26 Order name: CBC with Automated Diff; Complete Time: 04:12 EDMS 04/23 02:26 Order name: XRAY CXR (1 view) rn 04/23 02:26 Order name: EKG; Complete Time: 02:26 rn 04/23 02:26 Order name: Cardiac monitoring; Complete Time: 02:34 rn 04/23 02:26 Order name: EKG - Nurse/Tech; Complete Time: 02:34 rn 04/23 02:26 Order name: IV Saline Lock; Complete Time: 02:34 rn 04/23 02:26 Order name: Labs collected and sent; Complete Time: 02:34 rn 04/23 02:26 Order name: O2 Per Protocol; Complete Time: 02:34 rn 04/23 02:26 Order name: CKMB Creatine Kinase MB; Complete Time: 04:12 EDMS 04/23 02:26 Order name: Liver (Hepatic) Function; Complete Time: 04:12 EDMS 04/23 02:26 Order name: Procalcitonin; Complete Time: 04:12 rn 04/23 02:45 Order name: Lactate; Complete Time: 04:12 mw 04/23 09:21 Order name: US EDMS 04/23 02:26 Order name: O2 Sat Monitoring; Complete Time: 02:34 rn Administered Medications: 02:44 Drug: SOLU-Medrol (methylPrednisoLONE) 125 mg Route: IVP; Site: right antecubital; tw5 03:21 Follow up: Response: No adverse reaction tw5 02:54 Drug: Xopenex (levalbuterol) (3) 1.25 mg Route: Inhalation; tw5 03:21 Follow up: Response: No adverse reaction; Wheezing diminished tw5 04:38 Drug: Aspirin Chewable Tablet 324 mg Route: PO; tw5 04:49 Drug: Lasix (furosemide) 40 mg Route: IVP; Site: right antecubital; tw5 Disposition Summary: 04/23/21 04:38 Hospitalization Ordered Provider: Mauricio Owens rn Condition: Stable rn Problem: an ongoing problem rn Symptoms: have improved rn Bed/Room Type: Standard rn Hospitalization Status: Observation(04/23/21 04:45) la1 Location: Telemetry/MedSurg (observation)(04/23/21 08:16) bd Room Assignment: 404(04/23/21 08:16) bd Diagnosis - COPD/ Chronic obstructive pulmonary disease with (acute) exacerbation rn - Unspecified combined systolic (congestive) and diastolic (congestive) heart failure rn - Dyspnea, unspecified rn Forms: - Medication Reconciliation Form rn - SBAR form rn Signatures: Dispatcher [employer] EDMS Rosa moore Benny Franks MD MD rn Vanessa, Amish, AFTER SCHOOL PROGRAM COORDINATOR-C AFTER SCHOOL PROGRAM COORDINATOR-Cla1 Nina Delaney RN RN cg Furlich, Dawn df1 Arlyn Henry tw5 Corrections: (The following items were deleted from the chart) 02:41 02:26 BLOOD CULTURE*+[id number].LAB.BRZ ordered. EDWA EDMS 04:45 04:38 Inpatient Admission rn la1 06:33 04:38 Telemetry/MedSurg (Inpatient) jolanta cg 06:33 04:38 rn [place]mond 08:16 06:33 [facility] ER HOLD cg bd 08:16 06:33 ERHOLD- cg bd
--- NOTE | 2021-04-23 05:21 | P.HP ---
Certification for Inpatient Patient admitted to: Observation With expected LOS: <2 Midnights Patient will require the following post-hospital care: None Practitioner: I am a practitioner with admitting privileges, knowledge of patient current condition, hospital course, and medical plan of care. Services: Services provided to patient in accordance with Admission requirements found in Title 42 Section 412.3 of the Code of Federal Regulations Patient History Date of Service: 04/23/21 Primary Care Provider: Dr. Loera Reason for admission: Dyspnea History of Present Illness: 65-year-old -Citizen Of [place] male with history of chronic systolic congestive heart failure, hypertension, COPD presents emergency department for shortness of breath. Patient reports increasing shortness of breath of the course last few days, patient was recently seen by his er tech this last week and was given metolazone for breakthrough diuresis, patient had not taken this at home as he was afraid would make him urinate too much. Patient also noted to be wheezing, has prescription for albuterol reportedly but was not taking that either. Pat ient was evaluated in the emergency department labs were significant for chloride 111 GFR 46 creatinine 1.81 BUN 23 troponin 0.09 BNP 9485, patient's baseline GFR is around 65, baseline creatinine around 1.3. Patient with acute on chronic systolic congestive heart failure, COPD exacerbation, acute kidney injury and hypertension. ED plan was to admit under observation for further evaluation and management. Allergies No Known Allergies Allergy (Verified 01/26/17 07:59) Home Medications: Nebulizer [Aeroneb Go Nebulizer] 1 each MC QID #1 each 07/18/19 Amlodipine [Norvasc*] 10 mg PO DAILY #30 tab 03/18/21 Aspirin 81 mg PO DAILY #30 tab.chew 03/18/21 Furosemide [Lasix*] 60 mg PO DAILY #90 tab 03/18/21 Hydralazine HCl 25 mg PO TID #90 03/18/21 Isosorbide Mononitrate [Ismo] 20 mg PO BID #60 03/18/21 Metoprolol Tartrate [Lopressor*] 50 mg PO BID #60 tab 03/18/21 lisinopriL [Lisinopril] 10 mg PO DAILY #30 tablet 03/18/21 - Past Medical/Surgical History Diabetic: No -: Hypertension-malignant -: Congestive heart failure-ejection fraction of 40% -: COPD -: Pacemaker defibrillator -: Rotator cuff repair LEFT >10yrs ago Psychosocial/ Personal History: patient lives at home with family - Family History Father -: Heart disease, Hypertension - Social History Smoking Status: Former smoker Alcohol use: No CD- Drugs: Yes Caffeine use: Yes Place of Residence: Home Review of Systems 10-point ROS is otherwise unremarkable Respiratory: Cough, Dry, Shortness of Breath, SOB with Excertion, Wheezing Cardiovascular: Orthopnea Physical Examination - Physical Exam General: Alert, In no apparent distress, Oriented x3 HEENT: Atraumatic, PERRLA, EOMI, Sclerae nonicteric Neck: Supple, 2+ carotid pulse no bruit, No LAD, Without JVD or thyroid abnormality Respiratory: Diminished, Crackles/rales, Expiratory wheezes Cardiovascular: No edema, Normal S1 S2, Irregular heart rate/rhythm, Systolic murmur Capillary refill: <2 Seconds Gastrointestinal: Normal bowel sounds, No tenderness Musculoskeletal: No tenderness Integumentary: No rashes Neurological: Normal speech, Normal strength at 5/5 x4 extr, Normal tone - Studies Laboratory Data (last 24 hrs) 04/23/21 02:36: PT 11.1, INR 0.97, APTT 34.8 04/23/21 02:36: WBC 5.80, Hgb 13.9, Hct 41.8, Plt Count 227 04/23/21 02:36: Sodium 144, Potassium 3.8, BUN 23 H, Creatinine 1.81 H, Glucose 103, Magnesium 2.3, Total Bilirubin 0.3, AST 87 H, ALT 69, Alkaline Phosphatase 92 Assessment and Plan - Plan Assessment: Dyspnea secondary to COPD with exacerbation complicated with acute on chronic systolic congestive heart failure Acute kidney injury superimposed on CKD 2 Hypertension Plan: Dyspnea secondary to COPD with exacerbation complicated with acute on chronic systolic congestive heart failure: Continue with IV diuresis, IV steroids, scheduled nebulizer treatments, supplemental oxygen as needed, 1500 cc/day fluid restriction, daily weights. ICS ordered, incentive spirometry. Cardiology and pulmonology consults in place. Patient with recent echocardiogram demonstrated ejection fraction between 40 and 45% with severe mitral regurgitation noted. Patient was prescribed metolazone 2.5 mg p.o. to take once to twice weekly as needed, did not take his medication. Patient was counseled on utilization of this medication. Patient also need prescription for albuterol at discharge. Acute kidney injury superimposed on CKD 2: Nephrology consulted, continue with IV diuresis for acute on chronic systolic congestive heart failure. Will obtain renal ultrasound. Possibly CRS. Hypertension: Obtain and continue medication. DVT PPX: Heparin subcu Code status: Full code Discharge Plan: Residential Plan to discharge in: 24 Hours - Advance Directives Does patient have a Living Will: No Does patient have a Durable POA for Healthcare: No - Code Status/Comfort Care Code Status Assessed: Yes (Full code) Critical Care: No Time Spent Managing Pts Care (In Minutes): 55
[2021-04-23] MEDS ORDERED: ONDANSETRON 4 MG/2 ML VIAL IV PRN (05:38)
[2021-04-23 05:46] VITALS: BMI 21.4
--- NOTE | 2021-04-23 07:04 | EKG ---
Test Date: 2021-04-23 Test Time: 02:29:34 Tank Bottom Assembler: DAYA MEASUREMENT RESULTS: Intervals: Rate: 69 CT: 206 QRSD: 112 QT: 406 QTc: 435 [place]: P: 98 CT: 206 QRS: 66 T: 83 INTERPRETIVE STATEMENTS: Sinus rhythm with marked sinus arrhythmia with occasional premature ventricular complexes Possible Left atrial enlargement Left ventricular hypertrophy with repolarization abnormality Abnormal ECG Compared to ECG 03/25/2021 09:02:36 Early repolarization now present Myocardial infarct finding no longer present ST (T wave) deviation no longer present Possible ischemia no longer present Electronically Signed On 04-23-21 07:04:26 DESK OFFICER by Jordan Banks
[2021-04-23] MEDS ORDERED: METOPROLOL TAR 50 MG TAB ONE (07:29)
[2021-04-23] MEDS ORDERED: ASPIRIN EC 81 MG TAB PO ONE (07:29)
[2021-04-23] MEDS ORDERED: HEPARIN 5000 UNIT/ML 1 ML VIAL ONE (07:29)
[2021-04-23] MEDS ORDERED: HYDRALAZINE HCL 25 MG TABLET ONE (07:30)
[2021-04-23] MEDS ORDERED: METHYLPREDNISOLONE 40 MG INJ ONE (07:30)
[2021-04-23] MEDS: HYDRALAZINE HCL 25 MG TABLET PO SCH ×2 (08:44→13:35)
[2021-04-23] MEDS ORDERED: HEPARIN 5000 UNIT/ML 1 ML VIAL SQ SCH (09:00)
[2021-04-23] MEDS ORDERED: METHYLPREDNISOLONE 40 MG INJ IV SCH (09:00)
[2021-04-23] MEDS ORDERED: ISOSORBIDE MONO 10 MG TAB PO SCH (09:00)
[2021-04-23] MEDS ORDERED: DULERA 200/5 (MOMETASONE/FORMOTEROL) INHALER IH SCH (09:00)
[2021-04-23] MEDS ORDERED: METOPROLOL TAR 50 MG TAB PO SCH (09:00)
[2021-04-23] MEDS ORDERED: ASPIRIN EC 81 MG TAB PO SCH (09:00)
--- NOTE | 2021-04-23 09:03 | RAD REPORT ---
EXAM DESCRIPTION: RAD - Chest Single View - 04/23/2021 4:23 am CLINICAL HISTORY: Cough;Dyspnea Chest pain. COMPARISON: Chest Single View dated 03/25/2021; Chest Single View dated 03/17/2021; Chest Single View dated 09/26/2019; Chest Single View dated 07/17/2019 FINDINGS: Portable technique limits examination quality. Moderate bilateral pulmonary opacities are present most compatible with pulmonary edema. The heart is moderately enlarged in size. No displaced fractures.Single lead pacer/defibrillator device is presen t.
[2021-04-23 09:04] VITALS: O2SAT 98
[2021-04-23] MEDS: FUROSEMIDE 40 MG/4 ML VIAL IV SCH ×2 (09:08→16:30)
--- NOTE | 2021-04-23 09:20 | RAD REPORT ---
EXAM DESCRIPTION: US - Renal Ultrasound-Complete - 04/23/2021 6:12 am CLINICAL HISTORY: kimo/ckd Flank pain COMPARISON: No comparisons FINDINGS: Mild increase in bilateral renal echogenicity is present. The right kidney measures 11.3 x 6.6 x 5.0 cm. No hydronephrosis is seen. 5 cm right renal cyst is ev ident. Adjacent 3.5 cm right renal cyst. The left kidney measures 7.0 x 4.5 x 3.4 cm.. No hydronephrosis is seen. Small left renal cysts prese nt. Prostate gland is very significantly enlarged and projects into the bladder base. IMPRESSION: Mildly echogenic kidneys suggests underlying medical renal disease. Bilateral renal cyst s are present, larger on the right. The cysts have a benign appearance. Prostate gland is very significantly enlarged projects into the bladder base.
--- NOTE | 2021-04-23 12:15 | P.CNS ---
Date of Consult: 04/23/21 Primary Care Provider: Dr. Loera Chief Complaint: Dyspnea History of Present Illness: Age 65 Hx of CHF and COPD aw worseing SOB. recurrent hospital admissions, S?B cardiology AW acute CHF exacerbation. Allergies No Known Allergies Allergy (Verified 04/23/21 05:33) Home Medications: Nebulizer [Aeroneb Go Nebulizer] 1 each MC QID #1 each 07/18/19 Aspirin 81 mg PO DAILY #30 tab.chew 03/18/21 Furosemide [Lasix*] 60 mg PO DAILY #90 tab 03/18/21 Hydralazine HCl 25 mg PO TID #90 03/18/21 Isosorbide Mononitrate [Ismo] 20 mg PO BID #60 03/18/21 Metoprolol Tartrate [Lopressor*] 50 mg PO BID #60 tab 03/18/21 - Past Medical/Surgical History Diabetic: No -: Hypertension-malignant -: Congestive heart failure-ejection fraction of 40% -: COPD -: Pacemaker defibrillator -: Rotator cuff repair LEFT >10yrs ago Psychosocial/ Personal History: patient lives at home with family - Family History Father Medical History: Heart disease, Hypertension - Social History Smoking Status: Current some day smoker Alcohol use: No CD- Drugs: Yes Caffeine use: Yes Place of Residence: Home Review of Systems 10-point ROS is otherwise unremarkable General: Weakness Respiratory: Shortness of Breath Physical Examination Temp Pulse Resp BP Pulse Ox 97.5 F 72 18 161/97 H 100 04/23/21 08:00 04/23/21 09:08 04/23/21 08:00 04/23/21 09:08 04/23/21 08:00 General: Alert, In no apparent distress, Oriented x3 Respiratory: Crackles/rales Cardiovascular: No edema, Normal S1 S2 Gastrointestinal: Normal bowel sounds, Soft and benign Laboratory Data (last 24 hrs) 04/23/21 02:36: PT 11.1, INR 0.97, APTT 34.8 04/23/21 02:36: WBC 5.80, Hgb 13.9, Hct 41.8, Plt Count 227 04/23/21 02:36: Sodium 144, Potassium 3.8, BUN 23 H, Creatinine 1.81 H, Glucose 103, Magnesium 2.3, Total Bilirubin 0.3, AST 87 H, ALT 69, Alkaline Phosphatase 92 - Problems (1) CHF (congestive heart failure) Current Visit: No Status: Acute Plan: Age 65 with CHF and COPD aw worsening SOB. Renal fucntion is worse CXRy cardiomegaly with defib in place BNP sig elevated/ NEof sepsis/ Hx of COPd/ hypoxic/ CW steroids andBD for now
[2021-04-23 12:41] LABS: Urine Appearance Clear (Clear); Urine Bilirubin Negative (Negative); Urine Blood Negative (Negative); Urine Color Yellow (Yellow); Urine Glucose Negative (Negative); Urine Protein Negative (Negative); Urine Specific Gravity 1.015 (1.005-1.030); Urine Urobilinogen 0.2 mg/dL (0.2-1.0); Urine pH 5.5 (5.0-7.0)
[2021-04-23 12:47] LABS: UR PROTEIN 6.5 mg/dL (<11.9); Urine Protein/Creatinine Ratio 0.28 ratio (<0.15)
[2021-04-23 13:13] LABS: Urine Microscopic Reflex NO UMIC
--- NOTE | 2021-04-23 13:18 | CON ---
Date of Consultation: 04/23/2021 Reason For Consultation: Elevated BUN and creatinine, fluid management. History Of Present Illness: This is a pleasant 65-year-old gentleman with significant past medical history of COPD, congestive heart failure. According to the patient, the patient never had any NC before. Ejection fraction is 45, as by the echocardiogram was done on March 18. The patient was in his regular state of health till 2 weeks ago when he started having more shortness of breath reported to his product manager financial services. The patient was started on metolazone, but apparently patient did not start the metolazone with fear of increased urination. The patient, when his shortness of breath got worse, reported to the ER. Upon arrival to the ER, creatinine 1.8, GFR of 46. For that reason, we have been consulted. The patient denied taking any nonsteroidal or fvam-kbu-apbalkk. No recent change in his medication except attempt to add metolazone which he did not start yet. The patient denied any recent exposure to any contrast. Past Medical History: 1. COPD. 2. Hypertension. 3. Hyperlipidemia. 4. CHF status post ICD. 5. Ejection fraction of 45. 6. Normal kidney function up to March 26 with creatinine 1.2, GFR of 70. Allergies: NO KNOWN DRUG ALLERGIES. Home Medications: Include: 1. Inhalers. 2. Amlodipine. 3. Lasix 60 daily. 4. Aspirin. 5. Isosorbide. 6. Lisinopril 10. 7. Metoprolol. Past Surgical History: Include pacemaker, rotator cuff repair. Family History: Positive for hypertension and CAD. Social History: Excess smoker. Occasional alcohol. Denied drugs abuse. Review of Systems: Head and Neck: No red eye. No ear pain. GI: No nausea, no vomiting. : No polyuria, no dysuria, no hematuria. Automobile Rental Clerk: Not applicable. Respiratory: Has shortness of breath. Cardiovascular: Has orthopnea. No chest pain. Endocrine: No polydipsia. Skin: No rash. Neuro: No weakness. No loss of conscious or headache. Musculoskeletal: Generalized weakness. Physical Examination: Vital Signs: Blood pressure 155/93, pulse of 60, afebrile. Chest: Faint rales bilateral base. Heart: S1, S2, systolic murmur. Abdomen: Soft, nontender, could not appreciate any renal artery bruit. Extremity: No edema. Neuro: Alert, oriented x3. No focal. No tremor. Laboratory Data: Lab data for the patient, sodium 144, potassium 3.8, bicarb 26, BUN 23, creatinine 1.8 GFR of 46, calcium 8.7. Albumin 3.3. Reviewing the record back on March 26, creatinine 1.2, GFR of 70. WBC 5.8, H and H 13.9/41.8. Urinalysis is still pending. Urine drug screen was positive for cocaine and THS back in February. BNP is 9485. Renal ultrasound was done showing bilateral renal cyst with severe disproportion in the kidney size 11.3/7. Right renal cyst of 5 cm. Multiple left renal cyst. Current Medications: The patient on include: 1. Aspirin. 2. Albuterol. 3. Lovenox. 4. Hydralazine 25 t.i.d. 5. Isosorbide. 6. Metoprolol 50 b.i.d. 7. Lasix 60 b.i.d. 8. Zofran. 9. Prednisone. Assessment And Plan: 1. Acute kidney injury, multifactorial, secondary to cardiorenal over volume, superimposed with MARCIA inhibitor, currently looked to me on the over volume side. I agree with increasing the Lasix. I can increase it to 80 mg b.i.d. and we will monitor the patient given the finding on the renal ultrasound with severe disproportion in the kidney size. The patient again will need workup for renal artery stenosis. I am going to wait for a little improvement in the kidney function to proceed with MRA. 2. I am going to go ahead and send for repeated urine drug screen as the patient has history apparently of cocaine use. We will monitor. 3. I will hold MARCIA inhibitor for the time being. 4. Hypertension with the presence of recurrent over volume on admission, nonischemic cardiomyopathy, and disproportion in the kidney size with hypokalemia. I am going to go ahead and send for secondary hypertension and we will send for a trans-tubular potassium gradient calculation to evaluate if that would support the renal artery stenosis and as above, I will proceed with MRA down in the role for further evaluation after improving on the kidney function. We will hold on lisinopril for the time being. 5. After sending the workup, the patient is going to be a good candidate to be started on the spironolactone given the congestive heart failure. 6. Hypokalemia. We will monitor. I am going to replace cautiously given the worsening in the kidney function. We will hold on the MARCIA inhibitor. 7. Congestive heart failure with exacerbation as above. We will diurese the patient. We will follow up with Pulmonary. 8. Respiratory distress, multifactorial secondary to congestive heart failure/chronic obstructive pulmonary disease exacerbation. We will follow up with Cardiology and Pulmonary. We will increase diuresis. Thank you, Dr. Owens for allowing us to participate in the care of your patient. time spend exam the patient face to face placing order , reviewing lab and radiology data , discussing the case with the nursing staff and other steam trap man including hospitalist and other etl consultant on the case 65 min LEROY Voice ID: [id number] Report ID: [id number] MTDD
[2021-04-23] MEDS ORDERED: ALBUTEROL 2.5 MG/3 ML NEB SOL NEB SCH (14:00)
[2021-04-23] MEDS ORDERED: IPRATROPIUM BROM 0.5MG/2.5ML NEB SCH (14:00)
[2021-04-23 15:23] VITALS: BP 152/84; TEMP 97.7
--- NOTE | 2021-04-23 17:41 | P.DS ---
Admission Date: 04/23/21 Discharge Date: 04/23/21 Primary Care Provider: Dr. Loera Disposition: ROUTINE DISCHARGE Discharge Condition: FAIR Reason for Admission: Dyspnea - Problems (1) COPD exacerbation Current Visit: Yes Status: Acute (2) Acute on chronic systolic heart failure Current Visit: No Status: Acute (3) Cardiomyopathy, nonischemic Current Visit: No Status: Chronic Brief History of Present Illness: 65-year-old -Pakistani male with history of chronic systolic congestive heart failure, hypertension, COPD presented to the emergency department for shortness of breath. Patient reported increasing shortness of breath of the course last few days, patient was recently seen by his life skills worker this last week and was given metolazone for breakthrough diuresis, patient had not taken this at home as he was afraid would make him urinate too much. Patient also noted to be wheezing, has prescription for albuterol reportedly but was not taking that either. Patient was evaluated in the emergency department labs were significant for chloride 111 GFR 46 creatinine 1.81 BUN 23 troponin 0.09 BNP 9485, patient's baseline GFR is around 65, baseline creatinine around 1.3. Patient with acute on chronic systolic congestive heart failure, COPD exacerbation, acute kidney injury and hypertension. Patient admitted for further management. Hospital Course: Patient admitted to the medical floor and treated for COPD exacerbation with oral prednisone, and scheduled bronchodilators. He was also treated for CHF exacerbation with IV Lasix. Patient shortness of breath improved rapidly with treatment and was back to baseline. Nephrology was consulted for increasing serum creatinine. Patient's creatinine is 1.8 compared to a baseline of 1.3. Dr. Davis, the critical care nurse plans to follow-up with the patient for evaluation for renal artery stenosis because he has one shrunken kidney. Patient seen by cardiology-Dr. Banks and deemed stable for discharge. He has been prescribed short course of prednisone for COPD exacerbation. Also prescribed him a nebulizer and bronchodilators. Vital Signs/Physical Exam: Temp Pulse Resp BP Pulse Ox 97.7 F 64 18 152/84 H 96 04/23/21 15:22 04/23/21 16:30 04/23/21 15:22 04/23/21 16:30 04/23/21 15:22 General: Alert, In no apparent distress, Oriented x3 HEENT: Mucous membr. moist/pink Neck: Supple, JVD not distended Respiratory: Clear to auscultation bilaterally, Normal air movement Cardiovascular: No edema, Regular rate/rhythm, Normal S1 S2 Gastrointestinal: Normal bowel sounds, Soft and benign, Non-distended, No tenderness Musculoskeletal: No swelling Integumentary: No rashes, No cyanosis Neurological: Normal strength at 5/5 x4 extr Laboratory Data at Discharge: WBC 5.80 K/uL (4.3-10.9) 04/23/21 02:36 Hgb 13.9 g/dL (13.6-17.9) 04/23/21 02:36 Hct 41.8 % (39.6-49.0) 04/23/21 02:36 Plt Count 227 K/uL (152-406) 04/23/21 02:36 PT 11.1 SECONDS (9.5-12.5) 04/23/21 02:36 INR 0.97 04/23/21 02:36 APTT 34.8 SECONDS (24.3-36.9) 04/23/21 02:36 Sodium 144 mmol/L (136-145) 04/23/21 02:36 Potassium 3.8 mmol/L (3.5-5.1) 04/23/21 02:36 BUN 23 mg/dL (7-18) H 04/23/21 02:36 Creatinine 1.81 mg/dL (0.55-1.3) H 04/23/21 02:36 Glucose 103 mg/dL (74-106) 04/23/21 02:36 Magnesium 2.3 mg/dL (1.8-2.4) 04/23/21 02:36 Total Bilirubin 0.3 mg/dL (0.2-1.0) 04/23/21 02:36 AST 87 U/L (15-37) H 04/23/21 02:36 ALT 69 U/L (12-78) 04/23/21 02:36 Alkaline Phosphatase 92 U/L (45-117) 04/23/21 02:36 Troponin I 0.06 ng/mL (0.0-0.045) H 04/23/21 11:38 Home Medications: Aspirin 81 mg PO DAILY #30 tab.chew 03/18/21 Hydralazine HCl 25 mg PO TID #90 03/18/21 Isosorbide Mononitrate [Ismo] 20 mg PO BID #60 03/18/21 Metoprolol Tartrate [Lopressor*] 50 mg PO BID #60 tab 03/18/21 Albuterol Neb [Proventil 0.083% Neb Soln] 2.5 mg NEB [id number] #120 amp 04/23/21 Furosemide [Lasix*] 60 mg PO DAILY #90 tab 04/23/21 Ipratropium Neb [Atrovent*] 0.5 mg NEB [id number] #120 amp 04/23/21 Mometasone/Formoterol [Dulera 200 Mcg/5 Mcg Inhaler] 2 puff IH BID #1 inhaler 04/23/21 Nebulizer [Aeroneb Go Nebulizer] 1 each QID #1 each 04/23/21 predniSONE [Prednisone*] 20 mg PO BID #10 tab 04/23/21 New Medications: Ipratropium Neb [Atrovent*] 0.5 mg NEB [id number] #120 amp Albuterol Neb [Proventil 0.083% Neb Soln] 2.5 mg NEB [id number] #120 amp Nebulizer [Aeroneb Go Nebulizer] 1 each QID #1 each Mometasone/Formoterol [Dulera 200 Mcg/5 Mcg Inhaler] 2 puff IH BID #1 inhaler Furosemide [Lasix*] 60 mg PO DAILY #90 tab predniSONE [Prednisone*] 20 mg PO BID #10 tab Diet: AHA Activity: Ad cheikh Followup: Beto Tan MD [ACTIVE - CAN ADMIT] - 1-2 Weeks NONE,NONE [Primary Care Provider] - 1 Week
[2021-04-23] MEDS ORDERED: predniSONE 20 MG TAB PO SCH (21:00)
[2021-04-24] MEDS ORDERED: ENOXAPARIN 40 MG/0.4 ML SQ SCH (09:00)
--- NOTE | 2021-04-29 11:36 | CON ---
Date of Consultation: 04/23/2021 Reason For Consultation: Admitted with shortness of breath on 04/23/2021. I saw the patient on 03/27. History Of Present Illness: Mr. Marie is a 65-year-old black male, who is known to have a history o f CHF, COPD, and hypertension. He takes isosorbide, Lasix, hydralazine, and metoprolol. Has had a h istory of pacemaker and defibrillator in the past. Has had a rotator cuff surgery in the past. He c jacqueline in with COPD exacerbation as well as congestive heart failure exacerbation. His shortness of lilo ath was aggravated by even minimal exertion. Has had a nonproductive cough. Denied any fever or chi lls. Denied any syncope. Denied any shocks from the AICD. Has already been consulted by Dr. Nancy caruso and Dr. Davis. Has had a renal ultrasound that showed medical renal disease. Most recent echo cardiogram was on March 18, 2021, showing ejection fraction of 45% to 50% with some moderate to sev ere mitral regurgitation and mild aortic regurgitation. EKG shows sinus rhythm with PACs. Past Medical History: As stated above. Medications: Stated earlier. Review of Systems: Negative. Social History: Negative. Family History: Negative. Allergies: NONE. Physical Examination: General: When he came in, his blood pressure was 175/94, sinus rhythm at 88. He was afebrile. HEENT: Negative. Neck: Supple with no bruit. Chest: Reveals some rales and wheezing on both sides. Cardiac: Revealed a regular rhythm and rate. No murmurs, gallops, or rubs. Abdomen: Benign. Extremities: Revealed no clubbing or cyanosis. Trace edema. Diagnostic Data: Showed a creatinine of 1.81. Troponin of 0.09. BNP is 9485. Impression And Plan: 1.Acute on chronic systolic congestive heart failure. 2.Acute chronic obstructive pulmonary disease exacerbation. The patient is already on albuterol, as pirin, Lasix, hydralazine, inhalers, Imdur, metoprolol, steroids. I agree with his present regimen. His troponin elevation and BNP elevation are secondary to demand ischemia. This is not an acute cor onary syndrome. He just recently had an echocardiogram and I see no reason of repeating any cardiac workup at this point. I am pretty sure Mr. Marie has had a stress test in our office in the past if not I will make sure he has one in the near future and we will see him soon. ROD/ALEX Voice ID: [id number] Report ID: [id number]
== END 2021-04-23 18:25 | disposition home or self-care (01) ==
LOC: ER 02:08 → ERHOLD 05:11 → 4TH 08:57
PROVIDERS: ADMIT Internal Medicine; ATTEND Internal Medicine
DX: J44.1 Chronic obstructive pulmonary disease with (acute) exacerbation (principal); I13.0 Hypertensive heart and chronic kidney disease with heart failure and stage 1 through stage 4 chronic kidney disease, or unspecified chronic kidney disease; N18.2 Chronic kidney disease, stage 2 (mild); I50.23 Acute on chronic systolic (congestive) heart failure; N17.9 Acute kidney failure, unspecified; I42.8 Other cardiomyopathies; E87.6 Hypokalemia; R06.03 Acute respiratory distress; F17.210 Nicotine dependence, cigarettes, uncomplicated; Z95.810 Presence of automatic (implantable) cardiac defibrillator; Z20.822 Contact with and (suspected) exposure to COVID-19
CPT/HCPCS: 93005; 87040 ×2; 85025; 80048; 36415; 83735; 84132; 85610; 84300; 80076; 83605; 85730; 81003; 82570; 84484 ×3; 82553; 82533; 84145; 82088; 83880; 83935; 84156; 71045; 76770; 94010; 94640; 96375; 96374; 99285; U0003; J1940 ×3; J1644; J2930; J2920; G0378 ×2; J7606

== ENCOUNTER 2021-05-12 06:29 | Inpatient (IN) | payer OTHER ==
--- OUTSIDE RECORDS SUMMARY | 2021-05-12 06:32 | XMS REPORT | Continuity of Care Document ---
:1955 Author Organization [facility] t Address [address] [place] [address] Dr. Trammell [address] [place] [id number] Care Team Providers Name Role Phone JIM SHEEHAN Primary Care Physician Unavailable Ogweno_B Attending Clinician Unavailable MELYSSA POPE Attending Clinician Unavailable AGUILA Attending Clinician Unavailable OgweShae Admitting Clinician Unavailable AGUILA Admitting Clinician Unavailable Payers Payer Name Policy Type Policy Number Effective Date Expiration Date S vidal [facility] [id number] 2020 (MEDICARE 00:00:00 REPLACEMENT HMO) Problems This patient has no known problems. Allergies, Adverse Reactions, Alerts This patient has no known allergies or adverse reactions. Medications This patient has no known medications. Procedures This patient has no known procedures. Encounters Start End Encounter Admission Attending Care Care Encounter Source Date/Time Date/Time Type Type Clinicians Facility Department ID 2020-11-01 2020-11-01 Outpatient Ogweno_B [facility] [address]- 2020 [facility] 10:25:00 10:25:00 0610 [facility] Results Test Description Test Time Test Comments Results Result Comments Source SARS-COV2/RT-PCR ([facility]) 2019-09-26 14:16:00 Test Item Value Reference Range Interpretation Comme nts SARS-COV2/RT-PCR (test code = 5040779) Not Detected Not Detected, N egative SARS-COV-2 PERFORMING LAB (test code = [facility] 0713055) Negative results do not preclude SARS-CoV-2 infection [...] of the Act.Fact Sheet for Healthcare Pro viders:https://www.[employer]/Documents/Xpert%20Xpress%20SARS%20CoV-2/Fact%20Sh eets/302-3802%58JVSE-XNK-2%20HEALTHCARE%20PROVIDERS%20FACT%20SHEET.pdfFact Sheet for Healthcare Patients:https://www.[employer]/Documents/Xpert%20Xpress%20SARS%20CoV-2/Fact%20Sheets/3023801%20SARS-COV -2%20PATIENT%20FACT%20SHEET.pdfPerforming Laboratory:[facility], [place] [address]Qfagzefibqecz Metabolic [id number] 21:16:53 Test Item Value Reference Range Interpretation [...] A/G 1.2 ratio N Ratio) Comprehensive Metabolic [id number] 21:16:53 Test Item Value Reference Range Interpretation [...] ag e have not been validated by [facility] MDRD study and should be interpreted [...] ag e have not been validated by [facility] MDRD study and should be interpreted wit h caution. eGFR R esult Interpretation: eGFR > or = 60 is in the Normal RangeeGF R < 60 may mean kid katherine diseaseeGFR < 1 5 may mean kidney failure Rang es recommended by the National Kidney Foundation, http://nkdep.ni h.gov Comprehensive Metabolic [id number] 21:16:53 Test Item Value Reference Range Interpretation [...] ag e have not been validated by [facility] MDRD study and should be interpreted [...] account, if the information is provided. If e race is not provided, and t he patient is -Kiah n, multiply by 1.2 12. If sex is not provided, and t he patient is fema le, multiply by 0.7 42. Results for pat ients <18 years of ag e have not been validated by [facility] MDRD study and should be interpreted wit h caution. eGFR R esult Interpretation: eGFR > or = 60 is in the Normal RangeeGF R < 60 may mean kid katherine diseaseeGFR < 1 5 may mean kidney failure Rang es recommended by the National Kidney Foundation, http://nkdep.ni h.gov Comprehensive Metabolic [id number] 23:03:04 Test Item Value Reference Range Interpretation [...] A/G 1.5 ratio N Ratio) Comprehensive Metabolic [id number] 23:03:04 Test Item Value Reference Range Interpretation [...] the National Kidney Foundation, http://nkdep.ni h.gov Lipid [id number] 23:03:04 Test Item Value Reference Range Interpretation Comments Cholesterol Total 193 mg/dL 0-200 RISK OF HE ART (test code = DISEASEPublishe d by Cholesterol Total) [place] [employer] Erika lyte Optimal Borderl ine [...] LDL/HDL Ratio=L DL Calc/HDL Chol Thyroid Stimulating [id number] 23:03:04 Test Item Value Reference Range Interpretation Comments TSH (test code = TSH) 0.848 mIU/mL 0.270-4.200 Pro B Natriuretic [id number] 23:03:04 Test Item Value Reference Range Interpretation Comments NT-proBNP (test code = NT-proBNP) 1591 pg/mL 0-124 H Comprehensive Metabolic [id number] 23:03:04 Test Item Value Reference Range Interpretation [...] ag e have not been validated by [facility] MDRD study and should be interpreted [...] ag e have not been validated by [facility] MDRD study and should be interpreted wit h caution. eGFR R esult Interpretation: eGFR > or = 60 is in the Normal RangeeGF R < 60 may mean kid katherine diseaseeGFR < 1 5 may mean kidney failure Rang es recommended by the National Kidney Foundation, http://nkdep.ni h.gov Erythrocyte Sedimentation Rate [id number] 22:26:53 Test Item Value Reference Range Interpretation Comments ESR STAT (test code = ESR STAT) 11 mm/hr 0-9 H Complete Blood Count with [id number] 22:14:43 Test Item Value Reference Range Interpretation [...] code = IPF) 0 % N Automated [id number] 22:14:43 Test Item Value Reference Range Interpretation Comments Neutro Auto (test code = Neutro 41.7 % 36.0-70.0 Auto) Lymph Auto (test code = Lymph Auto) 43.9 % 12.0-44.0 [place] Auto (test code = [place] Auto) 6.5 % 0.0-11.0 Eos, Auto (test code = Eos, Auto) 6.6 % 0.0-7.0 Basophil Auto (test code = Basophil 1.0 % 0.0-2.0 Auto) Neutro Absolute (test code = Neutro 2.9 x10 1.6-7.4 Absolute) Lymph Absolute (test code = Lymph 3.04 x10 .50-4.60 Absolute) [place] Absolute (test code = [place] .45 x10 .00-1.20 Absolute) Eos Absolute (test code = Eos 0.46 x10 0.00-0.74 Absolute) Baso Absolute (test code = Baso 0.07 x10 0.00-0.21 Absolute) IG [id number] 22:14:43 Test Item Value Reference Range Interpretation Comments IG (test code = IG) 0.3 % 0.0-5.0 IG Abs (test code = IG Abs) 0 x10 N RAD, CHEST, 2 [id number] 13:44:00Reason for exam:->SmokerFINAL REPORT TECHNIQUE: 2 views of the chest. COMPARISON: None FINDINGS: Thecardiac silhouette is within normal limits. Thoracic aorta is ectatic. Lungs are clear. No acute skeletal abnormality. Left-sided pacing device noted. IMPRESSION: No acute cardiopulmonary disease. Signed: Kyle Rogers MDReport Verified Date/Time: 09/08/2017 13:44:07 Reading Location: [facility] Radiology Reading Room CBC W/PLT COUNT & AUTO [id number] 12:29:00 Test Item Value Reference Range Interpretation [...] (test code Normal = 762) COMPREHENSIVE METABOLIC [id number] 12:29:00 Test Item Value Reference Range Interpretation [...] HESR) 12 mm/Hr 0-9 H CBC with [id number] 04:12:00 Test Item Value Reference Range Interpretation [...] code = 2.8 K/cumm 0.5-4.6 N ALYMPH) [place] Abs (test code = 0.3 K/cumm 0.0-1.2 N AMONO) Eos Abs (test code = 0.10 K/cumm 0.00-0.74 N AEOS) RBC Morphology (test Not Indicated code = RBCMRPH) Platelet Est (test code Adequate Platelets on = PLTEST) Smear Lipid [id number] 03:06:00 Test Item Value Reference Range Interpretation Comments Cholesterol (test 200 mg/dL 0-200 N code = CHOL) Triglycerides (test 104 mg/dL 9-200 N code = TRIG) HDL (test code = 66 mg/dL 40-60 H HDL) Chol/HDL (test code 3.0 Ratio 0.0-5.0 N = CHOLPHDL) LDL, Calculated 113 0-130 N (NOTE)RISK O F HEART (test code = LDLC) DISEASEPu blished by [place] Heart AssociationAnal yte Optim al Boderline Increased RiskC HOL <200 200-239 >240TRI G <150 150-199 >200HDL Male: >60 <40HDL Female: >60 <50 LDL < 100 130-15 9 >160 LDL NEAR OPTIMAL IS 100- 129 VLDL (test code = 21 mg/dL 5-40 N VLDL) LDL/HDL (test code = 2 LDLPHDL) Comprehensive Metabolic [id number] 03:06:00 Test Item Value Reference Range Interpretation [...] code = TSH) 1.40 mIU/mL 0.270-4.200 N [id number] 02:43:00 Test Item Value Reference Range Interpretation Comments NT ProBnp (test code = PBNP) 6296 pg/mL 0-124 H
[2021-05-12 06:59] LABS: Arterial Blood Carboxyhemoglob 2.9 % (0-1.5); Blood Gas Oxyhemoglobin 92.4 % (94-97); Blood O2 Saturation 96.1 % (92-98.5)
[2021-05-12 07:21] LABS: Absolute Lymphocytes (CBC) 1.5 K/uL (0.7-4.9); Basophils % 0.8 % (0-1.3); Hematocrit 40.2 % (39.6-49.0); Lymphocytes % 19.1 % (15.3-44.8); MPV 7.5 fL (7.6-11.3); RBC Red Blood Cell Count 4.21 M/uL (4.33-5.43)
[2021-05-12 07:41] LABS: Protime INR 1.04
[2021-05-12 08:13] LABS: Bilirubin Direct 0.2 mg/dL (0-0.2); Bilirubin Total 0.5 mg/dL (0.2-1.0); Protein, Total 7.3 g/dL (6.4-8.2); Troponin (Emerg Dept Use Only) 0.06 ng/mL (0.0-0.045)
--- NOTE | 2021-05-12 08:36 | RAD REPORT ---
EXAM DESCRIPTION: Tanner Single View05/12/2021 7:26 am CLINICAL HISTORY: Shortness of breath COMPARISON: April 25, 2021 FINDINGS: Moderate to marked bilateral pulmonary opacities. Cardiomegaly. Pacemaker leads in place IMPRESSION: Moderate to marked bilateral pulmonary opacities probably pulmonary edema
[2021-05-12 08:42] LABS: SARS-COV-2 RT PCR NEGATIVE (NEGATIVE)
[2021-05-12 08:42] LABS: Magnesium 2.7 mg/dL (1.8-2.4); Potassium 3.9 mmol/L (3.5-5.1)
--- NOTE | 2021-05-12 09:03 | ER ---
Nurse's Notes [facility] Name: Edouard Marie Age: 66 yrs Sex: Male : 1955 Arrival Date: 05/12/2021 Time: 06:32 Bed 7 Private MD: Diagnosis: Unspecified combined systolic (congestive) and diastolic (congestive) heart failure Presentation: 05/12 06:46 Chief complaint: Spouse and/or significant other states: pt has COPD and CHF last night bb started having difficulty breathing she gave him neb tx but it didn't seem to help and he is getting worse. Coronavirus screen: difficulty breathing, Client presents with at least one sign or symptom that may indicate coronavirus-19. Standard/surgical mask placed on the client. Ebola Screen: No symptoms or risks identified at this time. Initial Sepsis Screen: Does the patient meet any 2 criteria? RR > 20 per min. HR > 90 bpm. Does the patient have a suspected source of infection? No. Patient's initial sepsis screen is negative. Risk Assessment: Do you want to hurt yourself or someone else? Patient reports no desire to harm self or others. Onset of symptoms was May 11, 2021. 06:46 Method Of Arrival: Wheelchair bb 06:46 Acuity: ERUM 2 bb Historical: - Allergies: 06:48 No Known Allergies; bb - Home Meds: 06:48 aspirin 81 mg Oral TbEC 1 tab once daily [Active]; metoprolol tartrate 50 mg Oral tab 1 bb tab 2 times per day [Active]; furosemide 20 mg Oral tab 1 tab once daily [Active]; Entresto 24-26 mg oral tab 1 tab 2 times per day [Active]; neb treatment [Active]; - PMHx: 06:48 CHF; COPD; Hypertension; bb - PSHx: 06:48 L Rotator Cuff Sx; Pacemaker/Defib; bb - Immunization history:: Adult Immunizations up to date, Client reports receiving the 2nd dose of the Covid vaccine, Pfizer. - Social history:: Smoking status: Patient reports the use of cigarette tobacco products. Screenin:55 Abuse screen: Denies threats or abuse. Denies injuries from another. Nutritional lp1 screening: No deficits noted. Tuberculosis screening: No symptoms or risk factors identified. 08:15 Fall Risk IV access (20 points). Total Evangelista Fall Scale indicates No Risk (0-24 pts). jl7 Assessment: 06:50 General: Appears distressed, Behavior is anxious. Neuro: Level of Consciousness is lp1 awake, alert, obeys commands. Cardiovascular: Patient's skin is warm and dry. Respiratory: Airway is patent Trachea midline Respiratory effort is labored, with retractions, using tripod position, Respiratory pattern is tachypnea Breath sounds are diminished in left posterior lower lobe and right posterior lower lobe the patient has severe shortness of breath. Derm: Skin is intact, Skin is dry, Skin is normal. 08:00 Reassessment: Patient appears in no apparent distress at this time. No changes from jl7 previously documented assessment. Patient and/or family updated on plan of care and expected duration. Pain level reassessed. Patient is alert, oriented x 3, equal unlabored respirations, skin warm/dry/pink. 08:00 Pain: Denies pain. Cardiovascular: Rhythm is irregular. jl7 09:00 Reassessment: Patient appears in no apparent distress at this time. No changes from jl7 previously documented assessment. Patient and/or family updated on plan of care and expected duration. Pain level reassessed. Patient is alert, oriented x 3, equal unlabored respirations, skin warm/dry/pink. 09:55 Reassessment: Dr. Owens at bedside assessing pt. jl7 10:37 Reassessment: Pt cleaned of incontinence, floor mopped, bedding and gown changed. jl7 Vital Signs: 06:46 BP 185 / 102; Pulse 102; Resp 30 S; Temp 96.8(TE); Pulse Ox 75% on R/A; Weight 77.11 kg bb (R); Height 6 ft. 2 in. (187.96 cm) (R); 06:56 BP 176 / 134; Pulse 77; Resp 29; Pulse Ox 100% on 60% BiPAP; lp1 08:15 BP 174 / 107; Pulse 73; Resp 20; Pulse Ox 100% ; jl7 09:45 BP 172 / 112; Pulse 69; Resp 21; Pulse Ox 100% ; jl7 10:31 BP 171 / 109; Pulse 72; Resp 19; Pulse Ox 100% on BiPAP; jl7 11:30 BP 202 / 118; Pulse 77; Resp 20; Pulse Ox 100% ; jl7 12:30 BP 170 / 112; Pulse 74; Resp 19; Pulse Ox 100% ; jl7 13:15 BP 170 / 116; Pulse 76; Resp 21; Pulse Ox 100% ; jl7 14:00 BP 163 / 108; Pulse 79; Resp 15; Pulse Ox 99% ; jl7 14:45 BP 165 / 87; Pulse 74; Resp 17; Pulse Ox 100% ; jl7 06:46 Body Mass Index 21.83 (77.11 kg, 187.96 cm) ED Course: 06:32 Patient arrived in ED. wm 06:36 Garima Barrientos FNP-C is PHCP. kb 06:36 Terell Barnes MD is Attending Physician. kb 06:48 Triage completed. bb 06:48 Arm band placed on Patient placed in an exam room, on a stretcher, on oxygen, on bb surveillance system monitor, on pulse oximetry, RT paged for Bipap. 06:58 Patient has correct armband on for positive identification. Placed in gown. Bed in low lp1 position. athletic monitor on. Pulse ox on. NIBP on. 07:07 Attending Physician role handed off by Terell Barnes MD rn 07:07 Benny Mendoza MD is Attending Physician. rn 07:10 Initial lab(s) drawn, by ED staff, sent to lab. jl7 07:11 Inserted saline lock: 20 gauge in right antecubital area, using aseptic technique. oe Blood collected. 07:13 Fiona Loera, PAULIE is Primary Nurse. jl7 07:26 XRAY Chest (1 view) In Process Unspecified. EDMS 07:37 EKG done, by ED staff, reviewed by Benny Mendoza MD. jl7 08:15 No provider procedures requiring assistance completed. Patient admitted, IV remains in jl7 place. intact, No redness/swelling at site. 09:03 Mauricio Owens is Hospitalizing Provider. kb Administered Medications: 07:36 Drug: Lasix (furosemide) 40 mg Route: IVP; Site: right antecubital; jl7 10:36 Follow up: Response: No adverse reaction jl7 Outcome: 09:03 Decision to Hospitalize by Provider. kb 14:54 Admitted to Tele accompanied by tech, via wheelchair, room 208, with chart, Report jl7 called to [place] 14:54 Condition: stable 14:54 Discharge instructions given to patient, Instructed on the need for admit, Demonstrated understanding of instructions. 14:55 Patient left the ED. jl7 Signatures: Dispatcher [employer] EDMS Garima Barrientos, ELECTION CLERK-C ELECTION CLERK-Carolyn Mahmood, RN RN Benny Figueroa MD MD rn Pena, Laura, RN RN lp1 Garland Ricci Jahala, RN RN jl7 Rhonda Walker Corrections: (The following items were deleted from the chart) 06:58 06:50 Respiratory: Airway is patent Trachea midline Respiratory effort is labored, with lp1 retractions, using tripod position, Respiratory pattern is tachypnea Breath sounds are diminished in left posterior lower lobe and right posterior lower lobe lp1
--- NOTE | 2021-05-12 09:03 | EDPHYS ---
Physician Documentation [facility] Name: Edouard Marie Age: 66 yrs Sex: Male : 1955 Arrival Date: 05/12/2021 Time: 06:32 Bed 7 Private MD: ED Physician Benny Mendoza HPI: 05/12 06:48 This 66 yrs old Black Male presents to ER via Wheelchair with complaints of Breathing kb Difficulty. 06:48 The patient has shortness of breath at rest. Onset: The symptoms/episode began/occurred kb yesterday. Duration: The symptoms are continuous, and are steadily getting worse. The patient's shortness of breath is aggravated by exertion, light activity. Associated signs and symptoms: Pertinent positives: non-productive cough, Pertinent negatives: fever. Severity of symptoms: At their worst the symptoms were moderate in the emergency department the symptoms are unchanged. The patient has experienced similar episodes in the past, multiple times. The patient has not recently seen a physician. Family reports pt started having difficulty breathing yesterday and it has gotten worse through the night. Historical: - Allergies: 06:48 No Known Allergies; bb - Home Meds: 06:48 aspirin 81 mg Oral TbEC 1 tab once daily [Active]; metoprolol tartrate 50 mg Oral tab 1 bb tab 2 times per day [Active]; furosemide 20 mg Oral tab 1 tab once daily [Active]; Entresto 24-26 mg oral tab 1 tab 2 times per day [Active]; neb treatment [Active]; - PMHx: 06:48 CHF; COPD; Hypertension; bb - PSHx: 06:48 L Rotator Cuff Sx; Pacemaker/Defib; bb - Immunization history:: Adult Immunizations up to date, Client reports receiving the 2nd dose of the Covid vaccine, [place]. - Social history:: Smoking status: Patient reports the use of cigarette tobacco products. ROS: 06:44 Constitutional: Negative for fever, chills, and weight loss. kb 06:44 Respiratory: Positive for cough, dyspnea on exertion, shortness of breath, Negative for hemoptysis, orthopnea, pleurisy, sputum production, wheezing. 06:44 All other systems are negative. Exam: 06:49 Constitutional: This is a well developed, well nourished patient who is awake, alert, kb and in no acute distress. Head/Face: Normocephalic, atraumatic. ENT: Moist Mucous membranes Cardiovascular: Regular rate and rhythm with a normal S1 and S2. No gallops, murmurs, or rubs. No pulse deficits. Abdomen/GI: Soft, non-tender. No distention Skin: Warm, dry with normal turgor. Normal color. MS/ Extremity: Pulses equal, no cyanosis. Neurovascular intact. Full, normal range of motion. Neuro: Awake and alert, GCS 15, oriented to person, place, time, and situation. Moves all extremities. Normal gait. 06:49 Respiratory: moderate respiratory distress is noted, Respirations: labored breathing, tachypnea, Breath sounds: decreased breath sounds, that are moderate, are located in both bases. 06:53 Cardiovascular: Edema: pedal edema, 1+. kb Vital Signs: 06:46 BP 185 / 102; Pulse 102; Resp 30 S; Temp 96.8(TE); Pulse Ox 75% on R/A; Weight 77.11 kg bb (R); Height 6 ft. 2 in. (187.96 cm) (R); 06:56 BP 176 / 134; Pulse 77; Resp 29; Pulse Ox 100% on 60% BiPAP; lp1 08:15 BP 174 / 107; Pulse 73; Resp 20; Pulse Ox 100% ; jl7 09:45 BP 172 / 112; Pulse 69; Resp 21; Pulse Ox 100% ; jl7 10:31 BP 171 / 109; Pulse 72; Resp 19; Pulse Ox 100% on BiPAP; jl7 11:30 BP 202 / 118; Pulse 77; Resp 20; Pulse Ox 100% ; jl7 12:30 BP 170 / 112; Pulse 74; Resp 19; Pulse Ox 100% ; jl7 13:15 BP 170 / 116; Pulse 76; Resp 21; Pulse Ox 100% ; jl7 14:00 BP 163 / 108; Pulse 79; Resp 15; Pulse Ox 99% ; jl7 14:45 BP 165 / 87; Pulse 74; Resp 17; Pulse Ox 100% ; jl7 06:46 Body Mass Index 21.83 (77.11 kg, 187.96 cm) MDM: 06:40 Patient medically screened. kb 06:43 Data reviewed: vital signs, nurses notes. Data interpreted: Pulse oximetry: on room air kb is 75 %. Interpretation: hypoxia. Plan: O2 by Mask applied. Bipap ordered upon initial exam. 09:01 Counseling: I had a detailed discussion with the patient and/or guardian regarding: the kb historical points, exam findings, and any diagnostic results supporting the discharge/admit diagnosis, lab results, radiology results, the need for further work-up and treatment in the hospital. 05/12 06:40 Order name: Basic Metabolic Panel; Complete Time: 09:00 kb 05/12 06:40 Order name: CBC with Diff; Complete Time: 07:56 kb 05/12 06:40 Order name: LFT's; Complete Time: 09:00 kb 05/12 06:40 Order name: Magnesium; Complete Time: 09:00 kb 05/12 06:40 Order name: NT PRO-BNP; Complete Time: 09:00 kb 05/12 06:40 Order name: PT-INR; Complete Time: 07:56 kb 05/12 06:40 Order name: Troponin (emerg Dept Use Only); Complete Time: 09:00 kb 05/12 06:40 Order name: XRAY Chest (1 view); Complete Time: 09:00 kb 05/12 06:40 Order name: EKG; Complete Time: 06:41 kb 05/12 06:40 Order name: COVID-19/FLU A+B (Document "Date of Onset" if Symptomatic); Complete Time: kb 09:05/12 06:40 Order name: BIPAP kb 05/12 06:58 Order name: ABG Arterial Blood Gas; Complete Time: 07:08 EDMS 05/12 13:09 Order name: Troponin I; Complete Time: 13:10 EDMS 05/12 06:40 Order name: Cardiac monitoring; Complete Time: 06:55 kb 05/12 06:40 Order name: EKG - Nurse/Tech; Complete Time: 07:36 kb 05/12 06:40 Order name: IV Saline Lock; Complete Time: 07:11 kb 05/12 06:40 Order name: Labs collected and sent; Complete Time: 07:13 kb 05/12 06:40 Order name: O2 Per Protocol; Complete Time: 06:55 kb 05/12 06:40 Order name: O2 Sat Monitoring; Complete Time: 06:55 kb Administered Medications: 07:36 Drug: Lasix (furosemide) 40 mg Route: IVP; Site: right antecubital; jl7 10:36 Follow up: Response: No adverse reaction jl7 Disposition: 15:14 Co-signature as Attending Physician, Benny Mendoza MD I agree with the assessment and rn plan of care. Attestation: The patient's history, exam findings, diagnostics, and a summary of any interventions or procedures was reviewed in detail with Garima JANE. Disposition Summary: 05/12/21 09:03 Hospitalization Ordered Hospitalization Status: Inpatient Admission kb Provider: Mauricio Owens Location: Telemetry/MedSurg (Inpatient) kb Condition: Fair kb Problem: new kb Symptoms: are unchanged kb Bed/Room Type: Standard Room Assignment: 208(05/12/21 14:24) ss Diagnosis - Unspecified combined systolic (congestive) and diastolic (congestive) heart failure kb Forms: - Medication Reconciliation Form kb - SBAR form kb Signatures: Dispatcher [employer] Garima Manjarrez FNP-C FNP-Ckb Ballard, Brenda, RN RN Benny Mendoza MD MD rn Smirch, Shelby, RN RN ss Fiona Loera RN RN jl7 Corrections: (The following items were deleted from the chart) 14:24 09:03 kb ss
--- NOTE | 2021-05-12 11:01 | P.HP ---
Certification for Inpatient Patient admitted to: Inpatient With expected LOS: >2 Midnights Practitioner: I am a practitioner with admitting privileges, knowledge of patient current condition, hospital course, and medical plan of care. Services: Services provided to patient in accordance with Admission requirements found in Title 42 Section 412.3 of the Code of Federal Regulations Patient History Date of Service: 05/12/21 Reason for admission: Shortness of breath History of Present Illness: 66-year-old -[place] gentleman with a history of chronic systolic heart failure, COPD developed respiratory distress last night which did not respond to his home nebulizers. Patient was brought to the emergency department for evaluation. Per report his oxygen saturation was 75% on room air. Checks x-ray demonstrated pulmonary edema. Patient was placed on BiPAP. He could not provide enough history due to respiratory distress on the BiPAP. Patient given a dose of IV Lasix. EKG shows no ischemic changes. BNP markedly elevated, troponin is mildly elevated. Patient is admitted for further management. Allergies No Known Allergies Allergy (Verified 04/23/21 05:33) Home Medications: Aspirin 81 mg PO DAILY #30 tab.chew 03/18/21 Hydralazine HCl 25 mg PO TID #90 03/18/21 Isosorbide Mononitrate [Ismo] 20 mg PO BID #60 03/18/21 Metoprolol Tartrate [Lopressor*] 50 mg PO BID #60 tab 03/18/21 Albuterol Neb [Proventil 0.083% Neb Soln] 2.5 mg NEB [id number] #120 amp 04/23/21 Furosemide [Lasix*] 60 mg PO DAILY #90 tab 04/23/21 Ipratropium Neb [Atrovent*] 0.5 mg NEB [id number] #120 amp 04/23/21 Mometasone/Formoterol [Dulera 200 Mcg/5 Mcg Inhaler] 2 puff IH BID #1 inhaler 04/23/21 Nebulizer [Aeroneb Go Nebulizer] 1 each MC QID #1 each 04/23/21 predniSONE [Prednisone*] 20 mg PO BID #10 tab 04/23/21 - Past Medical/Surgical History Diabetic: No -: Hypertension-malignant -: Congestive heart failure-ejection fraction of 40% -: COPD -: Pacemaker defibrillator -: Rotator cuff repair LEFT >10yrs ago Psychosocial/ Personal History: patient lives at home with family - Family History Father -: Heart disease, Hypertension - Social History Alcohol use: No CD- Drugs: Yes Caffeine use: Yes Review of Systems Other: Unable to obtain review of systems due to respiratory distress on the BiPAP. Physical Examination - Physical Exam General: Acute distress, Other (Awake) HEENT: Other (BiPAP), Sclerae nonicteric Neck: Supple, JVD distended Respiratory: Normal air movement, Crackles/rales (Bilateral) Cardiovascular: Normal S1 S2, Edema (Bilateral lower extremities), Irregular heart rate/rhythm Capillary refill: <2 Seconds Gastrointestinal: Normal bowel sounds, Soft and benign, Non-distended, No tenderness Musculoskeletal: No tenderness, Swelling (Bilateral legs) Integumentary: Other (Bilateral lower extremity venous stasis dermatitis and xerosis) Neurological: Normal speech, Normal strength at 5/5 x4 extr, Cranial nerves 3-12 intact Lymphatics: No axilla or inguinal lymphadenopathy - Studies Laboratory Data (last 24 hrs) 05/12/21 07:02: PT 12.0, INR 1.04 05/12/21 07:02: WBC 7.90, Hgb 13.1 L, Hct 40.2, Plt Count 229 05/12/21 07:02: Sodium 146 H, Potassium 3.9, BUN 35 H, Creatinine 2.03 H, Glucose 113 H, Magnesium 2.7 H, Total Bilirubin 0.5, AST 43 H, ALT 41, Alkaline Phosphatase 95 Assessment and Plan - Problems (Diagnosis) (1) Acute on chronic systolic heart failure Current Visit: No Status: Acute (2) Acute respiratory distress Onset Date: 01/27/17 Current Visit: No Status: Acute (3) Acute respiratory failure with hypoxia Current Visit: No Status: Acute (4) Elevated troponin level Onset Date: 01/27/17 Current Visit: No Status: Acute (5) Cardiomyopathy, nonischemic Current Visit: No Status: Chronic (6) Malignant hypertension Current Visit: No Status: Acute - Plan Admit to the ICU. Continue BiPAP and wean off as tolerated. Start IV Lasix 80 mg twice daily Monitor renal function with diuresis. Monitor intake and output. Aggressive blood pressure control. Given a dose of IV hydralazine. And use hydralazine as needed for BP spikes. Will consider nitroglycerin drip if blood pressure is persistently elevated. Continue home antihypertensives. Bronchodilators as needed for COPD Mild troponin elevation likely secondary to demand leak. Continue to trend troponin - Advance Directives Does patient have a Living Will: No Does patient have a Durable POA for Healthcare: No
[2021-05-12] MEDS ORDERED: ONDANSETRON 4 MG/2 ML VIAL IV PRN (11:58)
[2021-05-12] MEDS ORDERED: ACETAMINOPHEN 500 MG TAB PO PRN (11:58)
[2021-05-12] MEDS ORDERED: ALBUTEROL 2.5 MG/3 ML NEB SOL NEB PRN (11:58)
[2021-05-12] MEDS: HYDRALAZINE HCL 20 MG/ML VIAL IV PRN ×2 (12:00→18:10)
[2021-05-12 12:15] VITALS: BMI 21.8
[2021-05-12] MEDS ORDERED: IPRATROPIUM BROM 0.5MG/2.5ML ONE (13:16)
[2021-05-12] MEDS: IPRATROPIUM BROM 0.5MG/2.5ML NEB SCH ×2 (13:20→19:50)
[2021-05-12] MEDS: FUROSEMIDE 40 MG/4 ML VIAL IV SCH (17:06)
[2021-05-12] MEDS: HEPARIN 5000 UNIT/ML 1 ML VIAL SQ SCH (17:07)
[2021-05-13] MEDS: IPRATROPIUM BROM 0.5MG/2.5ML NEB SCH ×4 (02:10→19:39)
[2021-05-13 05:38] LABS: Absolute Lymphocytes (CBC) 2.1 K/uL (0.7-4.9); Basophils % 1.3 % (0-1.3); Hematocrit 33.9 % (39.6-49.0); Lymphocytes % 30.7 % (15.3-44.8); MPV 7.4 fL (7.6-11.3); RBC Red Blood Cell Count 3.58 M/uL (4.33-5.43)
[2021-05-13 06:05] LABS: Bilirubin Total 0.6 mg/dL (0.2-1.0); Potassium 3.1 mmol/L (3.5-5.1)
[2021-05-13 06:06] LABS: Albumin 2.1 g/dL (3.4-5.0); Magnesium 2.4 mg/dL (1.8-2.4); Phosphorus 1.9 mg/dL (2.5-4.9); Protein, Total 5.6 g/dL (6.4-8.2); Thyroid Stimulating Hormone 0.611 uIU/mL (0.360-3.740)
[2021-05-13] MEDS: POTASS/SODIUM PHOSPHATE 1 PKT POWD.PACK PO SCH ×3 (06:24→09:47)
--- NOTE | 2021-05-13 08:10 | EKG ---
Test Date: 2021-05-12 Test Time: 07:29:44 Chicle Grinder Feeder: [place] MEASUREMENT RESULTS: Intervals: Rate: 73 WI: 202 QRSD: 114 QT: 436 QTc: 480 [place]: P: 102 WI: 202 QRS: 24 T: 109 INTERPRETIVE STATEMENTS: Sinus rhythm with premature supraventricular complexes with occasional premature ventricular complexes Left ventricular hypertrophy with repolarization abnormality Prolonged QT Abnormal ECG Compared to ECG 04/23/2021 02:29:34 Atrial premature complex(es) now present Prolonged QT interval now present Sinus arrhythmia no longer present Electronically Signed On 05-13-21 08:09:50 ASSISTANT SUPERINTENDENT by Jordan Banks
[2021-05-13] MEDS: FUROSEMIDE 40 MG/4 ML VIAL IV SCH ×2 (08:48→16:40)
[2021-05-13] MEDS: HEPARIN 5000 UNIT/ML 1 ML VIAL SQ SCH ×4 (08:49→23:54)
[2021-05-13] MEDS: HYDRALAZINE HCL 20 MG/ML VIAL IV PRN (08:49)
[2021-05-13] MEDS ORDERED: ASPIRIN EC 81 MG TAB PO SCH (09:00)
[2021-05-13] MEDS ORDERED: POTASSIUM CL SA 10 MEQ TAB PO ONE ×3 (09:00→20:07)
--- NOTE | 2021-05-13 13:07 | P.PN ---
Subjective Date of Service: 05/13/21 Chief Complaint: Shortness of breath Patient states he feels much better today. He has been weaned off BiPAP and tolerating oxygen by nasal cannula. Blood pressure remain elevated. Physical Examination - Vital Signs Temperature: 97.7 F Blood Pressure: 182/96 Pulse: 69 Respirations: 24 Pulse Ox (%): 100 - Physical Exam General: Alert, In no apparent distress, Oriented x3 HEENT: Mucous membr. moist/pink Neck: Supple, JVD not distended Respiratory: Normal air movement, Crackles/rales (Bibasilar crackles) Cardiovascular: Normal pulses, Regular rate/rhythm, Normal S1 S2, Edema (Bilateral legs.) Gastrointestinal: Normal bowel sounds, Soft and benign, Non-distended, No tenderness Musculoskeletal: No tenderness Integumentary: No rashes, No cyanosis Neurological: Normal speech, Normal strength at 5/5 x4 extr Assessment And Plan - Current Problems (Diagnosis) (1) Acute on chronic systolic heart failure Current Visit: No Status: Acute (2) Acute respiratory distress Onset Date: 01/27/17 Current Visit: No Status: Acute (3) Acute respiratory failure with hypoxia Current Visit: No Status: Acute (4) Elevated troponin level Onset Date: 01/27/17 Current Visit: No Status: Acute (5) Cardiomyopathy, nonischemic Current Visit: No Status: Chronic (6) Malignant hypertension Current Visit: No Status: Acute - Plan Troponin trended flat-no ACS. Serum creatinine trended down with diuresis. Continue IV Lasix 80 mg twice daily. Monitor renal function with diuresis. Monitor intake and output. Aggressive blood pressure control. Continue home antihypertensives. Hydralazine IV as needed for BP spikes. Bronchodilators as needed for COPD.
[2021-05-13] MEDS: SACUBITRIL/VALSARTAN 24/26 MG TAB PO SCH ×2 (13:45→20:33)
[2021-05-13] MEDS: METOPROLOL TAR 50 MG TAB PO SCH ×2 (13:46→20:33)
[2021-05-14] MEDS: IPRATROPIUM BROM 0.5MG/2.5ML NEB SCH (01:07)
[2021-05-14 06:26] LABS: Potassium 3.5 mmol/L (3.5-5.1)
[2021-05-14] MEDS ORDERED: POTASSIUM CL SA 10 MEQ TAB PO ONE (06:29)
[2021-05-14] MEDS: POTASS/SODIUM PHOSPHATE 1 PKT POWD.PACK PO SCH ×2 (06:37→09:14)
[2021-05-14] MEDS ORDERED: ASPIRIN 81 MG CHEWABLE TABLET PO SCH (09:00)
[2021-05-14] MEDS: METOPROLOL TAR 50 MG TAB PO SCH (09:14)
[2021-05-14] MEDS: SACUBITRIL/VALSARTAN 24/26 MG TAB PO SCH (09:14)
[2021-05-14] MEDS: FUROSEMIDE 40 MG/4 ML VIAL IV SCH (09:15)
[2021-05-14] MEDS: HEPARIN 5000 UNIT/ML 1 ML VIAL SQ SCH (09:16)
[2021-05-14 09:19] VITALS: TEMP 97.5
[2021-05-14 09:29] VITALS: BP 179/67
[2021-05-14 09:35] VITALS: O2SAT 96
--- NOTE | 2021-05-14 14:06 | P.DS ---
Admission Date: 05/12/21 Discharge Date: 05/14/21 Disposition: ROUTINE DISCHARGE Discharge Condition: GOOD Reason for Admission: Shortness of breath Procedures: CXR (05/12): IMPRESSION: Moderate to marked bilateral pulmonary opacities probably pulmonary edema Problem list Acute hypoxemic respiratory failure secondary to acute on chronic systolic CHF exacerbation Mildly elevated troponin, NSTEMI, secondary to demand ischemia Nonischemic cardiomyopathy Malignant hypertension COPD Brief History of Present Illness: 66-year-old -Citizen Of [place] gentleman with a history of chronic systolic heart failure, COPD developed respiratory distress last night which did not respond to his home nebulizers. Patient was brought to the emergency department for evaluation. Per report his oxygen saturation was 75% on room air. Checks x-ray demonstrated pulmonary edema. Patient was placed on BiPAP. He could not provide enough history due to respiratory distress on the BiPAP. Patient given a dose of IV Lasix. EKG shows no ischemic changes. BNP markedly elevated, troponin is mildly elevated. Patient is admitted for further management. Hospital Course: Patient was initially treated with BiPAP and IV Lasix. He had significant improvement and was weaned off BiPAP. On day of discharge he was diuresing well with Lasix, breathing comfortably on room air, no longer had lower extremity edema. He reported feeling significantly better was requesting to be discharged home. Discharged with new prescription for Lasix 40 mg twice daily, up from 60 mg daily. Follow-up with PCP within 1 week Follow-up with cardiology in the next few weeks Vital Signs/Physical Exam: Temp Pulse Resp BP Pulse Ox 97.5 F 66 24 H 179/67 H 100 05/14/21 08:00 05/14/21 09:15 05/14/21 08:00 05/14/21 09:15 05/14/21 08:00 General: Alert, In no apparent distress, Oriented x3 HEENT: Sclerae nonicteric Respiratory: Clear to auscultation bilaterally, Normal air movement Cardiovascular: No edema, Regular rate/rhythm Gastrointestinal: Soft and benign, Non-distended, No tenderness Musculoskeletal: No erythema, No tenderness Integumentary: No rashes Neurological: Normal speech, Normal affect Laboratory Data at Discharge: WBC 6.90 K/uL (4.3-10.9) 05/13/21 05:22 Hgb 11.1 g/dL (13.6-17.9) L 05/13/21 05:22 Hct 33.9 % (39.6-49.0) L D 05/13/21 05:22 Plt Count 204 K/uL (152-406) 05/13/21 05:22 PT 12.0 SECONDS (9.5-12.5) 05/12/21 07:02 INR 1.04 05/12/21 07:02 Sodium 143 mmol/L (136-145) 05/14/21 05:16 Potassium 3.5 mmol/L (3.5-5.1) 05/14/21 05:16 BUN 19 mg/dL (7-18) H 05/14/21 05:16 Creatinine 1.38 mg/dL (0.55-1.3) H 05/14/21 05:16 Glucose 95 mg/dL (74-106) 05/14/21 05:16 Phosphorus 2.0 mg/dL (2.5-4.9) L 05/14/21 05:16 Magnesium 2.4 mg/dL (1.8-2.4) 05/13/21 05:22 Total Bilirubin 0.6 mg/dL (0.2-1.0) 05/13/21 05:22 AST 15 U/L (15-37) 05/13/21 05:22 ALT 23 U/L (12-78) 05/13/21 05:22 Alkaline Phosphatase 70 U/L (45-117) 05/13/21 05:22 Troponin I 0.08 ng/mL (0.0-0.045) H 05/12/21 16:00 Home Medications: Aspirin 81 mg PO DAILY #30 tab.chew 03/18/21 Ipratropium Neb [Atrovent*] 0.5 mg NEB [id number] #120 amp 04/23/21 Nebulizer [Aeroneb Go Nebulizer] 1 each QID #1 each 04/23/21 Sacubitril/Valsartan [Entresto 24 mg-26 mg Tablet] 1 each PO BID 05/12/21 Furosemide 40 mg PO BID 30 Days #60 tablet 05/14/21 Metoprolol Tartrate [Lopressor*] 50 mg PO BID 30 Days #60 tab 05/14/21 New Medications: Furosemide 40 mg PO BID 30 Days #60 tablet Metoprolol Tartrate [Lopressor*] 50 mg PO BID 30 Days #60 tab Physician Discharge Instructions: You were found to have acute congestive heart failure exacerbation and improved with diuresis with IV Lasix Discharged home to increase lasix to 40mg twice a day - recommend taking the 2nd dose before 3-4pm so you are not urinating all night. Diet: AHA Activity: Ad cheikh Followup: NONE,NONE [Primary Care Provider] - Time spent managing pt's care (in minutes): 45
== END 2021-05-14 10:01 | disposition home or self-care (01) | DRG 280 ==
LOC: ER 06:29 → ERHOLD 10:54 → 2ND 14:39
PROVIDERS: ADMIT Internal Medicine; ATTEND Hospitalist
PROC: 5A09357 Assistance with Respiratory Ventilation, Less than 24 Consecutive Hours, Continuous Positive Airway Pressure (ICD-10-PCS; principal; 2021-05-12)
DX: I11.0 Hypertensive heart disease with heart failure (principal); I50.23 Acute on chronic systolic (congestive) heart failure; I21.A1 Myocardial infarction type 2; J96.01 Acute respiratory failure with hypoxia; I42.8 Other cardiomyopathies; F17.210 Nicotine dependence, cigarettes, uncomplicated; J44.9 Chronic obstructive pulmonary disease, unspecified; R77.8 Other specified abnormalities of plasma proteins; Z79.82 Long term (current) use of aspirin; Z79.899 Other long term (current) drug therapy; Z95.810 Presence of automatic (implantable) cardiac defibrillator; Z79.52 Long term (current) use of systemic steroids; Z20.822 Contact with and (suspected) exposure to COVID-19
CPT/HCPCS: 0240U; 36415; 71045; 80048; 80053; 80076; 82805; 83735; 83880; 84100; 84132; 84443; 84484; 85025; 85610; 93005; 94640; 94660; 94760; 96374; 99285; J0360; J1644; J1940

== ENCOUNTER 2021-07-08 04:25 | Inpatient (IN) | payer OTHER ==
--- OUTSIDE RECORDS SUMMARY | 2021-07-08 04:28 | XMS REPORT | Continuity of Care Document ---
:1955 Author Organization [facility] t Address [address] [place] [address] Care Team Providers Name Role Phone JIM SHEEHAN Primary Care Physician Unavailable HANDY ROBERTSON Attending Clinician Unavailable Jim Attending Clinician Unavailable MELYSSA POPE Attending Clinician Unavailable AGUILA Attending Clinician Unavailable Jim Admitting Clinician Unavailable AGUILA Admitting Clinician Unavailable Payers Payer Name Policy Type Policy Number Effective Date Expiration Date S [facility] [id number] 2020 (MEDICARE 00:00:00 [facility] HMO) Problems This patient has no known problems. Allergies, Adverse Reactions, Alerts This patient has no known allergies or adverse reactions. Medications This patient has no known medications. Procedures This patient has no known procedures. Encounters Start End Encounter Admission Attending Care Care Encounter Source Date/Time Date/Time Type Type Clinicians Facility Department ID 2021-06-19 Outpatient LEONELA ROBERTSON [facility] [id number] [facility] 15[facility]13[facility]01 [facility] 2021-06-25 2021-06-25 [facility] [id number] [facility] 2021-06-25 2021-06-25 ambulatory [facility] [id number] 2021-06-19 2021-06-19 [facility] [id number] [facility] 2020-11-01 2020-11-01 Outpatient [facility] 10:25:00 10:25:00 0610 [facility] Results Test Description Test Time Test Comments Results Result Comments Source SARS-COV2/RT-PCR ([facility]) 2019-09-26 14:16:00 Test Item Value Reference Range Interpretation Comme nts SARS-COV2/RT-PCR (test code = 7291543) Not Detected Not Detected, N egative SARS-COV-2 PERFORMING LAB (test code = [facility] 0922003) Negative results do not preclude SARS-CoV-2 infection [...] of the Act.Fact Sheet for Healthcare Pro viders:https://www.[employer]/Documents/Xpert%20Xpress%20SARS%20CoV-2/Fact%20Sh eets/652-3502%77TLAH-TUS-1%20HEALTHCARE%20PROVIDERS%20FACT%20SHEET.pdfFact Sheet for Healthcare Patients:https://www.[employer]/Documents/Xpert%20Xpress%20SARS%20CoV-2/Fact%20Sheets/302-3801%20SARS-COV -2%20PATIENT%20FACT%20SHEET.pdfPerforming Laboratory:[facility], [place] [address]Oiblgarndnyen Metabolic [id number] 21:16:53 Test Item Value Reference Range Interpretation [...] A/G 1.2 ratio N Ratio) Comprehensive Metabolic [id number] 21:16:53 Test Item Value Reference Range Interpretation [...] National Kidney Foundation, http://nkdep.ni h.gov Comprehensive Metabolic [id number] 21:16:53 Test Item Value Reference Range Interpretation [...] National Kidney Foundation, http://nkdep.ni h.gov Comprehensive Metabolic [id number] 23:03:04 Test Item Value Reference Range Interpretation [...] A/G 1.5 ratio N Ratio) Comprehensive Metabolic [id number] 23:03:04 Test Item Value Reference Range Interpretation [...] the National Kidney Foundation, http://nkdep.ni h.gov Lipid [id number] 23:03:04 Test Item Value Reference Range Interpretation Comments Cholesterol Total 193 mg/dL 0-200 RISK OF HE ART (test code = DISEASEPublishe d by Cholesterol Total) [place] [employer] Erika lyte Optimal Borderl ine [...] LDL/HDL Ratio=L DL Calc/HDL Chol Thyroid Stimulating [id number] 23:03:04 Test Item Value Reference Range Interpretation Comments TSH (test code = TSH) 0.848 mIU/mL 0.270-4.200 Pro B Natriuretic [id number] 23:03:04 Test Item Value Reference Range Interpretation Comments NT-proBNP (test code = NT-proBNP) 1591 pg/mL 0-124 H Comprehensive Metabolic [id number] 23:03:04 Test Item Value Reference Range Interpretation [...] ag e have not been validated by [facility] MDRD study and should be interpreted wit h caution. eGFR R esult Interpretation: eGFR > or = 60 is in the Normal RangeeGF R < 60 may mean kid katherine diseaseeGFR < 1 5 may mean kidney failure Rang es recommended by the National Kidney Foundation, http://nkdep.ni h.gov Erythrocyte Sedimentation Rate [id number] 22:26:53 Test Item Value Reference Range Interpretation Comments ESR STAT (test code = ESR STAT) 11 mm/hr 0-9 H Complete Blood Count with [id number] 22:14:43 Test Item Value Reference Range Interpretation [...] code = IPF) 0 % N Automated [id number] 22:14:43 Test Item Value Reference Range Interpretation Comments Neutro Auto (test code = Neutro 41.7 % 36.0-70.0 Auto) Lymph Auto (test code = Lymph Auto) 43.9 % 12.0-44.0 Assumption Auto (test code = Assumption Auto) 6.5 % 0.0-11.0 Eos, Auto (test code = Eos, Auto) 6.6 % 0.0-7.0 Basophil Auto (test code = Basophil 1.0 % 0.0-2.0 Auto) Neutro Absolute (test code = Neutro 2.9 x10 1.6-7.4 Absolute) Lymph Absolute (test code = Lymph 3.04 x10 .50-4.60 Absolute) Assumption Absolute (test code = Assumption .45 x10 .00-1.20 Absolute) Eos Absolute (test code = Eos 0.46 x10 0.00-0.74 Absolute) Baso Absolute (test code = Baso 0.07 x10 0.00-0.21 Absolute) IG [id number] 22:14:43 Test Item Value Reference Range Interpretation Comments IG (test code = IG) 0.3 % 0.0-5.0 IG Abs (test code = IG Abs) 0 x10 N RAD, CHEST, 2 [id number] 13:44:00Reason for exam:->SmokerFINAL REPORT TECHNIQUE: 2 views of the chest. COMPARISON: None FINDINGS: Thecardiac silhouette is within normal limits. Thoracic aorta is ectatic. Lungs are clear. No acute skeletal abnormality. Left-sided pacing device noted. IMPRESSION: No acute cardiopulmonary disease. Signed: Joel Rogers MDReport Verified Date/Time: 09/08/2017 13:44:07 Reading Location: [facility] Radiology Reading Room CBC W/PLT COUNT & AUTO [id number] 12:29:00 Test Item Value Reference Range Interpretation [...] (test code Normal = 762) COMPREHENSIVE METABOLIC [id number] 12:29:00 Test Item Value Reference Range Interpretation [...] HESR) 12 mm/Hr 0-9 H CBC with [id number] 04:12:00 Test Item Value Reference Range Interpretation [...] code = 2.8 K/cumm 0.5-4.6 N ALYMPH) Assumption Abs (test code = 0.3 K/cumm 0.0-1.2 N AMONO) Eos Abs (test code = 0.10 K/cumm 0.00-0.74 N AEOS) RBC Morphology (test Not Indicated code = RBCMRPH) Platelet Est (test code Adequate Platelets on = PLTEST) Smear Lipid [id number] 03:06:00 Test Item Value Reference Range Interpretation Comments Cholesterol (test 200 mg/dL 0-200 N code = CHOL) Triglycerides (test 104 mg/dL 9-200 N code = TRIG) HDL (test code = 66 mg/dL 40-60 H HDL) Chol/HDL (test code 3.0 Ratio 0.0-5.0 N = CHOLPHDL) LDL, Calculated 113 0-130 N (NOTE)RISK O F HEART (test code = LDLC) DISEASEPu blished by [place] Heart AssociationAnal yte Optim al Boderline Increased RiskC HOL <200 200-239 >240TRI G <150 150-199 >200HDL Male: >60 <40HDL Female: >60 <50 LDL < 100 130-15 9 >160 LDL NEAR OPTIMAL IS 100- 129 VLDL (test code = 21 mg/dL 5-40 N VLDL) LDL/HDL (test code = 2 LDLPHDL) Comprehensive Metabolic [id number] 03:06:00 Test Item Value Reference Range Interpretation [...] by th e MDRD study and nimaul d be interpretedwith caution.eGFR Re sult Interpretation: eGFR > or = 60 is in t he Normal RangeeGF R < 60 may mean kidney diseaseeGFR < 1 5 may mean kidney failureRange s recommended by the National Kidney Foundation,http ://nkd ep.nih.gov Thyroid Stimulating Hormone (TSH)2017-02-27 02:43:00 Test Item Value Reference Range Interpretation Comments TSH (test code = TSH) 1.40 mIU/mL 0.270-4.200 N [id number] 02:43:00 Test Item Value Reference Range Interpretation Comments NT ProBnp (test code = PBNP) 6296 pg/mL 0-124 H
[2021-07-08] MEDS ORDERED: NITROGLYCERIN 0.4 MG/TAB SL ONE (05:20)
[2021-07-08 05:40] LABS: Protime INR 1.44
[2021-07-08 05:44] LABS: Absolute Lymphocytes (CBC) 1.3 K/uL (0.7-4.9); Hematocrit 32.8 % (39.6-49.0); Lymphocytes % 20.2 % (15.3-44.8); MPV 7.8 fL (7.6-11.3); RBC Red Blood Cell Count 3.55 M/uL (4.33-5.43)
[2021-07-08] MEDS ORDERED: FUROSEMIDE 40 MG/4 ML VIAL ONE (05:55)
[2021-07-08 06:06] LABS: SARS-COV-2 RT PCR NEGATIVE (NEGATIVE)
[2021-07-08 06:14] LABS: Albumin 3.3 g/dL (3.4-5.0); Bilirubin Direct 0.5 mg/dL (0-0.2); Bilirubin Total 1.4 mg/dL (0.2-1.0); Magnesium 2.2 mg/dL (1.8-2.4); Protein, Total 7.3 g/dL (6.4-8.2)
--- NOTE | 2021-07-08 06:14 | ER ---
Nurse's Notes [facility] Name: Edouard Marie Age: 66 yrs Sex: Male : 1955 Arrival Date: 07/08/2021 Time: 04:30 Bed 15 Private MD: Diagnosis: CHF Exacerbation Presentation: 07/08 04:37 Chief complaint: Patient states: increasing shortness of breath over the last 3 days. lg3 Coronavirus screen: Vaccine status: Patient reports receiving the 2nd dose of the covid vaccine. [place] X2 Client denies travel out of the [place] in the last 14 days. At this time, the client does not indicate any symptoms associated with coronavirus-19. Ebola Screen: No symptoms or risks identified at this time. Initial Sepsis Screen: Does the patient meet any 2 criteria? No. Patient's initial sepsis screen is negative. Does the patient have a suspected source of infection? No. Patient's initial sepsis screen is negative. Risk Assessment: Do you want to hurt yourself or someone else? Patient reports no desire to harm self or others. Onset of symptoms was July 05, 2021. 04:37 Method Of Arrival: Wheelchair lg3 04:37 Acuity: ERUM 3 lg3 Triage Assessment: 04:39 General: Appears in no apparent distress. uncomfortable, Behavior is calm, cooperative. lg3 Pain: Complains of pain in left low back and right low back Pain currently is 7 out of 10 on a pain scale. Pain began 2-3 days ago. EENT: No deficits noted. No signs and/or symptoms were reported regarding the EENT system. Neuro: No deficits noted. Level of Consciousness is awake, alert, obeys commands, Oriented to person, place, time, situation, Speech is normal. Cardiovascular: No deficits noted. Reports shortness of breath, Capillary refill < 3 seconds JVD is present Patient's skin is warm and dry. Respiratory: Airway is patent Trachea midline Respiratory effort is even, unlabored, Respiratory pattern is regular, symmetrical, tachypnea. GI: No deficits noted. No signs and/or symptoms were reported involving the gastrointestinal system. Abdomen is flat, non-distended. : No deficits noted. No signs and/or symptoms were reported regarding the genitourinary system. Derm: No deficits noted. No signs and/or symptoms reported regarding the dermatologic system. Skin is intact, is healthy with good turgor, Skin is dry. Musculoskeletal: No deficits noted. No signs and/or symptoms reported regarding the musculoskeletal system. Circulation, motion, and sensation intact. Range of motion: intact in all extremities. Historical: - Allergies: 05:33 No Known Allergies; lg3 - Home Meds: 04:39 aspirin 81 mg Oral TbEC 1 tab once daily [Active]; Entresto 24-26 mg Oral tab 1 tab 2 lg3 times per day [Active]; tamsulosin 0.4 mg oral cap 1 cap once daily [Active]; furosemide 20 mg Oral tab 1 tab 2 times per day [Active]; spironolactone 25 mg Oral tab 1 tab once daily [Active]; metoprolol tartrate 50 mg Oral tab 1 tab 2 times per day [Active]; finasteride 5 mg oral tab 1 tab once daily [Active]; neb treatment as needed [Active]; - PMHx: 04:39 CHF; COPD; Hypertension; lg3 - PSHx: 04:39 L Rotator Cuff Sx; Pacemaker/Defib; lg3 - Immunization history:: Adult Immunizations up to date, Client reports receiving the 2nd dose of the Covid vaccine. - Social history:: Patient uses street drugs, marijuana, Patient/guardian denies using alcohol, Smoking status: Patient/guardian denies using tobacco. Screenin:06 Abuse screen: Denies threats or abuse. Denies injuries from another. Nutritional lg3 screening: No deficits noted. Tuberculosis screening: No symptoms or risk factors identified. Fall Risk None identified. Assessment: 05:06 General: see triage assessment . lg3 06:38 Reassessment: Patient appears in no apparent distress at this time. No changes from lg3 previously documented assessment. Patient and/or family updated on plan of care and expected duration. Pain level reassessed. Patient is alert, oriented x 3, equal unlabored respirations, skin warm/dry/pink. 07:17 General: Appears in no apparent distress. uncomfortable, Behavior is calm, cooperative. vg1 Pain: Denies pain. Neuro: Level of Consciousness is awake, alert, obeys commands, Oriented to person, place, time, situation. Cardiovascular: Patient's skin is warm and dry. Respiratory: Airway is patent Respiratory effort is even, labored, Respiratory pattern is tachypnea. GI: No signs and/or symptoms were reported involving the gastrointestinal system. : No signs and/or symptoms were reported regarding the genitourinary system. EENT: No signs and/or symptoms were reported regarding the EENT system. Derm: Skin is intact, is healthy with good turgor. Musculoskeletal: Circulation, motion, and sensation intact. 08:20 Reassessment: Patient appears in no apparent distress at this time. No changes from vg1 previously documented assessment. Patient and/or family updated on plan of care and expected duration. Pain level reassessed. Patient is alert, oriented x 3, equal unlabored respirations, skin warm/dry/pink. 09:16 Reassessment: Patient appears in no apparent distress at this time. No changes from vg1 previously documented assessment. Patient and/or family updated on plan of care and expected duration. Pain level reassessed. Patient is alert, oriented x 3, equal unlabored respirations, skin warm/dry/pink. 12:25 Reassessment: attempted to call report. vg1 13:15 Reassessment: attempted to call report. vg1 14:11 Reassessment: attempted to call report. vg1 Vital Signs: 04:39 BP 182 / 108; Pulse 89; Resp 28; Temp 98.9(O); Pulse Ox 98% on 2 lpm NC; Weight 77.11 lg3 kg (R); Height 6 ft. 2 in. (187.96 cm) (R); Pain 7/10; 05:28 BP 178 / 106 (man/); Pulse 88; lg3 05:35 BP 178 / 104 (man/); Pulse 81; lg3 05:51 BP 167 / 109; Pulse 82; lg3 06:22 BP 147 / 116; Pulse 94; Resp 30 S; lg3 07:16 BP 177 / 97; Pulse 96; Resp 30; Pulse Ox 94% on 2 lpm NC; vg1 07:30 BP 166 / 116; Pulse 85; Resp 35; Pulse Ox 96% on 2 lpm NC; vg1 09:16 BP 157 / 105; Pulse 94; Resp 28; Pulse Ox 96% 3 lpm ; vg1 11:30 BP 156 / 87; Pulse 97; Resp 28; Pulse Ox 98% on 3 lpm NC; vg1 13:53 BP 152 / 91; Pulse 97; Resp 32; Pulse Ox 96% on 3 lpm NC; vg1 04:39 Body Mass Index 21.83 (77.11 kg, 187.96 cm) lg3 ED Course: 04:30 Patient arrived in ED. wm 04:34 Mary Mondragon, RN is Primary Nurse. lg3 04:39 Triage completed. lg3 04:39 Arm band placed on left wrist. lg3 05:06 Patient has correct armband on for positive identification. Placed in gown. Bed in low lg3 position. Call light in reach. Side rails up X 1. 05:08 Inserted saline lock: 20 gauge in right antecubital area, using aseptic technique. lg3 Blood collected. 05:11 Benita Melo MD is Attending Physician. sp3 05:14 COVID-19/FLU A+B (Document "Date of Onset" if Symptomatic) Sent. lg3 05:38 XRAY Chest (1 view) In Process Unspecified. EDMS 05:40 Basic Metabolic Panel Sent. lg3 05:40 CBC with Diff Sent. lg3 05:40 LFT's Sent. lg3 05:40 Magnesium Sent. lg3 05:40 NT PRO-BNP Sent. lg3 05:40 PT-INR Sent. lg3 05:40 Troponin HS Sent. lg3 06:13 Mauricio Owens is Hospitalizing Provider. sp3 14:27 No provider procedures requiring assistance completed. Patient admitted, IV remains in vg1 place. Administered Medications: 05:19 Drug: Nitrostat (nitroglycerin) 0.4 mg Route: Sublingual; lg3 05:24 Drug: Nitrostat (nitroglycerin) 0.4 mg Route: Sublingual; lg3 05:37 Drug: Nitrostat (nitroglycerin) 0.4 mg Route: Sublingual; lg3 05:39 Follow up: Response: No adverse reaction; Blood pressure is unchanged lg3 05:57 Drug: Lasix (furosemide) 40 mg Route: IVP; Site: right antecubital; lg3 06:08 Follow up: Response: No adverse reaction lg3 06:15 Drug: Nitroglycerin 0.4 mg Route: Sublingual; lg3 06:16 Follow up: Response: No adverse reaction lg3 06:22 Drug: Nitro-Bid (nitroglycerin) Ointment 2 % 1 inches Route: Transdermal; Site: lg3 anterior chest wall; 06:22 Follow up: Response: No adverse reaction lg3 Outcome: 06:14 Decision to Hospitalize by Provider. sp3 14:26 Admitted to Tele accompanied by tech, via wheelchair, room 220, with oxygen, with vg1 chart, Report called to Narendra APODACA 14:26 Condition: stable 14:26 Instructed on the need for admit. 14:44 Patient left the ED. iw Signatures: Dispatcher [employer] Karen Messer RN RN iw Mary Mondragon RN PAULIE lg3 Maddie Delaney RN RN vg1 Rhonda Walker Setul, MD MD sp3 Corrections: (The following items were deleted from the chart) 05:51 05:28 BP 178 / 96 Manual; Pulse 88bpm; lg3 lg3 05:58 04:39 Cardiovascular: No deficits noted. Reports shortness of breath, Capillary refill lg3 < 3 seconds JVD is absent Patient's skin is warm and dry. lg3
--- NOTE | 2021-07-08 06:14 | EDPHYS ---
Physician Documentation [facility] Name: Edouard Marie Age: 66 yrs Sex: Male : 1955 Arrival Date: 07/08/2021 Time: 04:30 Bed 15 Private MD: ED Physician Benita Melo HPI: 07/08 05:36 This 66 yrs old Black Male presents to ER via Wheelchair with complaints of shortness sp3 of breath. 05:36 66-year-old male with a history of CHF, COPD, hypertension presents to the ED with sp3 shortness of breath times approximately 1 day with elevated blood pressure. Patient states that one of his daughters gave him a new medication but he cannot recall what it is however it was supposed to "make him pee" but he said it has the opposite effect of decreased urine output. Patient denies headache, neck pain, chest pain, abdominal pain, nausea, vomiting, diarrhea, syncope, neuro symptoms, rash, travel history, known sick contacts, any other symptoms on ROS at this time. Patient does state that he has mild back pain on his mid back. Is classified as mild in nature he states that the main thing is the difficulty breathing.. Historical: - Allergies: 05:33 No Known Allergies; lg3 - Home Meds: 04:39 aspirin 81 mg Oral TbEC 1 tab once daily [Active]; Entresto 24-26 mg Oral tab 1 tab 2 lg3 times per day [Active]; tamsulosin 0.4 mg oral cap 1 cap once daily [Active]; furosemide 20 mg Oral tab 1 tab 2 times per day [Active]; spironolactone 25 mg Oral tab 1 tab once daily [Active]; metoprolol tartrate 50 mg Oral tab 1 tab 2 times per day [Active]; finasteride 5 mg oral tab 1 tab once daily [Active]; neb treatment as needed [Active]; - PMHx: 04:39 CHF; COPD; Hypertension; lg3 - PSHx: 04:39 L Rotator Cuff Sx; Pacemaker/Defib; lg3 - Immunization history:: Adult Immunizations up to date, Client reports receiving the 2nd dose of the Covid vaccine. - Social history:: Patient uses street drugs, marijuana, Patient/guardian denies using alcohol, Smoking status: Patient/guardian denies using tobacco. ROS: 05:38 Constitutional: Negative for fever, chills, and weight loss, Eyes: Negative for injury, sp3 pain, redness, and discharge, ENT: Negative for injury, pain, and discharge, Neck: Negative for injury, pain, and swelling, Abdomen/GI: Negative for abdominal pain, nausea, vomiting, diarrhea, and constipation, MS/Extremity: Negative for injury and deformity, Skin: Negative for injury, rash, and discoloration, Neuro: Negative for headache, weakness, numbness, tingling, and seizure, Psych: Negative for depression, anxiety, suicide ideation, homicidal ideation, and hallucinations, Allergy/Immunology: Negative for hives, rash, and allergies, Endocrine: Negative for neck swelling, polydipsia, polyuria, polyphagia, and marked weight changes. 05:38 All other systems are negative. Exam: 05:38 Constitutional: This is a well developed, well nourished patient who is awake, alert, sp3 and in no acute distress. Head/Face: Normocephalic, atraumatic. Eyes: Pupils equal round and reactive to light, extra-ocular motions intact. Lids and lashes normal. Conjunctiva and sclera are non-icteric and not injected. Cornea within normal limits. Periorbital areas with no swelling, redness, or edema. ENT: Nares patent. No nasal discharge, no septal abnormalities noted. External auditory canals are clear. Oropharynx with no redness, swelling, or masses, exudates, or evidence of obstruction, uvula midline. Mucous membranes moist. Neck: Trachea midline, no thyromegaly or masses palpated, and no cervical lymphadenopathy. Supple, full range of motion without nuchal rigidity, or vertebral point tenderness. No Meningismus. Chest/axilla: Normal chest wall appearance and motion. Nontender with no deformity. No lesions are appreciated. Abdomen/GI: Soft, non-tender, with normal bowel sounds. No distension or tympany. No guarding or rebound. No evidence of tenderness throughout. Back: No spinal tenderness. No costovertebral tenderness. Full range of motion. Skin: Warm, dry with normal turgor. Normal color with no rashes, no lesions, and no evidence of cellulitis. MS/ Extremity: Pulses equal, no cyanosis. Neurovascular intact. Full, normal range of motion. Neuro: Awake and alert, GCS 15, oriented to person, place, time, and situation. Cranial nerves II-XII grossly intact. Motor strength 5/5 in all extremities. Sensory grossly intact. Cerebellar exam normal. Normal gait. 05:38 ECG was reviewed by the Attending Physician. EKG demonstrates normal sinus rhythm at 87 bpm with normal intervals, nonspecific intraventricular delay, normal axis, J-point elevation in leads V3 V4, nonspecific ST/T changes particularly laterally in V5 V6 with flipped T waves and [address] depression. There are no reciprocal changes inferiorly. No evidence of acute ischemia at this time. Vital Signs: 04:39 BP 182 / 108; Pulse 89; Resp 28; Temp 98.9(O); Pulse Ox 98% on 2 lpm NC; Weight 77.11 lg3 kg (R); Height 6 ft. 2 in. (187.96 cm) (R); Pain 7/10; 05:28 BP 178 / 106 (man/); Pulse 88; lg3 05:35 BP 178 / 104 (man/); Pulse 81; lg3 05:51 BP 167 / 109; Pulse 82; lg3 06:22 BP 147 / 116; Pulse 94; Resp 30 S; lg3 07:16 BP 177 / 97; Pulse 96; Resp 30; Pulse Ox 94% on 2 lpm NC; vg1 07:30 BP 166 / 116; Pulse 85; Resp 35; Pulse Ox 96% on 2 lpm NC; vg1 09:16 BP 157 / 105; Pulse 94; Resp 28; Pulse Ox 96% 3 lpm ; vg1 11:30 BP 156 / 87; Pulse 97; Resp 28; Pulse Ox 98% on 3 lpm NC; vg1 13:53 BP 152 / 91; Pulse 97; Resp 32; Pulse Ox 96% on 3 lpm NC; vg1 04:39 Body Mass Index 21.83 (77.11 kg, 187.96 cm) lg3 MDM: 05:12 Patient medically screened. sp3 05:40 Data reviewed: vital signs, nurses notes. ED course: 66-year-old male with CHF versus sp3 COPD. Given blood pressure, lung exam with rales and pulmonary edema, patient likely has CHF. Will administer 0.4 mg of nitroglycerin sublingual x3 in an effort to bring his blood pressure down from the 200 systolic range it is currently in. Was labs reviewed will choose diuretic. Nebulizers and antibiotics are not currently indicated. Chest x-ray demonstrates pulmonary edema bilaterally with large cardiomegaly and pacer in place. I do not believe patient is having a STEMI or acute ACS at this time. Will admit for diuresis and cardiology consultation as well as trending troponin values.. 07/08 05:13 Order name: COVID-19/FLU A+B (Document "Date of Onset" if Symptomatic); Complete Time: lg3 06:06 07/08 05:16 Order name: Basic Metabolic Panel sp3 07/08 05:16 Order name: CBC with Diff sp3 07/08 05:16 Order name: LFT's sp3 07/08 05:16 Order name: Magnesium sp3 07/08 05:16 Order name: NT PRO-BNP sp3 07/08 05:16 Order name: PT-INR sp3 07/08 05:16 Order name: Troponin HS sp3 07/08 05:17 Order name: Basic Metabolic Panel EDMS 07/08 05:17 Order name: CBC with Automated Diff; Complete Time: 05:55 EDMS 07/08 05:17 Order name: Liver (Hepatic) Function EDMS 07/08 05:17 Order name: Magnesium EDMS 07/08 05:17 Order name: NT PRO-BNP EDMS 07/08 05:17 Order name: Protime (+INR); Complete Time: 05:55 EDMS 07/08 05:16 Order name: XRAY Chest (1 view) sp3 07/08 05:16 Order name: EKG; Complete Time: 05:17 sp3 07/08 05:16 Order name: Cardiac monitoring; Complete Time: 05:20 sp3 07/08 05:16 Order name: EKG - Nurse/Tech; Complete Time: 05:21 sp3 07/08 05:16 Order name: IV Saline Lock; Complete Time: 05:21 sp3 07/08 05:16 Order name: Labs collected and sent; Complete Time: 05:40 sp3 07/08 05:16 Order name: O2 Per Protocol; Complete Time: 05:21 sp3 07/08 05:16 Order name: O2 Sat Monitoring; Complete Time: 05:21 sp3 07/08 05:17 Order name: Troponin High Sensitivity EDMS Administered Medications: 05:19 Drug: Nitrostat (nitroglycerin) 0.4 mg Route: Sublingual; lg3 05:24 Drug: Nitrostat (nitroglycerin) 0.4 mg Route: Sublingual; lg3 05:37 Drug: Nitrostat (nitroglycerin) 0.4 mg Route: Sublingual; lg3 05:39 Follow up: Response: No adverse reaction; Blood pressure is unchanged lg3 05:57 Drug: Lasix (furosemide) 40 mg Route: IVP; Site: right antecubital; lg3 06:08 Follow up: Response: No adverse reaction lg3 06:15 Drug: Nitroglycerin 0.4 mg Route: Sublingual; lg3 06:16 Follow up: Response: No adverse reaction lg3 06:22 Drug: Nitro-Bid (nitroglycerin) Ointment 2 % 1 inches Route: Transdermal; Site: lg3 anterior chest wall; 06:22 Follow up: Response: No adverse reaction lg3 Disposition Summary: 07/08/21 06:14 Hospitalization Ordered Hospitalization Status: Observation sp3 Provider: Mauricio Owens sp3 Location: Telemetry/MedSurg (observation) sp3 Condition: Stable sp3 Problem: an acute exacerbation sp3 Symptoms: have worsened sp3 Bed/Room Type: Standard sp3 Room Assignment: 220(07/08/21 12:14) bd Diagnosis - CHF Exacerbation sp3 Forms: - Medication Reconciliation Form sp3 - SBAR form sp3 Signatures: Dispatcher [employer] EDRosa Onofre Lacie, RN RN lg3 Benita Melo MD MD sp3 Corrections: (The following items were deleted from the chart) 12:14 06:14 sp3 bd
[2021-07-08 06:17] LABS: Troponin High Sensitivity 98.1 pg/mL (<58.9)
[2021-07-08] MEDS ORDERED: NITROGLYCERIN 1 GM PKT TD ONE (06:20)
--- NOTE | 2021-07-08 07:37 | RAD REPORT ---
EXAM DESCRIPTION: RAD - Chest Single View - 07/08/2021 5:39 am CLINICAL HISTORY: DYSPNEA COMPARISON: Chest Single View dated 05/12/2021; Chest Pa And Lat (2 Views) dated 04/25/2021; Chest Si ngle View dated 04/23/2021; Chest Single View dated 03/25/2021 FINDINGS: Lines: None. Lungs: Widespread pulmonary opacities without significant interval change compared with 05/12/2021. Pleural: No significant pleural effusions or pneumothorax. Cardiac: Cardiomegaly. Pacemaker/defibrillator. Bones: No acute fractures. Other: IMPRESSION: Widespread pulmonary opacities likely representing pulmonary edema. Pneumonia difficult to exclude radiographically.
--- NOTE | 2021-07-08 13:13 | P.HP ---
Certification for Inpatient Patient admitted to: Inpatient With expected LOS: >2 Midnights Practitioner: I am a practitioner with admitting privileges, knowledge of patient current condition, hospital course, and medical plan of care. Services: Services provided to patient in accordance with Admission requirements found in Title 42 Section 412.3 of the Code of Federal Regulations Patient History Date of Service: 07/08/21 Reason for admission: Shortness of breath History of Present Illness: 66-year-old gentleman with a history of nonischemic cardiomyopathy, chronic systolic heart failure, admitted for CHF exacerbation 2 months ago presents today with respiratory distress. Patient report he developed respiratory distress last night, not able to breathe. Patient was brought to the emergency department in a wheelchair in respiratory distress. He reports compliance with his home medications including Lasix. Patient was hypertensive on arrival with systolic blood pressure in the 180s. His oxygen saturation was 98% on 2 L but breathing was labored. Checks x-ray done in the ED demonstrate pulmonary edema. Patient given a dose of IV Lasix with partial improvement in her shortness of breath. He still has significant shortness of breath especially with speaking. Patient is admitted for further management. Allergies No Known Allergies Allergy (Verified 04/23/21 05:33) Home Medications: Aspirin 81 mg PO DAILY #30 tab.chew 03/18/21 Ipratropium Neb [Atrovent*] 0.5 mg NEB [id number] #120 amp 04/23/21 Nebulizer [Aeroneb Go Nebulizer] 1 each MC QID #1 each 04/23/21 Sacubitril/Valsartan [Entresto 24 mg-26 mg Tablet] 1 each PO BID 05/12/21 Furosemide 40 mg PO BID 30 Days #60 tablet 05/14/21 Metoprolol Tartrate [Lopressor*] 50 mg PO BID 30 Days #60 tab 05/14/21 - Past Medical/Surgical History Diabetic: No -: Hypertension-malignant -: Congestive heart failure-ejection fraction of 40% -: COPD -: Pacemaker defibrillator -: Rotator cuff repair LEFT >10yrs ago Psychosocial/ Personal History: patient lives at home with family - Family History Father -: Heart disease, Hypertension - Social History Alcohol use: No CD- Drugs: Yes Caffeine use: No Review of Systems Other: Patient report difficulty with urination. He stated his medications for BPH including finasteride and tamsulosin are not working. He also reports dysuria, he denied any fever. Except as documented, all other systems reviewed and negative. Physical Examination - Physical Exam General: Alert, Oriented x3, Mild distress (Respiratory distress) HEENT: PERRLA, Mucous membr. moist/pink, Sclerae nonicteric Neck: Supple, JVD not distended Respiratory: Diminished (Bilateral), Crackles/rales (Bilateral) Cardiovascular: No edema, Other (Tachycardia, regular rhythm) Capillary refill: <2 Seconds Gastrointestinal: Normal bowel sounds, Soft and benign, Non-distended, No tenderness Musculoskeletal: No swelling, No tenderness Integumentary: No rashes, No erythema, No cyanosis Neurological: Normal speech, Normal strength at 5/5 x4 extr, Cranial nerves 3-12 intact Lymphatics: No axilla or inguinal lymphadenopathy - Studies Laboratory Data (last 24 hrs) 07/08/21 05:22: PT 16.6 H, INR 1.44 07/08/21 05:22: WBC 6.20, Hgb 10.9 L, Hct 32.8 L, Plt Count 168 07/08/21 05:22: Sodium 141, Potassium 4.0, BUN 27 H, Creatinine 1.96 H, Glucose 118 H, Magnesium 2.2, Total Bilirubin 1.4 H, AST 79 H, ALT 58, Alkaline Phosphatase 141 H Assessment and Plan - Problems (Diagnosis) (1) Acute respiratory distress Onset Date: 01/27/17 Current Visit: No Status: Acute (2) Acute respiratory failure with hypoxia Current Visit: No Status: Acute (3) COPD exacerbation Current Visit: No Status: Acute (4) Malignant hypertension Current Visit: No Status: Acute (5) Cardiomyopathy, nonischemic Current Visit: No Status: Chronic (6) Status post implantation of automatic cardioverter/defibrillator (AICD) Current Visit: No Status: Chronic (7) Chronic kidney disease, stage III (moderate) Current Visit: Yes Status: Acute (8) BPH (benign prostatic hyperplasia) Current Visit: Yes Status: Acute - Plan Admit the patient to the medical floor. Treat CHF exacerbation with IV Lasix. Continue Aldactone. Titrate oxygen. Monitor intake and output. Aggressive blood pressure control-hydralazine as needed for BP spikes, continue home antihypertensives. Continue finasteride and tamsulosin. Titrate tamsulosin to 0.8 mg/day. Monitor for urinary retention. - Advance Directives Does patient have a Living Will: No Does patient have a Durable POA for Healthcare: No
[2021-07-08] MEDS: IPRATROPIUM BROM 0.5MG/2.5ML NEB SCH ×3 (14:56→20:00)
[2021-07-08 15:47] VITALS: BMI 21.8
[2021-07-08] MEDS: FUROSEMIDE 40 MG/4 ML VIAL IV SCH (16:13)
[2021-07-08] MEDS: HYDRALAZINE HCL 20 MG/ML VIAL IV PRN (16:18)
[2021-07-08] MEDS: SACUBITRIL/VALSARTAN 24/26 MG TAB PO SCH (21:22)
[2021-07-08] MEDS: METOPROLOL TAR 50 MG TAB PO SCH (21:23)
[2021-07-09] MEDS: IPRATROPIUM BROM 0.5MG/2.5ML NEB SCH ×7 (00:30→19:12)
[2021-07-09] MEDS: HYDRALAZINE HCL 20 MG/ML VIAL IV PRN ×2 (05:25→17:16)
[2021-07-09 06:21] LABS: Absolute Lymphocytes (CBC) 1.9 K/uL (0.7-4.9); Hematocrit 31.6 % (39.6-49.0); Lymphocytes % 19.2 % (15.3-44.8); MPV 8.5 fL (7.6-11.3); RBC Red Blood Cell Count 3.42 M/uL (4.33-5.43)
[2021-07-09 06:26] LABS: Magnesium 2.3 mg/dL (1.8-2.4); Phosphorus 2.3 mg/dL (2.5-4.9); Potassium 3.9 mmol/L (3.5-5.1)
[2021-07-09] MEDS: ALBUTEROL 2.5 MG/3 ML NEB SOL NEB PRN (08:12)
[2021-07-09] MEDS ORDERED: POTASSIUM 25 MEQ EFFERV TAB PO ONE (09:00)
[2021-07-09] MEDS: METOPROLOL TAR 50 MG TAB PO SCH ×2 (09:34→21:12)
[2021-07-09] MEDS: ASPIRIN 81 MG CHEWABLE TABLET PO SCH (09:34)
[2021-07-09] MEDS: SACUBITRIL/VALSARTAN 24/26 MG TAB PO SCH ×2 (09:35→21:12)
[2021-07-09] MEDS: FUROSEMIDE 40 MG/4 ML VIAL IV SCH ×2 (09:35→17:10)
[2021-07-09] MEDS: ENOXAPARIN 40 MG/0.4 ML SQ SCH (09:35)
[2021-07-09] MEDS ORDERED: FUROSEMIDE 40 MG/4 ML VIAL IV ONE (11:01)
[2021-07-09] MEDS: AZITHROMYCIN IV 500 MG in NA CHLORIDE 0.9% 250 ML IVPB SCH (12:28)
--- NOTE | 2021-07-09 16:33 | P.PN ---
Subjective Date of Service: 07/09/21 Chief Complaint: Shortness of breath Patient complaining of cough productive of bloodstained sputum. He also reports loss of appetite, generalized weakness and a feeling of generalized illness prior to developing shortness of breath. He reports no significant improvement in his shortness of breath since yesterday. Physical Examination - Vital Signs Temperature: 98.9 F Blood Pressure: 160/97 Pulse: 86 Respirations: 20 Pulse Ox (%): 99 - Physical Exam General: Alert, Oriented x3, Mild distress HEENT: Mucous membr. moist/pink, Sclerae nonicteric Neck: Supple, JVD not distended Respiratory: Normal air movement, Crackles/rales (Bilateral) Cardiovascular: No edema, Regular rate/rhythm, Normal S1 S2 Gastrointestinal: Normal bowel sounds, Soft and benign, Non-distended, No tenderness Musculoskeletal: No swelling Integumentary: No rashes, No cyanosis Neurological: Normal strength at 5/5 x4 extr Assessment And Plan - Current Problems (Diagnosis) (1) Acute respiratory distress Onset Date: 01/27/17 Current Visit: No Status: Acute (2) Acute respiratory failure with hypoxia Current Visit: No Status: Acute (3) COPD exacerbation Current Visit: No Status: Acute (4) Malignant hypertension Current Visit: No Status: Acute (5) Cardiomyopathy, nonischemic Current Visit: No Status: Chronic (6) Status post implantation of automatic cardioverter/defibrillator (AICD) Current Visit: No Status: Chronic (7) Chronic kidney disease, stage III (moderate) Current Visit: Yes Status: Acute (8) BPH (benign prostatic hyperplasia) Current Visit: Yes Status: Acute - Plan Treat CHF exacerbation with IV Lasix. Increase Lasix dose to 80 mg twice daily. Add antibiotics given history of malaise and cough productive of bloodstained sputum. Pneumonia not excluded on his chest x-ray Continue Aldactone. Titrate oxygen. Monitor intake and output. Aggressive blood pressure control-hydralazine as needed for BP spikes, continue home antihypertensives. Continue finasteride and tamsulosin. Titrate tamsulosin to 0.8 mg/day. Monitor for urinary retention.
[2021-07-09] MEDS ORDERED: TAMSULOSIN 0.4 MG SR CAP PO SCH (21:00)
[2021-07-09] MEDS: FINASTERIDE 5 MG TAB PO SCH (21:12)
[2021-07-10] MEDS: IPRATROPIUM BROM 0.5MG/2.5ML NEB SCH ×4 (02:10→19:25)
[2021-07-10 05:59] LABS: Absolute Lymphocytes (CBC) 2.1 K/uL (0.7-4.9); Hematocrit 28.8 % (39.6-49.0); Lymphocytes % 28.1 % (15.3-44.8); MPV 8.4 fL (7.6-11.3); RBC Red Blood Cell Count 3.16 M/uL (4.33-5.43)
[2021-07-10 06:19] LABS: Potassium 3.7 mmol/L (3.5-5.1)
[2021-07-10] MEDS: FUROSEMIDE 40 MG/4 ML VIAL IV SCH ×2 (08:49→18:23)
[2021-07-10] MEDS: AZITHROMYCIN IV 500 MG in NA CHLORIDE 0.9% 250 ML IVPB SCH (08:50)
[2021-07-10] MEDS: ENOXAPARIN 40 MG/0.4 ML SQ SCH (08:51)
[2021-07-10] MEDS: SACUBITRIL/VALSARTAN 24/26 MG TAB PO SCH ×2 (08:52→21:18)
[2021-07-10] MEDS: ASPIRIN 81 MG CHEWABLE TABLET PO SCH (08:52)
[2021-07-10] MEDS: METOPROLOL TAR 50 MG TAB PO SCH ×2 (08:52→21:19)
[2021-07-10] MEDS ORDERED: CEFTRIAXONE 1,000 MG in NA CHLORIDE 0.9% 50 ML IVPB SCH (09:00)
[2021-07-10] MEDS ORDERED: POTASSIUM 25 MEQ EFFERV TAB PO ONE (09:00)
--- NOTE | 2021-07-10 13:33 | P.PN ---
Subjective Date of Service: 07/10/21 Chief Complaint: Shortness of breath Subjective: No new changes, No C/O voiced Physical Examination - Vital Signs Temperature: 97.8 F Blood Pressure: 107/73 Pulse: 81 Respirations: 24 Pulse Ox (%): 100 Assessment And Plan Discharge Plan: Home - Code Status/Comfort Care Code Status Assessed: Yes Physician Review: Patient Assessed, Agree with Above Assessment and Plan Physician Review Additional Text: 07/10/21 13:31 - Physical Exam General: Alert, Oriented x3, on 1 L nasal cannula HEENT: Mucous membr. moist/pink, Sclerae nonicteric Neck: Supple, JVD not distended Respiratory: Normal air movement, Crackles/rales (Bilateral) Cardiovascular: No edema, Regular rate/rhythm, Normal S1 S2 Gastrointestinal: Normal bowel sounds, Soft and benign, Non-distended, No tenderness Musculoskeletal: No swelling Integumentary: No rashes, No cyanosis Neurological: Normal strength at 5/5 x4 extr Assessment And Plan - Current Problems (Diagnosis) (1) Acute respiratory distress Onset Date: 01/27/17 Current Visit: No Status: Acute (2) Acute respiratory failure with hypoxia Current Visit: No Status: Acute (3) COPD exacerbation Current Visit: No Status: Acute (4) Malignant hypertension Current Visit: No Status: Acute (5) Cardiomyopathy, nonischemic Current Visit: No Status: Chronic (6) Status post implantation of automatic cardioverter/defibrillator (AICD) Current Visit: No Status: Chronic (7) Chronic kidney disease, stage III (moderate) Current Visit: Yes Status: Acute (8) BPH (benign prostatic hyperplasia) Current Visit: Yes Status: Acute - Plan Shortness of breath improving Continue high-dose Lasix 80 twice daily Still elevated creatinine at 1.7, will consult nephrology to follow especially as outpatient Continue spironolactone Continue to wean off O2 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
[2021-07-10] MEDS ORDERED: TAMSULOSIN 0.4 MG SR CAP PO SCH (21:00)
[2021-07-10] MEDS: FINASTERIDE 5 MG TAB PO SCH (21:18)
[2021-07-11] MEDS: IPRATROPIUM BROM 0.5MG/2.5ML NEB SCH ×3 (02:40→14:14)
--- NOTE | 2021-07-11 05:43 | P.CNS ---
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 He reports SOB developed yesterday. He was noted to be in accelerated Htn in the ED. CXR showed pulmo edema. He is admitted for further eval & mngt & IV diuretics. Allergies No Known Allergies Allergy (Verified 04/23/21 05:33) Home Medications: Aspirin 81 mg PO DAILY #30 tab.chew 03/18/21 Ipratropium Neb [Atrovent*] 0.5 mg NEB [id number] #120 amp 04/23/21 Nebulizer [Aeroneb Go Nebulizer] 1 each MC QID #1 each 04/23/21 Sacubitril/Valsartan [Entresto 24 mg-26 mg Tablet] 2 each PO BID 05/12/21 Metoprolol Tartrate [Lopressor*] 50 mg PO BID 30 Days #60 tab 05/14/21 Finasteride 5 mg PO BEDTIME 07/08/21 Spironolactone [Aldactone*] 25 mg PO DAILY 07/08/21 Tamsulosin [Flomax*] 0.4 mg PO BEDTIME 07/08/21 Furosemide [Lasix] 80 mg PO BID #60 tablet 07/11/21 Prednisone [Sterapred Ds] 20 mg PO DAILY #5 tab.ds.pk 07/11/21 - Past Medical/Surgical History Diabetic: No -: Hypertension-malignant -: Congestive heart failure-ejection fraction of 40% -: COPD -: Pacemaker defibrillator -: Rotator cuff repair LEFT >10yrs ago Psychosocial/ Personal History: patient lives at home with family - Family History Father Medical History: Heart disease, Hypertension - Social History Smoking Status: Current some day smoker Alcohol use: No CD- Drugs: No Caffeine use: No Place of Residence: Home Review of Systems General: Weakness Eyes: Unremarkable ENT: Unremarkable Respiratory: Shortness of Breath, SOB with Excertion Cardiovascular: Paroxysmal Noc. Dyspnea Gastrointestinal: Unremarkable Genitourinary: Unremarkable Musculoskeletal: Unremarkable Integumentary: Unremarkable Neurological: Weakness Lymphatics: Unremarkable Physical Examination Temp Pulse Resp BP Pulse Ox 97.9 F 45 L 17 132/83 94 07/11/21 04:00 07/11/21 04:00 07/11/21 04:00 07/11/21 04:00 07/11/21 04:00 General: Other (appears as his stated age) HEENT: Atraumatic, Normocephalic Neck: Supple, JVD not distended Respiratory: Other (+min rales RLB) Cardiovascular: No rubs, No murmurs Gastrointestinal: Soft and benign, No guarding Musculoskeletal: No clubbing Integumentary: No warmth Neurological: Normal speech, Normal tone Lymphatics: No axilla or inguinal lymphadenopathy Urinary: Other (no bladder distention) External genitalia: Deferred Rectal: Deferred Conclusions/Impression: # ABRIL 2/2 accelerated Htn +/- prerenal state in the setting of lasix + ARB use SCr 2.0 on adm, improved to 1.6 F/u urinalysis, urine chem, random upcr, CPK On IV lasix [place] po fluid intake Hold Entresto # BPH Cont finasteride + flomax qhs # CKD 2-3a Baseline SCr 1.2-1.4 (equiv eGFR 55-66 ml/min) as of Apr 2021 Monitor renal panel # Acute respiratory failure 2/2 acute on chronic CHF; hx of NICM s/p PPM Has minimal rales on RLB TTE in Feb 2021 showed LVEF 45-50%, mod to severe mitral regurg +trop leak, +BNP elevation Cont lasix IV bid today. Transition to po bid tomorrow. Frederick po fluid intake unless he develops hyponatremia < 130 to minimize/prevent ABRIL while on diuretic/s # Accelerated Htn BP better controlled Cont current BP med regimen # HypoPO4 Monitor/replete prn # Anemia Monitor H/H
[2021-07-11 06:30] LABS: Albumin 2.6 g/dL (3.4-5.0); Bilirubin Total 0.6 mg/dL (0.2-1.0); Phosphorus 2.7 mg/dL (2.5-4.9); Potassium 3.8 mmol/L (3.5-5.1); Protein, Total 6.5 g/dL (6.4-8.2)
[2021-07-11 07:23] LABS: Urine Appearance CLEAR (Clear); Urine Bilirubin NEGATIVE (Negative); Urine Blood NEGATIVE (Negative); Urine Color YELLOW (Yellow); Urine Glucose NEGATIVE (Negative); Urine Protein TRACE (Negative); Urine Urobilinogen 0.2 mg/dL (0.2-1.0)
[2021-07-11 07:33] LABS: UR PROTEIN 45.2 mg/dL (<11.9); Urine Protein/Creatinine Ratio 0.31 ratio (<0.15)
[2021-07-11] MEDS: ALBUTEROL 2.5 MG/3 ML NEB SOL NEB PRN (07:43)
[2021-07-11 07:47] LABS: Urine Bacteria NONE SEEN /HPF (NONE SEEN); Urine RBC <5 /HPF (NONE SEEN)
[2021-07-11] MEDS ORDERED: PNEUMOCOCCAL VACCINE 0.5 ML IMVAC ONE (08:00)
[2021-07-11] MEDS: ENOXAPARIN 40 MG/0.4 ML SQ SCH (08:14)
[2021-07-11] MEDS: METOPROLOL TAR 50 MG TAB PO SCH (08:15)
[2021-07-11] MEDS: FUROSEMIDE 40 MG/4 ML VIAL IV SCH (08:15)
[2021-07-11] MEDS: SACUBITRIL/VALSARTAN 24/26 MG TAB PO SCH (08:16)
[2021-07-11] MEDS: ASPIRIN 81 MG CHEWABLE TABLET PO SCH (08:16)
[2021-07-11 08:38] VITALS: O2SAT 99
--- NOTE | 2021-07-11 10:46 | P.DS ---
Admission Date: 07/08/21 Discharge Date: 07/11/21 Disposition: ROUTINE DISCHARGE Discharge Condition: FAIR Reason for Admission: Shortness of breath Brief History of Present Illness: History of Present Illness: 66-year-old gentleman with a history of nonischemic cardiomyopathy, chronic systolic heart failure, admitted for CHF exacerbation 2 months ago presents today with respiratory distress. Patient report he developed respiratory distress last night, not able to breathe. Patient was brought to the emergency department in a wheelchair in respiratory distress. He reports compliance with his home medications including Lasix. Patient was hypertensive on arrival with systolic blood pressure in the 180s. His oxygen saturation was 98% on 2 L but breathing was labored. Checks x-ray done in the ED demonstrate pulmonary edema. Patient given a dose of IV Lasix with partial improvement in her shortness of breath. He still has significant shortness of breath especially with speaking. Patient is admitted for further management. Allergies No Known Allergies Allergy (Verified 04/23/21 05:33) Home Medications: Aspirin 81 mg PO DAILY #30 tab.chew 03/18/21 Ipratropium Neb [Atrovent*] 0.5 mg NEB Q0BGQVM #120 amp 04/23/21 Nebulizer [Aeroneb Go Nebulizer] 1 each MC QID #1 each 04/23/21 Sacubitril/Valsartan [Entresto 24 mg-26 mg Tablet] 1 each PO BID 05/12/21 Furosemide 40 mg PO BID 30 Days #60 tablet 05/14/21 Metoprolol Tartrate [Lopressor*] 50 mg PO BID 30 Days #60 tab 05/14/21 Hospital Course: Brief Hospital course Patient was admitted for presumed CHF exacerbation; which was not worsening of his previous systolic CHF. Need for continued polysubstance abuse avoidance was discussed. Patient was started on high-dose IV Lasix requiring up to 80 mg twice daily IV to force diuresis. His shortness of breath significantly improved and he was gradually weaned off O2. He is ambulating well on room air now. He had intermittent wheezing this morning which improved with duo nebs. He will continue on his home dose of albuterol MDI. Patient has been discharged with increased dose of his Lasix to 80 mg twice daily. He was given 5-day course of p.o. steroids for new onset wheezing. He has been advised to follow- up with his PCP. He is post ambulation O2 sat remained above 94% on room air Physical Examination - Physical Exam General: Alert, Oriented x3, on RA HEENT: PERRLA, Mucous membr. moist/pink, Sclerae nonicteric Neck: Supple, JVD not distended Respiratory: Wheeze which usually clears with cough , much improved bibasilar crepitations Cardiovascular: No edema, Other (Tachycardia, regular rhythm) Capillary refill: <2 Seconds Gastrointestinal: Normal bowel sounds, Soft and benign, Non-distended, No tenderness Musculoskeletal: No swelling, No tenderness Integumentary: No rashes, No erythema, No cyanosis Neurological: Normal speech, Normal strength at 5/5 x4 extr, Cranial nerves 3-12 intact Lymphatics: No axilla or inguinal lymphadenopathy Vital Signs/Physical Exam: Temp Pulse Resp BP Pulse Ox 99.0 F 85 20 156/75 H 99 07/11/21 08:00 07/11/21 08:00 07/11/21 08:00 07/11/21 08:00 07/11/21 08:00 Laboratory Data at Discharge: WBC 7.60 K/uL (4.3-10.9) D 07/10/21 05:43 Hgb 9.6 g/dL (13.6-17.9) L 07/10/21 05:43 Hct 28.8 % (39.6-49.0) L 07/10/21 05:43 Plt Count 164 K/uL (152-406) 07/10/21 05:43 PT 16.6 SECONDS (9.5-12.5) H 07/08/21 05:22 INR 1.44 07/08/21 05:22 Sodium 141 mmol/L (136-145) 07/11/21 06:00 Potassium 3.8 mmol/L (3.5-5.1) 07/11/21 06:00 BUN 42 mg/dL (7-18) H 07/11/21 06:00 Creatinine 1.63 mg/dL (0.55-1.3) H 07/11/21 06:00 Glucose 112 mg/dL (74-106) H 07/11/21 06:00 Phosphorus 2.7 mg/dL (2.5-4.9) 07/11/21 06:00 Magnesium 2.3 mg/dL (1.8-2.4) 07/09/21 05:55 Total Bilirubin 0.6 mg/dL (0.2-1.0) 07/11/21 06:00 AST 86 U/L (15-37) H 07/11/21 06:00 ALT 125 U/L (12-78) H 07/11/21 06:00 Alkaline Phosphatase 145 U/L (45-117) H 07/11/21 06:00 Home Medications: Aspirin 81 mg PO DAILY #30 tab.chew 03/18/21 Ipratropium Neb [Atrovent*] 0.5 mg NEB [id number] #120 amp 04/23/21 Nebulizer [Aeroneb Go Nebulizer] 1 each MC QID #1 each 04/23/21 Sacubitril/Valsartan [Entresto 24 mg-26 mg Tablet] 2 each PO BID 05/12/21 Metoprolol Tartrate [Lopressor*] 50 mg PO BID 30 Days #60 tab 05/14/21 Finasteride 5 mg PO BEDTIME 07/08/21 Spironolactone [Aldactone*] 25 mg PO DAILY 07/08/21 Tamsulosin [Flomax*] 0.4 mg PO BEDTIME 07/08/21 Furosemide [Lasix] 80 mg PO BID #60 tablet 07/11/21 Prednisone [Sterapred Ds] 20 mg PO DAILY #5 tab.ds.pk 07/11/21 New Medications: Furosemide [Lasix] 80 mg PO BID #60 tablet Prednisone [Sterapred Ds] 20 mg PO DAILY #5 tab.ds.pk Diet: Low sodium Activity: Ad cheikh Followup: NONE,NONE [Primary Care Provider] - Time spent managing pt's care (in minutes): 35
[2021-07-11 12:51] VITALS: BP 122/73; TEMP 97.8
[2021-07-12] MEDS ORDERED: FUROSEMIDE 40 MG TABLET PO SCH (09:00)
== END 2021-07-11 14:50 | disposition home or self-care (01) | DRG 291 ==
LOC: ER 04:25 → ERHOLD 11:27 → 2ND 14:08
PROVIDERS: ADMIT Internal Medicine; ATTEND Internal Medicine
DX: I13.0 Hypertensive heart and chronic kidney disease with heart failure and stage 1 through stage 4 chronic kidney disease, or unspecified chronic kidney disease (principal); I50.23 Acute on chronic systolic (congestive) heart failure; J96.01 Acute respiratory failure with hypoxia; N18.31 Chronic kidney disease, stage 3a; N40.0 Benign prostatic hyperplasia without lower urinary tract symptoms; J44.9 Chronic obstructive pulmonary disease, unspecified; D64.9 Anemia, unspecified; I42.8 Other cardiomyopathies; Z95.810 Presence of automatic (implantable) cardiac defibrillator; Z20.822 Contact with and (suspected) exposure to COVID-19
CPT/HCPCS: 0240U; 36415; 71045; 80048; 80053; 80076; 81001; 82570; 83735; 83880; 83935; 84100; 84132; 84156; 84300; 84484; 85025; 85610; 93005; 94640; 96374; 99285; J0360; J0456; J1650; J1940; J7050

== ENCOUNTER 2022-05-08 23:31 | Inpatient (IN) | payer MEDICARE ==
--- OUTSIDE RECORDS SUMMARY | 2022-05-08 23:34 | XMS REPORT | Continuity of Care Document ---
:1955 Author Organization [facility] t Address [address] [place] [address] Care Team Providers Name Role Phone JIM SHEEHAN Primary Care Physician Unavailable HANDY ROBERTSON Attending Clinician Unavailable Fannie_Edilson Attending Clinician Unavailable MELYSSA POPE Attending Clinician Unavailable JIM SHEEHAN Attending Clinician Unavailable Jim Admitting Clinician Unavailable JIM SHEEHAN Admitting Clinician Unavailable Payers Payer Name Policy Type Policy Number Effective Date Expiration Date [facility] [id number] 2020 (MEDICARE 00:00:00 REPLACEMENT HMO) Problems Condition Condition Condition Status Onset Resolution Last Treating Co mments Source Name Details Category Date Date Treatment Clinician Date S/P right S/P right Disease Active [facility] repair 00 Center Right Right Disease Active [facility]inal [facility] Essential Essential Disease Active [facility] hypertensi hypertensi 4-17 [facility] kes on on 00:00: Medical 00 Center CHF CHF Disease Active [facility] (congestiv (congestiv 4-17 [facility] kes e heart e heart 00:00: Medical failure) failure) 00 Center Cardiac Cardiac Disease Active [facility] defibrilla defibrilla 4-17 Claudia kes tor in tor in 00:00: Medical place place 00 Center Benign Benign Problem Common enlargemen enlargemen Sp radha t of t of - [facility] prostate prostate [facility] [phone] BPH loc w Problem Com mon urin Spirit obs/LUTS - [facility] Allergies, Adverse Reactions, Alerts This patient has no known allergies or adverse reactions. Family History Family Member Diagnosis Comments Start Date Stop Date Source Natural father Hypertension [facility] Natural mother Hypertension [facility] Social History Social Habit Start Date Stop Date Quantity Comments Source History of Common Spirit - Tobacco Use [facility] Alcohol intake 2019-01-04 2019-01-[address] [facility] [place] 00:00:00 00:00:00 non-drinker of Medical Ce nter alcohol (finding) Tobacco use and 2017-09-08 2017-09-[address] [facility] St Claudia kes exposure 00:00:00 00:00:00 [facility] Sex Assigned At [birth year] [facility] [place] kes 00:00:00 00:00:00 [facility] Smoking Status Start Date Stop Date Source Never Smoker [facility] Medications Ordered Filled Start Stop Current Ordering Indication Dosage Frequency Signature Comments Components Source Medication Medication Date Date Medication? Clinician (SIG) Name Name Proscar 5 Proscar 5 2022- No 1{table QD Proscar 5 MG MG 10-17-21 t} MG 00:00: 00:00 00 :00 Proscar 5 Proscar 5 2022- No 1{table QD Proscar 5 MG MG 10-17-21 t} MG 00:00: 00:00 00 :00 Tamsulosin Tamsulosin 2022- No 2{capsu QD Tamsulosin HCl 0.4 MG HCl 0.4 MG 06-25 les} HCl 0.4 MG 00:00: 00:00 00 :00 Tamsulosin Tamsulosin 2022- No 2{capsu QD Tamsulosin HCl 0.4 MG HCl 0.4 MG 06-25 les} HCl 0.4 MG 00:00: 00:00 00 :00 Tamsulosin Tamsulosin 2021- No 1{capsu QD Tamsulosin HCl 0.4 MG HCl 0.4 MG 06-25 le} HCl 0.4 MG 00:00: 00:00 00 :00 Tamsulosin Tamsulosin 2021- No 1{capsu QD Tamsulosin HCl 0.4 MG HCl 0.4 MG 06-25 le} HCl 0.4 MG 00:00: 00:00 00 :00 Flomax 0.4 Flomax 0.4 2021- No 1{capsu QD Flomax 0.4 MG MG 06-19 le} MG 00:00: 00:00 00 :00 isosorbide- Yes BiDil [address] hydrALAZINE 8-13 mg-37.5 mg Claudia kes (BIDIL) 14:58: tablet Medical 20-37.5 mg 42 Take 2 Center per tablet tablets 3 times a day by oral route. aspirin 81 Yes 81mg QD Take [address] MG EC 8-13 by mouth [facility] tablet 14:58: daily. Medical 28 Center metoprolol Yes 50mg Q.5D Take [address] (LOPRESSOR) 8-13 by mouth 2 Claudia kes 50 MG 14:58: (two) Medical tablet 28 times Center daily. furosemide Yes hypertensio 60mg Q.5D Take [address] (LASIX) 40 8-13 n by mouth 2 [place] MG tablet 14:58: (two) Medical 28 times Center daily . sacubitril- Yes 1{tbl} QD Take [address] valsartan 8-13 tablet by [facility] (ENTRESTO) 14:58: mouth Medica l 49-51 mg 28 daily . Center Tab Entresto Entresto No BID Entresto 24/26mg 24/26mg 24/26mg 24/26mg 24/26mg 24/26mg Aspirin 81 Aspirin 81 No 1{table QD Aspirin 81 81 MG 81 MG t} 81 MG spironolact spironolact No spironolac one one tone Lasix 40 MG Lasix 40 MG No 1{table QD Lasix 40 t} MG Metoprolol Metoprolol No 1{table BID Metoprolol Tartrate 50 Tartrate 50 t_with_ Tartrate MG MG food} 50 MG Lasix 40 MG Lasix 40 MG No 1{table QD Lasix 40 t} MG Aspirin 81 Aspirin 81 No 1{table QD Aspirin 81 81 MG 81 MG t} 81 MG Metoprolol Metoprolol No 1{table BID Metoprolol Tartrate 50 Tartrate 50 t_with_ Tartrate MG MG food} 50 MG Entresto Entresto No BID Entresto 24/26mg 24/26mg 24/26mg 24/26mg 24/26mg 24/26mg spironolact spironolact No spironolac one one tone Lasix 40 MG Lasix 40 MG No 1{table QD Lasix 40 t} MG Aspirin 81 Aspirin 81 No 1{table QD Aspirin 81 81 MG 81 MG t} 81 MG Metoprolol Metoprolol No 1{table BID Metoprolol Tartrate 50 Tartrate 50 t_with_ Tartrate MG MG food} 50 MG Entresto Entresto No BID Entresto 24/26mg 24/26mg 24/26mg 24/26mg 24/26mg 24/26mg spironolact spironolact No spironolac one one tone Entresto Entresto No BID Entresto 24/26mg 24/26mg 24/26mg 24/26mg 24/26mg 24/26mg Metoprolol Metoprolol No 1{table BID Metoprolol Tartrate 50 Tartrate 50 t_with_ Tartrate MG MG food} 50 MG spironolact spironolact No spironolac one one tone Aspirin 81 Aspirin 81 No 1{table QD Aspirin 81 81 MG 81 MG t} 81 MG Lasix 40 MG Lasix 40 MG No 1{table QD Lasix 40 t} MG Entresto Entresto No BID Entresto 24/26mg 24/26mg 24/26mg 24/26mg 24/26mg 24/26mg Metoprolol Metoprolol No 1{table BID Metoprolol Tartrate 50 Tartrate 50 t_with_ Tartrate MG MG food} 50 MG spironolact spironolact No spironolac one one tone Aspirin 81 Aspirin 81 No 1{table QD Aspirin 81 81 MG 81 MG t} 81 MG Lasix 40 MG Lasix 40 MG No 1{table QD Lasix 40 t} MG Vital Signs Vital Name Observation Time Observation Value Comments Source height 2021-10-17 10:00:00 72 [in_i] Common S pirit - [facility] weight 2021-10-17 10:00:00 169.2 [lb_av] Common [facility] temperature 2021-10-17 10:00:00 98.6 [degF] [facility] bmi 2021-10-17 10:00:00 22.95 kg/m2 Common [facility] oximetry 2021-10-17 10:00:00 96 % [facility] respiratory rate 2021-10-17 10:00:00 16 /min Comm on [facility] blood pressure 2021-10-17 10:00:00 145 mm[Hg] Common [facility] - systolic [facility] blood pressure 2021-10-17 10:00:00 87 mm[Hg] Common [facility] diastolic [facility] height 2021-06-19 15:30:00 72 [in_i] Common [facility] weight 2021-06-19 15:30:00 170.6 [lb_av] [facility] temperature 2021-06-19 15:30:00 97.3 [degF] [facility] bmi 2021-06-19 15:30:00 23.13 kg/m2 [facility] oximetry 2021-06-19 15:30:00 96 % [facility] respiratory rate 2021-06-19 15:30:00 16 /min Comm on [facility] blood pressure 2021-06-19 15:30:00 155 mm[Hg] Common [facility] - systolic [facility] blood pressure 2021-06-19 15:30:00 84 mm[Hg] Common [facility] diastolic [facility] Procedures This patient has no known procedures. Encounters Start End Encounter Admission Attending Care Care Encounter Source Date/Time Date/Time Type Type Clinicians Facility Department ID 2021-06-19 Outpatient MARCELO, STOLY [facility] [id number] Common 15:13:01 HANDY [facility] 2022-04-10 2022-04-10 (TEL) STLMLC STLMLC [id number] Co mmon 00:00:00 00:00:00 [facility] 2021-12-06 2021-12-06 [facility]patient [facility] [id number] Devoted 03:39:00 03:39:00 0715 [facility] 2021-11-05 2021-11-05 Outpatient Ogweno_B [facility] [id number] Devoted 11:07:00 11:07:00 0614 Medica l Group 2021-10-17 2021-10-17 OFFICE STLMLC STLMLC [id number] Co mmon 00:00:00 00:00:00 [facility] LEVEL 2 [facility] 2021-06-25 2021-06-25 (TEL) STLMLC STLMLC [id number] Co mmon 00:00:00 00:00:00 [facility] 2021-06-25 2021-06-25 (TEL) STLMLC STLMLC [id number] Co mmon 00:00:00 00:00:00 [facility] 2021-06-19 2021-06-19 OFFICE STLMLC STLMLC [id number] Co mmon 00:00:00 00:00:00 VISIT [facility] PT LEVEL 3 - [facility] 2020-11-01 2020-11-01 Outpatient Ogweno_B [facility] [id number] Devoted 10:25:00 10:25:00 0610 Medica l Group Results Test Description Test Time Test Comments Results Result Comments Source SARS-COV2/RT-PCR ([facility]) 2019-09-26 14:16:00 Test Item Value Reference Range Interpretation Comme nts SARS-COV2/RT-PCR (test code = 2593811) Not Detected Not Detected, N egative SARS-COV-2 PERFORMING LAB (test code = [facility] 8730292) Negative results do not preclude SARS-CoV-2 infection [...] of the Act.Fact Sheet for Healthcare Pro viders:https://www.[employer]/Documents/Xpert%20Xpress%20SARS%20CoV-2/Fact%20Sh eets/302-3802%06FULI-JIT-5%20HEALTHCARE%20PROVIDERS%20FACT%20SHEET.pdfFact Sheet for Healthcare Patients:https://www.[employer]/Documents/Xpert%20Xpress%20SARS%20CoV-2/Fact%20Sheets/302-3801%20SARS-COV -2%20PATIENT%20FACT%20SHEET.pdfPerforming Laboratory:[facility] [place], [place] [address]cecil [place], [place] [address]Xljvwygxhefkk Metabolic [id number] 21:16:53 Test Item Value Reference Range Interpretation [...] A/G 1.2 ratio N Ratio) Comprehensive Metabolic [id number] 21:16:53 Test Item Value Reference Range Interpretation [...] ag e have not been validated by [facility] MDRD study and should be [...] ag e have not been validated by [facility] MDRD study and should be interpreted wit h caution. eGFR R esult Interpretation: eGFR > or = 60 is in the Normal RangeeGF R < 60 may mean kid katherine diseaseeGFR < 1 5 may mean kidney failure Rang es recommended by the National Kidney Foundation, http://nkdep.ni h.gov Comprehensive Metabolic [id number] 21:16:53 Test Item Value Reference Range Interpretation [...] ag e have not been validated by [facility] MDRD study and should be [...] ag e have not been validated by [facility] MDRD study and should be interpreted wit h caution. eGFR R esult Interpretation: eGFR > or = 60 is in the Normal RangeeGF R < 60 may mean kid katherine diseaseeGFR < 1 5 may mean kidney failure Rang es recommended by the National Kidney Foundation, http://nkdep.ni h.gov Comprehensive Metabolic [id number] 23:03:04 Test Item Value Reference Range Interpretation [...] A/G 1.5 ratio N Ratio) Comprehensive Metabolic [id number] 23:03:04 Test Item Value Reference Range Interpretation [...] the National Kidney Foundation, http://nkdep.ni h.gov Lipid [id number] 23:03:04 Test Item Value Reference Range Interpretation Comments Cholesterol Total 193 mg/dL 0-200 RISK OF HE ART (test code = DISEASEPublishe d by Cholesterol Total) [place] [employer] Erika lyte Optimal Borderl ine Increased RiskC HOL <200 200-239 >240TRI G <150 150-199 >200HDL Male >60 <40HDL Fem leslie >60 <50LDL <100 130-159 >160LDL Near op timal is 100-129 Triglycerides (test 91 mg/dL 9-200 [...] LDL/HDL Ratio=L DL Calc/HDL Chol Thyroid Stimulating [id number] 23:03:04 Test Item Value Reference Range Interpretation Comments TSH (test code = TSH) 0.848 mIU/mL 0.270-4.200 Pro B Natriuretic [id number] 23:03:04 Test Item Value Reference Range Interpretation Comments NT-proBNP (test code = NT-proBNP) 1591 pg/mL 0-124 H Comprehensive Metabolic [id number] 23:03:04 Test Item Value Reference Range Interpretation [...] Kidney Foundation, http://nkdep.ni h.gov Erythrocyte Sedimentation Rate [id number] 22:26:53 Test Item Value Reference Range Interpretation Comments ESR STAT (test code = ESR STAT) 11 mm/hr 0-9 H Complete Blood Count with [id number] 22:14:43 Test Item Value Reference Range Interpretation [...] code = IPF) 0 % N Automated [id number] 22:14:43 Test Item Value Reference Range Interpretation Comments Neutro Auto (test code = Neutro 41.7 % 36.0-70.0 Auto) Lymph Auto (test code = Lymph Auto) 43.9 % 12.0-44.0 [place] Auto (test code = [place] Auto) 6.5 % 0.0-11.0 Eos, Auto (test code = Eos, Auto) 6.6 % 0.0-7.0 Basophil Auto (test code = Basophil 1.0 % 0.0-2.0 Auto) Neutro Absolute (test code = Neutro 2.9 x10 1.6-7.4 Absolute) Lymph Absolute (test code = Lymph 3.04 x10 .50-4.60 Absolute) [place] Absolute (test code = [place] .45 x10 .00-1.20 Absolute) Eos Absolute (test code = Eos 0.46 x10 0.00-0.74 Absolute) Baso Absolute (test code = Baso 0.07 x10 0.00-0.21 Absolute) IG [id number] 22:14:43 Test Item Value Reference Range Interpretation Comments IG (test code = IG) 0.3 % 0.0-5.0 IG Abs (test code = IG Abs) 0 x10 N RAD, CHEST, 2 [id number] 13:44:00Reason for exam:->SmokerFINAL REPORT TECHNIQUE: 2 views of the chest. COMPARISON: None FINDINGS: The cardiac silhouette is within normal limits. Thoracic aorta is ectatic. Lungs are clear. No acute skeletal abnormality. Left-sided pacing device noted. IMPRESSION: No acute cardiopulmonary disease. Signed:Joel Rogers MDReport Verified Date/Time: 09/08/2017 13:44:07 Reading Location: [facility] Radiology [facility] Room CBC W/PLT COUNT & AUTO [id number] 12:29:00 Test Item Value Reference Range Interpretation [...] (test code Normal = 762) COMPREHENSIVE METABOLIC [id number] 12:29:00 Test Item Value Reference Range Interpretation [...] HESR) 12 mm/Hr 0-9 H CBC with [id number] 04:12:00 Test Item Value Reference Range Interpretation [...] code = 2.8 K/cumm 0.5-4.6 N ALYMPH) [place] Abs (test code = 0.3 K/cumm 0.0-1.2 N AMONO) Eos Abs (test code = 0.10 K/cumm 0.00-0.74 N AEOS) RBC Morphology (test Not Indicated code = RBCMRPH) Platelet Est (test code Adequate Platelets on = PLTEST) Smear Lipid [id number] 03:06:00 Test Item Value Reference Range Interpretation Comments Cholesterol (test 200 mg/dL 0-200 N code = CHOL) Triglycerides (test 104 mg/dL 9-200 N code = TRIG) HDL (test code = 66 mg/dL 40-60 H HDL) Chol/HDL (test code 3.0 Ratio 0.0-5.0 N = CHOLPHDL) LDL, Calculated 113 0-130 N (NOTE)RISK O F HEART (test code = LDLC) DISEASEPu blished by [place] Heart AssociationAnal yte Optimal Boderli ne Increased RiskC HOL <200 200-239 >240TRI G <150 150-199 >200HDL Male: >60 <40HDL Fema le: >60 <50LDL <100 130 -159 >160LDL NEAR OP TIMAL IS 100-129 VLDL (test code = 21 mg/dL 5-40 N VLDL) LDL/HDL (test code = 2 LDLPHDL) Comprehensive Metabolic [id number] 03:06:00 Test Item Value Reference Range Interpretation [...] (es timated code = GFR) mL/min/1.73m2 Glomerular Ryna tration Rate) is an est imated value,calculate [...] code = TSH) 1.40 mIU/mL 0.270-4.200 N [id number] 02:43:00 Test Item Value Reference Range Interpretation Comments NT ProBnp (test code = PBNP) 6296 pg/mL 0-124 H
[2022-05-09] MEDS ORDERED: NA CHLORIDE 0.9% 250 ML ONE (00:30)
[2022-05-09] MEDS ORDERED: AZITHROMYCIN 500 MG INJ IVPB ONE (00:30)
[2022-05-09] MEDS ORDERED: CEFTRIAXONE 1000 MG/VIAL ONE (00:30)
[2022-05-09] MEDS ORDERED: FAMOTIDINE 20 MG/2 ML VIAL IV ONE (00:30)
[2022-05-09] MEDS ORDERED: IPRATROPIUM BROM 0.5MG/2.5ML ONE (00:30)
[2022-05-09] MEDS ORDERED: LEVALBUTEROL 1.25 MG/3 ML NEB ONE ×2 (00:30→02:33)
--- NOTE | 2022-05-09 00:39 | EDPHYS ---
Physician Documentation [facility] Name: Edouard Marie Age: 66 yrs Sex: Male : 1955 Arrival Date: 05/08/2022 Time: 23:34 Bed 5 Private MD: Deyvi Loera ED Physician Yfn Hemphill HPI: 05/09 00:04 This 66 yrs old Black Male presents to ER via Unassigned with complaints of Breathing reina Difficulty. 00:04 The patient has shortness of breath at rest, with light activity. Onset: The reina symptoms/episode began/occurred 4 day(s) ago. Duration: The symptoms are continuous, and are steadily getting worse. The patient's shortness of breath is aggravated by coughing, light activity, prone position, supine position, walking, is alleviated by pursed lip breathing, rest, sitting up, application of supplemental oxygen. Associated signs and symptoms: Pertinent positives: non-productive cough. Severity of symptoms: At their worst the symptoms were moderate in the emergency department the symptoms are worse markedly. The patient has not experienced similar symptoms in the past. Historical: - Allergies: 00:14 No Known Allergies; bb - Home Meds: 00:14 aspirin 81 mg Oral TbEC 1 tab once daily [Active]; Entresto 49-51 mg oral tab [Active]; bb finasteride 5 mg Oral tab 1 tab once daily [Active]; furosemide 40 mg oral tab 1 tab 2 times per day [Active]; neb treatment as needed [Active]; tamsulosin 0.4 mg Oral cap 1 cap once daily [Active]; Albuterol Inhl [Active]; D3 [Active]; multivitamin oral [Active]; - PMHx: 00:14 CHF; COPD; Hypertension; bb - PSHx: 00:14 L Rotator Cuff Sx; defibrillator; bb - Immunization history:: Client reports receiving the 2nd dose of the Covid vaccine, [employer]. - Social history:: Smoking status: Patient/guardian denies using tobacco, but has a distant history of tobacco abuse. - Family history:: not pertinent. ROS: 00:05 Constitutional: Negative for fever, chills, and weight loss, Eyes: Negative for injury, reina pain, redness, and discharge, ENT: Negative for injury, pain, and discharge, Neck: Negative for injury, pain, and swelling, Cardiovascular: Negative for chest pain, palpitations, and edema, Abdomen/GI: Negative for abdominal pain, nausea, vomiting, diarrhea, and constipation, Back: Negative for injury and pain, : Negative for injury, bleeding, discharge, and swelling, MS/Extremity: Negative for injury and deformity, Skin: Negative for injury, rash, and discoloration, Neuro: Negative for headache, weakness, numbness, tingling, and seizure, Psych: Negative for depression, anxiety, suicide ideation, homicidal ideation, and hallucinations, Allergy/Immunology: Negative for hives, rash, and allergies, Endocrine: Negative for neck swelling, polydipsia, polyuria, polyphagia, and marked weight changes, Hematologic/Lymphatic: Negative for swollen nodes, abnormal bleeding, and unusual bruising. 00:05 Respiratory: Positive for cough, shortness of breath, wheezing, inspiratory, expiratory. Exam: 00:05 Constitutional: This is a well developed, well nourished patient who is awake, alert, reina and in no acute distress. Head/Face: Normocephalic, atraumatic. Eyes: Pupils equal round and reactive to light, extra-ocular motions intact. Lids and lashes normal. Conjunctiva and sclera are non-icteric and not injected. Cornea within normal limits. Periorbital areas with no swelling, redness, or edema. ENT: Nares patent. No nasal discharge, no septal abnormalities noted. Tympanic membranes are normal and external auditory canals are clear. Oropharynx with no redness, swelling, or masses, exudates, or evidence of obstruction, uvula midline. Mucous membranes moist. Neck: Trachea midline, no thyromegaly or masses palpated, and no cervical lymphadenopathy. Supple, full range of motion without nuchal rigidity, or vertebral point tenderness. No Meningismus. Chest/axilla: Normal chest wall appearance and motion. Nontender with no deformity. No lesions are appreciated. Cardiovascular: Regular rate and rhythm with a normal S1 and S2. No gallops, murmurs, or rubs. Normal PMI, no JVD. No pulse deficits. Abdomen/GI: Soft, non-tender, with normal bowel sounds. No distension or tympany. No guarding or rebound. No evidence of tenderness throughout. Back: No spinal tenderness. No costovertebral tenderness. Full range of motion. Male : Normal genitalia with no discharge or lesions. Skin: Warm, dry with normal turgor. Normal color with no rashes, no lesions, and no evidence of cellulitis. MS/ Extremity: Pulses equal, no cyanosis. Neurovascular intact. Full, normal range of motion. Neuro: Awake and alert, GCS 15, oriented to person, place, time, and situation. Cranial nerves II-XII grossly intact. Motor strength 5/5 in all extremities. Sensory grossly intact. Cerebellar exam normal. Normal gait. Psych: Awake, alert, with orientation to person, place and time. Behavior, mood, and affect are within normal limits. 00:05 Respiratory: moderate respiratory distress is noted, Respirations: labored breathing, Breath sounds: bronchial sounds, that are moderate, decreased breath sounds, that are moderate, rhonchi, that are moderate, are located in both bases, are heard diffusely, stridor, is not appreciated, + upper airway congestion. wheezing: inspiratory expiratory Respiratory rate: 34 01:25 ECG was reviewed by the Attending Physician. [facility] Vital Signs: 00:11 BP 193 / 113; Pulse 85; Resp 34 S; Pulse Ox 83% on R/A; Weight 77.11 kg (R); Height 6 bb ft. 2 in. (187.96 cm) (R); Pain 0/10; 01:22 BP 143 / 105; Pulse 77; Resp 28; Pulse Ox 100% on BiPAP; bb 02:35 BP 148 / 98; Pulse 69; Resp 27; Pulse Ox 100% on BiPAP; bb 03:30 BP 147 / 87; Pulse 68; Resp 29 S; Pulse Ox 97% on BiPAP; bb 00:11 Body Mass Index 21.83 (77.11 kg, 187.96 cm) MDM: 05/08 23:57 Patient medically screened. [facility] 05/09 00:07 Differential diagnosis: asthma, Bronchitis CHF exacerbation, Chronic Obstructive reina Pulmonary Disease obstructed airway, bronchitis, flu, URI, reactive airway, CHF, Myocardial Infarction pneumonia, pulmonary edema, Sepsis Unstable Angina. Antibiotic administration: Zithromax is given. The patient's Wells Deep Vein Thrombosis Score was calculated as follows: Heart Rate >100 BPM (1.5 Pts) Total Score: 0-2 Pts- Low Risk. The patient's pulmonary embolism risk score was calculated as follows: the patients heart rate is greater than 100 beats per minute (1.5 Pts) Total Score: 0-2 points. This patient was found to be at low risk for a pulmonary embolism by using the Well's assessment criteria. Immunization status: Pneumococcal vaccine: Influenza vaccine: Data reviewed: vital signs, nurses notes, lab test result(s), EKG, radiologic studies, CT scan, plain films. Data interpreted: school lunch monitor: rate is 100 beats/min, Pulse oximetry: on room air is 89 %. Test interpretation: by ED physician or midlevel provider: ECG, plain radiologic studies. Counseling: I had a detailed discussion with the patient and/or guardian regarding: the historical points, exam findings, and any diagnostic results supporting the discharge/admit diagnosis, lab results, radiology results. 05/09 00:00 Order name: Basic Metabolic Panel; Complete Time: [facility] 05/09 00:00 Order name: CBC with Diff; Complete Time: [facility] 05/09 00:00 Order name: LFT's; Complete Time: [facility] 05/09 00:00 Order name: Magnesium; Complete Time: [facility] 05/09 00:00 Order name: NT PRO-BNP; Complete Time: [facility] 05/09 00:00 Order name: PT-INR; Complete Time: [facility] 05/09 00:00 Order name: Troponin HS; Complete Time: : [facility] 05/09 00:00 Order name: Blood Culture Adult (2) [facility] 05/09 00:00 Order name: COVID-19/FLU A+B; Complete Time: 01: [facility] 05/09 00:00 Order name: ABG; Complete Time: : [facility] 05/09 00:00 Order name: Lactate w/ 2H reflex if indic.; Complete Time: : [facility] 05/09 00:00 Order name: Lipase; Complete Time: : [facility] 05/09 02:52 Order name: Urine Dipstick-Ancillary; Complete Time: 03:10 [facility] 05/09 10:17 Order name: Phosphorus [facility] 05/09 00:00 Order name: XRAY Chest (1 view) [facility] 05/09 00:00 Order name: EKG; Complete Time: 00:01 [facility] 05/09 00:04 Order name: BIPAP [facility] 05/09 10:17 Order name: Creatine Phosphokinase [facility] 05/09 10:17 Order name: CKMB Creatine Kinase MB [facility] 05/09 10:17 Order name: Troponin High Sensitivity [facility] 05/09 00:00 Order name: Cardiac monitoring; Complete Time: 00:30 [facility] 05/09 00:00 Order name: EKG - Nurse/Tech; Complete Time: 01:27 [facility] 05/09 00:00 Order name: IV Saline Lock; Complete Time: 00:30 [facility] 05/09 00:00 Order name: Labs collected and sent; Complete Time: 00:30 [facility] 05/09 00:00 Order name: O2 Per Protocol; Complete Time: 00:48 [facility] 05/09 00:00 Order name: O2 Sat Monitoring; Complete Time: 00:47 [facility] 05/09 00:00 Order name: Urine Dipstick-Ancillary (obtain specimen); Complete Time: 02:46 [facility] EC:25 Rate is 82 beats/min. QRS [place] is Normal. ND interval is normal. QRS interval is reina normal. QT interval is normal. T waves are Normal in leads I, aVL, V6. Clinical impression: No evidence of ischemia. Interpreted by me. Reviewed by me. Administered Medications: 00:36 Drug: Pepcid (famotidine) 20 mg Route: IVP; Site: right antecubital; bb 01:47 Follow up: Response: No adverse reaction bb 00:38 Drug: Rocephin (cefTRIAXone) 1 grams Route: IV; Rate: per protocol; Site: right antecubital; 00:50 Follow up: IV Status: Completed infusion; IV Intake: 10ml bb 00:47 Drug: Xopenex (levalbuterol) 3.75 mg Route: Inhalation; bb 01:48 Follow up: Response: Marked relief of symptoms bb 00:47 Drug: AtroVENT (ipratropium) Aerosol 0.5 mg Route: Inhalation; bb 01:47 Follow up: Response: Marked relief of symptoms bb 01:48 Follow up: Response: Marked relief of symptoms bb 00:47 Drug: Zithromax (azithromycin) 500 mg Route: IVPB; Infused Over: 1 hrs; Site: right antecubital; 01:56 Follow up: IV Status: Completed infusion; IV Intake: 250ml bb 01:46 Drug: Magnesium Sulfate 2 grams Route: IVPB; Infused Over: 2 hrs; Site: right bb antecubital; 02:39 Follow up: IV Status: Completed infusion; IV Intake: 50ml bb 01:46 Drug: Lasix (furosemide) 60 mg Route: IVP; Site: right antecubital; bb 02:39 Follow up: Response: No adverse reaction bb 01:46 Drug: Nitroglycerin Ointment 2 % 1 inches Route: Transdermal; Site: affected area; bb 02:39 Follow up: Response: Marked relief of symptoms bb 02:39 Drug: Xopenex (levalbuterol) 2.5 mg Route: Inhalation; bb 02:39 Drug: Lovenox (enoxaparin) 70 mg Route: Sub-Q; Site: abdomen; bb Disposition Summary: 05/09/22 00:38 Hospitalization Ordered Hospitalization Status: Inpatient Admission reina Provider: Tae Wheatley cha Condition: Fair reina Problem: an acute exacerbation reina Symptoms: have worsened reina Bed/Room Type: Standard reina Location: Telemetry/MedSurg (Inpatient)(05/09/22 09:38) eb Room Assignment: [facility](05/09/22 09:38) eb Diagnosis - Hypoxemia reina - COPD/ Chronic obstructive pulmonary disease with (acute) exacerbation reina - Essential (primary) hypertension reina - Tobacco abuse counseling reina - Tobacco use reina - Cardiomegaly reina - Systolic (congestive) heart failure reina - Other acute kidney failure - insufficency reina Forms: - Medication Reconciliation Form reina - SBAR form reina Signatures: Dispatcher [employer] EDYfn Solomon MD MD cha Ballard, Brenda RN RN Birdie Magaña Sophia, PA-C PABuddy sb4 Corrections: (The following items were deleted from the chart) 00:17 00:14 PSHx: Pacemaker/Defib; bb bb 00:54 00:38 Telemetry/MedSurg (Inpatient) reina bb 00:54 00:38 reina bb 09:38 00:54 BR ER HOLD bb eb 09:38 00:54 ERHOLD- bb eb
--- NOTE | 2022-05-09 00:39 | ER ---
Nurse's Notes [facility] Name: Edouard Marie Age: 66 yrs Sex: Male : 1955 Arrival Date: 05/08/2022 Time: 23:34 Bed 5 Private MD: Deyvi Loera Diagnosis: Hypoxemia;COPD/ Chronic obstructive pulmonary disease with (acute) exacerbation;Essential (primary) hypertension;Tobacco abuse counseling;Tobacco use;Cardiomegaly;Systolic (congestive) heart failure;Other acute kidney failure-insufficency Presentation: 05/09 00:11 Chief complaint: Spouse and/or significant other states: pt has been having difficulty bb breathing since Thursday. Coronavirus screen: Client presents with at least one sign or symptom that may indicate coronavirus-19. Ebola Screen: No symptoms or risks identified at this time. Initial Sepsis Screen: Does the patient meet any 2 criteria? No. Patient's initial sepsis screen is negative. Does the patient have a suspected source of infection? No. Patient's initial sepsis screen is negative. Risk Assessment: Do you want to hurt yourself or someone else? Patient reports no desire to harm self or others. Onset of symptoms was May 05, 2022. 00:11 Method Of Arrival: Wheelchair bb 00:11 Acuity: ERUM 2 bb Triage Assessment: 05/08 23:59 Respiratory: Reports shortness of breath labored breathing since Thursday Onset: The bb symptoms/episode began/occurred the patient has severe shortness of breath. Historical: - Allergies: 05/09 00:14 No Known Allergies; bb - Home Meds: 00:14 aspirin 81 mg Oral TbEC 1 tab once daily [Active]; Entresto 49-51 mg oral tab [Active]; bb finasteride 5 mg Oral tab 1 tab once daily [Active]; furosemide 40 mg oral tab 1 tab 2 times per day [Active]; neb treatment as needed [Active]; tamsulosin 0.4 mg Oral cap 1 cap once daily [Active]; Albuterol Inhl [Active]; D3 [Active]; multivitamin oral [Active]; - PMHx: 00:14 CHF; COPD; Hypertension; bb - PSHx: 00:14 L Rotator Cuff Sx; defibrillator; bb - Immunization history:: Client reports receiving the 2nd dose of the Covid vaccine, [employer]. - Social history:: Smoking status: Patient/guardian denies using tobacco, but has a distant history of tobacco abuse. - Family history:: not pertinent. Screenin:17 [facility] ED Fall Risk Assessment (Adult) History of falling in the last 3 months, bb including since admission No falls in past 3 months (0 pts) Confusion or Disorientation No (0 pts) Intoxicated or Sedated No (0 pts) Impaired Gait No (0 pts) Mobility Assist Device Used No (0 pt) Altered Elimination No (0 pt) Score/Fall Risk Level 0 - 2 = Low Risk Educated pt \T\ family on fall prevention, incl call for assistance when getting out of bed. Abuse screen: Denies threats or abuse. Nutritional screening: No deficits noted. Tuberculosis screening: No symptoms or risk factors identified. Assessment: 00:17 General: Appears distressed, uncomfortable, slender, Behavior is anxious. Pain: Denies bb pain. Neuro: Level of Consciousness is awake, alert, obeys commands, Oriented to person, place, time, situation. Cardiovascular: Rhythm is sinus rhythm. Respiratory: Airway is patent Respiratory effort is labored, Respiratory pattern is tachypnea Breath sounds are diminished bilaterally. GI: No signs and/or symptoms were reported involving the gastrointestinal system. Derm: Skin is clammy, Skin is normal, Skin temperature is warm. Musculoskeletal: Circulation, motion, and sensation intact. 01:22 Reassessment: pt states he is feeling better, resp less labored, IV site intact, bipap bb in place, family at bedside. 02:36 Reassessment: pt standing at bedside urinating in urinal new linen and gown applied. bb 03:30 Reassessment: pt resting quietly, sleeping, eyes closed, Bipap in place. bb Vital Signs: 00:11 BP 193 / 113; Pulse 85; Resp 34 S; Pulse Ox 83% on R/A; Weight 77.11 kg (R); Height 6 bb ft. 2 in. (187.96 cm) (R); Pain 0/10; 01:22 BP 143 / 105; Pulse 77; Resp 28; Pulse Ox 100% on BiPAP; bb 02:35 BP 148 / 98; Pulse 69; Resp 27; Pulse Ox 100% on BiPAP; bb 03:30 BP 147 / 87; Pulse 68; Resp 29 S; Pulse Ox 97% on BiPAP; bb 00:11 Body Mass Index 21.83 (77.11 kg, 187.96 cm) bb ED Course: 05/08 23:34 Patient arrived in ED. es 23:35 Deyvi Loera MD is Private Physician. es 23:57 Yfn Hemphill MD is Attending Physician. [facility] 05/09 00:00 Kartik Clark, PAULIE is Primary Nurse. as6 00:14 Triage completed. bb 00:14 Arm band placed on Patient placed in an exam room, on a stretcher, on oxygen, on bb monitoring coordinator, on pulse oximetry, RT at bedside for placement of Bipap. 00:17 Patient has correct armband on for positive identification. Placed in gown. Bed in low bb position. Call light in reach. Side rails up X 1. Side rails up X2. Client placed on continuous cardiac and pulse oximetry monitoring. NIBP monitoring applied. monitoring analyst on. 00:26 Tae Wheatley MD is Hospitalizing Provider. [facility] 00:29 Inserted saline lock: 20 gauge in right antecubital area, using aseptic technique. rv1 Blood collected. 00:30 Troponin HS Sent. rv1 00:30 PT-INR Sent. rv1 00:30 NT PRO-BNP Sent. rv1 00:30 Magnesium Sent. rv1 00:30 LFT's Sent. rv1 00:30 CBC with Diff Sent. rv1 00:30 Basic Metabolic Panel Sent. rv1 00:30 Lactate w/ 2H reflex if indic. Sent. rv1 00:47 XRAY Chest (1 view) In Process Unspecified. EDMS 01:19 BIPAP Sent. bb 03:31 No provider procedures requiring assistance completed. Patient admitted, IV remains in bb place. Administered Medications: 00:36 Drug: Pepcid (famotidine) 20 mg Route: IVP; Site: right antecubital; bb 01:47 Follow up: Response: No adverse reaction bb 00:38 Drug: Rocephin (cefTRIAXone) 1 grams Route: IV; Rate: per protocol; Site: right bb antecubital; 00:50 Follow up: IV Status: Completed infusion; IV Intake: 10ml bb 00:47 Drug: Xopenex (levalbuterol) 3.75 mg Route: Inhalation; bb 01:48 Follow up: Response: Marked relief of symptoms bb 00:47 Drug: AtroVENT (ipratropium) Aerosol 0.5 mg Route: Inhalation; bb 01:47 Follow up: Response: Marked relief of symptoms bb 01:48 Follow up: Response: Marked relief of symptoms bb 00:47 Drug: Zithromax (azithromycin) 500 mg Route: IVPB; Infused Over: 1 hrs; Site: right bb antecubital; 01:56 Follow up: IV Status: Completed infusion; IV Intake: 250ml bb 01:46 Drug: Magnesium Sulfate 2 grams Route: IVPB; Infused Over: 2 hrs; Site: right bb antecubital; 02:39 Follow up: IV Status: Completed infusion; IV Intake: 50ml bb 01:46 Drug: Lasix (furosemide) 60 mg Route: IVP; Site: right antecubital; bb 02:39 Follow up: Response: No adverse reaction bb 01:46 Drug: Nitroglycerin Ointment 2 % 1 inches Route: Transdermal; Site: affected area; bb 02:39 Follow up: Response: Marked relief of symptoms bb 02:39 Drug: Xopenex (levalbuterol) 2.5 mg Route: Inhalation; bb 02:39 Drug: Lovenox (enoxaparin) 70 mg Route: Sub-Q; Site: abdomen; bb Medication: 00:17 VIS not applicable for this client. bb Intake: 00:50 IV: 10ml; Total: 10ml. bb 01:56 IV: 250ml; Total: 260ml. bb 02:39 IV: 50ml; Total: 310ml. bb Output: 02:34 Urine: 100ml (Voided); Total: 100ml. bb Outcome: 00:38 Decision to Hospitalize by Provider. reina 02:38 Instructed on the need for admit. bb 03:31 Admitted to ER Hold. Please see [facility] for further documentation. bb 03:31 Condition: stable 11:28 Admitted to Med/surg accompanied by tech, via wheelchair, room 430, with oxygen, on ko1 monitor, Report called to Mami 11:30 Patient left the ED. ko1 Signatures: Dispatcher [employer] Yfn Chapman MD MD cha Salyer, Edna es Ballard, Brenda, RN RN Kartik Clements RN RN as6 Nata Prieto RN RN ko1 Danielle Seth rv1 Corrections: (The following items were deleted from the chart) 00:17 00:14 PSHx: Pacemaker/Defib; naveen 02:38 02:37 Respiratory: Onset: The symptoms/episode began/occurred naveen hodge
[2022-05-09 00:46] LABS: Absolute Lymphocytes (CBC) 1.2 K/uL (0.7-4.9); Hematocrit 34.2 % (39.6-49.0); Lymphocytes % 14.9 % (15.3-44.8); MCV 94.6 fL (80-100); MPV 6.9 fL (7.6-11.3); Protime INR 1.12; RBC Red Blood Cell Count 3.62 M/uL (4.33-5.43)
[2022-05-09 00:54] LABS: Arterial Blood Carboxyhemoglob 4.8 % (0-1.5); Blood Gas Oxyhemoglobin 92.5 % (94-97); Blood O2 Saturation 98.3 % (92-98.5)
[2022-05-09 01:00] LABS: Albumin 3.3 g/dL (3.4-5.0); Bilirubin Direct 0.3 mg/dL (0-0.2); Magnesium 2.2 mg/dL (1.6-2.4); Potassium 3.8 mmol/L (3.5-5.1); Protein, Total 7.6 g/dL (6.4-8.2)
[2022-05-09 01:10] LABS: Troponin High Sensitivity 100.6 pg/mL (<58.9)
[2022-05-09 01:20] LABS: SARS-COV-2 RT PCR NEGATIVE (NEGATIVE)
[2022-05-09] MEDS ORDERED: FUROSEMIDE 100 MG/10 ML VIAL IV ONE (01:36)
[2022-05-09] MEDS ORDERED: Magnesium Sulfate 2gm IVPB 2 G/50 ML BAG IV ONE (01:36)
[2022-05-09] MEDS ORDERED: NITROGLYCERIN 1 GM PKT TD ONE (01:36)
--- NOTE | 2022-05-09 01:37 | P.HP ---
Certification for Inpatient Patient admitted to: Inpatient With expected LOS: >2 Midnights Patient will require the following post-hospital care: None Practitioner: I am a practitioner with admitting privileges, knowledge of patient current condition, hospital course, and medical plan of care. Services: Services provided to patient in accordance with Admission requirements found in Title 42 Section 412.3 of the Code of Federal Regulations Patient History Date of Service: 05/09/22 Primary Care Provider: Evaristo Reason for admission: CHF Exacerbation History of Present Illness: Patient is a 66-year-old male with past medical history of nonischemic cardiomyopathy, chronic systolic congestive heart failure, COPD, and hypertensio n who presented to the ED today with respiratory distress. Initially 83% on room air. He reports that he has been feeling short of breath for 4 days now. states that he is not compliant with his medications. His labs today are significant for hemoglobin of 11.6, BUN 19, creatinine 1.3, troponin at bedtime 100, BNP 14,000. COVID/flu negative. Chest x-ray showed "Enlarged heart with marked pulmonary congestion and findings indicating developing pulmonary edema. Underlying inflammatory process not excluded." He was given a breathing treatment, Solu-Medrol, magnesium, and Lasix in the ED. he was also put on BiPAP, now saturating 100% and resting comfortably. Patient's symptoms have mildly improved. He is admitted for further management. Allergies No Known Allergies Allergy (Verified 04/23/21 05:33) Home medications list reviewed: Yes Home Medications: Aspirin 81 mg PO DAILY #30 tab.chew 03/18/21 Ipratropium Neb [Atrovent*] 0.5 mg NEB [id number] #120 amp 04/23/21 Nebulizer [Aeroneb Go Nebulizer] 1 each QID #1 each 04/23/21 Sacubitril/Valsartan [Entresto 24 mg-26 mg Tablet] 2 each PO BID 05/12/21 Metoprolol Tartrate [Lopressor*] 50 mg PO BID 30 Days #60 tab 05/14/21 Finasteride 5 mg PO BEDTIME 07/08/21 Spironolactone [Aldactone*] 25 mg PO DAILY 07/08/21 Tamsulosin [Flomax*] 0.4 mg PO BEDTIME 07/08/21 Furosemide [Lasix] 80 mg PO BID #60 tablet 07/11/21 Prednisone [Sterapred Ds] 20 mg PO DAILY #5 tab.ds.pk 07/11/21 - Past Medical/Surgical History Diabetic: No -: Hypertension -: Congestive heart failure -: COPD -: Pacemaker defibrillator -: Rotator cuff repair LEFT Psychosocial/ Personal History: Patient lives at home with his . - Family History Father -: Heart disease, Hypertension - Social History Smoking Status: Current every day smoker Alcohol use: No CD- Drugs: No Caffeine use: No Place of Residence: Home Review of Systems Respiratory: Cough, Shortness of Breath, SOB with Excertion Cardiovascular: Edema Physical Examination - Vital Signs Temperature: 98.2 F Blood Pressure: 143/105 Pulse: 78 Respirations: 28 Pulse Ox (%): 100 (bipap) - Physical Exam General: Alert, In no apparent distress HEENT: Atraumatic, PERRLA, EOMI, Sclerae nonicteric Neck: Supple, 2+ carotid pulse no bruit, No LAD, Without JVD or thyroid abnormality Respiratory: Crackles/rales Cardiovascular: Regular rate/rhythm, Normal S1 S2 Gastrointestinal: Normal bowel sounds, No tenderness Musculoskeletal: No tenderness Integumentary: No rashes Neurological: Normal speech, Normal strength at 5/5 x4 extr, Normal tone, Normal affect - Studies Laboratory Data (last 24 hrs) 05/09/22 00:21: PT 12.3, INR 1.12 05/09/22 00:21: WBC 7.90, Hgb 11.6 L, Hct 34.2 L, Plt Count 224 05/09/22 00:21: Sodium 138, Potassium 3.8, BUN 19 H, Creatinine 1.33 H, Glucose 147 H, Magnesium 2.2, Total Bilirubin 1.0, AST 49 H, ALT 38, Alkaline Phosphatase 118 H, Lipase 129 Assessment and Plan - Problems (Diagnosis) (1) Acute exacerbation of CHF (congestive heart failure) Current Visit: Yes Status: Acute Qualifiers: Heart failure type: systolic Qualified Code(s): I50.23 - Acute on chronic systolic (congestive) heart failure (2) Acute respiratory failure with hypoxia Current Visit: Yes Status: Acute (3) Chronic kidney disease, stage III (moderate) Current Visit: Yes Status: Chronic Qualifiers: Chronic kidney disease stage 3 subtype: stage 3a (GFR 45-59) Qualified Code(s): N18.31 - Chronic kidney disease, stage 3a (4) Hypertension Current Visit: Yes Status: Chronic Qualifiers: Hypertension type: primary hypertension Qualified Code(s): I10 - Essential (primary) hypertension (5) COPD (chronic obstructive pulmonary disease) Current Visit: Yes Status: Chronic Qualifiers: COPD type: unspecified COPD Qualified Code(s): J44.9 - Chronic obstructive pulmonary disease, unspecified - Plan Admit the patient to the medical floor. Treat CHF exacerbation with IV Lasix. Patient currently on BiPAP, wean as tolerated to nasal cannula. Monitor intake and output. Aggressive blood pressure control-hydralazine as needed for BP spikes, continue home antihypertensives. Breathing treatments PRN. Echo ordered. Cardiology consulted. Troponin elevation likely secondary to demand ischemia. Will trend serial cardiac enzymes. Monitor and replete electrolytes per protocol. Reconcile and continue home medications. Lovenox for VTE ppx Full code Discharge Plan: Home Plan to discharge in: Greater than 2 days - Advance Directives Does patient have a Living Will: No Does patient have a Durable POA for Healthcare: No - Code Status/Comfort Care Code Status Assessed: Yes Code Status: Full Code Physician Review: Patient Assessed, Agree with Above Assessment and Plan Critical Care: No Time Spent Managing Pts Care (In Minutes): 50
[2022-05-09] MEDS ORDERED: ENOXAPARIN 80 MG/0.8 ML SQ ONE (02:43)
[2022-05-09 02:52] LABS: Urine Blood Trace-intact (Negative); Urine Glucose Negative (Negative); Urine Protein Negative (Negative); Urine Specific Gravity 1.015 (1.005-1.030)
[2022-05-09] MEDS ORDERED: ONDANSETRON 4 MG/2 ML VIAL IV PRN (05:09)
[2022-05-09] MEDS ORDERED: ACETAMINOPHEN 500 MG TAB PO PRN (05:09)
[2022-05-09] MEDS ORDERED: ALBUTEROL 2.5 MG/3 ML NEB SOL NEB PRN (05:09)
[2022-05-09] MEDS ORDERED: IPRATROPIUM BROM 0.5MG/2.5ML NEB PRN (06:00)
[2022-05-09] MEDS ORDERED: POTASSIUM CL SA 10 MEQ TAB PO ONE ×2 (07:21→08:06)
[2022-05-09] MEDS ORDERED: FUROSEMIDE 40 MG/4 ML VIAL ONE ×2 (08:05→08:36)
[2022-05-09] MEDS ORDERED: ENOXAPARIN 40 MG/0.4 ML SQ ONE (08:14)
[2022-05-09] MEDS: FUROSEMIDE 40 MG/4 ML VIAL IV SCH ×2 (08:15→16:10)
[2022-05-09 09:19] LABS: CKMB Creatine Kinase MB 1.4 ng/mL (1.0-3.6); Phosphorus 2.8 mg/dL (2.5-4.9)
[2022-05-09 10:17] LABS: Troponin High Sensitivity 96.2 pg/mL (<58.9)
--- NOTE | 2022-05-09 12:34 | P.PN ---
Date of Service: 05/09/22 Patient seen and examined. He was on BiPAP last night. Wean off BiPAP this morning. He is currently tolerating oxygen by nasal cannula. He states he feels much better. Diagnosis: Acute on chronic systolic heart failure Pulmonary edema Acute respiratory failure with hypoxia Elevated troponin Chronic kidney disease stage III. Plan: Continue aggressive diuresis with IV Lasix. Echocardiogram done and the result is pending. Monitor intake and output Downgrade from ICU to telemetry Elevated troponin likely secondary to demand ischemia. Patient with severe hypertension on presentation. Blood pressure readings have improved. Monitor renal function.
--- NOTE | 2022-05-09 14:01 | ECHO ---
HEIGHT: 6 ft 1 in WEIGHT: 169 lb 0 oz DATE OF STUDY: 05/09/[address]: Mee Gamboa 2-DIMENSIONAL: YES M.MODE: YES DOPPLER: YES COLOR FLOW: YES TDS: PORTABLE: YES DEFINITY: BUBBLE STUDY: DIAGNOSIS: CONGESTIVE HEART FAILURE CARDIAC HISTORY: CATHERIZATION: SURGERY: PROSTHETIC VALVE: PACEMAKER: MEASUREMENTS (cm) DIASTOLIC (NORMALS) SYSTOLIC (NORMALS) IVSd 1.2 (0.6-1.2) LA Diam 5.1 (1.9-4.0) LVEF 40-45% LVIDd 6.6 (3.5-5.7) LVIDs 5.9 (2.0-3.5) %FS 10% LVPWd 1.5 (0.6-1.2) Ao Diam 3.3 (2.0-3.7) 2 DIMENSIONAL ASSESSMENT: RIGHT ATRIUM: NORMAL LEFT ATRIUM: ENLARGED RIGHT VENTRICLE: NORMAL LEFT VENTRICLE: DILATED TRICUSPID VALVE: MILD TRICUSPID REGURGITATION MITRAL VALVE: SEVERE MITRAL REGURGITATION PULMONIC VALVE: NORMAL AORTIC VALVE: MILD AORTIC INSUFFICIENCY PERICARDIAL EFFUSION: NONE AORTIC ROOT: NORMAL LEFT VENTRICULAR WALL MOTION: MILD GLOBAL HYPOKINESIS DOPPLER/COLOR FLOW: SEE BELOW COMMENTS: 1. MILDLY DEPRESSED LEFT VENTRICUALR EJECTION FRACTION 40-45% 2. MILD GLOBAL HYPOKINESIS 3. SEVERE LEFT ATRIAL ENLARGEMENT 4. SEVERE MITRAL REGURGITATION 5. MILD AORTIC INSUFFICIENCY TECHNOLOGIST: JEINFER GARCIA
--- NOTE | 2022-05-09 18:20 | RAD REPORT ---
EXAM DESCRIPTION: RAD - Chest Single View - 05/09/2022 12:46 am CLINICAL HISTORY: 66 years Male DYSPNEA COMPARISON: CT scan of the chest dated July 15, 2019 TECHNIQUE: AP view of the chest was obtained. FINDINGS: Cardiac silhouette is enlarged. Central vessels are increased and indistinct. Pacemaker le ad identified. Electrodes superolateral left hemithorax. Extensive airspace opacities lung contreras bilaterally right greater than left. Suspected small bilater al pleural effusions. No pneumothorax. IMPRESSION: Enlarged heart with marked pulmonary congestion and findings indicating developing pulmo nary edema. Underlying inflammatory process not excluded. Electronically signed by: Dania Rizo MD 05/09/2022 1:04 AM RN QUALITY Due to temporary technical issues with the PACS/Fluency reporting system, reports are being signed by the in house radiologists without review as a courtesy to insure prompt reporting. The interpreting radiologist is fully responsible for the content of the report.
--- NOTE | 2022-05-09 19:22 | CON ---
Date of Consultation: 05/09/2022 Reason For Consultation: Congestive heart failure exacerbation. History Of Present Illness: This 66-year-old male with history of nonischemic cardiomyopathy with se verely depressed ejection fraction and history of COPD presented to the emergency room with respirato ry distress, very short of breath, orthopnea, lower extremity edema, saturating 83% on room air. Gaby del valle was found to be in acute congestive heart failure. After diuresis and BiPAP, he did well and he is feeling better. No chest pain. Past Medical History: As outlined above in the HPI. Medications: Refer to reconciliation sheet for detailed list. Allergies: NO KNOWN DRUG ALLERGIES. Family History: No premature coronary artery disease or cancer. Social History: He is an active smoker. Does not drink or use any drugs. Review of Systems: All systems reviewed are and they were negative except for mentioned in HPI. Physical Examination: Vital Signs: Reviewed. Head and Neck: Pupils are equal and reactive to light. Intact eye movements. Positive JVD elevatio n all the way to the earlobes. Lungs: Crackles in both bases with decreased breathing sounds. No accessory muscle use or muscle re traction. Heart: Regular. No extra sounds. Abdomen: Soft, nontender. Bowel sounds positive. No organomegaly. No masses or hernia. No rigidi ty or rebound. Extremities: Edema bilaterally. No clubbing or cyanosis. Intact pulses. Skin: No rash. Neurologic: Alert, awake, and oriented x3. No acute focal deficits appreciated. Investigations: Labs were reviewed and on echo ejection fraction is in the low 40s with elevated yevgeniy ling pressures. Assessment And Plan: 1.Continue IV diuresis. The patient is known to have nonischemic cardiomyopathy as per reports. At this point, I will recommend active diuresis and carefully monitor BUN, creatinine, and electrolytes . 2.Elevated troponin, borderline. This is demand ischemia noted. No further troponin checks are req uired. Please make sure that the patient is on strict low-sodium diet and daily body weight. SR/MODL Voice ID: [id number] Report ID: [id number]
[2022-05-09] MEDS: TAMSULOSIN 0.4 MG SR CAP PO SCH (20:55)
[2022-05-09] MEDS: FINASTERIDE 5 MG TAB PO SCH (20:55)
[2022-05-09] MEDS: SACUBITRIL/VALSARTAN 49/51 MG TAB PO SCH (20:55)
[2022-05-10 04:18] LABS: Absolute Lymphocytes (CBC) 2.4 K/uL (0.7-4.9); Hematocrit 33.9 % (39.6-49.0); Lymphocytes % 45.3 % (15.3-44.8); MCV 94.6 fL (80-100); MPV 7.4 fL (7.6-11.3); RBC Red Blood Cell Count 3.58 M/uL (4.33-5.43)
[2022-05-10 04:40] LABS: Magnesium 2.3 mg/dL (1.6-2.4); Phosphorus 2.4 mg/dL (2.5-4.9); Potassium 3.6 mmol/L (3.5-5.1); Thyroid Stimulating Hormone 0.689 uIU/mL (0.358-3.740)
[2022-05-10] MEDS: POTASS/SODIUM PHOSPHATE 1 PKT POWD.PACK PO SCH ×2 (09:46→09:47)
[2022-05-10] MEDS: FUROSEMIDE 40 MG/4 ML VIAL IV SCH ×2 (09:47→16:33)
[2022-05-10] MEDS: ENOXAPARIN 40 MG/0.4 ML SQ SCH (09:47)
[2022-05-10] MEDS: ASPIRIN 81 MG CHEWABLE TABLET PO SCH (09:47)
[2022-05-10] MEDS: SACUBITRIL/VALSARTAN 49/51 MG TAB PO SCH ×2 (09:48→21:31)
[2022-05-10] MEDS ORDERED: ALBUTEROL 2.5 MG/3 ML NEB SOL NEB PRN (12:00)
--- NOTE | 2022-05-10 15:32 | RAD REPORT ---
EXAM DESCRIPTION: [facility] Single View05/10/2022 3:11 pm CLINICAL HISTORY: Chest pain COMPARISON: May 09, 2022 FINDINGS: Partial resolution in bilateral pulmonary opacities. Heart remains enlarged. Pacemaker leads in place IMPRESSION: Improvement in CHF
[2022-05-10] MEDS: AMLODIPINE 5 MG TAB PO SCH (16:33)
--- NOTE | 2022-05-10 17:12 | P.PN ---
Subjective Date of Service: 05/10/22 Primary Care Provider: Evaristo Chief Complaint: CHF Exacerbation Patient states he feels much better today. He has been weaned off oxygen with oxygen saturation around 97%. He denies any shortness of breath. Physical Examination - Vital Signs Temperature: 98.3 F Blood Pressure: 175/83 Pulse: 50 Respirations: 16 Pulse Ox (%): 98 Assessment And Plan - Current Problems (Diagnosis) (1) Acute on chronic systolic heart failure Current Visit: No Status: Acute (2) Elevated troponin level Onset Date: 01/27/17 Current Visit: No Status: Acute (3) Noncompliance Current Visit: No Status: Acute (4) Cardiomyopathy, nonischemic Current Visit: No Status: Chronic (5) Severe mitral regurgitation Current Visit: No Status: Chronic (6) Status post implantation of automatic cardioverter/defibrillator (AICD) Current Visit: No Status: Chronic - Plan Physical Exam General: Alert, In no apparent distress HEENT: Atraumatic, PERRLA, EOMI, Sclerae nonicteric Neck: Supple, no JVD distention Respiratory: Clear to auscultation bilaterally, adequate breath sounds bilaterally. Cardiovascular: Regular rate/rhythm, Normal S1 S2 Gastrointestinal: Normal bowel sounds, No tenderness Musculoskeletal: No tenderness Integumentary: No rashes Neurological: No focal motor deficit Plan CHF significantly improved. Patient is currently tolerating room air. Chest x-ray demonstrated marked improvement in pulmonary edema and almost resolved. Echocardiogram shows EF of 40 to 45% and severe mitral regurgitation. Patient might have experienced a flash pulmonary edema probably secondary to severe hypertension. Continue Entresto, add amlodipine. Patient is bradycardic and cannot add beta- estela. Continue IV Lasix for 1 more day Continue home hypertensives Hydralazine as needed for BP spikes Breathing treatments PRN. Troponin elevation likely secondary to demand ischemia. Cardiology input appreciated. Dr. Mancilla recommend medical management Continue other home medications Lovenox for VTE ppx Full code Possible discharge in a.m.
[2022-05-10 20:57] VITALS: BMI 22.2
[2022-05-10] MEDS: TAMSULOSIN 0.4 MG SR CAP PO SCH (21:31)
[2022-05-10] MEDS: FINASTERIDE 5 MG TAB PO SCH (21:31)
[2022-05-11 01:52] VITALS: O2SAT 98
[2022-05-11 05:25] LABS: Absolute Lymphocytes (CBC) 2.4 K/uL (0.7-4.9); Hematocrit 37.1 % (39.6-49.0); Lymphocytes % 42.9 % (15.3-44.8); MCV 94.9 fL (80-100); MPV 7.6 fL (7.6-11.3); RBC Red Blood Cell Count 3.91 M/uL (4.33-5.43)
[2022-05-11 05:40] LABS: Potassium 3.6 mmol/L (3.5-5.1)
[2022-05-11] MEDS ORDERED: POTASSIUM CL SA 10 MEQ TAB PO ONE (08:00)
[2022-05-11] MEDS: FUROSEMIDE 40 MG/4 ML VIAL IV SCH (08:53)
[2022-05-11] MEDS: AMLODIPINE 5 MG TAB PO SCH (08:54)
[2022-05-11] MEDS: ENOXAPARIN 40 MG/0.4 ML SQ SCH (08:54)
[2022-05-11] MEDS: ASPIRIN 81 MG CHEWABLE TABLET PO SCH (08:54)
[2022-05-11] MEDS: SACUBITRIL/VALSARTAN 49/51 MG TAB PO SCH (08:54)
[2022-05-11 08:55] VITALS: BP 160/85
[2022-05-11 09:28] VITALS: TEMP 97.4
--- NOTE | 2022-05-11 10:09 | P.DS ---
Admission Date: 05/09/22 Discharge Date: 05/11/22 Primary Care Provider: Evaristo Disposition: ROUTINE DISCHARGE Discharge Condition: FAIR Reason for Admission: CHF Exacerbation - Problems (1) Acute on chronic systolic heart failure Current Visit: No Status: Acute (2) Elevated troponin level Onset Date: 01/27/17 Current Visit: No Status: Acute (3) Noncompliance Current Visit: No Status: Acute (4) Cardiomyopathy, nonischemic Current Visit: No Status: Chronic (5) Severe mitral regurgitation Current Visit: No Status: Chronic (6) Status post implantation of automatic cardioverter/defibrillator (AICD) Current Visit: No Status: Chronic Brief History of Present Illness: Patient is a 66-year-old male with past medical history of nonischemic cardiomyopathy, chronic systolic congestive heart failure, COPD, and hypertension who presented to the ED today with respiratory distress. Initially 83% on room air. He reports that he has been feeling short of breath for 4 days. stated that he is not compliant with his medications. His labs today are significant for hemoglobin of 11.6, BUN 19, creatinine 1.3, troponin at bedtime 100, BNP 14,000. COVID/flu negative. Chest x-ray showed "Enlarged heart with marked pulmonary congestion and findings indicating developing pulmonary edema. He was given a breathing treatment, Solu-Medrol, magnesium, and Lasix in the ED. he was also put on BiPAP. Patient was admitted for further management. Hospital Course: Patient admitted to the medical floor and treated for CHF exacerbation and pulmonary edema with IV Lasix. He was subsequently weaned off BiPAP to oxygen by nasal cannula and then to room air as his respiratory condition continued to improve. Troponin was mildly elevated but trended flat. He was seen in consultation with by cardiology who recommended medical management. His blood pressure was also elevated. His Entresto was continued and amlodipine added to control his BP. Patient might have experienced flash pulmonary edema. He also admitted to medication noncompliance. Echocardiogram showed EF 40 to 45% and severe mitral regurgitation. Patient has clinically improved. Oxygen has been weaned off. He has ambulated in the hallway without shortness of breath. Patient is deemed clinically stable for discharge. He is given refills for his Lasix and Entresto. Vital Signs/Physical Exam: Temp Pulse Resp BP Pulse Ox 97.4 F 52 16 160/85 H 99 05/11/22 08:00 05/11/22 08:54 05/11/22 08:00 05/11/22 08:54 05/11/22 08:00 General: Alert, In no apparent distress, Oriented x3 HEENT: Mucous membr. moist/pink Neck: JVD not distended Respiratory: Clear to auscultation bilaterally, Normal air movement Cardiovascular: No edema, Regular rate/rhythm, Normal S1 S2 Gastrointestinal: Soft and benign, Non-distended Musculoskeletal: No swelling Integumentary: No rashes, No cyanosis Neurological: Normal strength at 5/5 x4 extr Laboratory Data at Discharge: WBC 5.50 K/uL (4.3-10.9) 05/11/22 04:08 Hgb 12.4 g/dL (13.6-17.9) L D 05/11/22 04:08 Hct 37.1 % (39.6-49.0) L 05/11/22 04:08 Plt Count 267 K/uL (152-406) 05/11/22 04:08 PT 12.3 SECONDS (9.5-12.5) 05/09/22 00:21 INR 1.12 05/09/22 00:21 Sodium 139 mmol/L (136-145) 05/11/22 04:08 Potassium 3.6 mmol/L (3.5-5.1) 05/11/22 04:08 BUN 22 mg/dL (7-18) H 05/11/22 04:08 Creatinine 1.31 mg/dL (0.70-1.30) H 05/11/22 04:08 Glucose 101 mg/dL (74-106) 05/11/22 04:08 Phosphorus 2.4 mg/dL (2.5-4.9) L 05/10/22 03:52 Magnesium 2.3 mg/dL (1.6-2.4) 05/10/22 03:52 Total Bilirubin 1.0 mg/dL (0.2-1.0) 05/09/22 00:21 AST 49 U/L (15-37) H 05/09/22 00:21 ALT 38 U/L (16-61) 05/09/22 00:21 Alkaline Phosphatase 118 U/L (45-117) H 05/09/22 00:21 Triglycerides 48 mg/dL (<150) 05/10/22 03:52 Cholesterol 164 mg/dL (<200) 05/10/22 03:52 HDL Cholesterol 69 mg/dL (40-60) H 05/10/22 03:52 Cholesterol/HDL Ratio 2.38 05/10/22 03:52 Lipase 129 U/L (73-393) 05/09/22 00:21 Home Medications: Aspirin 81 mg PO DAILY #30 tab.chew 03/18/21 Finasteride 5 mg PO BEDTIME 07/08/21 Tamsulosin [Flomax*] 0.4 mg PO BEDTIME 07/08/21 Albuterol Sulfate [Albuterol Sulfate Hfa] 2 puff IH Q6H PRN 05/09/22 Sacubitril/Valsartan [Entresto 49 mg-51 mg Tablet] 1 tab PO BID 05/09/22 Amlodipine [Norvasc*] 5 mg PO DAILY #30 tab 05/11/22 Furosemide [Lasix] 40 mg PO BID #60 tab 05/11/22 Sacubitril/Valsartan [Entresto 49 mg-51 mg Tablet] 1 tab PO BID #60 tab 05/11/22 New Medications: Sacubitril/Valsartan [Entresto 49 mg-51 mg Tablet] 1 tab PO BID #60 tab Furosemide [Lasix] 40 mg PO BID #60 tab Amlodipine [Norvasc*] 5 mg PO DAILY #30 tab Diet: AHA Activity: Ad cheikh Followup: Deyvi Loera MD [Primary Care Provider] - (Please call to schedule an appointment in 1-2 weeks.) Time spent managing pt's care (in minutes): 35
--- NOTE | 2022-05-14 14:05 | EKG ---
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
== END 2022-05-11 12:57 | disposition home or self-care (01) | DRG 291 ==
LOC: ER 23:31 → ERHOLD 05-09 01:26 → 4TH 05-09 11:05
PROVIDERS: ADMIT Internal Medicine; ATTEND Internal Medicine
PROC: 5A09457 Assistance with Respiratory Ventilation, 24-96 Consecutive Hours, Continuous Positive Airway Pressure (ICD-10-PCS; principal; 2022-05-09)
DX: I13.0 Hypertensive heart and chronic kidney disease with heart failure and stage 1 through stage 4 chronic kidney disease, or unspecified chronic kidney disease (principal); I50.23 Acute on chronic systolic (congestive) heart failure; J96.01 Acute respiratory failure with hypoxia; N17.9 Acute kidney failure, unspecified; I24.8 Other forms of acute ischemic heart disease; N18.31 Chronic kidney disease, stage 3a; I34.0 Nonrheumatic mitral (valve) insufficiency; I42.8 Other cardiomyopathies; J44.9 Chronic obstructive pulmonary disease, unspecified; F17.200 Nicotine dependence, unspecified, uncomplicated; Z91.14 Patient's other noncompliance with medication regimen; Z79.52 Long term (current) use of systemic steroids; Z79.82 Long term (current) use of aspirin; Z79.899 Other long term (current) drug therapy; Z95.810 Presence of automatic (implantable) cardiac defibrillator
CPT/HCPCS: 0240U; 36415; 71045; 80048; 80061; 80076; 81003; 82550; 82553; 82805; 83605; 83690; 83735; 83880; 84100; 84443; 84484; 85025; 85610; 87040; 93005; 93306; 94660; 94760; 96365; 96372; 96375; 99285; J0456; J1650; J1940; J3475; J7050; J7614; J7644

== ENCOUNTER 2022-05-20 19:38 | Inpatient (IN) | payer MEDICARE ==
--- OUTSIDE RECORDS SUMMARY | 2022-05-20 19:41 | XMS REPORT | Continuity of Care Document ---
:1955 Author Organization [facility] t Address [address] [place] [address] Care Team Providers Name Role Phone JIM SHEEHAN Primary Care Physician Unavailable HANDY ROBERTSON Attending Clinician Unavailable Fannie_Edilson Attending Clinician Unavailable MELYSSA POPE Attending Clinician Unavailable JIM SHEEHAN Attending Clinician Unavailable Jim Admitting Clinician Unavailable JIM SHEEHAN Admitting Clinician Unavailable Payers Payer Name Policy Type Policy Number Effective Date Expiration Date [facility] [id number] 2020 (MEDICARE 00:00:00 REPLACEMENT HMO) Problems [...] of t of - [facility] prostate prostate [facility] [id number] BPH loc w Problem Com mon urin Spirit obs/LUTS - [facility] Allergies, Adverse Reactions, Alerts This patient has no known allergies or adverse reactions. Family History Family Member Diagnosis Comments Start Date Stop Date Source Natural father Hypertension [facility] Natural mother Hypertension [facility] Social History Social Habit Start Date Stop Date Quantity Comments Source History of Common Spirit - Tobacco Use [facility] Alcohol intake 2019-01-04 2019-01-[address] [facility] [address] [place] es 00:00:00 00:00:00 non-drinker of Medical Ce nter alcohol (finding) Tobacco use and 2017-09-08 2017-09-08 Never used [facility] Claudia kes exposure 00:00:00 00:00:00 [facility] Sex Assigned At [address] [facility] kes 00:00:00 00:00:00 [facility] Smoking Status Start Date Stop Date Source Never Smoker [facility] Medications Ordered Filled Start Stop Current [...] le} MG 00:00: 00:00 00 :00 isosorbide- 2018- Yes BiDil [address] hydrALAZINE 8-13 mg-37.5 mg Claudia kes (BIDIL) 14:58: tablet Medical 20-37.5 mg 42 Take 2 Center per tablet tablets 3 times a day by oral route. isosorbide- Yes BiDil [address] [...] (LASIX) 40 8-13 n by mouth 2 [place] MG tablet 14:58: (two) Medical 28 times Center daily . sacubitril- Yes 1{tbl} QD Take [address] valsartan 8-13 tablet by [facility] (ENTRESTO) 14:58: mouth Medica l 49-51 mg 28 daily . Center Tab aspirin 81 0 Yes 81mg QD Take [address] MG EC 8-13 by mouth [facility] tablet 14:58: daily. Medical 28 Center metoprolol Yes 50mg Q.5D Take [address] (LOPRESSOR) 8-13 by mouth 2 Claudia kes 50 MG 14:58: (two) Medical tablet 28 times Center daily. furosemide 2019-0 Yes hypertensio 60mg Q.5D Take [address] (LASIX) 40 8-13 n by mouth 2 [place] MG tablet 14:58: (two) Medical 28 times Center daily . sacubitril- 2019-0 Yes 1{tbl} QD Take 1 CH I [...] Comments Source height 2021-10-17 10:00:00 72 [in_i] [facility] weight 2021-10-17 10:00:00 169.2 [lb_av] [facility] temperature 2021-10-17 10:00:00 98.6 [degF] [facility] bmi 2021-10-17 10:00:00 22.95 kg/m2 [facility] oximetry 2021-10-17 10:00:00 96 % [facility] respiratory rate 2021-10-17 10:00:00 16 /min Comm on [facility] blood pressure 2021-10-17 10:00:00 145 mm[Hg] Common [facility] - systolic [facility] blood pressure 2021-10-17 10:00:00 87 mm[Hg] Common [facility] - diastolic [facility] blood pressure 2021-06-19 15:30:00 155 mm[Hg] Common [facility] - systolic [facility] blood pressure 2021-06-19 15:30:00 84 mm[Hg] Common [facility] height 2021-06-19 15:30:00 72 [in_i] [facility] weight 2021-06-19 15:30:00 170.6 [lb_av] [facility] temperature 2021-06-19 15:30:00 97.3 [degF] [facility] bmi 2021-06-19 15:30:00 23.13 kg/m2 [facility] oximetry 2021-06-19 15:30:00 96 % [facility] respiratory rate 2021-06-19 15:30:00 16 /min Comm on [facility] Procedures This patient has no known procedures. Encounters Start End Encounter Admission Attending Care Care Encounter Source Date/Time Date/Time Type Type Clinicians Facility Department ID 2021-06-19 Outpatient ROEBRTSON, STLMLC STLC [id number] Common 15:13:01 HANDY [facility] 2022-04-10 2022-04-10 (TEL) STLMLC STLMLC [id number] Co mmon 00:00:00 00:00:00 [facility] 2021-12-06 2021-12-06 Outpatient Ogweno_B [facility] [id number] [facility] 03:39:00 03:39:00 0715 [facility] 2021-11-05 2021-11-05 Outpatient Ogweno_B [facility] [id number] [facility] 11:07:00 11:07:00 0614 Medica l Group 2021-10-17 2021-10-17 OFFICE STLMLC STLMLC [id number] Co mmon 00:00:00 00:00:00 VISIT [facility] LEVEL 2 [facility] 2021-06-25 2021-06-25 (TEL) STLMLC STLMLC [id number] Co mmon 00:00:00 00:00:00 [facility] 2021-06-25 2021-06-25 (TEL) STLMLC STLMLC [id number] Co mmon 00:00:00 00:00:00 Spirit - [facility] 2021-06-19 2021-06-19 OFFICE [facility] [id number] Co mmon 00:00:00 00:00:00 VISIT NEW Spir it PT LEVEL 3 - [facility] 2020-11-01 2020-11-01 Outpatient Ogweno_B [facility] DM 2020 [facility] 10:25:00 10:25:00 0610 Medica l Group Results Test Description Test Time Test Comments Results Result Comments Source SARS-COV2/RT-PCR ([facility]) 2019-09-26 14:16:00 Test Item Value Reference Range Interpretation Comme nts SARS-COV2/RT-PCR (test code = 3323430) Not Detected Not Detected, N egative SARS-COV-2 PERFORMING LAB (test code = [facility] 1427951) Negative results do not preclude SARS-CoV-2 infection [...] of the Act.Fact Sheet for Healthcare Pro viders:https://www.Ping[employer]/Documents/Xpert%20Xpress%20SARS%20CoV-2/Fact%20Sh eets/302-2732%19RLAC-NCQ-6%20HEALTHCARE%20PROVIDERS%20FACT%20SHEET.pdfFact Sheet for Healthcare Patients:https://www.[employer]idium.com/Documents/Xpert%20Xpress%20SARS%20CoV-2/Fact%20Sheets/302-3056%20SARS-COV -2%20PATIENT%20FACT%20SHEET.pdfPerforming Laboratory:[facility], [place] [address]Enwoqgcttzyjw Metabolic [id number] 21:16:53 Test Item Value Reference Range Interpretation [...] A/G 1.2 ratio N Ratio) Comprehensive Metabolic [id number] 21:16:53 Test Item Value Reference Range Interpretation [...] National Kidney Foundation, http://nkdep.ni h.gov Comprehensive Metabolic [id number] 21:16:53 Test Item Value Reference Range Interpretation [...] National Kidney Foundation, http://nkdep.ni h.gov Comprehensive Metabolic [id number] 23:03:04 Test Item Value Reference Range Interpretation [...] A/G 1.5 ratio N Ratio) Comprehensive Metabolic [id number] 23:03:04 Test Item Value Reference Range Interpretation [...] the National Kidney Foundation, http://nkdep.ni h.gov Lipid [id number] 23:03:04 Test Item Value Reference Range Interpretation Comments Cholesterol Total 193 mg/dL 0-200 RISK OF HE ART (test code = DISEASEPublishe d by Cholesterol Total) [place] [employer] Erika lyte Optimal Borderl ine Increased RiskC HOL <200 200-239 >240TRI G <150 150-199 >200HDL Male >60 <40HDL Fema le >60 <50LDL <100 130 -159 >160LDL Near op timal is 100-129 Triglycerides [...] LDL/HDL Ratio=L DL Calc/HDL Chol Thyroid Stimulating [id number] 23:03:04 Test Item Value Reference Range Interpretation Comments TSH (test code = TSH) 0.848 mIU/mL 0.270-4.200 Pro B Natriuretic [id number] 23:03:04 Test Item Value Reference Range Interpretation Comments NT-proBNP (test code = NT-proBNP) 1591 pg/mL 0-124 H Comprehensive Metabolic [id number] 23:03:04 Test Item Value Reference Range Interpretation [...] ag e have not been validated by [facility] MDRD study and should be interpreted wit [...] ag e have not been validated by [facility] MDRD study and should be interpreted wit h caution. eGFR R esult Interpretation: eGFR > or = 60 is in the Normal RangeeGF R < 60 may mean kid katherine diseaseeGFR < 1 5 may mean kidney failure Rang es recommended by the National Kidney Foundation, http://nkdep.ni h.gov Erythrocyte Sedimentation Rate [id number] 22:26:53 Test Item Value Reference Range Interpretation Comments ESR STAT (test code = ESR STAT) 11 mm/hr 0-9 H Complete Blood Count with [id number] 22:14:43 Test Item Value Reference Range Interpretation [...] code = IPF) 0 % N Automated [id number] 22:14:43 Test Item Value Reference Range Interpretation Comments Neutro Auto (test code = Neutro 41.7 % 36.0-70.0 Auto) Lymph Auto (test code = Lymph Auto) 43.9 % 12.0-44.0 Levy Auto (test code = Levy Auto) 6.5 % 0.0-11.0 Eos, Auto (test code = Eos, Auto) 6.6 % 0.0-7.0 Basophil Auto (test code = Basophil 1.0 % 0.0-2.0 Auto) Neutro Absolute (test code = Neutro 2.9 x10 1.6-7.4 Absolute) Lymph Absolute (test code = Lymph 3.04 x10 .50-4.60 Absolute) Levy Absolute (test code = Levy .45 x10 .00-1.20 Absolute) Eos Absolute (test code = Eos 0.46 x10 0.00-0.74 Absolute) Baso Absolute (test code = Baso 0.07 x10 0.00-0.21 Absolute) IG [id number] 22:14:43 Test Item Value Reference Range Interpretation Comments IG (test code = IG) 0.3 % 0.0-5.0 IG Abs (test code = IG Abs) 0 x10 N RAD, CHEST, 2 [id number] 13:44:00Reason for exam:->SmokerFINAL REPORT TECHNIQUE: 2 views of the chest. COMPARISON: None FINDINGS: The cardiac silhouette is within normal limits. Thoracic aorta is ectatic. Lungs are clear. No acute skeletal abnormality. Left-sided pacing device noted. IMPRESSION: No acute cardiopulmonary disease. Signed:Joel Rogers Verified Date/Time: 09/08/2017 13:44:07 Reading Location: [facility] W/PLT COUNT & AUTO [id number] 12:29:00 Test Item Value Reference Range Interpretation [...] (test code Normal = 762) COMPREHENSIVE METABOLIC [id number] 12:29:00 Test Item Value Reference Range Interpretation [...] HESR) 12 mm/Hr 0-9 H CBC with [id number] 04:12:00 Test Item Value Reference Range Interpretation [...] code = 2.8 K/cumm 0.5-4.6 N ALYMPH) Levy Abs (test code = 0.3 K/cumm 0.0-1.2 N AMONO) Eos Abs (test code = 0.10 K/cumm 0.00-0.74 N AEOS) RBC Morphology (test Not Indicated code = RBCMRPH) Platelet Est (test code Adequate Platelets on = PLTEST) Smear Lipid [id number] 03:06:00 Test Item Value Reference Range Interpretation Comments Cholesterol (test 200 mg/dL 0-200 N code = CHOL) Triglycerides (test 104 mg/dL 9-200 N code = TRIG) HDL (test code = 66 mg/dL 40-60 H HDL) Chol/HDL (test code 3.0 Ratio 0.0-5.0 N = CHOLPHDL) LDL, Calculated 113 0-130 N (NOTE)RISK O F HEART (test code = LDLC) DISEASEPu blished by [place] Heart AssociationAnal yte Optimal Boderli ne Increased RiskC HOL <200 200-239 >240TRI G <150 150-199 >200HDL Male: >60 <40HDL Fem leslie: >60 <50LDL < 100 130-159 >160LDL NEAR OPTIMAL IS 100- 129 VLDL (test code = 21 mg/dL 5-40 N VLDL) LDL/HDL (test code = 2 LDLPHDL) Comprehensive Metabolic [id number] 03:06:00 Test Item Value Reference Range Interpretation [...] code = TSH) 1.40 mIU/mL 0.270-4.200 N [id number] 02:43:00 Test Item Value Reference Range Interpretation Comments NT ProBnp (test code = PBNP) 6296 pg/mL 0-124 H
[2022-05-20 20:31] LABS: Absolute Lymphocytes (CBC) 2.3 K/uL (0.7-4.9); Hematocrit 30.7 % (39.6-49.0); Lymphocytes % 38.6 % (15.3-44.8); MCV 92.5 fL (80-100); MPV 7.2 fL (7.6-11.3); RBC Red Blood Cell Count 3.32 M/uL (4.33-5.43)
[2022-05-20 20:37] LABS: Protime INR 1.25
[2022-05-20] MEDS ORDERED: LEVALBUTEROL 1.25 MG/3 ML NEB ONE (21:03)
[2022-05-20] MEDS ORDERED: MORPHINE 4 MG/ML SYR ONE (21:03)
[2022-05-20] MEDS ORDERED: METHYLPREDNISOLONE 125 MG INJ ONE (21:03)
[2022-05-20] MEDS ORDERED: IPRATROPIUM BROM 0.5MG/2.5ML ONE (21:04)
[2022-05-20 21:09] LABS: Potassium 3.4 mmol/L (3.5-5.1)
[2022-05-20 21:14] LABS: SARS-COV-2 RT PCR NEGATIVE (NEGATIVE)
[2022-05-20] MEDS ORDERED: FUROSEMIDE 20 MG/ 2ML VIAL ONE (21:29)
[2022-05-20] MEDS ORDERED: FUROSEMIDE 40 MG/4 ML VIAL ONE (21:29)
--- NOTE | 2022-05-20 21:45 | RAD REPORT ---
EXAM DESCRIPTION: RAD - Chest Single View - 05/20/2022 9:36 pm CLINICAL HISTORY: Cough COMPARISON: Chest Single View dated 05/10/2022; Chest Single View dated 05/09/2022; Chest Single Vie w dated 07/08/2021; Chest Single View dated 05/12/2021 FINDINGS: Lines: Pacemaker/ICD. Lungs: Bilateral perihilar opacities. Airspace disease in the right lung is somewhat confluent. Pleural: No significant pleural effusions or pneumothorax. Cardiac: Cardiomegaly. Mediastinum: Within normal limits. Bones: No acute fractures. Other: None IMPRESSION: Perihilar airspace disease bilaterally could represent cardiogenic pulmonary edema and/o r pneumonia.
--- NOTE | 2022-05-20 22:02 | RAD REPORT ---
EXAM DESCRIPTION: CT - Chest For Pe Angio - 05/20/2022 9:46 pm CLINICAL HISTORY: sob, cough, chest pain COMPARISON: Lung Cancer Screening CT W/O dated 12/16/2021; Chest For Pe Angio dated 07/15/2019; CTANGI O CHEST FOR PE dated 07/24/2008 TECHNIQUE: Dynamically enhanced axial 3 mm thick images of the chest were obtained during administra tion of <100> mL Isovue 370 IV contrast. Coronal and oblique reconstruction images were generated and reviewed. Exam utilizes a protocol for optimal evaluation of pulmonary arterial tree. Maximum intensity projections 3D imaging was utilized All CT scans are performed using dose optimization technique as appropriate and may include automated exposure control or mA/KV adjustment according to patient size. FINDINGS: Chest Wall: No suspicious thyroid nodules or pathologic lymphadenopathy. Left upper chest wall pacemaker/defibrillator. Lungs: Bilateral perihilar nodular and ground-glass airspace disease. This is more pronounced in the right lower lobe. Pleura: Small right pleural effusion. Mediastinum/lidya: No pathologic lymphadenopathy. Pulmonary arteries/Aorta: No filling defect identified. No aortic aneurysm. Heart: No significant pericardial effusion. Severe global cardiomegaly. Multi-vessel coronary artery disease. Contrast is dense in the right atrium and right ventricle. Upper abdomen: Reflux of contrast into the hepatic veins. Bones: No acute abnormality. IMPRESSION: Negative for pulmonary embolism. Bilateral perihilar airspace disease could reflect acut e cardiogenic pulmonary edema. Pneumonia difficult to entirely exclude. There is evidence of severe r ight heart dysfunction with pronounced reflux of contrast into the hepatic veins.
--- NOTE | 2022-05-20 22:52 | EDPHYS ---
Physician Documentation [facility] Name: Edouard Marie Age: 67 yrs Sex: Male : 1955 Arrival Date: 05/20/2022 Time: 19:39 Bed 8 Private MD: ED Physician Benny Mendoza HPI: 05/20 20:10 This 67 yrs old Black Male presents to ER via Ambulatory with complaints of Shortness rn Of Breath. 20:10 The patient has shortness of breath at rest, with light activity. Onset: The rn symptoms/episode began/occurred today. Duration: The symptoms are continuous. The patient's shortness of breath is aggravated by coughing, exertion, light activity, is alleviated by nothing. Associated signs and symptoms: Pertinent positives: chest pain, non-productive cough, Pertinent negatives: fever, hemoptysis. Severity of symptoms: At their worst the symptoms were moderate in the emergency department the symptoms are unchanged. The patient has experienced similar episodes in the past. The patient has been recently been admitted at [facility]. Pt states recently admitted and discharged, felt ok, then sob returned today. Reports worse with exertion. No fever but feels "cold". REports chest pain, left sided with breathing. No trauma. Reports doesn't feel as bad as he did devine he was admitted. States "wants something to sleep". . Historical: - Allergies: 19:51 No Known Allergies; ll3 - PMHx: 19:51 CHF; COPD; Hypertension; ll3 - PSHx: 19:51 defibrillator; L Rotator Cuff Sx; ll3 - Immunization history:: Client reports receiving the 2nd dose of the Covid vaccine. - Social history:: Smoking status: Patient denies any tobacco usage or history of. Patient uses street drugs, marijuana. - Family history:: not pertinent. - Hospitalizations: : No recent hospitalization is reported. ROS: 20:10 Constitutional: Negative for fever, chills, and weight loss, Eyes: Negative for injury, rn pain, redness, and discharge, Cardiovascular: Negative for palpitations, and edema, Respiratory: + sob and cough Abdomen/GI: Negative for abdominal pain, nausea, vomiting, diarrhea, and constipation, Back: Negative for injury and pain, MS/Extremity: Negative for injury and deformity, Skin: Negative for injury, rash, and discoloration, Neuro: Negative for headache, weakness, numbness, tingling, and seizure. Exam: 20:10 Constitutional: This is a well developed, well nourished patient who is awake, alert, rn mild tachypnea Head/Face: Normocephalic, atraumatic. ENT: no stridor Chest/axilla: Normal chest wall appearance and motion. Nontender with no deformity. No lesions are appreciated. Cardiovascular: Regular rate and rhythm. No pulse deficits. Respiratory: Mild tachypnea, faint wheezing bilaterally Abdomen/GI: soft, non-tender Skin: Warm, dry MS/ Extremity: Pulses equal, no cyanosis. Neuro: Awake and alert, GCS 15 22:29 ECG was reviewed by the Attending Physician. rn Vital Signs: 19:49 BP 156 / 95; Pulse 86; Resp 20; Temp 98.6(O); Pulse Ox 99% on R/A; Weight 72.57 kg (R); ll3 Height 6 ft. 2 in. (187.96 cm) (R); 22:09 Pulse Ox 85% on R/A; tw5 22:17 Resp 24 S; Pulse Ox 90% on 4 lpm NC; mb4 22:40 BP 188 / 138; Pulse 87; Resp 20; Pulse Ox 95% on 3 lpm NC; tw5 23:32 BP 196 / 102; Pulse 85; Resp 20; Pulse Ox 100% on 3 lpm NC; tw5 05/21 00:43 BP 134 / 105; Pulse 80; Resp 18; Pulse Ox 100% on 3 lpm NC; tw5 05/20 19:49 Body Mass Index 20.54 (72.57 kg, 187.96 cm) ll3 05/20 22:09 pt placed on 2 L NC tw5 MDM: 19:42 Patient medically screened. rn 22:48 Differential diagnosis: CHF exacerbation, Chronic Obstructive Pulmonary Disease rn Myocardial Infarction pneumonia, Pneumothorax pulmonary edema, Pulmonary Embolism. Data reviewed: vital signs, nurses notes, lab test result(s), EKG, radiologic studies, CT scan, plain films, and as a result, I will admit patient. Counseling: I had a detailed discussion with the patient and/or guardian regarding: the historical points, exam findings, and any diagnostic results supporting the discharge/admit diagnosis, lab results, radiology results, the need for further work-up and treatment in the hospital. Response to treatment: the patient's symptoms have mildly improved after treatment, and as a result, I will admit patient. Admission orders: after a detailed discussion of the patient's condition and case, the admit orders are written by me. 22:49 ED course: Pt with CHF, right heart failure, neg for PE, increase in oxygen rn requirement, and persistent HTN. Will admit for more diuresis. . 05/20 19:57 Order name: BMP; Complete Time: 21:15 05/20 19:57 Order name: Blood Culture Adult (2) 05/20 19:57 Order name: CBC with Diff; Complete Time: 21:15 05/20 19:57 Order name: NT PRO-BNP; Complete Time: 21:15 05/20 19:57 Order name: PT-INR; Complete Time: 21:15 05/20 19:57 Order name: Ptt, Activated; Complete Time: 21:15 05/20 19:57 Order name: Troponin HS; Complete Time: 21:15 05/20 19:57 Order name: COVID-19/FLU A+B; Complete Time: 21:15 05/21 03:45 Order name: CBC with Automated Diff; Complete Time: 04:04 [facility] 05/21 04:48 Order name: Basic Metabolic Panel [facility] 05/21 04:48 Order name: Phosphorus [facility] 05/21 04:48 Order name: Creatine Phosphokinase [facility] 05/21 04:48 Order name: CKMB Creatine Kinase MB [facility] 05/21 04:48 Order name: Troponin High Sensitivity [facility] 05/20 19:57 Order name: XRAY CXR (1 view); Complete Time: 22:46 05/20 19:57 Order name: EKG; Complete Time: 19:58 05/20 19:57 Order name: Cardiac monitoring; Complete Time: 22:15 05/20 19:57 Order name: EKG - Nurse/Tech; Complete Time: 22:15 05/20 19:57 Order name: IV Saline Lock; Complete Time: 20:25 05/20 19:57 Order name: CT Chest For PE Angio 05/20 20:01 Order name: Chest For Pe Angio; Complete Time: 22:46 [facility] 05/21 04:48 Order name: Lipid Profile [facility] 05/21 04:48 Order name: Magnesium [facility] 05/21 04:48 Order name: Thyroid Stimulating Hormone [facility] 05/20 19:57 Order name: Labs collected and sent; Complete Time: 20:25 rn 05/20 19:57 Order name: O2 Per Protocol; Complete Time: 22:41 rn 05/20 19:57 Order name: O2 Sat Monitoring; Complete Time: 22:41 rn EC:29 Rate is 82 beats/min. Rhythm is irregular. QRS [place] is Normal. IA interval is prolonged rn at 216 msec. QRS interval is normal. QT interval is normal. No Q waves. T waves are Normal. No ST changes noted. Clinical impression: NSR w/ Non-specific ST/T Changes and 1st degree heart block. Interpreted by me. Reviewed by me. Administered Medications: 21:05 Drug: SOLU-Medrol (methylPrednisoLONE) 125 mg Route: IVP; Site: right forearm; kl 21:10 Drug: morphine 4 mg Route: IVP; Infused Over: 4 mins; Site: right forearm; kl 23:34 Follow up: Response: No adverse reaction; RASS: Alert and Calm (0) tw5 21:10 Drug: Xopenex (levalbuterol) 1.25 mg Route: Inhalation; kl 21:10 Drug: AtroVENT (ipratropium) Aerosol 0.5 mg Route: Inhalation; kl 21:30 Drug: Lasix (furosemide) 60 mg Route: IVP; Site: right forearm; tw5 23:33 Follow up: Response: No adverse reaction tw5 23:36 Drug: Nitro-Bid (nitroglycerin) Ointment 2 % 1 inches Route: Transdermal; Site: tw5 affected area; Disposition Summary: 05/20/22 22:51 Hospitalization Ordered Hospitalization Status: Inpatient Admission rn Provider: Mauricio Owens rn Condition: Stable rn Problem: an acute exacerbation rn Symptoms: have improved rn Bed/Room Type: Standard rn Location: Telemetry/MedSurg (Inpatient)(05/21/22 07:21) eb Room Assignment: 204(05/21/22 07:21) eb Diagnosis - Unspecified combined systolic (congestive) and diastolic (congestive) heart failure rn - Acute pulmonary edema rn - Hypoxemia rn - Dyspnea, unspecified rn Forms: - Medication Reconciliation Form rn - SBAR form rn Signatures: Dispatcher [employer] Tereza Littlejohn RN RN Benny Washington MD MD rn Garcia, Cindy, RN RN cg Botello, Elizabeth eb Wood, Tiffany tw5 Marquez Zelaya RN RN ll3 Mee Gamboa PA-C PABuddy sb4 Corrections: (The following items were deleted from the chart) 05/21 00:44 05/20 22:51 Telemetry/MedSurg (Inpatient) jolanta fragoso 05/21 00:44 05/20 22:51 rn [place] 05/21 07:21 00:44 [facility] ER HOLD cg eb 07: 00:44 ERHOLD- cg eb
--- NOTE | 2022-05-20 22:52 | ER ---
Nurse's Notes [facility] Name: Edouard Marie Age: 67 yrs Sex: Male : 1955 Arrival Date: 05/20/2022 Time: 19:39 Bed 8 Private MD: Diagnosis: Unspecified combined systolic (congestive) and diastolic (congestive) heart failure;Acute pulmonary edema;Hypoxemia;Dyspnea, unspecified Presentation: 05/20 19:49 Chief complaint: Patient states: C/o SOB, states just got out of the hospital last ll3 week, states "I cant hardly breath", c/o back pain when exhaling. Coronavirus screen: Vaccine status: Patient reports receiving the 2nd dose of the covid vaccine. difficulty breathing, shortness of breath. Ebola Screen: No symptoms or risks identified at this time. Initial Sepsis Screen: Does the patient meet any 2 criteria? No. Patient's initial sepsis screen is negative. Does the patient have a suspected source of infection? No. Patient's initial sepsis screen is negative. Risk Assessment: Do you want to hurt yourself or someone else? Patient reports no desire to harm self or others. Onset of symptoms was May 19, 2022. 19:49 Method Of Arrival: Ambulatory ll3 19:49 Acuity: ERUM 3 ll3 Historical: - Allergies: 19:51 No Known Allergies; ll3 - PMHx: 19:51 CHF; COPD; Hypertension; ll3 - PSHx: 19:51 defibrillator; L Rotator Cuff Sx; ll3 - Immunization history:: Client reports receiving the 2nd dose of the Covid vaccine. - Social history:: Smoking status: Patient denies any tobacco usage or history of. Patient uses street drugs, marijuana. - Family history:: not pertinent. - Hospitalizations: : No recent hospitalization is reported. Screenin:30 [facility] ED Fall Risk Assessment (Adult) History of falling in the last 3 months, tw5 including since admission Yes- single mechanical fall (1 pt). Abuse screen: Denies threats or abuse. Denies injuries from another. Nutritional screening: No deficits noted. Tuberculosis screening: No symptoms or risk factors identified. Assessment: 21:30 General: Reports "I was sleeping today and I kept waking up because I couldn't breath. tw5 I am feeling better after that breathing treatment.". Cardiovascular: Capillary refill < 3 seconds is brisk in bilateral fingers. Respiratory: Airway is patent Trachea midline Respiratory effort is labored. : Urine is cloudy. 22:09 Respiratory: Breath sounds are diminished bilaterally. tw5 22:40 General: Appears in no apparent distress. Behavior is calm, cooperative, drowsy. tw5 Cardiovascular: Rhythm is sinus arrythmia. 23:32 General: Reports "I am feeling a little better. Just trying to get that sleep.". tw5 05/21 00:43 Reassessment: Patient states feeling better. Patient states symptoms have improved. tw5 Vital Signs: 05/20 19:49 BP 156 / 95; Pulse 86; Resp 20; Temp 98.6(O); Pulse Ox 99% on R/A; Weight 72.57 kg (R); ll3 Height 6 ft. 2 in. (187.96 cm) (R); 22:09 Pulse Ox 85% on R/A; tw5 22:17 Resp 24 S; Pulse Ox 90% on 4 lpm NC; mb4 22:40 BP 188 / 138; Pulse 87; Resp 20; Pulse Ox 95% on 3 lpm NC; tw5 23:32 BP 196 / 102; Pulse 85; Resp 20; Pulse Ox 100% on 3 lpm NC; tw5 05/21 00:43 BP 134 / 105; Pulse 80; Resp 18; Pulse Ox 100% on 3 lpm NC; tw5 05/20 19:49 Body Mass Index 20.54 (72.57 kg, 187.96 cm) ll3 05/20 22:09 pt placed on 2 L NC tw5 ED Course: 19:39 Patient arrived in ED. ja2 19:42 Benny Mendoza MD is Attending Physician. rn 19:51 Triage completed. ll3 19:51 Arm band placed on. ll3 20:22 Inserted saline lock: 22 gauge in right forearm, using aseptic technique. Blood mb4 collected. 20:23 Initial lab(s) drawn, by me, sent to lab. First set of blood cultures drawn by me. mb4 20:25 BMP Sent. mb4 20:25 Blood Culture Adult (2) Sent. mb4 20:25 CBC with Diff Sent. mb4 20:25 NT PRO-BNP Sent. mb4 20:25 Ptt, Activated Sent. mb4 20:25 PT-INR Sent. mb4 20:25 Troponin HS Sent. mb4 20:29 COVID swab sent to lab. Flu and/or RSV swab sent to lab. mb4 21:25 Arlyn Henry is Primary Nurse. tw5 21:[address] Scan. tw5 21:30 Patient has correct armband on for positive identification. Pulse ox on. NIBP on. Door tw5 closed. Noise minimized. Lights dimmed. Warm blanket given. Verbal reassurance given. 21:37 XRAY CXR (1 view) In Process Unspecified. EDMS 21:48 Chest For Pe Angio In Process Unspecified. EDMS 22:17 Placed in gown. Warm blanket given. Client placed on continuous cardiac and pulse mb4 oximetry monitoring. NIBP monitoring applied. 22:17 EKG done, by ED staff, reviewed by Benny Mendoza MD. Oxygen administration via nasal mb4 cannula \\T\\ 4L/min Response to oxygen therapy: symptoms improved. 22:41 Blood Culture Adult (2) Sent. tw5 22:50 Mauricio Owens is Hospitalizing Provider. rn Administered Medications: 21:05 Drug: SOLU-Medrol (methylPrednisoLONE) 125 mg Route: IVP; Site: right forearm; kl 21:10 Drug: morphine 4 mg Route: IVP; Infused Over: 4 mins; Site: right forearm; kl 23:34 Follow up: Response: No adverse reaction; RASS: Alert and Calm (0) tw5 21:10 Drug: Xopenex (levalbuterol) 1.25 mg Route: Inhalation; kl 21:10 Drug: AtroVENT (ipratropium) Aerosol 0.5 mg Route: Inhalation; kl 21:30 Drug: Lasix (furosemide) 60 mg Route: IVP; Site: right forearm; tw5 23:33 Follow up: Response: No adverse reaction tw5 23:36 Drug: Nitro-Bid (nitroglycerin) Ointment 2 % 1 inches Route: Transdermal; Site: tw5 affected area; Medication: 21:30 VIS not applicable for this client. tw5 Output: 23:33 Urine: 1000ml (Voided); Total: 1000ml. tw5 Outcome: 22:51 Decision to Hospitalize by Provider. rn 05/21 08:12 Patient left the ED. iw Signatures: Dispatcher [employer] EDMS Mamadou, Tereza, RN Karen Villarreal RN RN iw Nieto, Roman, MD MD rn Baxter, Mackenzie 4 Beatriz Pandey Tiffany [facility] Marquez Zelaya RN RN ll3 Corrections: (The following items were deleted from the chart) 05/20 19:55 19:49 Chief complaint: Patient states: C/o SOB, states just got out of the hospital ll3 last week, states "I cant hardly breath" ll3
--- NOTE | 2022-05-20 23:26 | P.HP ---
Certification for Inpatient Patient admitted to: Inpatient With expected LOS: >2 Midnights Patient will require the following post-hospital care: None Practitioner: I am a practitioner with admitting privileges, knowledge of patient current condition, hospital course, and medical plan of care. Services: Services provided to patient in accordance with Admission requirements found in Title 42 Section 412.3 of the Code of Federal Regulations Patient History Date of Service: 05/21/22 Primary Care Provider: Evaristo Reason for admission: CHF Exacerbation History of Present Illness: Patient is a 67-year-old male with past medical history of nonischemic cardiomyopathy, chronic systolic congestive heart failure, COPD, and hypertensio n who presented to the ED today with complaints of shortness of breath. He was treated here for CHF exacerbation 10 days ago. He states he has been feeling well since discharge, but started feeling short of breath today. He was noted to be saturating 85% on RA but improved to 100% on supplemental O2 3L nasal cannula. His labs are significant for hemoglobin 10.7, potassium 3.4, chloride 112, BUN 29, creatinine 1.63, troponin 93, BNP 37,000. Chest CTA "Negative for pulmonary embolism. Bilateral perihilar airspace disease could reflect acute cardiogenic pulmonary edema. Pneumonia difficult to entirely exclude. There is evidence of severe right heart dysfunction with pronounced reflux of contrast into the hepatic veins." He was given lasix, breathing treatment, solumedrol in ED. Patient is admitted for further management. Allergies No Known Allergies Allergy (Verified 04/23/21 05:33) Home medications list reviewed: Yes Home Medications: Aspirin 81 mg PO DAILY #30 tab.chew 03/18/21 Finasteride 5 mg PO BEDTIME 07/08/21 Tamsulosin [Flomax*] 0.4 mg PO BEDTIME 07/08/21 Albuterol Sulfate [Albuterol Sulfate Hfa] 2 puff IH Q6H PRN 05/09/22 Sacubitril/Valsartan [Entresto 49 mg-51 mg Tablet] 1 tab PO BID 05/09/22 Amlodipine [Norvasc*] 5 mg PO DAILY #30 tab 05/11/22 Furosemide [Lasix] 40 mg PO BID #60 tab 05/11/22 Sacubitril/Valsartan [Entresto 49 mg-51 mg Tablet] 1 tab PO BID #60 tab 05/11/22 - Past Medical/Surgical History Diabetic: No -: Hypertension -: Congestive heart failure -: COPD -: Pacemaker defibrillator -: Rotator cuff repair LEFT Psychosocial/ Personal History: Patient lives at home with his . - Family History Father -: Heart disease, Hypertension - Social History Smoking Status: Current every day smoker Alcohol use: No CD- Drugs: Yes Caffeine use: No Place of Residence: Home Review of Systems Respiratory: Cough, Shortness of Breath Cardiovascular: Chest Pain Physical Examination - Vital Signs Temperature: 98.6 F Blood Pressure: 134/105 Pulse: 80 Respirations: 18 Pulse Ox (%): 100 (3L NC) - Physical Exam General: Alert, In no apparent distress HEENT: Atraumatic, PERRLA Neck: Supple, 2+ carotid pulse no bruit Respiratory: Expiratory wheezes Cardiovascular: Regular rate/rhythm, Normal S1 S2 Gastrointestinal: Normal bowel sounds, No tenderness Musculoskeletal: No tenderness Integumentary: No rashes Neurological: Normal speech, Normal affect - Studies Laboratory Data (last 24 hrs) 05/20/22 20:23: PT 13.7 H, INR 1.25, APTT 32.9 05/20/22 20:23: WBC 5.90, Hgb 10.7 L, Hct 30.7 L, Plt Count 201 05/20/22 20:23: Sodium 143, Potassium 3.4 L, BUN 29 H, Creatinine 1.63 H, Glucose 113 H Assessment and Plan - Problems (Diagnosis) (1) Acute exacerbation of CHF (congestive heart failure) Current Visit: Yes Status: Acute Qualifiers: Heart failure type: systolic Qualified Code(s): I50.23 - Acute on chronic systolic (congestive) heart failure (2) Acute respiratory failure with hypoxia Current Visit: Yes Status: Acute (3) COPD (chronic obstructive pulmonary disease) Current Visit: Yes Status: Chronic Qualifiers: COPD type: unspecified COPD Qualified Code(s): J44.9 - Chronic obstructive pulmonary disease, unspecified (4) Chronic kidney disease, stage III (moderate) Current Visit: Yes Status: Chronic Qualifiers: Chronic kidney disease stage 3 subtype: stage 3b (GFR 30-44) Qualified Code(s): N18.32 - Chronic kidney disease, stage 3b (5) Hypertension Current Visit: Yes Status: Chronic Qualifiers: Hypertension type: primary hypertension Qualified Code(s): I10 - Essential (primary) hypertension (6) Severe mitral regurgitation Current Visit: Yes Status: Chronic - Plan Patient is admitted for further management of CHF exacerbation. Continue IV Lasix and supplemental O2, wean as tolerated. Symptoms have been attributed to flash pulmonary edema previously. Fluid restriction, low salt diet, daily weight. Aggressive blood pressure control-hydralazine as needed for BP spikes, continue home antihypertensives. Breathing treatments as needed. Troponin chronically elevated, deemed secondary to demand ischemia. Monitor and replete electrolytes per protocol. Reconcile and continue home medications. Lovenox for VTE prophylaxis. Full code. Discharge Plan: Home Plan to discharge in: Greater than 2 days - Advance Directives Does patient have a Living Will: No Does patient have a Durable POA for Healthcare: No - Code Status/Comfort Care Code Status Assessed: Yes Code Status: Full Code Physician Review: Patient Assessed, Agree with Above Assessment and Plan Critical Care: No Time Spent Managing Pts Care (In Minutes): 50
[2022-05-20] MEDS ORDERED: NITROGLYCERIN 1 GM PKT TD ONE (23:33)
[2022-05-21] MEDS ORDERED: ONDANSETRON 4 MG/2 ML VIAL IV PRN (01:19)
[2022-05-21] MEDS ORDERED: ACETAMINOPHEN 500 MG TAB PO PRN (01:19)
[2022-05-21] MEDS ORDERED: ALBUTEROL 2.5 MG/3 ML NEB SOL NEB PRN (01:19)
[2022-05-21 01:24] VITALS: BMI 21.2
[2022-05-21] MEDS ORDERED: HYDRALAZINE HCL 20 MG/ML VIAL IV PRN (03:09)
[2022-05-21 03:17] LABS: Absolute Lymphocytes (CBC) 0.9 K/uL (0.7-4.9); Hematocrit 31.2 % (39.6-49.0); Lymphocytes % 13.6 % (15.3-44.8); MCV 93.1 fL (80-100); MPV 7.9 fL (7.6-11.3); RBC Red Blood Cell Count 3.35 M/uL (4.33-5.43)
[2022-05-21 04:42] LABS: CKMB Creatine Kinase MB 1.7 ng/mL (1.0-3.6); Magnesium 2.1 mg/dL (1.6-2.4); Phosphorus 2.7 mg/dL (2.5-4.9); Potassium 3.3 mmol/L (3.5-5.1); Thyroid Stimulating Hormone 1.1 uIU/mL (0.358-3.740)
[2022-05-21 04:48] LABS: Troponin High Sensitivity 84.6 pg/mL (<58.9)
[2022-05-21] MEDS ORDERED: KCL 20 MEQ/100 mL IVPB 20 MEQ/100 ML BAG IV SCH (07:00)
[2022-05-21] MEDS ORDERED: KCL 20 MEQ/100 mL IVPB 100 ML IV ONE (07:36)
[2022-05-21] MEDS: ENOXAPARIN 40 MG/0.4 ML SQ SCH (09:27)
[2022-05-21] MEDS: FUROSEMIDE 40 MG/4 ML VIAL IV SCH ×2 (09:27→17:57)
--- NOTE | 2022-05-21 12:22 | P.PN ---
Subjective Date of Service: 05/21/22 Primary Care Provider: Evaristo Chief Complaint: CHF Exacerbation Patient reports improvement in shortness of breath. He is no longer orthopneic. Blood pressure readings are better today. Physical Examination - Vital Signs Temperature: 97.8 F Blood Pressure: 125/94 Pulse: 80 Respirations: 18 Pulse Ox (%): 100 - Physical Exam General: Alert, In no apparent distress, Oriented x3 HEENT: Mucous membr. moist/pink Neck: JVD not distended Respiratory: Crackles/rales (Bilateral) Cardiovascular: Regular rate/rhythm, Normal S1 S2, Edema (Bilateral legs) Gastrointestinal: Soft and benign, Non-distended, No ascites, No tenderness Musculoskeletal: No tenderness Integumentary: No cyanosis Neurological: Normal strength at 5/5 x4 extr, Cranial nerves 3-12 intact - Studies Laboratory Data (last 24 hrs) 05/20/22 20:23: PT 13.7 H, INR 1.25, APTT 32.9 05/20/22 20:23: WBC 5.90, Hgb 10.7 L, Hct 30.7 L, Plt Count 201 05/20/22 20:23: Sodium 143, Potassium 3.4 L, BUN 29 H, Creatinine 1.63 H, Glucose 113 H Assessment And Plan - Current Problems (Diagnosis) (1) Acute respiratory failure with hypoxia Current Visit: Yes Status: Acute (2) Acute on chronic systolic heart failure Current Visit: No Status: Acute (3) COPD exacerbation Current Visit: No Status: Acute (4) Cardiomyopathy, nonischemic Current Visit: No Status: Chronic (5) Severe mitral regurgitation Current Visit: Yes Status: Chronic (6) Malignant hypertension Current Visit: No Status: Acute - Plan Continue IV Lasix. Aggressive blood pressure control. Low-sodium diet. Monitor intake and output. Continue home antihypertensives. Hydralazine IV as needed for BP spikes. Bronchodilators. Wean off oxygen Activity as tolerated.
[2022-05-21] MEDS ORDERED: INFLUENZA VACCINE (for 6+ mo) 0.5 ML DOSE IMVAC ONE (13:00)
[2022-05-21] MEDS ORDERED: PNEUMOCOCCAL VACCINE 0.5 ML IMVAC ONE (13:00)
[2022-05-21] MEDS ORDERED: POTASSIUM 25 MEQ EFFERV TAB PO ONE (17:00)
--- NOTE | 2022-05-21 19:49 | CON ---
Date of Consultation: 05/21/2022 Reason For Consultation: CHF exacerbation. History Of Present Illness: This 67-year-old male with history of nonischemic cardiomyopathy, very l ow ejection fraction, COPD, and hypertension presented with worsening shortness of breath, orthopnea, and lower extremity edema. He was hypoxic on room air on arrival. The patient is not compliant wit h his sole diet. He eats fast food all the time. Past Medical History: As outlined above in the HPI. Medications: Refer to reconciliation sheet for detailed list. Allergies: NO KNOWN DRUG ALLERGIES. Family History: No premature coronary artery disease or cancer. Social History: He is a smoker. Does not drink or use any drugs. Review of Systems: All systems were reviewed and they were negative except for mentioned in HPI for shortness of breath, orthopnea, lower extremity edema, and no chest pain. The rest of systems were reviewed and were neg ative. Physical Examination: Vital Signs: Reviewed. Temperature is 97.8, pulse 80, breathing at 18, blood pressure 125/95, satur ating 100%. General: A pleasant middle-aged male who appears older than stated age, in no apparent distress. Head And Neck: Pupils are equal and reactive to light. Intact eye movement. Significantly elevated JVD. Lungs: Crackles half the way up bilaterally. No accessory muscle use or muscle retraction. Heart: Regular rate and rhythm with holosystolic murmur in the apical area. Abdomen: Soft, nontender. Bowel sounds positive. No organomegaly. No masses or hernia. No rigidi ty or rebound. Extremities: 3+ pitting edema bilaterally. No clubbing or cyanosis. Intact pulses. Skin: No rash. Neurologic: Alert, awake, and oriented x3. No acute focal deficits appreciated. Investigations: BUN 28, creatinine 1.6. Troponin 84. NT-proBNP is 37,826. CTA of the chest with s howed no pulmonary embolism. Assessment/recommendation: 1.[id number] systolic heart failure exacerbation. The patient is known to have severe systoli c dysfunction that is nonischemic in nature with an ejection fraction of 35% to 40%. The patient eat s very salty foods having dinner tonight with fried chicken from a fast food place that is extremely salty. Explained to him the importance of salt restriction and recommend IV diuresis with Lasix, duyen e it to 40 mg IV q.8 hours. Monitor BUN, creatinine, and electrolytes. 2.Hypokalemia due to diuresis. Please replace potassium and recheck tomorrow. 3.Severe mitral valve regurgitation due to severe dilated left ventricle and the patient could benef it from mitral valve clip. We will plan to follow up. If he follows up on outpatient basis then I w ill arrange for it as an outpatient. SR/MODL Voice ID: [id number] Report ID: [id number]
[2022-05-21] MEDS: FINASTERIDE 5 MG TAB PO SCH (21:32)
[2022-05-21] MEDS: SACUBITRIL/VALSARTAN 49/51 MG TAB PO SCH (21:32)
[2022-05-21] MEDS: TAMSULOSIN 0.4 MG SR CAP PO SCH (21:32)
[2022-05-21] MEDS: ALBUTEROL 2.5 MG/3 ML NEB SOL NEB PRN (22:45)
[2022-05-21] MEDS: IPRATROPIUM BROM 0.5MG/2.5ML NEB PRN (22:45)
[2022-05-22] MEDS: IPRATROPIUM BROM 0.5MG/2.5ML NEB PRN ×2 (03:35→18:02)
[2022-05-22] MEDS: ALBUTEROL 2.5 MG/3 ML NEB SOL NEB PRN (03:35)
[2022-05-22 04:59] LABS: Absolute Lymphocytes (CBC) 2.2 K/uL (0.7-4.9); Hematocrit 29.4 % (39.6-49.0); Lymphocytes % 28.2 % (15.3-44.8); MCV 93.6 fL (80-100); MPV 7.8 fL (7.6-11.3); RBC Red Blood Cell Count 3.14 M/uL (4.33-5.43)
[2022-05-22 05:08] LABS: Potassium 3.3 mmol/L (3.5-5.1)
[2022-05-22] MEDS ORDERED: NA CHLORIDE 0.9% 250 ML ONE (08:02)
[2022-05-22] MEDS: KCL 20 MEQ/100 mL IVPB 20 MEQ/100 ML BAG IV SCH ×2 (08:03→10:19)
[2022-05-22] MEDS: AMLODIPINE 5 MG TAB PO SCH (08:03)
[2022-05-22] MEDS: ASPIRIN 81 MG CHEWABLE TABLET PO SCH (08:03)
[2022-05-22] MEDS: ENOXAPARIN 40 MG/0.4 ML SQ SCH (08:03)
[2022-05-22] MEDS: FUROSEMIDE 40 MG/4 ML VIAL IV SCH ×2 (08:03→16:13)
[2022-05-22] MEDS: SACUBITRIL/VALSARTAN 49/51 MG TAB PO SCH ×2 (08:03→20:32)
--- NOTE | 2022-05-22 13:35 | P.PN ---
Subjective Date of Service: 05/22/22 Primary Care Provider: Evaristo Chief Complaint: CHF Exacerbation Patient reports progressive improvement in shortness of breath. He has no new complaint. Physical Examination - Vital Signs Temperature: 97.9 F Blood Pressure: 148/91 Pulse: 83 Respirations: 18 Pulse Ox (%): 100 - Physical Exam General: Alert, In no apparent distress Neck: JVD not distended Respiratory: Clear to auscultation bilaterally, Normal air movement Cardiovascular: Regular rate/rhythm, Normal S1 S2 Gastrointestinal: Normal bowel sounds, Soft and benign, Other (Rotund abdomen.) Musculoskeletal: No tenderness Integumentary: No rashes, No cyanosis Neurological: Normal strength at 5/5 x4 extr Assessment And Plan - Current Problems (Diagnosis) (1) Acute respiratory failure with hypoxia Current Visit: Yes Status: Acute (2) Acute on chronic systolic heart failure Current Visit: No Status: Acute (3) COPD exacerbation Current Visit: No Status: Acute (4) Cardiomyopathy, nonischemic Current Visit: No Status: Chronic (5) Severe mitral regurgitation Current Visit: Yes Status: Chronic (6) Malignant hypertension Current Visit: No Status: Acute - Plan Continue IV Lasix. Blood pressure control. Low-sodium diet. Monitor intake and output. Continue home antihypertensives. Hydralazine IV as needed for BP spikes. Bronchodilators. Wean off oxygen Activity as tolerated. Will diurese him for 1 more day. Possible discharge in am. Cardiology input appreciated.
--- NOTE | 2022-05-22 13:53 | PN ---
Date of Progress Note: 05/22/2022 Subjective: Seen by bedside. Doing clinically better. Still has shortness of breath with exertion, lower extremity edema. No chest pain. Review of Systems: Shortness of breath with exertion, lower extremity edema. No orthopnea present. No chest pain. No nausea, vomiting, diarrhea. No abdominal pain. No dysuria, polyuria, or urinary urgency. All other systems reviewed and they were negative. Physical Examination: Vital Signs: Reviewed. Head and Neck: Pupils are equal, reactive to light. Intact eye movements. No JVD. No cervical lym phadenopathy. Neck is supple. Thyroid is not enlarged. Lungs: Clear to auscultation bilaterally. No rhonchi, wheezing, or crackles. No accessory muscle u se. Heart: Irregular. No extra sounds. Abdomen: Soft, nontender. Bowel sounds positive. No organomegaly. No masses or hernia. No rigidi ty or rebound. Extremities: No clubbing or cyanosis. Positive edema bilaterally. Neurologic: Alert, awake, oriented x3. No acute focal deficits appreciated. Investigations: BUN 29, creatinine 1.39. Assessment And Recommendations: 1.Acute on chronic systolic heart failure exacerbation, improving very well. Continue IV diuretics and monitor BUN, creatinine, electrolytes. Strict low-sodium diet re-emphasized. 2.Borderline elevated troponin. The patient is known to have nonischemic cardiomyopathy. This is d emand ischemia. Continue to monitor. 3.Hypertension. After proper diuresis, the patient likely will require antihypertensive management. SR/MODL Voice ID: [id number] Report ID: [id number]
--- NOTE | 2022-05-22 17:48 | EKG ---
Test Date: 2022-05-20 Test Time: 22:11:26 [employer] Agent: SPEEDY MEASUREMENT RESULTS: Intervals: Rate: 82 NH: 216 QRSD: 124 QT: 388 QTc: 453 [place]: P: 80 NH: 216 QRS: 70 T: 98 INTERPRETIVE STATEMENTS: Sinus rhythm with sinus arrhythmia with 1st degree AV block with occasional premature ventricular complexes Possible Anteroseptal infarct, age undetermined Abnormal ECG Compared to ECG 05/09/2022 00:56:03 Ventricular premature complex(es) now present First degree AV block now present Myocardial infarct finding now present Atrial premature complex(es) no longer present Left ventricular hypertrophy no longer present Early repolarization no longer present Electronically Signed On 05-22-22 17:44:50 [employer] by Marco Mancilla
[2022-05-22] MEDS: TAMSULOSIN 0.4 MG SR CAP PO SCH (20:32)
[2022-05-22] MEDS: FINASTERIDE 5 MG TAB PO SCH (20:32)
[2022-05-23 03:58] LABS: Absolute Lymphocytes (CBC) 2.1 K/uL (0.7-4.9); Hematocrit 31.7 % (39.6-49.0); Lymphocytes % 47.3 % (15.3-44.8); MCV 93.9 fL (80-100); MPV 7.3 fL (7.6-11.3); RBC Red Blood Cell Count 3.38 M/uL (4.33-5.43)
[2022-05-23] MEDS: ASPIRIN 81 MG CHEWABLE TABLET PO SCH (08:02)
[2022-05-23] MEDS: FUROSEMIDE 40 MG/4 ML VIAL IV SCH (08:02)
[2022-05-23] MEDS: AMLODIPINE 5 MG TAB PO SCH (08:02)
[2022-05-23] MEDS: ENOXAPARIN 40 MG/0.4 ML SQ SCH (08:02)
[2022-05-23] MEDS: SACUBITRIL/VALSARTAN 49/51 MG TAB PO SCH (08:02)
[2022-05-23] MEDS: IPRATROPIUM BROM 0.5MG/2.5ML NEB PRN (08:15)
[2022-05-23] MEDS: ALBUTEROL 2.5 MG/3 ML NEB SOL NEB PRN (08:15)
[2022-05-23 08:17] VITALS: BP 156/74; TEMP 97.9
--- NOTE | 2022-05-23 09:08 | P.DS ---
Admission Date: 05/20/22 Discharge Date: 05/23/22 Primary Care Provider: Evaristo Disposition: ROUTINE DISCHARGE Discharge Condition: FAIR Reason for Admission: CHF Exacerbation - Problems (1) Acute respiratory failure with hypoxia Status: Acute (2) Acute on chronic systolic heart failure Status: Acute (3) COPD exacerbation Status: Acute (4) Cardiomyopathy, nonischemic Status: Chronic (5) Severe mitral regurgitation Status: Chronic (6) Malignant hypertension Status: Acute Brief History of Present Illness: Patient is a 67-year-old male with past medical history of nonischemic cardiomyopathy, chronic systolic congestive heart failure, COPD, and hypertension who presented to the ED today with complaints of shortness of breath. He was treated here for CHF exacerbation 10 days ago. He stated he was feeling well since discharge, but started feeling short of breath again. He was noted to be saturating 85% on RA but improved to 100% on supplemental O2 3L nasal cannula. His labs are significant for hemoglobin 10.7, potassium 3.4, chloride 112, BUN 29, creatinine 1.63, troponin 93, BNP 37,000. Chest CTA "Negative for pulmonary embolism. Bilateral perihilar airspace disease could reflect acute cardiogenic pulmonary edema. Pneumonia difficult to entirely exclude, evidence of severe right heart dysfunction with pronounced reflux of contrast into the hepatic veins." He was given lasix, breathing treatment, solumedrol in ED. Patient was admitted for further management. Hospital Course: Patient with a history of recurrent admissions for pulmonary edema secondary to systolic heart failure. Patient was admitted to the medical floor and treated with IV Lasix for CHF exacerbation. Patient diuresed well, his respiratory condition clinically improved with treatment and was back to baseline. He was weaned off oxygen to room air with SaO2 of 98%. Blood pressure was managed with his usual home antihypertensives. Patient at this time denies any shortness of breath. He was complaining of a small painful lump in the gluteal area which was tender to palpation. Subcutaneous abscess suspected patient is prescribed Bactrim. Overall patient is clinically improved and deemed stable for discharge. He is prescribed 80 mg twice a day for 1 week followed by 40 mg twice a day. Patient has been advised to stop drinking soda, reduce salt intake and be compliant with his medications. He is informed to follow-up with his PCP within 1 week. Vital Signs/Physical Exam: Temp Pulse Resp BP Pulse Ox 97.9 F 56 16 156/74 H 100 05/23/22 08:00 05/23/22 08:00 05/23/22 08:00 05/23/22 08:00 05/23/22 08:00 General: Alert, In no apparent distress, Oriented x3 HEENT: Mucous membr. moist/pink Neck: JVD not distended Respiratory: Clear to auscultation bilaterally, Normal air movement Cardiovascular: No edema, Regular rate/rhythm, Normal S1 S2 Gastrointestinal: Soft and benign, Non-distended Musculoskeletal: No swelling Integumentary: No rashes Neurological: Normal strength at 5/5 x4 extr Laboratory Data at Discharge: WBC 4.30 K/uL (4.3-10.9) 05/23/22 03:36 Hgb 10.8 g/dL (13.6-17.9) L 05/23/22 03:36 Hct 31.7 % (39.6-49.0) L 05/23/22 03:36 Plt Count 209 K/uL (152-406) 05/23/22 03:36 PT 13.7 SECONDS (9.5-12.5) H 05/20/22 20:23 INR 1.25 05/20/22 20:23 APTT 32.9 SECONDS (24.3-36.9) 05/20/22 20:23 Sodium 143 mmol/L (136-145) 05/23/22 03:36 Potassium 4.0 mmol/L (3.5-5.1) 05/23/22 03:36 BUN 25 mg/dL (7-18) H 05/23/22 03:36 Creatinine 1.26 mg/dL (0.70-1.30) 05/23/22 03:36 Glucose 99 mg/dL (74-106) 05/23/22 03:36 Phosphorus 2.7 mg/dL (2.5-4.9) 05/21/22 02:20 Magnesium 2.1 mg/dL (1.6-2.4) 05/21/22 02:20 Triglycerides 94 mg/dL (<150) 05/21/22 02:20 Cholesterol 176 mg/dL (<200) 05/21/22 02:20 HDL Cholesterol 61 mg/dL (40-60) H 05/21/22 02:20 Cholesterol/HDL Ratio 2.89 05/21/22 02:20 Home Medications: Aspirin 81 mg PO DAILY #30 tab.chew 03/18/21 Finasteride 5 mg PO BEDTIME 07/08/21 Tamsulosin [Flomax*] 0.4 mg PO BEDTIME 07/08/21 Albuterol Sulfate [Albuterol Sulfate Hfa] 2 puff IH Q6H PRN 05/09/22 Amlodipine [Norvasc*] 5 mg PO DAILY #30 tab 05/11/22 Sacubitril/Valsartan [Entresto 49 mg-51 mg Tablet] 1 tab PO BID #60 tab 05/11/22 Furosemide [Lasix] 40 mg PO BIDL #70 tab 05/23/22 Sulfamethoxazole/Trimethoprim [Bactrim Ds Tablet] 1 each PO BID #14 tab 05/23/22 New Medications: Sulfamethoxazole/Trimethoprim [Bactrim Ds Tablet] 1 each PO BID #14 tab Furosemide [Lasix] 40 mg PO BIDL #70 tab Physician Discharge Instructions: Please avoid salty diet. Avoid drinking soda. Diet: AHA (low salt diet emphasized) Activity: Ad cheikh Followup: Deyvi Loera MD [Primary Care Provider] - 1 Week Time spent managing pt's care (in minutes): 35
[2022-05-23 13:01] VITALS: O2SAT 97
== END 2022-05-23 11:21 | disposition home or self-care (01) | DRG 291 ==
LOC: ER 19:38 → ERHOLD 23:18 → 2ND 05-21 07:53
PROVIDERS: ADMIT Internal Medicine; ATTEND Internal Medicine
DX: I13.0 Hypertensive heart and chronic kidney disease with heart failure and stage 1 through stage 4 chronic kidney disease, or unspecified chronic kidney disease (principal); I50.23 Acute on chronic systolic (congestive) heart failure; J96.01 Acute respiratory failure with hypoxia; I24.8 Other forms of acute ischemic heart disease; J44.1 Chronic obstructive pulmonary disease with (acute) exacerbation; L02.31 Cutaneous abscess of buttock; I42.8 Other cardiomyopathies; N18.32 Chronic kidney disease, stage 3b; I34.0 Nonrheumatic mitral (valve) insufficiency; I16.0 Hypertensive urgency; E87.6 Hypokalemia; Z20.822 Contact with and (suspected) exposure to COVID-19
CPT/HCPCS: 0240U; 36415; 71045; 71275; 80048; 80061; 82550; 82553; 83735; 83880; 84100; 84132; 84443; 84484; 85025; 85610; 85730; 87040; 93005; 94640; 94760; 96374; 96375; 99285; J1650; J1940; J2930; J3480; J7050; J7613; J7614; J7644; Q9967

== ENCOUNTER 2022-05-28 13:15 | Inpatient (IN) | payer MEDICARE ==
--- OUTSIDE RECORDS SUMMARY | 2022-05-28 13:19 | XMS REPORT | Continuity of Care Document ---
:1955 Author Organization [facility] t Address [address] [place] [address] Care Team Providers Name Role Phone JIM SHEEHAN Primary Care Physician Unavailable HANDY ROBERTSON Attending Clinician Unavailable Fannie_Edilson Attending Clinician Unavailable MELYSSA POPE Attending Clinician Unavailable JIM SHEEHAN Attending Clinician Unavailable Jim Admitting Clinician Unavailable JIM SHEEHAN Admitting Clinician Unavailable Payers Payer Name Policy Type Policy Number Effective Date Expiration Date [facility] [id number] 2020 (MEDICARE 00:00:00 REPLACEMENT HMO) Problems [...] of t of - [facility] prostate prostate [facility] [id number] BPH loc w Problem Com mon urin Spirit obs/LUTS - [facility] Allergies, Adverse Reactions, Alerts This patient has no known allergies or adverse reactions. Family History Family Member Diagnosis Comments Start Date Stop Date Source Natural father Hypertension [facility] Natural mother Hypertension [facility] Social History Social Habit Start Date Stop Date Quantity Comments Source History of Common Spirit - Tobacco Use [facility] Alcohol intake 2019-01-04 2019-01-04 Current [facility] [place] es 00:00:00 00:00:00 non-drinker of Medical Ce nter alcohol (finding) Tobacco use and 2017-09-08 2017-09-08 Never used [facility] kes exposure 00:00:00 00:00:00 [facility] Sex Assigned At [birth year] [facility] kes 00:00:00 00:00:00 [facility] Smoking Status Start Date Stop Date Source Never Smoker [facility] Medications Ordered Filled Start [...] 28 daily . Center Tab aspirin 81 Yes 81mg QD Take 81 [...] 28 daily . Center Tab aspirin 81 Yes 81mg QD Take [address] [facility] 8-13 by mouth [facility] tablet 14:58: daily. [address] metoprolol Yes 50mg Q.5D Take 50 mg [...] 72 [in_i] Common S pirit - [facility] weight 2021-10-17 10:00:00 169.2 [lb_av] Common [facility] temperature 2021-10-17 10:00:00 98.6 [degF] Common [facility] bmi 2021-10-17 10:00:00 22.95 kg/m2 [facility] oximetry 2021-10-17 10:00:00 96 % [facility] respiratory rate 2021-10-17 10:00:00 16 /min Comm on [facility] blood pressure 2021-10-17 10:00:00 145 mm[Hg] Common [facility] systolic [facility] blood pressure 2021-10-17 10:00:00 87 mm[Hg] [facility] diastolic [facility] blood pressure 2021-06-19 15:30:00 155 mm[Hg] [facility] systolic [facility] blood pressure 2021-06-19 15:30:00 84 mm[Hg] Common [facility] diastolic [facility] height 2021-06-19 15:30:00 72 [in_i] [facility] weight 2021-06-19 15:30:00 170.6 [lb_av] Common [facility] temperature 2021-06-19 15:30:00 97.3 [degF] [facility] bmi 2021-06-19 15:30:00 23.13 kg/m2 [facility] oximetry 2021-06-19 15:30:00 96 % [facility] respiratory rate 2021-06-19 15:30:00 16 /min Comm on [facility] Procedures This patient has no known procedures. Encounters Start End Encounter Admission Attending Care Care Encounter Source Date/Time Date/Time Type Type Clinicians Facility Department ID 2021-06-[address] [facility] [id number] Common 15:13:01 HANDY [facility] 2022-04-10 2022-04-10 (TEL) STLMLC STLMLC [id number] Co mmon 00:00:00 00:00:00 [facility] 2021-12-06 2021-12-06 Outpatient Og[facility] [id number] [facility] 03:39:00 03:39:00 [facility] 2021-11-05 2021-11-05 Outpatient Ogweno[facility] [id number] [facility] 11:07:00 11:07:00 0614 [facility] 2021-10-17 2021-10-17 OFFICE STLMLC STLMLC [id number] Co mmon 00:00:00 00:00:00 VISIT [place] LEVEL 2 [facility] 2021-06-25 2021-06-25 (TEL) STLMLC STLMLC [id number] Co mmon 00:00:00 00:00:00 [facility] 2021-06-25 2021-06-25 (TEL) STLMLC STLMLC [id number] Co mmon 00:00:00 00:00:00 [facility] 2021-06-19 2021-06-19 OFFICE STLMLC STLMLC [id number] Co mmon 00:00:00 00:00:00 VISIT [facility] PT LEVEL 3 [facility] 2020-11-01 2020-11-01 Outpatient Ogweno_B [facility] 2020 [facility] 10:25:00 10:25:00 0610 Medica l [facility] Results Test Description Test Time Test Comments Results Result Comments Source SARS-COV2/RT-PCR ([facility]) 2019-09-26 14:16:00 Test Item Value Reference Range Interpretation Comme nts SARS-COV2/RT-PCR (test code = 6246900) Not Detected Not Detected, N egative SARS-COV-2 PERFORMING LAB ([facility] = [id number] Negative results do not preclude SARS-CoV-2 infection [...] of the Act.Fact Sheet for Healthcare Pro viders:https://www.Event Park Pro/Documents/Xpert%20Xpress%20SARS%20CoV-2/Fact%20Sh eets/302-3802%49MKUV-SAO-2%20HEALTHCARE%20PROVIDERS%20FACT%20SHEET.pdfFact Sheet for Healthcare Patients:https://www.Sway/Documents/Xpert%20Xpress%20SARS%20CoV-2/Fact%20Sheets/302-3801%20SARS-COV -2%20PATIENT%20FACT%20SHEET.pdfPerforming Laboratory:[facility], [place] [address]Sgfeffvxsuvlz Metabolic [id number] 21:16:53 Test Item Value Reference Range Interpretation [...] A/G 1.2 ratio N Ratio) Comprehensive Metabolic [id number] 21:16:53 Test Item Value Reference Range Interpretation [...] ag e have not been validated by [facility] MDRD study and should be [...] ag e have not been validated by [facility] MDRD study and should be interpreted wit h caution. eGFR R esult Interpretation: eGFR > or = 60 is in the Normal RangeeGF R < 60 may mean kid katherine diseaseeGFR < 1 5 may mean kidney failure Rang es recommended by the National Kidney Foundation, http://nkdep.ni h.gov Comprehensive Metabolic [id number] 21:16:53 Test Item Value Reference Range Interpretation [...] ag e have not been validated by [facility] MDRD study and should be [...] ag e have not been validated by [facility] MDRD study and should be interpreted wit h caution. eGFR R esult Interpretation: eGFR > or = 60 is in the Normal RangeeGF R < 60 may mean kid katherine diseaseeGFR < 1 5 may mean kidney failure Rang es recommended by the National Kidney Foundation, http://nkdep.ni h.gov Comprehensive Metabolic [id number] 23:03:04 Test Item Value Reference Range Interpretation [...] A/G 1.5 ratio N Ratio) Comprehensive Metabolic [id number] 23:03:04 Test Item Value Reference Range Interpretation [...] the National Kidney Foundation, http://nkdep.ni h.gov Lipid [id number] 23:03:04 Test Item Value Reference Range Interpretation Comments Cholesterol Total 193 mg/dL 0-200 RISK OF HE ART (test code = DISEASEPublishe d by Cholesterol Total) [place] [employer] Erika lyte Optimal Borderl ine [...] LDL/HDL Ratio=L DL Calc/HDL Chol Thyroid Stimulating [id number] 23:03:04 Test Item Value Reference Range Interpretation Comments TSH (test code = TSH) 0.848 mIU/mL 0.270-4.200 Pro B Natriuretic [id number] 23:03:04 Test Item Value Reference Range Interpretation Comments NT-proBNP (test code = NT-proBNP) 1591 pg/mL 0-124 H Comprehensive Metabolic [id number] 23:03:04 Test Item Value Reference Range Interpretation [...] Kidney Foundation, http://nkdep.ni h.gov Erythrocyte Sedimentation Rate [id number] 22:26:53 Test Item Value Reference Range Interpretation Comments ESR STAT (test code = ESR STAT) 11 mm/hr 0-9 H Complete Blood Count with [id number] 22:14:43 Test Item Value Reference Range Interpretation [...] code = IPF) 0 % N Automated [id number] 22:14:43 Test Item Value Reference Range Interpretation Comments Neutro Auto (test code = Neutro 41.7 % 36.0-70.0 Auto) Lymph Auto (test code = Lymph Auto) 43.9 % 12.0-44.0 Valencia Auto (test code = Valencia Auto) 6.5 % 0.0-11.0 Eos, Auto (test code = Eos, Auto) 6.6 % 0.0-7.0 Basophil Auto (test code = Basophil 1.0 % 0.0-2.0 Auto) Neutro Absolute (test code = Neutro 2.9 x10 1.6-7.4 Absolute) Lymph Absolute (test code = Lymph 3.04 x10 .50-4.60 Absolute) Valencia Absolute (test code = Valencia .45 x10 .00-1.20 Absolute) Eos Absolute (test code = Eos 0.46 x10 0.00-0.74 Absolute) Baso Absolute (test code = Baso 0.07 x10 0.00-0.21 Absolute) IG [id number] 22:14:43 Test Item Value Reference Range Interpretation Comments IG (test code = IG) 0.3 % 0.0-5.0 IG Abs (test code = IG Abs) 0 x10 N RAD, CHEST, 2 [id number] 13:44:00Reason for exam:->SmokerFINAL REPORT TECHNIQUE: 2 views of the chest. COMPARISON: None FINDINGS: The cardiac silhouette is within normal limits. Thoracic aorta is ectatic. Lungs are clear. No acute skeletal abnormality. Left-sided pacing device noted. IMPRESSION: No acute cardiopulmonary disease. Signed:Joel Rogers MDReport Verified Date/Time: 09/08/2017 13:44:07 Reading Location: [facility] Radiology [facility] Room CBC W/PLT COUNT & AUTO [id number] 12:29:00 Test Item Value Reference Range Interpretation [...] (test code Normal = 762) COMPREHENSIVE METABOLIC [id number] 12:29:00 Test Item Value Reference Range Interpretation [...] HESR) 12 mm/Hr 0-9 H CBC with [id number] 04:12:00 Test Item Value Reference Range Interpretation [...] code = 2.8 K/cumm 0.5-4.6 N ALYMPH) Valencia Abs (test code = 0.3 K/cumm 0.0-1.2 N AMONO) Eos Abs (test code = 0.10 K/cumm 0.00-0.74 N AEOS) RBC Morphology (test Not Indicated code = RBCMRPH) Platelet Est (test code Adequate Platelets on = PLTEST) Smear Lipid [id number] 03:06:00 Test Item Value Reference Range Interpretation Comments Cholesterol (test 200 mg/dL 0-200 N code = CHOL) Triglycerides (test 104 mg/dL 9-200 N code = TRIG) HDL (test code = 66 mg/dL 40-60 H HDL) Chol/HDL (test code 3.0 Ratio 0.0-5.0 N = CHOLPHDL) LDL, Calculated 113 0-130 N (NOTE)RISK O F HEART (test code = LDLC) DISEASEPu blished by [place] Heart AssociationAnal yte Optimal Boderli ne Increased RiskC HOL <200 200-239 >240TRI G <150 150-199 >200HDL Male: >60 <40HDL Fema le: >60 <50LDL <100 130 -159 >160LDL NEAR OP TIMAL IS 100-129 VLDL (test code = 21 mg/dL 5-40 N VLDL) LDL/HDL (test code = 2 LDLPHDL) Comprehensive Metabolic [id number] 03:06:00 Test Item Value Reference Range Interpretation [...] code = TSH) 1.40 mIU/mL 0.270-4.200 N [id number] 02:43:00 Test Item Value Reference Range Interpretation Comments NT ProBnp (test code = PBNP) 6296 pg/mL 0-124 H
[2022-05-28] MEDS ORDERED: FUROSEMIDE 40 MG/4 ML VIAL ONE ×2 (14:14→21:09)
[2022-05-28] MEDS ORDERED: LEVALBUTEROL 1.25 MG/3 ML NEB ONE (14:14)
[2022-05-28 14:47] LABS: Protime INR 1.15
[2022-05-28 14:48] LABS: Absolute Lymphocytes (CBC) 1.8 K/uL (0.7-4.9); Hematocrit 33.2 % (39.6-49.0); MPV 7.3 fL (7.6-11.3); RBC Red Blood Cell Count 3.53 M/uL (4.33-5.43)
[2022-05-28 15:03] LABS: Bilirubin Direct 0.2 mg/dL (0-0.2); Bilirubin Total 0.5 mg/dL (0.2-1.0); Magnesium 2.2 mg/dL (1.6-2.4); Potassium 4.3 mmol/L (3.5-5.1); Protein, Total 6.9 g/dL (6.4-8.2)
--- NOTE | 2022-05-28 15:04 | RAD REPORT ---
EXAM DESCRIPTION: [facility] Single View05/28/2022 2:08 pm CLINICAL HISTORY: Shortness breath COMPARISON: April 2022 FINDINGS: Moderate bilateral alveolar pulmonary opacities. Heart is moderately enlarged. Pacemaker leads in place IMPRESSION: These findings probably indicate CHF
--- NOTE | 2022-05-28 16:37 | EDPHYS ---
Physician Documentation [facility] Name: Edouard Marie Age: 67 yrs Sex: Male : 1955 Arrival Date: 05/28/2022 Time: 13:16 Bed 18 Private MD: ED Physician Yfn Hemphill HPI: 05/28 13:49 This 67 yrs old Black Male presents to ER via Ambulatory with complaints of Breathing jmm Difficulty. 13:49 Onset: The symptoms/episode began/occurred gradually. This is a 67-year-old male with jmm history of COPD, CHF and hypertension the presents emerged department with worsening shortness of breath over the past 2 days. Patient states this is consistent with previous episodes of CHF. Patient states he is taking his prescribed medications without any relief of symptoms.. Historical: - Allergies: 13:37 No Known Allergies; ap3 - Home Meds: 15:30 Albuterol Inhl [Active]; aspirin 81 mg Oral TbEC 1 tab once daily [Active]; d3 eh3 [Active]; Entresto 49-51 mg Oral tab [Active]; finasteride 5 mg Oral tab 1 tab once daily [Active]; furosemide 40 mg Oral tab 1 tab 2 times per day [Active]; multivitamin Oral [Active]; neb treatment as needed [Active]; tamsulosin 0.4 mg Oral cap 1 cap once daily [Active]; - PMHx: 13:37 CHF; COPD; Hypertension; ap3 - PSHx: 15:30 defibrillator; L Rotator Cuff Sx; eh3 - Immunization history:: Client reports having NOT received the Covid vaccine. Flu vaccine is not up to date. - Social history:: Smoking status: Patient reports the use of cigarette tobacco products, smokes one-half pack cigarettes per day, Patient uses alcohol, street drugs, marijuana. ROS: 13:49 Constitutional: Positive for body aches. jmm 13:49 Respiratory: Positive for shortness of breath. 13:49 All other systems are negative. Exam: 13:49 Constitutional: This is a well developed, well nourished patient who is awake, alert, jmm and in no acute distress. Head/Face: atraumatic. Eyes: EOMI, no conjunctival erythema appreciated ENT: Moist Mucus Membranes Neck: Trachea midline, Supple Chest/axilla: Normal chest wall appearance and motion. Cardiovascular: Regular rate and rhythm. No edema appreciated 13:49 Back: Normal ROM Skin: General appearance color normal MS/ Extremity: Moves all extremities, no obvious deformities appreciated, no edema noted to the lower extremities Neuro: Awake and alert Psych: Behavior is normal, Mood is normal, Patient is cooperative and pleasant 13:49 Respiratory: the patient does not display signs of respiratory distress, moderate respiratory distress is noted, Respirations: labored breathing, that is moderate, Breath sounds: are clear throughout. Vital Signs: 13:35 BP 136 / 99; Pulse 68; Resp 21; Temp 98.1; Pulse Ox 100% on R/A; Weight 77.11 kg; ap3 Height 6 ft. 2 in. (187.96 cm); 13:45 BP 140 / 98; Pulse 75; Resp 22; Pulse Ox 88% on R/A; eh3 14:00 Pulse Ox 95% on 2 lpm NC; eh3 14:45 BP 180 / 116; Pulse 73; Resp 18; Pulse Ox 94% on 2 lpm NC; eh3 15:45 BP 172 / 111; Pulse 75; Resp 20; Pulse Ox 95% 2 lpm ; eh3 16:45 BP 167 / 103; Pulse 84; Resp 20; Pulse Ox 91% on 2 lpm NC; eh3 17:45 BP 154 / 102; Pulse 85; Resp 19; Pulse Ox 94% on 2 lpm NC; eh3 13:35 Body Mass Index 21.83 (77.11 kg, 187.96 cm) ap3 MDM: 13:49 Patient medically screened. [facility] 16:35 Data reviewed: vital signs, nurses notes. Counseling: I had a detailed discussion with [facility] the patient and/or guardian regarding: the historical points, exam findings, and any diagnostic results supporting the discharge/admit diagnosis, lab results, radiology results, the need for further work-up and treatment in the hospital. ED course: I discussed the patient with Azul, whom accepted the patient to Dr. Mendoza's service. . 05/28 13:54 Order name: Basic Metabolic Panel; Complete Time: 15:09 [facility] 05/28 13:54 Order name: CBC with Diff; Complete Time: 14:54 [facility] 05/28 13:54 Order name: LFT's; Complete Time: 15:09 [facility] 05/28 13:54 Order name: Magnesium; Complete Time: 15:09 [facility] 05/28 13:54 Order name: NT PRO-BNP; Complete Time: 15:09 [facility] 05/28 13:54 Order name: PT-INR; Complete Time: 14:47 [facility] 05/28 13:54 Order name: Troponin HS; Complete Time: 15:09 [facility] 05/28 17:49 Order name: SARS-COV-2 Antigen Rapid bd 05/28 18:17 Order name: SARS-COV-2 Antigen Rapid; Complete Time: 19:23 EDMS 05/28 19:12 Order name: Phosphorus; Complete Time: 19:23 EDMS 05/28 19:12 Order name: Magnesium; Complete Time: 19:23 EDMS 05/28 23:50 Order name: Urine Dipstick-Ancillary; Complete Time: 09:15 EDMS 05/29 02:59 Order name: CBC with Automated Diff; Complete Time: 09:15 EDMS 05/29 03:21 Order name: Comprehensive Metabolic Panel; Complete Time: 09:15 EDMS 05/28 13:54 Order name: XRAY Chest (1 view); Complete Time: 15:09 [facility] 05/28 13:54 Order name: EKG; Complete Time: 13:55 m 05/28 13:54 Order name: Cardiac monitoring; Complete Time: 14:46 [facility] 05/28 13:54 Order name: EKG - Nurse/Tech; Complete Time: 14:46 [facility] 05/28 13:54 Order name: IV Saline Lock; Complete Time: 14:46 [facility] 05/28 13:54 Order name: Labs collected and sent; Complete Time: 14:46 [facility] 05/28 13:54 Order name: O2 Per Protocol; Complete Time: 14:46 [facility] 05/28 13:54 Order name: O2 Sat Monitoring; Complete Time: 14:46 [facility] 05/29 03:21 Order name: NT PRO-BNP; Complete Time: 09:15 EDMS Administered Medications: 14:15 Drug: Xopenex (levalbuterol) (3) 1.25 mg Route: Inhalation; eh3 15:11 Follow up: Response: Marked relief of symptoms eh3 14:50 Drug: Lasix (furosemide) 40 mg Route: IVP; Site: right forearm; eh3 16:00 Follow up: Response: No adverse reaction eh3 Disposition Summary: 05/28/22 16:36 Hospitalization Ordered Hospitalization Status: Inpatient Admission [facility] Provider: Himanshu Mendoza Condition: Stable jmm Problem: new jmm Symptoms: are unchanged jmm Bed/Room Type: Standard jm Location: Telemetry/MedSurg (Inpatient)(05/29/22 12:45) bd Room Assignment: 406(05/29/22 12:45) bd Diagnosis - Acute on chronic combined systolic (congestive) and diastolic (congestive) heart jmm failure Forms: - Medication Reconciliation Form jmm - SBAR form jmm Signatures: Dispatcher [employer] EDMS Rosa Boggs Joel, PA PA jmm Prokisch, Amanda RN RN tobi3 Maddy Rhoades RN RN eb1 Daina Saleem, RN RN eh3 Corrections: (The following items were deleted from the chart) 20:22 16:36 Telemetry/MedSurg (Inpatient) [facility] eb1 20:22 16:36 jmm eb1 05/29 12:45 05/28 20:22 [facility] ER HOLD eb1 bd 05/29 12:45 05/28 20:22 ERHOLD- eb1 bd
--- NOTE | 2022-05-28 16:37 | ER ---
Nurse's Notes [facility] Name: Edouard Marie Age: 67 yrs Sex: Male : 1955 Arrival Date: 05/28/2022 Time: 13:16 Bed 18 Private MD: Diagnosis: Acute on chronic combined systolic (congestive) and diastolic (congestive) heart failure Presentation: 05/28 13:35 Chief complaint: Patient states: he is feeling short of breath and having swelling to ap3 his lower extremities. patient states he was admitted to the hospital recently for the same things. Coronavirus screen: At this time, the client does not indicate any symptoms associated with coronavirus-19. Ebola Screen: No symptoms or risks identified at this time. Initial Sepsis Screen: Does the patient meet any 2 criteria? RR > 20 per min. No. Patient's initial sepsis screen is negative. Does the patient have a suspected source of infection? No. Patient's initial sepsis screen is negative. Risk Assessment: Do you want to hurt yourself or someone else? Patient reports no desire to harm self or others. Onset of symptoms was May 07, 2022. 13:35 Method Of Arrival: Ambulatory ap3 13:35 Acuity: ERUM 3 ap3 Triage Assessment: 13:37 General: Appears uncomfortable, Behavior is cooperative, anxious. Pain: Denies pain. ap3 Neuro: Level of Consciousness is awake, alert, obeys commands, Oriented to person, place, time. Cardiovascular: Patient's skin is warm and dry. Respiratory: Reports shortness of breath Airway is patent Respiratory effort is even, unlabored, Respiratory pattern is regular, symmetrical, tachypnea Onset: The symptoms/episode began/occurred gradually. 13:45 Respiratory: the patient has mild shortness of breath. eh3 Historical: - Allergies: 13:37 No Known Allergies; ap3 - Home Meds: 15:30 Albuterol Inhl [Active]; aspirin 81 mg Oral TbEC 1 tab once daily [Active]; d3 eh3 [Active]; Entresto 49-51 mg Oral tab [Active]; finasteride 5 mg Oral tab 1 tab once daily [Active]; furosemide 40 mg Oral tab 1 tab 2 times per day [Active]; multivitamin Oral [Active]; neb treatment as needed [Active]; tamsulosin 0.4 mg Oral cap 1 cap once daily [Active]; - PMHx: 13:37 CHF; COPD; Hypertension; ap3 - PSHx: 15:30 defibrillator; L Rotator Cuff Sx; eh3 - Immunization history:: Client reports having NOT received the Covid vaccine. Flu vaccine is not up to date. - Social history:: Smoking status: Patient reports the use of cigarette tobacco products, smokes one-half pack cigarettes per day, Patient uses alcohol, street drugs, marijuana. Screenin:38 Abuse screen: Denies threats or abuse. Nutritional screening: No deficits noted. ap3 Tuberculosis screening: No symptoms or risk factors identified. 13:45 [facility] ED Fall Risk Assessment (Adult) History of falling in the last 3 months, eh3 including since admission No falls in past 3 months (0 pts) Confusion or Disorientation No (0 pts) Intoxicated or Sedated No (0 pts) Impaired Gait No (0 pts) Mobility Assist Device Used No (0 pt) Altered Elimination No (0 pt) Score/Fall Risk Level 0 - 2 = Low Risk. Assessment: 13:45 General: Appears in no apparent distress. comfortable, Behavior is calm, cooperative, eh3 appropriate for age. Pain: Denies pain. Neuro: Level of Consciousness is awake, alert, obeys commands, Oriented to person, place, time, situation. Cardiovascular: Capillary refill < 3 seconds Patient's skin is warm and dry. Rhythm is irregular. Respiratory: Reports shortness of breath at rest labored breathing Airway is patent Respiratory effort is even, labored, Respiratory pattern is regular, symmetrical, Breath sounds are coarse bilaterally. GI: No signs and/or symptoms were reported involving the gastrointestinal system. Abdomen is flat, non-distended. : No signs and/or symptoms were reported regarding the genitourinary system. EENT: No signs and/or symptoms were reported regarding the EENT system. Derm: No signs and/or symptoms reported regarding the dermatologic system. Musculoskeletal: No signs and/or symptoms reported regarding the musculoskeletal system. Circulation, motion, and sensation intact. Range of motion: intact in all extremities. 14:00 Reassessment: Patient appears in no apparent distress at this time. Patient and/or eh3 family updated on plan of care and expected duration. Pain level reassessed. Patient states symptoms have improved. 14:40 Reassessment: RFA IV infiltrated. Removed IV, bleeding controlled, wrapped in pressure eh3 dressing. 14:45 Reassessment: Patient appears in no apparent distress at this time. Patient and/or eh3 family updated on plan of care and expected duration. Pain level reassessed. 15:45 Reassessment: Patient appears in no apparent distress at this time. Patient and/or eh3 family updated on plan of care and expected duration. Pain level reassessed. 16:45 Reassessment: Patient appears in no apparent distress at this time. Patient and/or eh3 family updated on plan of care and expected duration. Pain level reassessed. 17:45 Reassessment: Patient appears in no apparent distress at this time. Patient and/or eh3 family updated on plan of care and expected duration. Pain level reassessed. Vital Signs: 13:35 BP 136 / 99; Pulse 68; Resp 21; Temp 98.1; Pulse Ox 100% on R/A; Weight 77.11 kg; ap3 Height 6 ft. 2 in. (187.96 cm); 13:45 BP 140 / 98; Pulse 75; Resp 22; Pulse Ox 88% on R/A; eh3 14:00 Pulse Ox 95% on 2 lpm NC; eh3 14:45 BP 180 / 116; Pulse 73; Resp 18; Pulse Ox 94% on 2 lpm NC; eh3 15:45 BP 172 / 111; Pulse 75; Resp 20; Pulse Ox 95% 2 lpm ; eh3 16:45 BP 167 / 103; Pulse 84; Resp 20; Pulse Ox 91% on 2 lpm NC; eh3 17:45 BP 154 / 102; Pulse 85; Resp 19; Pulse Ox 94% on 2 lpm NC; eh3 13:35 Body Mass Index 21.83 (77.11 kg, 187.96 cm) ap3 ED Course: 13:16 Patient arrived in ED. rg4 13:36 Patrick Dodd PA is PHCP. jmm 13:36 Yfn Hemphill MD is Attending Physician. jmm 13:37 Triage completed. ap3 13:38 Arm band placed on left wrist. ap3 13:45 Patient has correct armband on for positive identification. eh3 13:45 Oxygen administration via nasal cannula \T\ 2L/min. eh3 14:08 Daina Saleem, PAULIE is Primary Nurse. eh3 14:09 XRAY Chest (1 view) In Process Unspecified. EDMS 14:45 Inserted saline lock: 20 gauge in left forearm, using aseptic technique. eh3 14:54 Inserted saline lock: 20 gauge in right forearm, using aseptic technique. Blood ap3 collected. 16:36 Himanshu Mendoza MD is Hospitalizing Provider. [facility] 17:45 No provider procedures requiring assistance completed. Patient admitted, IV remains in eh3 place. 17:58 SARS-COV-2 Antigen Rapid Sent. [facility] 17:58 COVID swab sent to lab. 6 Administered Medications: 14:15 Drug: Xopenex (levalbuterol) (3) 1.25 mg Route: Inhalation; 3 15:11 Follow up: Response: Marked relief of symptoms 3 14:50 Drug: Lasix (furosemide) 40 mg Route: IVP; Site: right forearm; 3 16:00 Follow up: Response: No adverse reaction 3 Medication: 17:45 VIS not applicable for this client. 3 Outcome: 16:36 Decision to Hospitalize by Provider. [facility] 17:45 Admitted to ER Hold. Please see [facility] for further documentation. [facility] 17:45 Condition: stable 17:45 Instructed on the need for admit. 01 16:03 Patient left the ED. db Signatures: Dispatcher [employer] EDMS Patrick Dodd PA PA jmm Garcia, Rubi rg4 Sheron Kaufman RN RN ap3 Daina Saleem RN RN 3 Tiffanie Carcamo, RN RN db Franci Faust 6 Corrections: (The following items were deleted from the chart) 05/28 16:41 14:40 Reassessment: LFA IV infiltrated. Removed IV, bleeding controlled, wrapped in 3 pressure dressing 3
[2022-05-28] MEDS ORDERED: ACETAMINOPHEN 325 MG TABLET PO PRN (17:41)
[2022-05-28] MEDS ORDERED: HYDROCODONE/APAP 5/325 MG TAB PO PRN (17:41)
[2022-05-28] MEDS ORDERED: ONDANSETRON 4 MG/2 ML VIAL IV PRN (17:43)
--- NOTE | 2022-05-28 17:46 | P.HP ---
Certification for Inpatient Patient admitted to: Inpatient With expected LOS: >2 Midnights Patient will require the following post-hospital care: None Practitioner: I am a practitioner with admitting privileges, knowledge of patient current condition, hospital course, and medical plan of care. Services: Services provided to patient in accordance with Admission requirements found in Title 42 Section 412.3 of the Code of Federal Regulations Patient History Date of Service: 05/28/22 Reason for admission: SOB History of Present Illness: Patient is a 67-year-old male with a past medical history significant for CHF, COPD, hypertension who presents with complaint of shortness of breath. Patient is a poor historian and unable to provide accurate history. Patient is on home O2 therapy but not sure of the rate. Patient reported that he was going for a dental appointment spoke with mobility due to shortness of breath. Patient reported that he was recently discharged from the hospital for similar symptoms. Patient reported bilateral lower extremity edema greater on the right leg, cough and chills. Patient denies any other signs or symptoms. Symptoms are aggravated by exertion and relieved by nothing. Patient decided to present to the hospital due to worsening symptoms. Allergies No Known Allergies Allergy (Verified 04/23/21 05:33) Home Medications: Aspirin 81 mg PO DAILY #30 tab.chew 03/18/21 Finasteride 5 mg PO BEDTIME 07/08/21 Tamsulosin [Flomax*] 0.4 mg PO BEDTIME 07/08/21 Albuterol Sulfate [Albuterol Sulfate Hfa] 2 puff IH Q6H PRN 05/09/22 Amlodipine [Norvasc*] 5 mg PO DAILY #30 tab 05/11/22 Sacubitril/Valsartan [Entresto 49 mg-51 mg Tablet] 1 tab PO BID #60 tab 05/11/22 Furosemide [Lasix] 40 mg PO BIDL #70 tab 05/23/22 Sulfamethoxazole/Trimethoprim [Bactrim Ds Tablet] 1 each PO BID #14 tab 05/23/22 - Past Medical/Surgical History Diabetic: No -: Hypertension -: Congestive heart failure -: COPD -: Pacemaker defibrillator -: Rotator cuff repair LEFT Psychosocial/ Personal History: Patient lives at home with his . - Family History Father -: Heart disease, Hypertension - Social History Smoking Status: Current every day smoker Alcohol use: Yes CD- Drugs: Yes Caffeine use: No Place of Residence: Home Review of Systems General: Chills Eyes: Unremarkable ENT: Unremarkable Respiratory: Cough, Shortness of Breath, SOB with Excertion Cardiovascular: Unremarkable Gastrointestinal: Unremarkable Genitourinary: Unremarkable Musculoskeletal: Pedal edema, Other (BLE edema) Integumentary: Unremarkable Neurological: Unremarkable Lymphatics: Unremarkable Physical Examination - Physical Exam General: Alert, In no apparent distress, Oriented x3, Cooperative HEENT: Atraumatic, PERRLA, Mucous membr. moist/pink, EOMI, Sclerae nonicteric Neck: Supple, 2+ carotid pulse no bruit, No LAD, Without JVD or thyroid abnormality Respiratory: Diminished Cardiovascular: Regular rate/rhythm, Normal S1 S2, Edema Capillary refill: <2 Seconds Gastrointestinal: Normal bowel sounds, Soft and benign, No tenderness Musculoskeletal: Swelling, Tenderness Integumentary: No rashes, No breakdown, No significant lesion Neurological: Normal speech, Normal tone, Normal affect Lymphatics: No axilla or inguinal lymphadenopathy - Studies Laboratory Data (last 24 hrs) 05/28/22 14:34: PT 12.7 H, INR 1.15 05/28/22 14:34: WBC 6.00, Hgb 11.3 L, Hct 33.2 L, Plt Count 244 05/28/22 14:34: Sodium 140, Potassium 4.3, BUN 38 H, Creatinine 1.69 H, Glucose 90, Magnesium 2.2, Total Bilirubin 0.5, AST 299 H, ALT 279 H, Alkaline Phosphatase 174 H Assessment and Plan - Plan --Acute on chronic systolic CHF exacerbation. Patient placed on diuresis with Lasix. Daily weight and strict I/O. Cardiology consulted. We will await further recommendations. --Anemia of chronic disease. H&H stable. We will continue to monitor hemoglobin and transfuse if less than 7.0. --CKD 3B. Slight depreciation in renal functions noted. Will reassess renal functions in a.m. --Transaminitis. Unclear etiology. Continue supportive care. --Acute on chronic COPD exacerbation. Continue home medications and O2 therapy. --BPH. Continue Flomax and finasteride. --Hypertension. Poorly controlled. Continue home medication -- Nicotine dependence. Patient counseled on tobacco cessation. Refuses nicotine patch. --DVT prophylaxis with heparin subQ. Discharge Plan: Home - Advance Directives Does patient have a Living Will: No Does patient have a Durable POA for Healthcare: No - Code Status/Comfort Care Code Status Assessed: Yes Physician Review: Patient Assessed, Agree with Above Assessment and Plan Critical Care: No
[2022-05-28 18:17] LABS: SARS-CoV-2 Antigen Rapid Res Negative (Negative)
[2022-05-28 18:42] VITALS: BMI 21.8
[2022-05-28 19:12] LABS: Magnesium 2.2 mg/dL (1.6-2.4); Phosphorus 3.3 mg/dL (2.5-4.9)
[2022-05-28] MEDS: HEPARIN 5000 UNIT/ML 1 ML VIAL SQ SCH (21:00)
[2022-05-28] MEDS: SACUBITRIL/VALSARTAN 49/51 MG TAB PO SCH (21:00)
[2022-05-28] MEDS: FINASTERIDE 5 MG TAB PO SCH (21:00)
[2022-05-28] MEDS: TAMSULOSIN 0.4 MG SR CAP PO SCH (21:00)
[2022-05-28] MEDS: FUROSEMIDE 40 MG/4 ML VIAL IV SCH (21:00)
[2022-05-28] MEDS ORDERED: HEPARIN 5000 UNIT/ML 1 ML VIAL ONE (21:09)
[2022-05-28] MEDS ORDERED: TAMSULOSIN 0.4 MG SR CAP ONE (21:09)
[2022-05-28] MEDS ORDERED: NA CHLORIDE 0.9% 0 ML ONE (23:29)
[2022-05-28] MEDS ORDERED: LORazepam 2 MG/ML VIAL ONE (23:29)
[2022-05-28 23:50] LABS: Urine Blood Negative (Negative); Urine Glucose Negative (Negative); Urine Protein Negative (Negative)
[2022-05-29 02:56] LABS: Absolute Lymphocytes (CBC) 2.3 K/uL (0.7-4.9); Hematocrit 33.3 % (39.6-49.0); Lymphocytes % 39.1 % (15.3-44.8); MPV 7.4 fL (7.6-11.3); RBC Red Blood Cell Count 3.54 M/uL (4.33-5.43)
[2022-05-29 03:19] LABS: Albumin 2.8 g/dL (3.4-5.0); Bilirubin Total 0.6 mg/dL (0.2-1.0); Potassium 3.7 mmol/L (3.5-5.1); Protein, Total 6.4 g/dL (6.4-8.2)
[2022-05-29] MEDS ORDERED: INFLUENZA VACCINE (for 6+ mo) 0.5 ML DOSE IMVAC ONE (08:00)
[2022-05-29] MEDS: AMLODIPINE 5 MG TAB PO SCH (09:00)
[2022-05-29] MEDS: ASPIRIN 81 MG CHEWABLE TABLET PO SCH (09:00)
[2022-05-29] MEDS: HEPARIN 5000 UNIT/ML 1 ML VIAL SQ SCH ×2 (09:00→19:59)
[2022-05-29] MEDS: FUROSEMIDE 40 MG/4 ML VIAL IV SCH ×2 (09:00→15:57)
[2022-05-29] MEDS: SACUBITRIL/VALSARTAN 49/51 MG TAB PO SCH ×2 (09:00→19:59)
[2022-05-29] MEDS ORDERED: ASPIRIN 81 MG CHEWABLE TABLET ONE (09:20)
[2022-05-29] MEDS ORDERED: FUROSEMIDE 40 MG/4 ML VIAL ONE (09:21)
[2022-05-29] MEDS ORDERED: AMLODIPINE 5 MG TAB ONE (09:21)
--- NOTE | 2022-05-29 15:23 | EKG ---
Test Date: 2022-05-28 Test Time: 14:26:57 Radiotelephone Operator: REX MEASUREMENT RESULTS: Intervals: Rate: 72 WV: 278 QRSD: 120 QT: 416 QTc: 455 Alcalde: P: 83 WV: 278 QRS: 59 T: 83 INTERPRETIVE STATEMENTS: Sinus rhythm with 1st degree AV block with frequent premature ventricular complexes Left ventricular hypertrophy with QRS widening Nonspecific ST and T wave abnormality Abnormal ECG Compared to ECG 05/20/2022 22:11:26 Left ventricular hypertrophy now present ST (T wave) deviation now present Sinus arrhythmia no longer present Myocardial infarct finding no longer present Electronically Signed On 05-29-22 15:21:29 CASE PACKER AND SEALER by Marco Mancilla
--- NOTE | 2022-05-29 19:26 | CON ---
Date of Consultation: 05/29/2022 Reason For Consultation: Heart failure exacerbation. History Of Present Illness: This 67-year-old male with history of CHF, COPD, and hypertension presen aarti to emergency room with shortness of breath, orthopnea, and lower extremity edema. He was severel y short of breath on admission and after IV Lasix, he feels much better. The patient is not complian t with medications or diet. Past Medical History: As outlined above in HPI. Medications: Refer to reconciliation sheet for detailed list. Allergies: NO KNOWN DRUG ALLERGIES. Family History: No premature coronary artery disease or cancer. Social History: He is an active smoker. Does not drink or use any drugs. Review of Systems: All systems reviewed and they were negative except for mentioned in HPI. Physical Examination: Vital Signs: Reviewed. Head And Neck: Pupils are equal and reactive to light. Intact eye movements. Positive JVD. No cer vical lymphadenopathy. Neck is supple. Thyroid is not enlarged. Lungs: Clear to auscultation bilaterally. No rhonchi, wheezing, or crackles. Heart: Regular rate and rhythm with S3 gallop. Abdomen: Soft, nontender. Bowel sounds positive. No organomegaly. No masses or hernia. No rigidi ty or rebound. Extremities: No clubbing or cyanosis. Trace edema. Skin: No rash noted. Neurologic: Alert, awake, and oriented x3. No acute focal deficits appreciated. Lymph Nodes: No cervical or axillary lymphadenopathy. Investigations: Creatinine is 1.74, which is around his baseline. Potassium 3.7 and hemoglobin is 1 1.2. Troponins are negative. Assessment And Recommendation: 1.Miovs-km-svanrye systolic heart failure exacerbation, doing better. Continue IV diuretics. Monit or BUN, creatinine, and electrolytes. 2.Hypertension is controlled. The patient was counseled again for strict low-salt diet and to be compliant with medications. He wi ll need ischemia workup, which we will plan for a stress test to be done as an outpatient once he is diuresed. SR/MODL Voice ID: [id number] Report ID: [id number]
[2022-05-29] MEDS: TAMSULOSIN 0.4 MG SR CAP PO SCH (19:58)
[2022-05-29] MEDS: FINASTERIDE 5 MG TAB PO SCH (19:59)
--- NOTE | 2022-05-29 21:59 | P.PN ---
Date of Service: 05/29/22 Subjective: swelling improving breathing more comfortably, but still on O2 ROS: A complete review of systems was performed and is negative except as mentioned above Physical Exam: Gen: NAD, AOx3 HEENT: normal conjunctiva, sclera anicteric CV: regular rate & rhythm, 1-2+ b/l lower extremity edema Pulm: non-labored respirations, diminished bilaterally at bases Abd: soft, non-tender, non-distended Neuro: normal speech, normal affect, moves all extremities vitals reviewed Problem List Acute on chronic systolic CHF exacerbation anemia of chronic disease CKD3b BPH HTN multiple admissions recently for CHF exacerbation seems to be noncompliant with 2nd dose of lasix, urinating overnight continue IV lasix cardiology consulted given recurrent admissions for any other input recommends outpatient ishcemic workup monitor renal function wean O2 Code: full Dispo: home, ~24-48hrs Time Spent Managing Pts Care (In Minutes): 35
[2022-05-30 04:43] LABS: Albumin 2.4 g/dL (3.4-5.0); Bilirubin Total 0.3 mg/dL (0.2-1.0); Magnesium 2.2 mg/dL (1.6-2.4); Potassium 3.8 mmol/L (3.5-5.1); Protein, Total 5.9 g/dL (6.4-8.2)
[2022-05-30] MEDS ORDERED: POTASSIUM CL SA 10 MEQ TAB PO ONE (09:00)
[2022-05-30] MEDS: FUROSEMIDE 40 MG/4 ML VIAL IV SCH ×2 (09:12→16:38)
[2022-05-30] MEDS: AMLODIPINE 5 MG TAB PO SCH (09:12)
[2022-05-30] MEDS: ASPIRIN 81 MG CHEWABLE TABLET PO SCH (09:12)
[2022-05-30] MEDS: SACUBITRIL/VALSARTAN 49/51 MG TAB PO SCH ×2 (09:12→19:45)
[2022-05-30] MEDS: HEPARIN 5000 UNIT/ML 1 ML VIAL SQ SCH (09:13)
[2022-05-30] MEDS ORDERED: AMIODARONE HCL 150 MG in D5W 100 ML IV STA (12:38)
[2022-05-30] MEDS ORDERED: HEPARIN 5000 UNIT/ML 1 ML VIAL IV ONE ×2 (12:39→22:55)
[2022-05-30] MEDS ORDERED: AMIODARONE HCL 900 MG in Dextrose 5%-Water 482 ML IV SCH (13:00)
[2022-05-30] MEDS ORDERED: AMIODARONE HCL 450 MG in D5W 241 ML IV SCH (13:00)
[2022-05-30] MEDS: HEPARIN/D5W 25,000 UNIT/500 ML BAG IV PRN (13:35)
[2022-05-30] MEDS: TAMSULOSIN 0.4 MG SR CAP PO SCH (19:44)
[2022-05-30] MEDS: FINASTERIDE 5 MG TAB PO SCH (19:45)
--- NOTE | 2022-05-30 19:57 | PN ---
Date of Progress Note: 05/30/2022 Subjective: Seen by bedside. He is doing clinically well. No significant shortness of breath, but he went into atrial fibrillation with rapid ventricular response. We will start him on heparin and a miodarone drip. Review of Systems: No chest pain. Denies palpitation. Has shortness of breath. No exertion. No orthopnea, nausea, vo miting, diarrhea. No abdominal pain. No lower extremity edema. All the systems reviewed and they a re negative. Physical Examination: Vital Signs: Reviewed. Head and Neck: Pupils are equal, reactive to light. Intact eye movements. No JVD. No cervical lym phadenopathy. Neck: Supple. Thyroid is not enlarged. Lungs: Clear to auscultation bilaterally. No rhonchi, rales, or crackles. No accessory muscle use. Heart: Regular rate and rhythm. No extra sounds. Abdomen: Soft, nontender. Bowel sounds positive. No organomegaly. No masses or hernia. No rigidi ty or rebound. Extremities: No edema, clubbing, cyanosis. Intact pulses. Skin: No rash. Neurologic: Alert, awake, oriented x3. No acute focal deficits appreciated. Investigations: BUN is 33, creatinine 1.36. Troponin is 1603. Assessment And Recommendation: 1.Atrial fibrillation with rapid ventricular response. Recommend IV amiodarone drip for 24 hours an d recommend full anticoagulation with IV heparin, and then, we will reassess after the amiodarone adam d. 2.Elevated troponin. This could be demand as the patient does not have any chest pain. Please tren d 2 more sets of cardiac enzymes and further plan accordingly. 3.Acute on chronic renal failure. This is improving with diuresis. SR/MODL Voice ID: [id number] Report ID: [id number]
--- NOTE | 2022-05-30 22:21 | P.PN ---
Date of Service: 05/30/22 Subjective: improved, planned for discharge this morning, however upon signing prescriptions/dc order patient developed some shortness of breath, noted to be in aflutter, confirmed by EKG dc order cancelled improved swelling, no chest pain/pressure ROS: A complete review of systems was performed and is negative except as mentioned above Physical Exam: Gen: NAD, AOx3 HEENT: normal conjunctiva, sclera anicteric CV: irregularly irregulary, trace b/l lower extremity edema to knees, 1+ b/l pedal edema Pulm: non-labored respirations, diminished bilaterally at bases Abd: soft, non-tender, non-distended Neuro: normal speech, normal affect, moves all extremities vitals reviewed Problem List Acute on chronic systolic CHF exacerbation aflutter, new onset anemia of chronic disease CKD3b BPH HTN multiple admissions recently for CHF exacerbation seems to be noncompliant with 2nd dose of lasix, urinating overnight; and aldactone continue IV lasix cardiology consulted given recurrent admissions for any other recs recommended outpatient ishcemic workup developed aflutter on 1/[address] depressions on EKG however not clear due to aflutter discussed with cardiology start heparin drip, amio drip ?electrical cardioversion if does not convert monitor renal function wean O2 Code: full Dispo: home, ~48hrs Time Spent Managing Pts Care (In Minutes): 35
[2022-05-31 03:35] LABS: Hematocrit 34.5 % (39.6-49.0); MCV 94.4 fL (80-100); MPV 7.7 fL (7.6-11.3); RBC Red Blood Cell Count 3.66 M/uL (4.33-5.43)
[2022-05-31 03:49] LABS: Albumin 2.7 g/dL (3.4-5.0); Bilirubin Total 0.3 mg/dL (0.2-1.0); Magnesium 2.2 mg/dL (1.6-2.4); Potassium 3.7 mmol/L (3.5-5.1); Protein, Total 6.5 g/dL (6.4-8.2)
[2022-05-31] MEDS: AMLODIPINE 5 MG TAB PO SCH (08:15)
[2022-05-31] MEDS: FUROSEMIDE 40 MG/4 ML VIAL IV SCH ×2 (08:15→16:35)
[2022-05-31] MEDS: SACUBITRIL/VALSARTAN 49/51 MG TAB PO SCH ×2 (08:15→20:40)
[2022-05-31] MEDS: ASPIRIN 81 MG CHEWABLE TABLET PO SCH (08:16)
[2022-05-31] MEDS ORDERED: POTASSIUM CL SA 10 MEQ TAB PO ONE (09:00)
[2022-05-31] MEDS ORDERED: AMIODARONE HCL 900 MG in Dextrose 5%-Water 482 ML IV SCH (13:00)
[2022-05-31] MEDS: HEPARIN/D5W 25,000 UNIT/500 ML BAG IV PRN (14:35)
--- NOTE | 2022-05-31 17:41 | EKG ---
Test Date: 2022-05-30 Test Time: 09:18:14 Slide Developer: VERONICA MEASUREMENT RESULTS: Intervals: Rate: 78 MT: QRSD: 124 QT: 424 QTc: 483 Archer: P: MT: QRS: -38 T: 94 INTERPRETIVE STATEMENTS: Atrial fibrillation with premature ventricular or aberrantly conducted complexes Left axis deviation Left ventricular hypertrophy with QRS widening ST & T wave abnormality, consider lateral ischemia or digitalis effect Abnormal ECG Compared to ECG 05/28/2022 14:26:57 Left-axis deviation now present Possible ischemia now present Sinus rhythm no longer present First degree AV block no longer present ST (T wave) deviation still present Electronically Signed On 05-31-22 17:39:42 STATION WORKER by Marco Mancilla
--- NOTE | 2022-05-31 17:54 | P.PN ---
Date of Service: 05/31/22 Subjective: improving breathing slightly better continues in afib/flutter ROS: A complete review of systems was performed and is negative except as mentioned above Physical Exam: Gen: NAD, AOx3 HEENT: normal conjunctiva, sclera anicteric CV: irregularly irregulary, trace b/l lower extremity edema to knees, 1+ b/l pedal edema Pulm: non-labored respirations, bilaterally at bases Abd: soft, non-tender, non-distended Neuro: normal speech, normal affect, moves all extremities vitals reviewed Problem List Acute on chronic systolic CHF exacerbation aflutter, new onset anemia of chronic disease CKD3b BPH HTN multiple admissions recently for CHF exacerbation seems to be noncompliant with 2nd dose of lasix, urinating overnight; and aldactone continue IV lasix cardiology consulted given recurrent admissions for any other recs recommended outpatient ishcemic workup developed aflutter on 1/[address] depressions on EKG however not clear due to aflutter discussed with cardiology start heparin drip, amio drip convert to PO 05/31 ?electrical cardioversion if does not convert monitor renal function wean O2 Code: full Dispo: home, ~2 days Time Spent Managing Pts Care (In Minutes): 35
[2022-05-31] MEDS ORDERED: BUDESONIDE 0.5 MG/2 ML NEB ONE (19:49)
[2022-05-31] MEDS: TAMSULOSIN 0.4 MG SR CAP PO SCH (20:40)
[2022-05-31] MEDS: FINASTERIDE 5 MG TAB PO SCH (20:40)
[2022-05-31] MEDS: AMIODARONE HCL 200 MG TAB PO SCH (20:41)
--- NOTE | 2022-05-31 23:13 | PN ---
Date of Progress Note: 05/31/2022 Subjective: Seen by bedside, is doing well, appears to be euvolemic. Review of Systems: No chest pain. Has shortness of breath on exertion. No orthopnea, nausea, vomiting, or diarrhea. N o lower extremity edema. No palpitation. All other systems reviewed are negative. Physical Examination: Vital Signs: Temperature is 98.0, pulse 73, breathing at 18, blood pressure 133/71, saturating 99% o n room air. General: Pleasant elderly male, in no apparent distress. Head and Neck: Pupils are equal, reactive to light. Intact eye movements. No JVD. No cervical lym phadenopathy. Neck is supple. Thyroid is not enlarged. Lungs: Clear to auscultation bilaterally. No rhonchi, rales, or crackles. No accessory muscle use. Heart: Regular rate and rhythm. No extra sounds. Abdomen: Soft, nontender. Bowel sounds positive. No organomegaly. No masses or hernia. No rigidi ty or rebound. Extremities: No edema, clubbing, or cyanosis. Intact pulses. Skin: No rashes. Neurologic: Alert, awake, oriented x3. No acute focal deficits appreciated. Investigations: Labs reviewed. Assessment And Recommendations: 1.Acute on chronic systolic heart failure exacerbation, appears to be euvolemic. Switch Lasix to or al 40 mg twice a day by mouth. Low-salt diet. 2.Atrial fibrillation. Still in atrial fibrillation. Continue 24 hours load of amiodarone and then switch him to 200 mg by mouth twice a day, with him also on anticoagulant, Eliquis 5 mg twice a day and if he continues to have atrial fibrillation after a full load of IV amiodarone, we will plan for JULI-guided cardioversion on Thursday. SR/MODL Voice ID: [id number] Report ID: [id number]
[2022-06-01 04:50] LABS: Magnesium 2.1 mg/dL (1.6-2.4); Potassium 3.6 mmol/L (3.5-5.1)
--- NOTE | 2022-06-01 06:48 | P.PN ---
Date of Service: 06/01/22 Subjective: converted to sinus yesterday, frequent pvcs feeling better placed on O2 overnight ROS: A complete review of systems was performed and is negative except as mentioned above Physical Exam: Gen: NAD, AOx3 HEENT: normal conjunctiva, sclera anicteric CV: regular rhythm, trace b/l lower extremity edema to knees Pulm: non-labored respirations, bilaterally at bases Abd: soft, non-tender, non-distended Neuro: normal speech, normal affect, moves all extremities vitals reviewed Problem List Acute on chronic systolic CHF exacerbation aflutter, new onset anemia of chronic disease CKD3b BPH HTN multiple admissions recently for CHF exacerbation seems to be noncompliant with 2nd dose of lasix, urinating overnight; and aldactone cardiology consulted given recurrent admissions for any other recs developed aflutter on 1/[address] depressions on EKG however not clear due to aflutter discussed with cardiology start heparin drip, amio drip convert to PO 05/31 transitioned to eliquis /8 AM ?electrical cardioversion in AM if not sinus monitor renal function wean O2 Code: full Dispo: home, ~1 day Time Spent Managing Pts Care (In Minutes): 25
[2022-06-01] MEDS: APIXABAN 5 MG TABLET PO SCH ×2 (08:59→20:42)
[2022-06-01] MEDS: AMLODIPINE 5 MG TAB PO SCH (08:59)
[2022-06-01] MEDS: AMIODARONE HCL 200 MG TAB PO SCH ×2 (08:59→20:42)
[2022-06-01] MEDS: ASPIRIN 81 MG CHEWABLE TABLET PO SCH (08:59)
[2022-06-01] MEDS: SACUBITRIL/VALSARTAN 49/51 MG TAB PO SCH ×2 (08:59→20:42)
[2022-06-01] MEDS ORDERED: POTASSIUM CL SA 10 MEQ TAB PO ONE (09:00)
[2022-06-01] MEDS ORDERED: BUDESONIDE 0.5 MG/2 ML NEB ONE (19:50)
[2022-06-01] MEDS: TAMSULOSIN 0.4 MG SR CAP PO SCH (20:42)
[2022-06-01] MEDS: FINASTERIDE 5 MG TAB PO SCH (20:42)
--- NOTE | 2022-06-01 20:43 | PN ---
Date of Progress Note: 06/01/2022 Subjective: Seen at bedside, is doing well. No new complaints. Review of Systems: No chest pain, shortness of breath, orthopnea, cough. No nausea, vomiting, diarrhea. No abdominal p ain. No dysuria, polyuria, or urinary urgency. No skin rash or headache. All other systems reviewe d are negative except for mentioned in HPI. Physical Examination: Vital Signs: Reviewed. Head and Neck: Pupils are equal and reactive to light. Intact eye movements. No cervical lymphaden opathy. Neck: Supple. Thyroid is not enlarged. Lungs: Clear to auscultation bilaterally. No rhonchi, rales, or crackles. No accessory muscle use. Heart: Irregularly irregular. No extra sounds. Abdomen: Soft, nontender. Bowel sounds positive. No organomegaly. No masses or hernia. No rigidi ty or rebound. Extremities: No edema, clubbing, cyanosis. Intact pulses. Skin: No rash or nodules. Neurological: Alert, awake, oriented x3. No acute focal deficits appreciated. Lymph Nodes: No cervical or axillary lymphadenopathy. Investigations: Labs were reviewed. Assessment/recommendation: 1.Acute on chronic systolic heart failure exacerbation. He is euvolemic. Continue on oral Lasix. Low-salt diet. 2.Atrial fibrillation, loaded with amiodarone. Continue to be in atrial fibrillation. We will plan for transesophageal echocardiogram-guided cardioversion tomorrow. Continue for the interim, amiodarone 200 mg twice a da y. SR/MODL Voice ID: [id number] Report ID: [id number]
[2022-06-02 04:00] LABS: Potassium 4.4 mmol/L (3.5-5.1)
[2022-06-02] MEDS: AMIODARONE HCL 200 MG TAB PO SCH (08:17)
[2022-06-02] MEDS: APIXABAN 5 MG TABLET PO SCH (08:17)
[2022-06-02] MEDS: AMLODIPINE 5 MG TAB PO SCH (08:18)
[2022-06-02] MEDS: ASPIRIN 81 MG CHEWABLE TABLET PO SCH (08:18)
[2022-06-02] MEDS: SACUBITRIL/VALSARTAN 49/51 MG TAB PO SCH (08:18)
[2022-06-02 11:55] VITALS: BP 142/92; TEMP 97.2
[2022-06-02 11:56] VITALS: O2SAT 100
--- NOTE | 2022-06-02 16:27 | EKG ---
Test Date: 2022-06-01 Test Time: 18:51:08 Terrazzo Layer: ST MEASUREMENT RESULTS: Intervals: Rate: 74 WV: 210 QRSD: 116 QT: 444 QTc: 492 [place]: P: 66 WV: 210 QRS: 48 T: 4 INTERPRETIVE STATEMENTS: Sinus rhythm with 1st degree AV block with blocked premature atrial complexes with occasional premature ventricular complexes Left ventricular hypertrophy with QRS widening and repolarization abnormality Prolonged QT Abnormal ECG Compared to ECG 06/01/2022 18:50:16 Atrial premature complex(es) now present First degree AV block now present Sinus arrhythmia no longer present Electronically Signed On 06-02-22 16:26:25 PHOTOGRAPHIC INTELLIGENCE OFFICER by Marco Mancilla
--- NOTE | 2022-06-02 16:27 | EKG ---
Test Date: 2022-06-01 Test Time: 18:50:16 Sas Sql Developer: ST MEASUREMENT RESULTS: Intervals: Rate: 78 VA: 206 QRSD: 112 QT: 440 QTc: 501 [place]: P: 103 VA: 206 QRS: 32 T: -13 INTERPRETIVE STATEMENTS: Sinus rhythm with sinus arrhythmia with occasional premature ventricular complexes Left ventricular hypertrophy with repolarization abnormality Prolonged QT Abnormal ECG Compared to ECG 05/31/2022 20:52:19 Ventricular premature complex(es) now present Atrial premature complex(es) no longer present Electronically Signed On 06-02-22 16:26:32 NEWSAGENT by Marco Mancilla
--- NOTE | 2022-06-02 16:30 | EKG ---
Test Date: 2022-05-31 Test Time: 20:48:28 Corporate Travel Manager: CORA MEASUREMENT RESULTS: Intervals: Rate: 78 CA: 204 QRSD: 124 QT: 458 QTc: 522 [place]: P: 119 CA: 204 QRS: 36 T: 77 INTERPRETIVE STATEMENTS: Sinus rhythm with premature atrial complexes Left ventricular hypertrophy with QRS widening and repolarization abnormality Abnormal ECG Compared to ECG 05/30/2022 09:18:14 Atrial premature complex(es) now present Early repolarization now present Atrial fibrillation no longer present Ventricular premature complex(es) no longer present Left-axis deviation no longer present ST (T wave) deviation no longer present Possible ischemia no longer present Electronically Signed On 06-02-22 16:27:56 SHAFTING CLEANER by Marco Mancilla
--- NOTE | 2022-06-02 16:30 | EKG ---
Test Date: 2022-05-31 Test Time: 20:52:19 Automatic Stacker: CORA MEASUREMENT RESULTS: Intervals: Rate: 77 AK: 208 QRSD: 118 QT: 436 QTc: 493 [place]: P: 20 AK: 208 QRS: 30 T: 57 INTERPRETIVE STATEMENTS: Sinus rhythm with premature atrial complexes Possible Left atrial enlargement Left ventricular hypertrophy with QRS widening and repolarization abnormality Prolonged QT Abnormal ECG Compared to ECG 05/31/2022 20:49:31 Ventricular premature complex(es) no longer present First degree AV block no longer present ST (T wave) deviation no longer present Electronically Signed On 06-02-22 16:27:38 THREAD TRIMMER by Marco Mancilla
--- NOTE | 2022-06-02 16:30 | EKG ---
Test Date: 2022-05-31 Test Time: 20:49:31 Customer Resolution Specialist: CORA MEASUREMENT RESULTS: Intervals: Rate: 81 HI: 216 QRSD: 118 QT: 456 QTc: 529 [place]: P: 85 HI: 216 QRS: 35 T: 72 INTERPRETIVE STATEMENTS: Sinus rhythm with 1st degree AV block with occasional premature ventricular complexes and premature atrial complexes Left ventricular hypertrophy with QRS widening ST elevation, consider early repolarization, pericarditis, or injury Prolonged QT Abnormal ECG Compared to ECG 05/31/2022 20:48:28 Ventricular premature complex(es) now present First degree AV block now present ST (T wave) deviation now present Prolonged QT interval now present Electronically Signed On 06-02-22 16:27:43 ANGER CONTROL COUNSELOR by Marco Mancilla
--- NOTE | 2022-06-02 20:24 | PN ---
Date of Progress Note: 06/02/2022 Subjective: Seen by bedside. Doing well, converted to sinus rhythm on his own. Review of Systems: No chest pain, shortness of breath, orthopnea, cough. No nausea, vomiting, diarrhea. All other syst ems reviewed and are negative except mentioned in the HPI. Physical Examination: Vital Signs: Reviewed. Head and Neck: Pupils are equal, reactive to light. Intact eye movements. No JVD. No cervical lym phadenopathy. Neck is supple. Thyroid is not enlarged. Lungs: Clear to auscultation bilaterally. No rhonchi, wheezing, or crackles. No accessory muscle u se. Heart: Regular rate and rhythm. No extra sounds. Abdomen: Soft, nontender. Bowel sounds positive. No organomegaly. No masses or hernia. No rigidi ty or rebound. Extremities: No clubbing, cyanosis. No edema. Skin: No rash or nodules. Neuro: Alert, awake, oriented x3. No acute focal deficits appreciated. Investigations: His BUN is 26, creatinine 1.2. Assessment/recommendations: 1.Acute on chronic systolic heart failure exacerbation, improved significantly. He is euvolemic, ca n be released on oral Lasix and follow up with me in the office in 2-3 weeks. Low-sodium diet was ex plained and encouraged. 2.Atrial fibrillation with rapid ventricular response. This is resolving convert to sinus rhythm. Continue amiodarone and beta- estela. Also, continue Eliquis. Follow up in the office in 4 weeks. SR/MODL Voice ID: [id number] Report ID: [id number]
--- NOTE | 2022-06-09 15:35 | P.DS ---
Admission Date: 05/28/22 Discharge Date: 06/02/22 Disposition: ROUTINE DISCHARGE Discharge Condition: GOOD Reason for Admission: SOB Consultations: Cardiology - Dr. Mancilla Brief History of Present Illness: 67-year-old male with a past medical history significant for CHF, COPD, hypertension who presents with complaint of shortness of breath. Patient is on home O2 therapy but not sure of the rate. Patient reported that he was going for a dental appointment and noticed worsening shortness of breath. Patient reported that he was recently discharged from the hospital for similar symptoms. Patient reported bilateral lower extremity edema greater on the right leg, cough and chills. Patient denies any other signs or symptoms. Symptoms are aggravated by exertion and relieved by nothing. Patient decided to present to the hospital due to worsening symptoms. Hospital Course: Problem List Acute on chronic systolic CHF exacerbation aflutter, new onset anemia of chronic disease CKD3b BPH HTN Patient presented with shortness of breath and lower extremity swelling. Improved with diuresis and oxygen supplementation was weaned to room air. Partly due to missing doses of diuretics at home. Discussed ok to take 2nd dose of lasix earlier in day. Ideally before 3 or 4pm to prevent him from staying up all night to urinate. Do not skip the spironolactone dose. He has a history of COPD as well and has not been using his dulera inhaler regularly. Reviewed instructions to take that scheduled, and albuterol inhaler / nebulizer as needed. He is stable for discharge home, continue medications as prescribed. Refills sent for dulera and albuterol inhaler. Follow up: PCP within 1 week Cardiology in a few weeks, recommend stress testing in near future Pulmonology - to review COPD Vital Signs/Physical Exam: Temp Pulse Resp BP Pulse Ox 97.2 F 74 16 142/92 H 100 06/02/22 11:54 06/02/22 11:54 06/02/22 11:54 06/02/22 11:54 06/02/22 11:54 General: Alert, In no apparent distress, Oriented x3 HEENT: EOMI, Sclerae nonicteric Neck: Supple, No LAD Respiratory: Clear to auscultation bilaterally, Normal air movement Cardiovascular: No edema, Regular rate/rhythm Gastrointestinal: Soft and benign, No tenderness Musculoskeletal: No erythema, No tenderness Integumentary: No tenderness/swelling Neurological: Normal speech, Normal strength at 5/5 x4 extr, Normal affect Laboratory Data at Discharge: WBC 6.50 K/uL (4.3-10.9) 05/31/22 03:01 Hgb 11.6 g/dL (13.6-17.9) L 05/31/22 03:01 Hct 34.5 % (39.6-49.0) L 05/31/22 03:01 Plt Count 267 K/uL (152-406) 05/31/22 03:01 PT Cancelled 05/30/22 12:39 INR Cancelled 05/30/22 12:39 APTT Cancelled 06/01/22 10:15 Sodium 139 mmol/L (136-145) 06/02/22 03:13 Potassium 4.4 mmol/L (3.5-5.1) D 06/02/22 03:13 BUN 26 mg/dL (7-18) H 06/02/22 03:13 Creatinine 1.20 mg/dL (0.70-1.30) 06/02/22 03:13 Glucose 100 mg/dL (74-106) 06/02/22 03:13 Phosphorus 3.3 mg/dL (2.5-4.9) 05/28/22 18:41 Magnesium 2.1 mg/dL (1.6-2.4) 06/01/22 04:05 Total Bilirubin 0.3 mg/dL (0.2-1.0) 05/31/22 03:01 AST 43 U/L (15-37) H 05/31/22 03:01 ALT 112 U/L (16-61) H 05/31/22 03:01 Alkaline Phosphatase 114 U/L (45-117) 05/31/22 03:01 Home Medications: Aspirin 81 mg PO DAILY #30 tab.chew 03/18/21 Finasteride 5 mg PO BEDTIME 07/08/21 Tamsulosin [Flomax*] 0.4 mg PO DAILY 07/08/21 Amlodipine [Norvasc*] 5 mg PO DAILY #30 tab 05/11/22 Sacubitril/Valsartan [Entresto 49 mg-51 mg Tablet] 1 tab PO BID #60 tab 05/11/22 Furosemide [Lasix*] 40 mg PO BIDL #70 tab 05/23/22 Albuterol Sulfate [Albuterol Sulfate Hfa] 2 puff IH Q6H PRN 30 Days #1 inh 05/30/22 Mometasone/Formoterol [Dulera 200 Mcg-5 Mcg Inhaler] 2 puff IH BID 30 Days #1 inh 05/30/22 Amiodarone HCl [Cordarone*] 200 mg PO BID 30 Days #60 tab 06/02/22 Apixaban [Eliquis] 5 mg PO BID 30 Days #60 tab 06/02/22 Metoprolol Tartrate [Lopressor*] 50 mg PO BID 06/02/22 New Medications: Albuterol Sulfate [Albuterol Sulfate Hfa] 2 puff IH Q6H PRN 30 Days #1 inh PRN Reason: Shortness Of Breath Amiodarone HCl [Cordarone*] 200 mg PO BID 30 Days #60 tab Mometasone/Formoterol [Dulera 200 Mcg-5 Mcg Inhaler] 2 puff IH BID 30 Days #1 inh Apixaban [Eliquis] 5 mg PO BID 30 Days #60 tab Physician Discharge Instructions: Patient presented with shortness of breath and lower extremity swelling. Improved with diuresis and oxygen supplementation was weaned to room air. Partly due to missing doses of diuretics at home. Discussed ok to take 2nd dose of lasix earlier in day. Ideally before 3 or 4pm to prevent him from staying up all night to urinate. Do not skip the spironolactone dose. He has a history of COPD as well and has not been using his dulera inhaler regularly. Reviewed instructions to take that scheduled, and albuterol inhaler / nebulizer as needed. He is stable for discharge home, continue medications as prescribed. Refills sent for dulera and albuterol inhaler. Follow up: PCP within 1 week Cardiology in a few weeks, recommend stress testing in near future Pulmonology - to review COPD Followup: Beto Tan MD [ACTIVE - CAN ADMIT] - 1-2 Weeks (Call for appointment.) Deyvi Loera MD [Primary Care Provider] - 1 Week (Call for appointment.) Marco Mancilla MD [ACTIVE - CAN ADMIT] - 1-2 Weeks (Call for appointment.) Time spent managing pt's care (in minutes): 45
== END 2022-06-02 14:12 | disposition home or self-care (01) | DRG 291 ==
LOC: ER 13:15 → ERHOLD 17:38 → 4TH 05-29 14:11
PROVIDERS: ADMIT Hospitalist; ATTEND Hospitalist
DX: I13.0 Hypertensive heart and chronic kidney disease with heart failure and stage 1 through stage 4 chronic kidney disease, or unspecified chronic kidney disease (principal); I50.23 Acute on chronic systolic (congestive) heart failure; J44.1 Chronic obstructive pulmonary disease with (acute) exacerbation; I48.92 Unspecified atrial flutter; N17.9 Acute kidney failure, unspecified; N18.32 Chronic kidney disease, stage 3b; D63.1 Anemia in chronic kidney disease; N40.0 Benign prostatic hyperplasia without lower urinary tract symptoms; F17.210 Nicotine dependence, cigarettes, uncomplicated; T50.1X6A Underdosing of loop [high-ceiling] diuretics, initial encounter; Z91.14 Patient's other noncompliance with medication regimen; Z79.82 Long term (current) use of aspirin; Z79.899 Other long term (current) drug therapy; Z95.810 Presence of automatic (implantable) cardiac defibrillator; Z28.310 Unvaccinated for COVID-19; Z20.822 Contact with and (suspected) exposure to COVID-19
CPT/HCPCS: 36415; 71045; 80048; 80053; 80076; 81003; 83735; 83880; 84100; 84484; 85025; 85027; 85610; 85730; 87811; 93005; 96374; 99285; J0282; J1644; J1940; J7040; J7060; J7614

== ENCOUNTER 2022-06-11 08:05 | Inpatient (IN) | payer MEDICARE ==
--- OUTSIDE RECORDS SUMMARY | 2022-06-11 08:09 | XMS REPORT | Continuity of Care Document ---
:1955 Author Organization Formerly [facility] t Address [address] [place] [address] Care Team Providers Name Role Phone Sharpless Primary Care Physician HANDY ROBERTSON Attending Clinician Unavailable Ogweno_B Attending Clinician Unavailable MELYSSA POPE Attending Clinician Unavailable JIM SHEEHAN Attending Clinician Unavailable Jim Admitting Clinician Unavailable JIM SHEEHAN Admitting Clinician Unavailable Payers Payer Name Policy Type Policy Number Effective Date Expiration Date S [facility] [id number] 2020 (MEDICARE 00:00:00 REPLACEMENT HMO) Problems [...] Sp radha t of t of - [facility] prostate prostate [facility] [phone] BPH loc w Problem Com mon urin Spirit obs/LUTS - [facility] Allergies, Adverse Reactions, Alerts This patient has no known allergies or adverse reactions. Family History Family Member Diagnosis Comments Start Date Stop Date Source Natural father Hypertension [facility] Natural mother Hypertension [facility] Social History Social Habit Start Date Stop Date Quantity Comments Source History of Common Spirit - Tobacco Use [facility] Alcohol intake 2019-01-04 2019-01-04 Current [facility] [place] [facility] 00:00:00 00:00:00 non-drinker of Medical Ce nter alcohol (finding) Tobacco use and 2017-09-08 2017-09-08 Never used [facility] ke exposure 00:00:00 00:00:00 [facility] Sex Ass[birth year] [facility] 00:00:00 00:00:00 [facility] Center Smoking Status Start Date Stop Date Source Never Smoker [facility] Medications Ordered Filled Start Stop Current Ordering Indication Dosage Frequency Signature Comments Components Source Medication Medication Date Date Medication? Clinician (SIG) Name Name Proscar 5 Proscar 5 2022- No 1{table QD Proscar 5 MG MG 10-17-21 t} MG 00:00: 00:00 00 :00 Proscar 5 Proscar 5 2022- No 1{table QD Proscar 5 MG MG 10-17 05-21 t} MG 00:00: 00:00 00 :00 Tamsulosin [...] 28 daily . Center Tab aspirin 81 2019-0 Yes 81mg QD Take [address] [facility] 8-13 [facility] 14:58: daily. [facility] Center metoprolol 2019-0 Yes 50mg Q.5D Take [address] (LOPRESSOR) 8-13 by mouth 2 Claudia kes 50 MG 14:58: (two) Medical tablet 28 times Center daily. furosemide 2019-0 Yes hypertensio 60mg Q.5D Take [address] [facility] [address] (LASIX) 40 8-13 n by mouth 2 [place] MG tablet 14:58: (two) Medical 28 times Center daily . sacubitril- 2018-0 Yes 1{tbl} QD Take [address] valsartan 8-13 tablet by [facility] (ENTRESTO) 14:58: mouth Medica l 49-51 mg 28 daily . Center Tab aspirin 81 2018-0 Yes 81mg QD Take [address] MG EC 8-13 by mouth [facility] tablet 14:58: daily. [facility] 28 Center metoprolol 20190 Yes 50mg Q.5D Take 50 mg C [...] 28 daily . Center Tab aspirin 81 2019-0 Yes 81mg QD Take [address] MG EC 8-13 by mouth [facility] tablet 14:58: daily. [facility] Center metoprolol 2019-0 Yes 50mg Q.5D Take 50 mg C [...] Name Observation Time Observation Value Comments Source blood pressure 2021-10-17 10:00:00 87 mm[Hg] Common [facility] - diastolic [facility] height 2021-10-17 10:00:00 72 [in_i] [facility] weight 2021-10-17 10:00:00 169.2 [lb_av] [facility] temperature 2021-10-17 10:00:00 98.6 [degF] [facility] bmi 2021-10-17 10:00:00 22.95 kg/m2 [facility] oximetry 2021-10-17 10:00:00 96 % [facility] respiratory rate 2021-10-17 10:00:00 16 /min Comm on [facility] blood pressure 2021-10-17 10:00:00 145 mm[Hg] Common [facility] - systolic [facility] height 2021-06-19 15:30:00 72 [in_i] [facility] weight 2021-06-19 15:30:00 170.6 [lb_av] [facility] temperature 2021-06-19 15:30:00 97.3 [degF] Common S [facility] bmi 2021-06-19 15:30:00 23.13 kg/m2 Common [facility] oximetry 2021-06-19 15:30:00 96 % [facility] respiratory rate 2021-06-19 15:30:00 16 /min Comm on [facility] blood pressure 2021-06-19 15:30:00 155 mm[Hg] Common [facility] - systolic [facility] blood pressure 2021-06-19 15:30:00 84 mm[Hg] Common [facility] diastolic [facility] Procedures This patient has no known procedures. Encounters Start End Encounter Admission Attending Care Care Encounter Source Date/Time Date/Time Type Type Clinicians Facility Department ID 2021-06-19 Outpatient ROBERTSON, STLMLC STLMLC [id number] Common 15:13:01 HANDY [facility] 2022-04-10 2022-04-10 (TEL) STLMLC STLMLC [id number] Co mmon 00:00:00 00:00:00 [facility] 2021-12-06 2021-12-06 Outpatient Ogweno_B [facility] [id number] Devoted 03:39:00 03:39:00 0715 [facility] 2021-11-05 2021-11-05 Outpatient Ogweno_B [facility] [id number] Devoted 11:07:00 11:07:00 0614 Medica l Group 2021-10-17 2021-10-17 OFFICE STLMLC STLMLC [id number] Co mmon 00:00:00 00:00:00 VISIT [facility] LEVEL 2 [facility] 2021-06-25 2021-06-25 (TEL) STLMLC STLMLC [id number] Co mmon 00:00:00 00:00:00 [facility] 2021-06-25 2021-06-25 (TEL) STLMLC STLMLC [id number] Co mmon 00:00:00 00:00:00 Spirit - [facility] 2021-06-19 2021-06-19 OFFICE [facility] [id number] Co mmon 00:00:00 00:00:00 VISIT NEW Spir it PT LEVEL 3 - [facility] 2020-11-01 2020-11-01 Outpatient Ogweno_B [facility] - 2020 [facility] 10:25:00 10:25:00 0610 Medica l Group Results Test Description Test Time Test Comments Results Result Comments Source SARS-COV2/RT-PCR ([facility]) 2019-09-26 14:16:00 Test Item Value Reference Range Interpretation Comme nts SARS-COV2/RT-PCR (test code = 1484941) Not Detected Not Detected, N egative SARS-COV-2 PERFORMING LAB (test code = [facility] Negative results do not preclude SARS-CoV-2 infection [...] of the Act.Fact Sheet for Healthcare Pro viders:https://www.ClassifEye.com/Documents/Xpert%20Xpress%20SARS%20CoV-2/Fact%20Sh eets/302-5892%74WPNL-RAR-4%20HEALTHCARE%20PROVIDERS%20FACT%20SHEET.pdfFact Sheet for Healthcare Patients:https://www.TransBiodiesel.com/Documents/Xpert%20Xpress%20SARS%20CoV-2/Fact%20Sheets/3023801%20SARS-COV -2%20PATIENT%20FACT%20SHEET.pdfPerforming Laboratory:[facility], [place] [address]Boasxnyqhfalk Metabolic [id number] 21:16:53 Test Item Value Reference Range Interpretation [...] A/G 1.2 ratio N Ratio) Comprehensive Metabolic [id number] 21:16:53 Test Item Value Reference Range Interpretation [...] National Kidney Foundation, http://nkdep.ni h.gov Comprehensive Metabolic [id number] 21:16:53 Test Item Value Reference Range Interpretation [...] National Kidney Foundation, http://nkdep.ni h.gov Comprehensive Metabolic [id number] 23:03:04 Test Item Value Reference Range Interpretation [...] A/G 1.5 ratio N Ratio) Comprehensive Metabolic [id number] 23:03:04 Test Item Value Reference Range Interpretation [...] the National Kidney Foundation, http://nkdep.ni h.gov Lipid [id number] 23:03:04 Test Item Value Reference Range Interpretation Comments Cholesterol Total 193 mg/dL 0-200 RISK OF HE ART (test code = DISEASEPublishe d by Cholesterol Total) [employer] Erika lyte Optimal Borderl ine [...] LDL/HDL Ratio=L DL Calc/HDL Chol Thyroid Stimulating [id number] 23:03:04 Test Item Value Reference Range Interpretation Comments TSH (test code = TSH) 0.848 mIU/mL 0.270-4.200 Pro B Natriuretic [id number] 23:03:04 Test Item Value Reference Range Interpretation Comments NT-proBNP (test code = NT-proBNP) 1591 pg/mL 0-124 H Comprehensive Metabolic [id number] 23:03:04 Test Item Value Reference Range Interpretation [...] ag e have not been validated by city [facility] MDRD study and should be interpreted wit [...] account, if the information is provided. If city [facility] race is not provided, and t he patient is -Kiah n, multiply by 1.2 12. If sex is not provided, and t he patient is fema le, multiply by 0.7 42. Results for pat ients <18 years of ag e have not been validated by city [facility] MDRD study and should be interpreted wit h caution. eGFR R esult Interpretation: eGFR > or = 60 is in the Normal RangeeGF R < 60 may mean kid katherine diseaseeGFR < 1 5 may mean kidney failure Rang es recommended by the National Kidney Foundation, http://nkdep.ni h.gov Erythrocyte Sedimentation Rate [id number] 22:26:53 Test Item Value Reference Range Interpretation Comments ESR STAT (test code = ESR STAT) 11 mm/hr 0-9 H Complete Blood Count with [id number] 22:14:43 Test Item Value Reference Range Interpretation [...] code = IPF) 0 % N Automated [id number] 22:14:43 Test Item Value Reference Range Interpretation Comments Neutro Auto (test code = Neutro 41.7 % 36.0-70.0 Auto) Lymph Auto (test code = Lymph Auto) 43.9 % 12.0-44.0 [place] Auto (test code = [place] Auto) 6.5 % 0.0-11.0 Eos, Auto (test code = Eos, Auto) 6.6 % 0.0-7.0 Basophil Auto (test code = Basophil 1.0 % 0.0-2.0 Auto) Neutro Absolute (test code = Neutro 2.9 x10 1.6-7.4 Absolute) Lymph Absolute (test code = Lymph 3.04 x10 .50-4.60 Absolute) [place] Absolute (test code = [place] .45 x10 .00-1.20 Absolute) Eos Absolute (test code = Eos 0.46 x10 0.00-0.74 Absolute) Baso Absolute (test code = Baso 0.07 x10 0.00-0.21 Absolute) IG [id number] 22:14:43 Test Item Value Reference Range Interpretation Comments IG (test code = IG) 0.3 % 0.0-5.0 IG Abs (test code = IG Abs) 0 x10 N RAD, CHEST, 2 [id number] 13:44:00Reason for exam:->SmokerFINAL REPORT TECHNIQUE: 2 views of the chest. COMPARISON: None FINDINGS: The cardiac silhouette is within normal limits. Thoracic aorta is ectatic. Lungs are clear. No acute skeletal abnormality. Left-sided pacing device noted. IMPRESSION: No acute cardiopulmonary disease. Signed:Joel Rogers MDReport Verified Date/Time: 09/08/2017 13:44:07 Reading Location: [facility] Radiology [facility] Room CBC W/PLT COUNT & AUTO [id number] 12:29:00 Test Item Value Reference Range Interpretation [...] (test code Normal = 762) COMPREHENSIVE METABOLIC [id number] 12:29:00 Test Item Value Reference Range Interpretation [...] HESR) 12 mm/Hr 0-9 H CBC with [id number] 04:12:00 Test Item Value Reference Range Interpretation [...] code = 2.8 K/cumm 0.5-4.6 N ALYMPH) [place] Abs (test code = 0.3 K/cumm 0.0-1.2 N AMONO) Eos Abs (test code = 0.10 K/cumm 0.00-0.74 N AEOS) RBC Morphology (test Not Indicated code = RBCMRPH) Platelet Est (test code Adequate Platelets on = PLTEST) Smear Lipid [id number] 03:06:00 Test Item Value Reference Range Interpretation Comments Cholesterol (test 200 mg/dL 0-200 N code = CHOL) Triglycerides (test 104 mg/dL 9-200 N code = TRIG) HDL (test code = 66 mg/dL 40-60 H HDL) Chol/HDL (test code 3.0 Ratio 0.0-5.0 N = CHOLPHDL) LDL, Calculated 113 0-130 N (NOTE)RISK O F HEART (test code = LDLC) DISEASEPu blished by [place] Heart AssociationAnal yte Optimal Boderli ne Increased RiskC HOL <200 200-239 >240TRI G <150 150-199 >200HD L Male: >60 <40HDL Fema le: >60 <50LDL <100 13 0-159 >160LDL NEAR OP TIMAL IS 100-129 VLDL (test code = 21 mg/dL 5-40 N VLDL) LDL/HDL (test code = 2 LDLPHDL) Comprehensive Metabolic [id number] 03:06:00 Test Item Value Reference Range Interpretation [...] code = TSH) 1.40 mIU/mL 0.270-4.200 N [id number] 02:43:00 Test Item Value Reference Range Interpretation Comments NT ProBnp (test code = PBNP) 6296 pg/mL 0-124 H
[2022-06-11] MEDS ORDERED: ACETAMINOPHEN 500 MG TAB ONE ×2 (08:27→08:31)
[2022-06-11 08:34] LABS: Urine Blood Trace-intact (Negative); Urine Glucose Negative (Negative); Urine Protein 3+ (Negative); Urine Specific Gravity 1.025 (1.005-1.030)
[2022-06-11 09:00] LABS: Absolute Lymphocytes (CBC) 1.1 K/uL (0.7-4.9); Hematocrit 37.6 % (39.6-49.0); Lymphocytes % 36.2 % (15.3-44.8); MCV 93.6 fL (80-100); MPV 6.5 fL (7.6-11.3); RBC Red Blood Cell Count 4.02 M/uL (4.33-5.43)
[2022-06-11 09:02] LABS: Protime INR 1.16
[2022-06-11 09:16] LABS: Albumin 2.9 g/dL (3.4-5.0); Bilirubin Total 0.5 mg/dL (0.2-1.0); Potassium 3.5 mmol/L (3.5-5.1); Protein, Total 7.6 g/dL (6.4-8.2)
[2022-06-11 09:23] LABS: Troponin High Sensitivity 94.4 pg/mL (<58.9)
--- NOTE | 2022-06-11 09:31 | RAD REPORT ---
EXAM DESCRIPTION: RAD - Chest Single View - 06/11/2022 8:51 am CLINICAL HISTORY: Cough Chest pain. COMPARISON: Chest Single View dated 05/28/2022; Chest Single View dated 05/20/2022; Chest Single View dated 05/10/2022; Chest Single View dated 05/09/2022 FINDINGS: Portable technique limits examination quality. Mild bilateral pulmonary opacities may represent pulmonary edema or a viral infection. The heart is m oderately enlarged. Single lead pacer/defibrillator device present. IMPRESSION: Mild bilateral pulmonary opacities are seen, improved since 05/28/2022. Findings may ind icate a viral infection or mild pulmonary edema.
[2022-06-11 10:46] LABS: SARS-COV-2 RT PCR POSITIVE (NEGATIVE)
--- NOTE | 2022-06-11 11:09 | ER ---
Nurse's Notes [facility] Name: Edouard Marie Age: 67 yrs Sex: Male : 1955 Arrival Date: 06/11/2022 Time: 08:08 Bed 13 Private MD: Diagnosis: SARS-associated coronavirus as the cause of diseases classified elsewhere;Chest pain, unspecified Presentation: 06/11 08:11 Chief complaint: Patient states: he hasn't been feeling well, has been having diarrhea, ap3 difficulty breathing, possibly has been having fever, chills, mid/upper belly pain, and hasn't been getting much rest at night for approx 3 days now. Coronavirus screen: At this time, the client does not indicate any symptoms associated with coronavirus-19. Ebola Screen: No symptoms or risks identified at this time. Initial Sepsis Screen: Does the patient meet any 2 criteria? Temp <36.0*C (96.8*F)) or > 38.3*C (100.9*F). Does the patient have a suspected source of infection? Yes: Productive cough/pneumonia. Risk Assessment: Do you want to hurt yourself or someone else? Patient reports no desire to harm self or others. Onset of symptoms was June 08, 2022. 08:11 Method Of Arrival: Ambulatory ap3 08:11 Acuity: ERUM 3 ap3 Triage Assessment: 08:16 General: Appears uncomfortable, Behavior is cooperative, anxious. General: Reports ap3 chills for fever for feeling ill for fatigue for. Pain: Complains of pain in epigastric area, right upper quadrant and left upper quadrant Also complains of Diarrhea, cough, congestion. Neuro: Level of Consciousness is awake, alert, obeys commands, Oriented to person, place, time, situation. Cardiovascular: Patient's skin is warm and dry. Respiratory: Reports shortness of breath cough that is Onset: The symptoms/episode began/occurred over the last 3 days. Respiratory: the patient has mild shortness of breath. GI: Reports diarrhea. Historical: - Allergies: 08:13 No Known Allergies; ap3 - Home Meds: 08:13 Entresto 49-51 mg Oral tab [Active]; furosemide 40 mg Oral tab 1 tab 2 times per day ap3 [Active]; tamsulosin 0.4 mg Oral cap 1 cap once daily [Active]; aspirin 81 mg Oral TbEC 1 tab once daily [Active]; finasteride 5 mg Oral tab 1 tab once daily [Active]; multivitamin Oral [Active]; Albuterol Inhl [Active]; d3 [Active]; neb treatment as needed [Active]; Eliquis 5 mg oral tab 1 tab 2 times per day [Active]; 08:16 amiodarone 200 mg Oral tab 1 tab 2 times per day [Active]; amlodipine 5 mg tab 1 tab ap3 once daily [Active]; - PMHx: 08:13 CHF; COPD; Hypertension; ap3 - PSHx: 08:13 L Rotator Cuff Sx; defibrillator; ap3 - Immunization history:: Client reports receiving the 2nd dose of the Covid vaccine. - Social history:: Smoking status: Patient reports the use of cigarette tobacco products, denies chronic smoking, but will smoke occasionally, Patient uses street drugs, marijuana. Screenin:18 Abuse screen: Denies threats or abuse. Nutritional screening: No deficits noted. ap3 Tuberculosis screening: No symptoms or risk factors identified. 09:04 [facility] ED Fall Risk Assessment (Adult) History of falling in the last 3 months, ko1 including since admission No falls in past 3 months (0 pts) Confusion or Disorientation No (0 pts) Intoxicated or Sedated No (0 pts) Impaired Gait Yes (1 pt) Mobility Assist Device Used Yes (1 pt) Altered Elimination No (0 pt) Score/Fall Risk Level 0 - 2 = Low Risk Oriented to surroundings, Maintained a safe environment, Educated pt \T\ family on fall prevention, incl call for assistance when getting out of bed, Assessed \T\ reinforced patient's understanding of fall precautions, Provided non-skid footwear, Hourly rounding (assess needs \T\ fall precautionary measures) done, Used ambulatory aids as needed (educated on \T\ assisted with), Used gait belt as appropriate. Assessment: 08:18 Respiratory: Airway is patent. ap3 08:20 General: Appears in no apparent distress. uncomfortable, ill, Behavior is calm, ko1 cooperative, appropriate for age. Pain: Denies pain. Neuro: No deficits noted. Cardiovascular: Rhythm is irregular. Respiratory: Reports shortness of breath at rest on exertion cough that is non-productive, Respiratory effort is even, unlabored, Breath sounds are clear. GI: No deficits noted. : No deficits noted. EENT: No deficits noted. Derm: No deficits noted. Musculoskeletal: No deficits noted. Vital Signs: 08:11 BP 118 / 80; Pulse 73; Resp 19; Temp 101.4; Pulse Ox 97% ; Weight 81.65 kg; Height 6 ap3 ft. 2 in. (187.96 cm); 10:40 BP 123 / 76; Pulse 75; Resp 16; Pulse Ox 98% on R/A; ko1 11:35 BP 136 / 97; Pulse 63; Pulse Ox 99% ; ko1 11:57 BP 125 / 88; Pulse 68; Pulse Ox 98% ; ko1 08:11 Body Mass Index 23.11 (81.65 kg, 187.96 cm) ap3 ED Course: 08:08 Patient arrived in ED. rg4 08:09 Garima Barrientos FNP-C is [facility]. kb 08:09 Wallace Driscoll MD is Attending Physician. kb 08:13 Triage completed. ap3 08:18 Arm band placed on left wrist. ap3 08:19 Nata Prieto, RN is Primary Nurse. ko1 08:40 Inserted saline lock: 20 gauge in right forearm, using aseptic technique. Blood ss collected. 08:41 CMP Sent. ko1 08:41 CBC with Diff Sent. ko1 08:41 Lactate w/ 2H reflex if indic. Sent. ko1 08:41 Protime (+inr) Sent. ko1 08:41 Ptt, Activated Sent. ko1 08:41 BNP Sent. ko1 08:41 Troponin High Sensitivity Sent. ko1 08:41 COVID-19/FLU A+B Sent. ko1 08:41 Lipase Sent. ko1 08:41 First set of blood cultures drawn. ss 08:53 Chest Single View XRAY In Process Unspecified. EDMS 09:04 Patient has correct armband on for positive identification. Fall risk band placed. ko1 Placed in gown. Bed in low position. Call light in reach. Side rails up X 1. Client placed on continuous cardiac and pulse oximetry monitoring. NIBP monitoring applied. media monitor on. Door closed. Noise minimized. Lights dimmed. 10:12 Blood Culture Adult (2) Sent. ko1 11:08 Himanshu Mendoza MD is Hospitalizing Provider. kb Administered Medications: 08:25 Drug: Acetaminophen 1000 mg Route: PO; ko1 Outcome: 11:08 Decision to Hospitalize by Provider. kb 14:03 Patient left the ED. ko1 Signatures: Dispatcher [employer] EDMS Garima Barrientos, PIT MANAGER-C PIT MANAGER-Ckb Chanda Driver RN RN ss Kalina Delaney rg4 Sheron Kaufman RN RN ap3 Nata Prieto RN RN ko1 Corrections: (The following items were deleted from the chart) 08:43 08:35 Inserted saline lock: 20 gauge in right forearm, using aseptic technique. Blood ss collected. ss 09: 09:04 General: Appears in no apparent distress. comfortable, Behavior is calm, ko1 cooperative, appropriate for age, ko1 : 09:04 Pain: Denies pain. ko1 ko1 : 09:04 Neuro: No deficits noted. ko1 ko1 09: 09:04 Cardiovascular: Rhythm is regular ko1 ko1 09: 09:04 Respiratory: Respiratory effort is even, unlabored, Breath sounds are clear ko1 bilaterally. ko1 09: 09:04 GI: No deficits noted. ko1 ko1 09: 09:04 : No deficits noted. ko1 ko1 09: 09:04 EENT: No deficits noted. ko1 ko1 09: 09:04 Derm: No deficits noted. ko1 ko1 09: 09:04 Musculoskeletal: No deficits noted. ko1 ko1 09: 09:04 Cardiovascular: Parent/caregiver reports patient has had bilateral lower ko1 extremity edema ko1 10:39 08:20 Cardiovascular: Rhythm is regular ko1 ko1
--- NOTE | 2022-06-11 11:09 | EDPHYS ---
Physician Documentation [facility] Name: Edouard Marie Age: 67 yrs Sex: Male : 1955 Arrival Date: 06/11/2022 Time: 08:08 Bed 13 Private MD: ED Physician Wallace Driscoll HPI: 06/11 09:11 This 67 yrs old Black Male presents to ER via Ambulatory with complaints of Breathing kb Difficulty. 09:11 The patient or guardian reports cough, that is intermittent, described as mild, kb difficulty breathing. Onset: The symptoms/episode began/occurred 3 day(s) ago. Severity of symptoms: At their worst the symptoms were moderate, in the emergency department the symptoms are unchanged. Modifying factors: The symptoms are alleviated by nothing, the symptoms are aggravated by nothing. Associated signs and symptoms: Pertinent positives: diarrhea, fever. The patient has not experienced similar symptoms in the past. The patient has not recently seen a physician. Pt reports upper abd pain, diarrhea, fever, chills, bodyaches, malaise, shortness of breath, slight cough for 3 days. . Historical: - Allergies: 08:13 No Known Allergies; ap3 - Home Meds: 08:13 Entresto 49-51 mg Oral tab [Active]; furosemide 40 mg Oral tab 1 tab 2 times per day ap3 [Active]; tamsulosin 0.4 mg Oral cap 1 cap once daily [Active]; aspirin 81 mg Oral TbEC 1 tab once daily [Active]; finasteride 5 mg Oral tab 1 tab once daily [Active]; multivitamin Oral [Active]; Albuterol Inhl [Active]; d3 [Active]; neb treatment as needed [Active]; Eliquis 5 mg oral tab 1 tab 2 times per day [Active]; 08:16 amiodarone 200 mg Oral tab 1 tab 2 times per day [Active]; amlodipine 5 mg tab 1 tab ap3 once daily [Active]; - PMHx: 08:13 CHF; COPD; Hypertension; ap3 - PSHx: 08:13 L Rotator Cuff Sx; defibrillator; ap3 - Immunization history:: Client reports receiving the 2nd dose of the Covid vaccine. - Social history:: Smoking status: Patient reports the use of cigarette tobacco products, denies chronic smoking, but will smoke occasionally, Patient uses street drugs, marijuana. ROS: 09:10 Neuro: Negative for headache, weakness, numbness, tingling, and seizure. kb 09:10 Constitutional: Positive for body aches, chills, fatigue, fever, malaise. 09:10 Respiratory: Positive for cough, shortness of breath. 09:10 Abdomen/GI: Positive for abdominal pain, diarrhea. 09:10 All other systems are negative. 10:56 Cardiovascular: Positive for chest pain. kb Exam: 08:40 ECG was reviewed by the Attending Physician. kb 09:09 Constitutional: This is a well developed, well nourished patient who is awake, alert, kb and in no acute distress. Head/Face: Normocephalic, atraumatic. ENT: Moist Mucous membranes Cardiovascular: Regular rate and rhythm with a normal S1 and S2. No gallops, murmurs, or rubs. No pulse deficits. Respiratory: Respirations even and unlabored. No increased work of breathing. Talking in full sentences Back: No spinal tenderness. No costovertebral tenderness. Full range of motion. Skin: Warm, dry with normal turgor. Normal color. MS/ Extremity: Pulses equal, no cyanosis. Neurovascular intact. Full, normal range of motion. Neuro: Awake and alert, GCS 15, oriented to person, place, time, and situation. Moves all extremities. Normal gait. Psych: Awake, alert, with orientation to person, place and time. Behavior, mood, and affect are within normal limits. 09:09 Abdomen/GI: Inspection: abdomen appears normal, Bowel sounds: normal, Palpation: soft, in all quadrants, moderate abdominal tenderness, in the right upper quadrant and left upper quadrant. Vital Signs: 08:11 BP 118 / 80; Pulse 73; Resp 19; Temp 101.4; Pulse Ox 97% ; Weight 81.65 kg; Height 6 ap3 ft. 2 in. (187.96 cm); 10:40 BP 123 / 76; Pulse 75; Resp 16; Pulse Ox 98% on R/A; ko1 11:35 BP 136 / 97; Pulse 63; Pulse Ox 99% ; ko1 11:57 BP 125 / 88; Pulse 68; Pulse Ox 98% ; ko1 08:11 Body Mass Index 23.11 (81.65 kg, 187.96 cm) ap3 MDM: 08:09 Patient medically screened. kb 09:10 Data reviewed: vital signs, nurses notes. kb 11:06 Differential Diagnosis: Bronchitis Influenza Upper Respiratory Infection Viral Syndrome kb Pneumonia Other covid, acute mi. Consideration of Admission/Observation Patient was admitted/placed on observation. Management of patient was discussed with the following: Hospitalist: YUNIER Liang. I considered the following discharge prescriptions or medication management in the emergency department Antibiotics: At this time antibiotics are not recommended. Care significantly affected by the following chronic conditions: Congestive Heart Failure. Counseling: I had a detailed discussion with the patient and/or guardian regarding: the historical points, exam findings, and any diagnostic results supporting the discharge/admit diagnosis, lab results, radiology results, the need for further work-up and treatment in the hospital. 06/11 08:15 Order name: Blood Culture Adult (2) kb 06/11 08:15 Order name: CBC with Diff; Complete Time: 09:08 kb 06/11 08:15 Order name: CMP; Complete Time: 09:33 kb 06/11 08:15 Order name: Lactate w/ 2H reflex if indic.; Complete Time: 09:15 kb 06/11 08:15 Order name: Protime (+inr); Complete Time: 09:08 kb 06/11 08:15 Order name: Ptt, Activated; Complete Time: 09:08 kb 06/11 08:15 Order name: Troponin High Sensitivity; Complete Time: 09:33 kb 06/11 08:15 Order name: BNP; Complete Time: 09:33 kb 06/11 08:16 Order name: COVID-19/FLU A+B; Complete Time: 10:54 kb 06/11 08:16 Order name: Lipase; Complete Time: 09:33 kb 06/11 08:35 Order name: Urine Dipstick-Ancillary; Complete Time: 08:37 EDMS 06/11 12:30 Order name: Creatine Phosphokinase EDMS 06/11 12:30 Order name: Lipid Profile EDMS 06/11 12:30 Order name: Magnesium EDMS 06/11 08:15 Order name: Chest Single View XRAY; Complete Time: 09:33 kb 06/11 08:15 Order name: EKG; Complete Time: 08:16 kb 06/11 08:15 Order name: Accucheck; Complete Time: 10:12 kb 06/11 08:15 Order name: Cardiac monitoring; Complete Time: 08:26 kb 06/11 08:15 Order name: EKG - Nurse/Tech; Complete Time: 08:34 kb 06/11 12:25 Order name: CONS Physician Consult EDPA 06/11 12:30 Order name: Heart Healthy EDPA 06/11 12:30 Order name: Phosphorus EDPA 06/11 12:30 Order name: T4 Free EDPA 06/11 12:30 Order name: Thyroid Stimulating Hormone EDPA 06/11 12:30 Order name: Urinalysis EDPA 06/11 12:30 Order name: Basic Metabolic Panel EDPA 06/11 12:30 Order name: Basic Metabolic Panel EDPA 06/11 12:30 Order name: CBC with Automated Diff EDPA 06/11 12:30 Order name: CBC with Automated Diff EDPA 06/11 08:15 Order name: IV Saline Lock - Large Bore; Complete Time: 08:40 kb 06/11 08:15 Order name: Labs collected and sent; Complete Time: 08:41 kb 06/11 08:15 Order name: O2 Per Protocol; Complete Time: 08:26 kb 06/11 08:15 Order name: O2 Sat Monitoring; Complete Time: 08:26 kb 06/11 08:15 Order name: Vital Signs; Complete Time: 08:40 kb EC:40 Rate is 69 beats/min. Rhythm is regular. Left axis deviation noted. VT interval is kb prolonged at 294 msec. QRS interval is normal at 118 msec. QT interval is normal at 480 msec. Administered Medications: 08:25 Drug: Acetaminophen 1000 mg Route: PO; ko1 Disposition: 15:05 Co-signature as Attending Physician, Wallace Driscoll MD I agree with the assessment and kdr plan of care. Disposition Summary: 06/11/22 11:08 Hospitalization Ordered Hospitalization Status: Observation kb Provider: Himanshu Mendoza Location: Telemetry/MedSurg (observation) kb Condition: Stable kb Problem: new kb Symptoms: are unchanged kb Bed/Room Type: Standard Room Assignment: 222(06/11/22 13:14) bd Diagnosis - SARS-associated coronavirus as the cause of diseases classified elsewhere kb - Chest pain, unspecified kb Forms: - Medication Reconciliation Form kb - SBAR form kb Signatures: Dispatcher [employer] EDMS Floyd, Garima, MECHANICAL ORDNANCE ASSEMBLER-C MECHANICAL ORDNANCE ASSEMBLER-CkRosa Nogueira Kevin, MD MD kdr Prokisch, Amanda, RN RN ap3 Nata Prieto RN RN ko1 Corrections: (The following items were deleted from the chart) 10:56 09:10 Cardiovascular: Negative for chest pain, palpitations, and edema, kb kb 13:14 11:08 kb bd
[2022-06-11] MEDS ORDERED: ACETAMINOPHEN 325 MG TABLET PO PRN (12:24)
[2022-06-11] MEDS ORDERED: ALBUTEROL 2.5 MG/3 ML NEB SOL NEB PRN (12:27)
[2022-06-11] MEDS ORDERED: ONDANSETRON 4 MG/2 ML VIAL IV PRN (12:27)
--- NOTE | 2022-06-11 12:51 | P.HP ---
Certification for Inpatient Patient admitted to: Inpatient With expected LOS: >2 Midnights Patient will require the following post-hospital care: None Practitioner: I am a practitioner with admitting privileges, knowledge of patient current condition, hospital course, and medical plan of care. Services: Services provided to patient in accordance with Admission requirements found in Title 42 Section 412.3 of the Code of Federal Regulations Patient History Date of Service: 06/11/22 Reason for admission: SOB, Chest pain, cough History of Present Illness: Patient is a 67-year-old male with a past medical history significant for CHF, BPH, COPD, hypertension who presents with complaint of shortness of breath, chest pain and cough that has been ongoing for the past 3 days. Patient indicated that chest pain is located in the substernal chest area. Patient rated pain as 6/10 in severity and described pain as pressure in quality. Patient reported associated signs and symptoms of diarrhea, fever, chills, loss of appetite, generalized body pain, fatigue, weakness and cough. Patient denies any other signs or symptoms. Symptoms are aggravated or relieved by nothing. Patient decided to present to the hospital due to worsening symptoms. Allergies No Known Allergies Allergy (Verified 04/23/21 05:33) Home Medications: Aspirin 81 mg PO DAILY #30 tab.chew 03/18/21 Finasteride 5 mg PO BEDTIME 07/08/21 Tamsulosin [Flomax*] 0.4 mg PO DAILY 07/08/21 Amlodipine [Norvasc*] 5 mg PO DAILY #30 tab 05/11/22 Sacubitril/Valsartan [Entresto 49 mg-51 mg Tablet] 1 tab PO BID #60 tab 05/11/22 Furosemide [Lasix*] 40 mg PO BIDL #70 tab 05/23/22 Albuterol Sulfate [Albuterol Sulfate Hfa] 2 puff IH Q6H PRN 30 Days #1 inh 05/30/22 Mometasone/Formoterol [Dulera 200 Mcg-5 Mcg Inhaler] 2 puff IH BID 30 Days #1 inh 05/30/22 Amiodarone HCl [Cordarone*] 200 mg PO BID 30 Days #60 tab 06/02/22 Apixaban [Eliquis] 5 mg PO BID 30 Days #60 tab 06/02/22 Metoprolol Tartrate [Lopressor*] 50 mg PO BID 06/02/22 - Past Medical/Surgical History Diabetic: No -: Hypertension -: Congestive heart failure -: COPD -: Pacemaker defibrillator -: Rotator cuff repair LEFT Psychosocial/ Personal History: Patient lives at home with his . - Family History Father -: Heart disease, Hypertension - Social History Smoking Status: Former smoker Alcohol use: Yes CD- Drugs: No Caffeine use: No Place of Residence: Home Review of Systems General: Fever, Chills, Other (Poor appetite, generalized body pains, fatigue) Eyes: Unremarkable ENT: Unremarkable Respiratory: Cough, Shortness of Breath Cardiovascular: Chest Pain Gastrointestinal: Diarrhea Genitourinary: Unremarkable Musculoskeletal: Unremarkable Integumentary: Unremarkable Neurological: Weakness Lymphatics: Unremarkable Physical Examination - Physical Exam General: Alert, Oriented x3, Cooperative, Mild distress HEENT: Atraumatic, PERRLA, Mucous membr. moist/pink, EOMI, Sclerae nonicteric Neck: Supple, 2+ carotid pulse no bruit, No LAD, Without JVD or thyroid abnormality Respiratory: Diminished Cardiovascular: No murmurs, Irregular heart rate/rhythm Capillary refill: <2 Seconds Gastrointestinal: Normal bowel sounds, Soft and benign, No tenderness Musculoskeletal: No clubbing, No swelling, No contractures, No tenderness Integumentary: No rashes, No breakdown, No significant lesion, No tenderness/swelling Neurological: Normal speech, Normal tone, Normal affect Lymphatics: No axilla or inguinal lymphadenopathy - Studies Laboratory Data (last 24 hrs) 06/11/22 08:40: PT 12.8 H, INR 1.16, APTT 39.1 H 06/11/22 08:35: Sodium 137, Potassium 3.5, BUN 18, Creatinine 1.42 H, Glucose 97, Total Bilirubin 0.5, AST 26, ALT 30, Alkaline Phosphatase 84, Lipase 183 06/11/22 08:35: WBC 3.10 L, Hgb 12.4 L, Hct 37.6 L, Plt Count 235 Assessment and Plan - Plan --COVID-19 pneumonia. Pulmonology consulted. Recommends placing patient on Paxlovid and steroid. Continue thiamine\vitamin D\vitamin C\Zinc. Will await further recommendation from bad work gatherer. --Acute on chronic systolic CHF exacerbation. Continue diuresis with Lasix. Daily weight and strict I/O. Cardiology consulted. Will await further recommendations. --Acute on chronic COPD exacerbation. Continue steroids and neb treatment with albuterol. Continue supportive care. -- Chest pain. Likely atypical. Serial troponins trending down. Twist Maker on board. Telemetry to monitor for any significant arrhythmia. Further management per machine compositor. --CKD 3B. Stable. We will continue to monitor renal functions. --BPH. Continue home medications. --Hypertension. Stable. Continue home medications. -- History of atrial flutter. Continue Eliquis and amiodarone. --Marijuana use. Patient counseled on drug use cessation. Continue supportive care. -- Anemia of chronic disease. H&H stable. We will continue to monitor hemoglobin and transfuse if less than 7.0. --DVT prophylaxis with Eliquis. Discharge Plan: Home Plan to discharge in: Greater than 2 days - Advance Directives Does patient have a Living Will: No Does patient have a Durable POA for Healthcare: No - Code Status/Comfort Care Code Status Assessed: Yes Physician Review: Patient Assessed, Agree with Above Assessment and Plan Critical Care: No
[2022-06-11] MEDS: NIRMATRELVIR/RITONAVIR TABLET PO SCH ×2 (13:00→20:53)
[2022-06-11] MEDS: dexAMETHasone 10 MG/ML VIAL IV SCH (13:35)
[2022-06-11] MEDS: ASPIRIN 81 MG CHEWABLE TABLET PO SCH (13:35)
[2022-06-11] MEDS ORDERED: dexAMETHasone 10 MG/ML VIAL ONE (13:41)
[2022-06-11] MEDS ORDERED: ASPIRIN 81 MG CHEWABLE TABLET ONE (13:41)
[2022-06-11 16:25] LABS: Magnesium 2.2 mg/dL (1.6-2.4); Phosphorus 2.9 mg/dL (2.5-4.9); Thyroid Stimulating Hormone 1.24 uIU/mL (0.358-3.740)
[2022-06-11] MEDS ORDERED: INFLUENZA VACCINE (for 6+ mo) 0.5 ML DOSE IMVAC ONE (17:00)
[2022-06-11] MEDS ORDERED: PNEUMOCOCCAL VACCINE 0.5 ML IMVAC ONE (17:00)
[2022-06-11] MEDS ORDERED: FUROSEMIDE 40 MG/4 ML VIAL IV SCH (17:00)
--- NOTE | 2022-06-11 19:30 | CON ---
Date of Consultation: 06/11/2022 Reason For Consultation: Congestive heart failure. History Of Present Illness: This is a 67-year-old male. He is well known to me. Has history of sys tolic congestive heart failure, multiple hospitalizations, has history of paroxysmal atrial fibrillat ion, status post amiodarone load last visit, history of COPD, hypertension, presented to the emergenc y room with shortness of breath and chest discomfort, not feeling well. Having diarrhea, fever and c hills and body aches. No vomiting but he is nauseated and no orthopnea. Past Medical History: As outlined above in the HPI. Medications: Refer to reconciliation sheet for detailed list. Allergies: NO KNOWN DRUG ALLERGIES. Family History: No premature coronary artery disease or cancer. Social History: He is an active smoker. Does not drink or use any drugs. Review of Systems: All systems reviewed and they were negative except for mentioned in HPI. Physical Examination: Vital Signs: Temperature is 101.4, pulse 73, breathing 19, blood pressure is 118/80, saturating 97% on room air. General: Pleasant elderly male, in no apparent distress. Head and Neck: Pupils are equal, reactive to light. Intact eye movements. Mild JVD elevation. No cervical lymphadenopathy. Neck is supple. Thyroid is not enlarged. Lungs: Rhonchi bilaterally. No accessory muscle use or muscle retraction. Heart: Regular rate and rhythm. No extra sounds. Abdomen: Soft, nontender. Bowel sounds positive. No organomegaly. No masses or hernia. No rigidi ty or rebound. Extremities: No edema, no clubbing, no cyanosis. Intact pulses. Skin: No rash. Neurological: Alert, awake, oriented x3. No acute focal deficits appreciated. Investigations: BUN 18, creatinine 1.42. Troponin 94. NT-proBNP is 10,529. Chest x-ray, bilateral infiltrates could be pneumonia versus CHF. Assessment And Recommendation: 1.Chronic systolic heart failure. He appears to be at baseline and euvolemic. Careful with diuresi ng him. Repeat basic metabolic panel tomorrow morning and re-dose the Lasix accordingly. Monitor BU N, creatinine, electrolytes. 2.Cough with pneumonia. Patient is being admitted to isolation, starting supportive measures and st eroids. 3.Atrial fibrillation, paroxysmal. He is in sinus now. Continue amiodarone and apixaban. 4.Elevated troponin. Trend 2 more sets and plan accordingly. SR/MODL Voice ID: [id number] Report ID: [id number]
[2022-06-11] MEDS: AMIODARONE HCL 200 MG TAB PO SCH (20:52)
[2022-06-11] MEDS: FINASTERIDE 5 MG TAB PO SCH (20:52)
[2022-06-11] MEDS: APIXABAN 5 MG TABLET PO SCH (20:52)
[2022-06-11] MEDS: SACUBITRIL/VALSARTAN 49/51 MG TAB PO SCH (20:55)
[2022-06-11] MEDS: METOPROLOL TAR 50 MG TAB PO SCH (21:00)
[2022-06-11] MEDS: DULERA 200/5 (MOMETASONE/FORMOTEROL) INHALER IH SCH (21:00)
[2022-06-11] MEDS: HYDROCODONE/APAP 5/325 MG TAB PO PRN (21:02)
[2022-06-12 03:20] LABS: Hematocrit 38.9 % (39.6-49.0); Lymphocytes % 52.3 % (15.3-44.8); MCV 92.9 fL (80-100); MPV 6.8 fL (7.6-11.3); RBC Red Blood Cell Count 4.18 M/uL (4.33-5.43)
[2022-06-12 03:41] LABS: Potassium 4.1 mmol/L (3.5-5.1)
[2022-06-12 05:02] LABS: Blood Morphology Comment NOT SEEN (NOT SEEN); Platelet Estimate ADEQ; White Blood Cell Scan OK (OK)
--- NOTE | 2022-06-12 08:43 | P.CNS ---
Date of Consult: 06/12/22 Reason for Consult: Coronavirus pneumonia Chief Complaint: SOB, Chest pain, cough History of Present Illness: Patient is 67 years of age has been sick for about 2 3 days complaining of cough shortness of breath was admitted tested positive for coronavirus is doing much better just recently discharged with congestive heart failure atient is a 67-year-old male with a past medical history significant for CHF, BPH, COPD, hypertension who presents with complaint of shortness of breath, chest pain and cough t Allergies No Known Allergies Allergy (Verified 04/23/21 05:33) Home Medications: Aspirin 81 mg PO DAILY #30 tab.chew 03/18/21 Finasteride 5 mg PO BEDTIME 07/08/21 Tamsulosin [Flomax*] 0.4 mg PO DAILY 07/08/21 Amlodipine [Norvasc*] 5 mg PO DAILY #30 tab 05/11/22 Sacubitril/Valsartan [Entresto 49 mg-51 mg Tablet] 1 tab PO BID #60 tab 05/11/22 Furosemide [Lasix*] 40 mg PO BIDL #70 tab 05/23/22 Albuterol Sulfate [Albuterol Sulfate Hfa] 2 puff IH Q6H PRN 30 Days #1 inh 05/30/22 Mometasone/Formoterol [Dulera 200 Mcg-5 Mcg Inhaler] 2 puff IH BID 30 Days #1 inh 05/30/22 Amiodarone HCl [Cordarone*] 200 mg PO BID 30 Days #60 tab 06/02/22 Apixaban [Eliquis] 5 mg PO BID 30 Days #60 tab 06/02/22 Metoprolol Tartrate [Lopressor*] 50 mg PO BID 06/02/22 - Past Medical/Surgical History Diabetic: No -: Hypertension -: Congestive heart failure -: COPD -: Pacemaker defibrillator -: Rotator cuff repair LEFT Psychosocial/ Personal History: Patient lives at home with his . - Family History Father Medical History: Heart disease, Hypertension - Social History Smoking Status: Current some day smoker Alcohol use: Yes CD- Drugs: No Caffeine use: No Place of Residence: Home Review of Systems 10-point ROS is otherwise unremarkable General: Weakness Respiratory: Shortness of Breath Physical Examination Temp Pulse Resp BP Pulse Ox 97.1 F 50 20 128/81 93 06/12/22 04:00 06/12/22 04:00 06/12/22 04:00 06/12/22 04:00 06/12/22 04:00 General: Alert, In no apparent distress, Oriented x3 Respiratory: Clear to auscultation bilaterally, Diminished Laboratory Data (last 24 hrs) 06/11/22 08:40: PT 12.8 H, INR 1.16, APTT 39.1 H 06/11/22 08:35: Sodium 137, Potassium 3.5, BUN 18, Creatinine 1.42 H, Glucose 97, Total Bilirubin 0.5, AST 26, ALT 30, Alkaline Phosphatase 84, Lipase 183 06/11/22 08:35: WBC 3.10 L, Hgb 12.4 L, Hct 37.6 L, Plt Count 235 - Problems (1) 2019 novel coronavirus detected Current Visit: Yes Status: Acute Plan: Patient is 67 years of age tested positive for coronavirus presumed coronavirus pneumonia is a little neutropenic vital signs stable no fever he had fever on admission recommend discharge on Paxlovid and low-dose Decadron patient has chronic renal failure stable for discharge
[2022-06-12] MEDS: DULERA 200/5 (MOMETASONE/FORMOTEROL) INHALER IH SCH ×2 (09:00→21:00)
[2022-06-12] MEDS ORDERED: ENOXAPARIN 40 MG/0.4 ML SQ SCH (09:00)
[2022-06-12] MEDS: NIRMATRELVIR/RITONAVIR TABLET PO SCH ×2 (09:00→21:00)
[2022-06-12] MEDS: AMIODARONE HCL 200 MG TAB PO SCH ×2 (09:47→21:00)
[2022-06-12] MEDS: ASPIRIN 81 MG CHEWABLE TABLET PO SCH (09:47)
[2022-06-12] MEDS: dexAMETHasone 10 MG/ML VIAL IV SCH (09:48)
[2022-06-12] MEDS: AMLODIPINE 5 MG TAB PO SCH (09:48)
[2022-06-12] MEDS: ZINC SULFATE 220 MG CAP PO SCH (09:49)
[2022-06-12] MEDS: ASCORBIC ACID 500 MG TABLET PO SCH (09:49)
[2022-06-12] MEDS: VITAMIN D 400 UNIT TAB PO SCH (09:49)
[2022-06-12] MEDS: TAMSULOSIN 0.4 MG SR CAP PO SCH (09:49)
[2022-06-12] MEDS: FUROSEMIDE 40 MG TABLET PO SCH ×2 (09:50→16:35)
[2022-06-12] MEDS: APIXABAN 5 MG TABLET PO SCH ×2 (09:50→21:04)
[2022-06-12] MEDS: SACUBITRIL/VALSARTAN 49/51 MG TAB PO SCH ×2 (09:50→21:03)
[2022-06-12] MEDS: THIAMINE HCL 100 MG TABLET PO SCH (09:50)
[2022-06-12] MEDS: METOPROLOL TAR 50 MG TAB PO SCH ×2 (09:51→21:00)
[2022-06-12] MEDS ORDERED: ALBUTEROL 2.5 MG/3 ML NEB SOL NEB PRN (14:00)
--- NOTE | 2022-06-12 15:34 | EKG ---
Test Date: 2022-06-11 Test Time: 08:35:09 [place]um Tenens: [facility]SON MEASUREMENT RESULTS: Intervals: Rate: 75 LA: QRSD: 118 QT: 428 QTc: 477 [place]: P: LA: QRS: -40 T: 78 INTERPRETIVE STATEMENTS: Atrial fibrillation Left axis deviation Left ventricular hypertrophy with QRS widening ST & T wave abnormality, consider lateral ischemia or digitalis effect Prolonged QT Abnormal ECG Compared to ECG 06/11/2022 08:32:57 ST (T wave) deviation now present Possible ischemia now present Sinus rhythm no longer present Sinus arrhythmia no longer present First degree AV block no longer present Early repolarization no longer present Electronically Signed On 06-12-22 15:32:38 [employer] CONSULTANT by Marco Mancilla
[2022-06-12 18:39] VITALS: BMI 21.4
[2022-06-12] MEDS: FINASTERIDE 5 MG TAB PO SCH (21:03)
[2022-06-12] MEDS: HYDROCODONE/APAP 5/325 MG TAB PO PRN (21:04)
--- NOTE | 2022-06-12 21:39 | P.PN ---
Date of Service: 06/12/22 Subjective: no acute events overnight feeling better, on room air continues with cough, generalized weakness no chest pain ROS: A complete review of systems was performed and is negative except as mentioned above Physical Exam: Gen: NAD, AOx3 HEENT: normal conjunctiva, sclera anicteric CV: regular rate & rhythm, no edema Pulm: non-labored respirations, clear bilaterally, +cough Abd: soft, non-tender, non-distended Neuro: normal speech, normal affect, moves all extremities vitals reviewed Problem List acute on chronic copd exacerbation COVID-19; viral syndrome chronic systolic CHF CKD3 BPH HTN aflutter anemia of chronic disease symptoms most consistent with viral syndrome from COVID-19 paxlovid, steroids oxygen weaned pulm consulted CHF - appears euvolemic continue home meds / lasix temp: 101.4 on admission continue to monitor resume home meds VTE: eliquis Code: full Dispo: home, anticipate tomorrow
[2022-06-13 03:13] LABS: Absolute Lymphocytes (CBC) 1.4 K/uL (0.7-4.9); Hematocrit 36.4 % (39.6-49.0); Lymphocytes % 18.6 % (15.3-44.8); MCV 92.8 fL (80-100); RBC Red Blood Cell Count 3.93 M/uL (4.33-5.43)
[2022-06-13] MEDS: AMIODARONE HCL 200 MG TAB PO SCH (05:04)
[2022-06-13 08:26] VITALS: BP 141/76; TEMP 97.2
[2022-06-13] MEDS: DULERA 200/5 (MOMETASONE/FORMOTEROL) INHALER IH SCH (09:00)
[2022-06-13 09:36] VITALS: O2SAT 97
[2022-06-13] MEDS: NIRMATRELVIR/RITONAVIR TABLET PO SCH (09:57)
[2022-06-13] MEDS: ASPIRIN 81 MG CHEWABLE TABLET PO SCH (09:58)
[2022-06-13] MEDS: VITAMIN D 400 UNIT TAB PO SCH (09:58)
[2022-06-13] MEDS: THIAMINE HCL 100 MG TABLET PO SCH (09:58)
[2022-06-13] MEDS: ZINC SULFATE 220 MG CAP PO SCH (09:58)
[2022-06-13] MEDS: FUROSEMIDE 40 MG TABLET PO SCH (09:59)
[2022-06-13] MEDS: TAMSULOSIN 0.4 MG SR CAP PO SCH (09:59)
[2022-06-13] MEDS: ASCORBIC ACID 500 MG TABLET PO SCH (10:00)
[2022-06-13] MEDS: dexAMETHasone 10 MG/ML VIAL IV SCH (10:00)
[2022-06-13] MEDS: SACUBITRIL/VALSARTAN 49/51 MG TAB PO SCH (10:00)
[2022-06-13] MEDS: APIXABAN 5 MG TABLET PO SCH (10:00)
[2022-06-13] MEDS: AMLODIPINE 5 MG TAB PO SCH (10:01)
== END 2022-06-13 11:30 | disposition home or self-care (01) | DRG 177 ==
LOC: ER 08:05 → ERHOLD 12:21 → 2ND 13:51
PROVIDERS: ADMIT Hospitalist; ATTEND Hospitalist
PROC: XW0 New Technology, Anatomical Regions, Introduction (ICD-10-PCS; principal; 2022-06-11)
DX: U07.1 COVID-19 (principal); J12.82 Pneumonia due to coronavirus disease 2019; J44.0 Chronic obstructive pulmonary disease with (acute) lower respiratory infection; I13.0 Hypertensive heart and chronic kidney disease with heart failure and stage 1 through stage 4 chronic kidney disease, or unspecified chronic kidney disease; I50.22 Chronic systolic (congestive) heart failure; J44.1 Chronic obstructive pulmonary disease with (acute) exacerbation; I48.92 Unspecified atrial flutter; N18.32 Chronic kidney disease, stage 3b; D63.1 Anemia in chronic kidney disease; D70.9 Neutropenia, unspecified; I48.0 Paroxysmal atrial fibrillation; N40.0 Benign prostatic hyperplasia without lower urinary tract symptoms; F17.210 Nicotine dependence, cigarettes, uncomplicated; R77.8 Other specified abnormalities of plasma proteins; Z79.82 Long term (current) use of aspirin; Z79.01 Long term (current) use of anticoagulants; Z95.810 Presence of automatic (implantable) cardiac defibrillator; Z79.899 Other long term (current) drug therapy
CPT/HCPCS: 0240U; 36415; 71045; 80048; 80053; 80061; 81003; 82550; 83605; 83690; 83735; 83880; 84100; 84439; 84443; 84484; 85025; 85610; 85730; 87040; 93005; 99284; J1100; J1940; J3535